=== PATIENT | male | born 1940 | race Caucasian/White ===

== ENCOUNTER 2016-08-05 17:36 | Inpatient (IN) | payer MEDICARE, OTHER ==
[2016-08-05] MEDS ORDERED: ASPIRIN 81 MG CHEW PO STA (18:03)
--- NOTE | 2016-08-05 18:06 | ED ---
General Adult HPI - General Chief complaint: Fall Stated complaint: High Blood Sugar Time Seen by Provider: 08/05/16 17:37 Source: patient, RN notes reviewed Mode of arrival: EMS Limitations: no limitations - History of Present Illness Initial comments: 76-year-old male with history of CHF and CVA presenting after his "legs gave out." Patient states that he was standing in his bathroom sink and he felt weakness in his knees and he sat down on the floor. He denies any significant fall or injury related to this. He states that he was then unable to get up and was stuck on the floor for several hours. He yelled and finally one of his neighbors came and found him and EMS was called. He states that he has been feeling some worsening generalized weakness over the past few days. He denies any chest pain or shortness of breath. He denies any headache or visual changes. He denies any fevers or chills. He does live at home by himself. - Related Data Home Medications Medication Instructions Recorded Confirmed Gabapentin [Neurontin] 400 mg PO DAILY@1200 08/05/16 08/05/16 Gabapentin [Neurontin] 800 mg PO BID 08/05/16 08/05/16 Isosorbide Mononitrate ER [Imdur] 60 mg PO DAILY 08/05/16 08/05/16 Levothyroxine Sodium [Synthroid] 125 mcg PO DAILY 08/05/16 08/05/16 Metoprolol Tartrate [Lopressor] 25 mg PO BID 08/05/16 08/05/16 Terazosin [Hytrin] 4 mg PO HS 08/05/16 08/05/16 Warfarin [Coumadin] 2.5 mg PO MOWEFR 08/05/16 08/05/16 Warfarin [Coumadin] 5 mg PO SUTUTHSA 08/05/16 08/05/16 traZODone HCL 50 mg PO HS 08/05/16 08/05/16 Allergies Allergy/AdvReac Type Severity Reaction Status Date / Time No Known Allergies Allergy Verified 12/11/15 06:31 Review of Systems ROS Statement: Those systems with pertinent positive or pertinent negative responses have been documented in the HPI. Constitutional: No fevers. No chills. No change in appetite. No unexpected weight loss. Eyes: No visual changes. No eye pain. No sensitivity to light. HENT: No sinus pressure. No ear pain. No hearing changes. No epistaxis. No sore throat. Respiratory: No cough. No SOB. No wheezing. Cardiovascular: No chest pain. No palpitations. No lower extremity edema. Abdomen: No abdominal pain. No nausea. No vomiting. No diarrhea. Genitourinary: No dysuria. No hematuria. No difficulty urinating. No flank pain. Musculoskeletal: No injury. No back pain. No myalgias. Skin: No rash. No lesions. No lacerations. Neuro: Positive generalized weakness. No LOC. No seizures. No headache. Psych: No confusion. No memory changes. No anxiety/depression. ROS Other: All systems not noted in ROS Statement are negative. Past Medical History Past Medical History: Heart Failure, CVA/TIA, Diabetes Mellitus, Hearing Disorder / Deafness, Hyperlipidemia, Hypertension, Myocardial Infarction (HI), Pneumonia, Prostate Disorder, Renal Disease, Thyroid Disorder Additional Past Medical History / Comment(s): Pt had recent admission to [facility] with a fall/rhabdomylosis/dehydration and acute on chronic renal insult. 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 Last Myocardial Infarction Date:: 1978 History of Any Multi-Drug Resistant Organisms: None Reported Past Surgical History: Tonsillectomy Additional Past Surgical History / Comment(s): lt great toe amp(gangrene per pt) , noam cataract sx with lenses. 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 currently lives at [facility] assisted living in [place], gets up with a cane. 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 He served in the [employer]. He lives with his niece. He is ambulatory with a seated walker. He has [facility]. A nurse comes twice a week and so does PT. He has not driven in yrs. Smoking Status: Former smoker Past Alcohol Use History: None Reported Additional Past Alcohol Use History / Comment(s): smoked x 30 years quit >30 years ago, in past "2-cases of beer /day quit 24 years ago.denies any drug use. Past Drug Use History: None Reported - Past Family History Father Family Medical History: Cancer, Diabetes Mellitus Additional Family Medical History / Comment(s): bone cancer. in his 60's Mother Family Medical History: Diabetes Mellitus Additional Family Medical History / Comment(s): at age 89 General Exam - General Exam Comments Initial Comments: General: Awake and Alert. No acute distress. Does not appear acutely ill. Obese. Eyes: TRAVIS, EOM intact. No nystagmus. No scleral icterus. HENT: Atraumatic, normocephalic. Mucous membranes moist. Trachea midline. Neck: The neck is supple, there is no tenderness or JVD. Cardiovascular: Regular rate and rhythm. No murmur, rub, or gallop is appreciated. Distal pulses intact, DP 2+ bilateral. Respiratory: Lungs are clear to auscultation bilaterally. No wheezes, rales, rhonchi. No respiratory distress. Gastrointestinal: Soft, Nontender. No rebound or guarding. Non-distended. No masses or organomegaly noted. No CVA tenderness. Musculoskeletal: No tenderness. Normal ROM. No gross deformity. No strength deficits. Bilateral lower extremity edema and 1+ pitting. Neurological: A&Ox3. CN II-XII grossly intact, There are no obvious motor or sensory deficits. Coordination appears grossly intact. Speech is normal. Skin: Skin is warm and dry and no rashes or lesions are noted. Psychiatric: Cooperative, appropriate mood & affect, normal judgment. Limitations: no limitations Course Vital Signs 08/05/16 08/05/16 08/05/16 17:53 19:06 19:29 Temperature 97 F L Pulse Rate 89 90 90 Respiratory 16 16 16 Rate Blood Pressure 99/48 104/55 107/61 O2 Sat by Pulse 92 L 90 L 91 L Oximetry EKG Findings - EKG Comments: EKG Findings:: 18:24. Sinus rhythm with first-degree AV block. Rate 89. CA 256. QRS 96. QT/QTc 408/496. Left axis. LAFB. No STEMI. Abnormal EKG. similar prior EKG 12/11/2015. Medical Decision Making - Medical Decision Making 76-year-old male presenting after he was stuck on the floor at home for many hours today. Also complains of generalized weakness. Lab workup with relatively stable CBC. Serum electrolytes abnormalities are noted including hyperkalemia. He was given a dose of Kayexalate. His initial troponin was elevated. Patient received aspirin in the EC. Patient denies any active chest pain or shortness of breath this time. His BNP is also significantly elevated, history of CHF, given CXR findings of congestive changes there is concern for acute CHF as well. There is concern for muscle breakdown in the setting of his history on the ground today, however judicious fluid management was administered due to his active CHF issues. His also noted to have acute on chronic renal failure. CPK is mildly elevated although it does not appear to be in acute rhabdomyolysis at this time. Patient was reevaluated remained stable without chest pain. Updated on results and plan for admission and he is agreeable to this. I called discussed with Dr. Adam, he is agreeable to admission, discussed his multitude of issues. He requests consultation for nephrology as well after discussion. Discussed no plan for heparin at this time as the patient is therapeutic on warfarin. - Lab Data Result diagrams: 08/05/16 17:51 08/05/16 17:51 Lab Results 08/05/16 08/05/16 08/05/16 Range/Units 17:51 17:51 17:51 WBC 6.7 (3.8-10.6) k/uL RBC 4.03 L (4.30-5.90) m/uL Hgb 12.1 L (13.0-17.5) gm/dL Hct 38.3 L (39.0-53.0) % MCV 95.0 (80.0-100.0) fL MCH 30.1 (25.0-35.0) pg MCHC 31.6 (31.0-37.0) g/dL RDW 14.5 (11.5-15.5) % Plt Count 111 L (150-450) k/uL Neutrophils % 89 % Lymphocytes % 5 % Monocytes % 5 % Eosinophils % 0 % Basophils % 0 % Neutrophils # 6.0 (1.3-7.7) k/uL Lymphocytes # 0.4 L (1.0-4.8) k/uL Monocytes # 0.3 (0-1.0) k/uL Eosinophils # 0.0 (0-0.7) k/uL Basophils # 0.0 (0-0.2) k/uL PT (9.0-12.0) sec INR (<1.1) Sodium 140 (137-145) mmol/L Potassium 5.6 H (3.5-5.1) mmol/L Chloride 108 H (98-107) mmol/L Carbon Dioxide 17 L (22-30) mmol/L Anion Gap 15 mmol/L BUN 37 H (9-20) mg/dL Creatinine 2.70 H (0.66-1.25) mg/dL Est GFR (MDRD) Af Amer 28 (>60 ml/min/1.73 sqM) Est GFR (MDRD) Non-Af 23 (>60 ml/min/1.73 sqM) Glucose 302 H (74-99) mg/dL Calcium 8.2 L (8.4-10.2) mg/dL Creatine Kinase (55-170) U/L Troponin I (0.000-0.034) ng/mL NT-Pro-B Natriuret Pep 23014 pg/mL Urine Color Urine Appearance (Clear) Urine pH (5.0-8.0) Ur Specific Amelia (1.001-1.035) Urine Protein (Negative) Urine Glucose (UA) (Negative) Urine Ketones (Negative) Urine Blood (Negative) Urine Nitrate (Negative) Urine Bilirubin (Negative) Urine Urobilinogen (<2.0) mg/dL Ur Leukocyte Esterase (Negative) Urine RBC (0-5) /hpf Urine Bacteria (None) /hpf Hyaline Casts (0-2) /lpf Granular Casts (0) /lpf Urine Mucus (None) /hpf 08/05/16 08/05/16 08/05/16 Range/Units 17:51 17:51 17:51 WBC (3.8-10.6) k/uL RBC (4.30-5.90) m/uL Hgb (13.0-17.5) gm/dL Hct (39.0-53.0) % MCV (80.0-100.0) fL MCH (25.0-35.0) pg MCHC (31.0-37.0) g/dL RDW (11.5-15.5) % Plt Count (150-450) k/uL Neutrophils % % Lymphocytes % % Monocytes % % Eosinophils % % Basophils % % Neutrophils # (1.3-7.7) k/uL Lymphocytes # (1.0-4.8) k/uL Monocytes # (0-1.0) k/uL Eosinophils # (0-0.7) k/uL Basophils # (0-0.2) k/uL PT 26.8 H (9.0-12.0) sec INR 2.8 (<1.1) Sodium (137-145) mmol/L Potassium (3.5-5.1) mmol/L Chloride (98-107) mmol/L Carbon Dioxide (22-30) mmol/L Anion Gap mmol/L BUN (9-20) mg/dL Creatinine (0.66-1.25) mg/dL Est GFR (MDRD) Af Amer (>60 ml/min/1.73 sqM) Est GFR (MDRD) Non-Af (>60 ml/min/1.73 sqM) Glucose (74-99) mg/dL Calcium (8.4-10.2) mg/dL Creatine Kinase 228 H (55-170) U/L Troponin I 3.810 H* (0.000-0.034) ng/mL NT-Pro-B Natriuret Pep pg/mL Urine Color Urine Appearance (Clear) Urine pH (5.0-8.0) Ur Specific Amelia (1.001-1.035) Urine Protein (Negative) Urine Glucose (UA) (Negative) Urine Ketones (Negative) Urine Blood (Negative) Urine Nitrate (Negative) Urine Bilirubin (Negative) Urine Urobilinogen (<2.0) mg/dL Ur Leukocyte Esterase (Negative) Urine RBC (0-5) /hpf Urine Bacteria (None) /hpf Hyaline Casts (0-2) /lpf Granular Casts (0) /lpf Urine Mucus (None) /hpf 08/05/16 Range/Units 18:50 WBC (3.8-10.6) k/uL RBC (4.30-5.90) m/uL Hgb (13.0-17.5) gm/dL Hct (39.0-53.0) % MCV (80.0-100.0) fL MCH (25.0-35.0) pg MCHC (31.0-37.0) g/dL RDW (11.5-15.5) % Plt Count (150-450) k/uL Neutrophils % % Lymphocytes % % Monocytes % % Eosinophils % % Basophils % % Neutrophils # (1.3-7.7) k/uL Lymphocytes # (1.0-4.8) k/uL Monocytes # (0-1.0) k/uL Eosinophils # (0-0.7) k/uL Basophils # (0-0.2) k/uL PT (9.0-12.0) sec INR (<1.1) Sodium (137-145) mmol/L Potassium (3.5-5.1) mmol/L Chloride (98-107) mmol/L Carbon Dioxide (22-30) mmol/L Anion Gap mmol/L BUN (9-20) mg/dL Creatinine (0.66-1.25) mg/dL Est GFR (MDRD) Af Amer (>60 ml/min/1.73 sqM) Est GFR (MDRD) Non-Af (>60 ml/min/1.73 sqM) Glucose (74-99) mg/dL Calcium (8.4-10.2) mg/dL Creatine Kinase (55-170) U/L Troponin I (0.000-0.034) ng/mL NT-Pro-B Natriuret Pep pg/mL Urine Color Dark Yellow Urine Appearance Cloudy (Clear) Urine pH 5.0 (5.0-8.0) Ur Specific Amelia 1.018 (1.001-1.035) Urine Protein 1+ H (Negative) Urine Glucose (UA) Negative (Negative) Urine Ketones Trace H (Negative) Urine Blood Negative (Negative) Urine Nitrate Negative (Negative) Urine Bilirubin Negative (Negative) Urine Urobilinogen 3.0 (<2.0) mg/dL Ur Leukocyte Esterase Negative (Negative) Urine RBC 2 (0-5) /hpf Urine Bacteria Many H (None) /hpf Hyaline Casts 25 H (0-2) /lpf Granular Casts 1 (0) /lpf Urine Mucus Rare H (None) /hpf - EKG Data -: EKG Interpreted by Me EKG shows normal: sinus rhythm Rate: normal When compared to previous EKG there are: no significant change Interpretation: no acute changes - Radiology Data Radiology results: report reviewed, image reviewed Disposition Clinical Impression: NSTEMI (non-ST elevated myocardial infarction), Hyperkalemia, Acute on chronic renal failure, Fall, CHF (congestive heart failure), Hyperglycemia Disposition: ADMITTED IP TO THIS [facility] Decision to Admit Reason: Admit from EC
[2016-08-05 18:15] LABS: Basophils % (A) 0 %; CH 30.7; CHCM 32.5; Eosinophils % (A) 0 %; HCT 38.3 % (39.0-53.0); HDW 2.81; HGB 12.1 gm/dL (13.0-17.5); Luc # (Auto) 0.04; Luc % (Auto) 1; Lymphocytes # (A) 0.4 k/uL (1.0-4.8); Lymphocytes % (A) 5 %; MCH 30.1 pg (25.0-35.0); MCHC 31.6 g/dL (31.0-37.0); Mean Platelet Volume 9.1; Monocytes # (A) 0.3 k/uL (0-1.0); Monocytes % (A) 5 %; Neutrophils % (A) 89 %; RBC 4.03 m/uL (4.30-5.90); RDW 14.5 % (11.5-15.5); WBC 6.7 k/uL (3.8-10.6)
[2016-08-05 18:24] LABS: Calcium 8.2 mg/dL (8.4-10.2); Potassium 5.6 mmol/L (3.5-5.1)
[2016-08-05 18:27] LABS: INR 2.8 (<1.1); Prothrombin Time 26.8 sec (9.0-12.0)
[2016-08-05] MEDS ORDERED: SODIUM POLYSTYRENE SULFONATE 15 GM/60 ML BOTTLE PO ONE (18:44)
--- NOTE | 2016-08-05 18:54 | XR ---
EXAMINATION TYPE: XR chest 2V DATE OF EXAM: 08/05/2016 6:48 PM COMPARISON: December 13, 2015 HISTORY: Weakness, elevated blood sugar, trauma today TECHNIQUE: Frontal and lateral views of the chest are obtained. FINDINGS: There is a prominent fine interstitial pattern of increased density throughout the lung pa renchyma bilaterally, prominently silhouetting the pulmonary vasculature bilaterally, and with focal consolidation in the right perihilar position. These findings are most compatible with cardiogenic in terstitial phase pulmonary edema with some advanced alveolar phase pulmonary edema. However, this con clusion depends upon clinical exclusion of pneumonia. The cardiac silhouette size is moderately enlarged, similar to the prior study. There is no pleural effusion, or pneumothorax seen. The osseous structures are unremarkable. IMPRESSION: CARDIOGENIC PULMONARY EDEMA RADIOGRAPHIC FINDINGS, DISCUSSED.
--- NOTE | 2016-08-05 19:00 | CT ---
EXAMINATION TYPE: CT brain wo con DATE OF EXAM: 08/05/2016 6:47 PM COMPARISON: November 20, 2015 CT HISTORY: weakness today CT DLP: 1110.2 mGycm Automated exposure control for dose reduction was used. FINDINGS: The previously seen focal geographic encephalomalacia is redemonstrated and unchanged, seen in the right cerebellar hemisphere, the right occipital pole, and high in the right paracentral [place] etal lobe. There is no acute intracranial hemorrhage, mass effect, or midline shift. The ventricles and sulci a re unremarkable. The globes are intact and the visualized sinuses, middle ear cavities, and mastoid sinus air cells are clear. IMPRESSION: NO ACUTE PROCESS, CT HEAD WITHOUT CONTRAST.
[2016-08-05 19:08] LABS: Appearance,Urine Cloudy (Clear); Bacteria,Urine Many /hpf; Bilirubin,Urine Negative (Negative); Glucose,Urine (UA) Negative (Negative); Granular Casts,Urine 1 /lpf (0); Ketones,Urine Trace (Negative); Leukocyte Esterase,Urine Negative (Negative); Mucus,Urine Rare /hpf; Nitrite,Urine Negative (Negative); Particle Count 8049; Protein,Urine 1+ (Negative); RBC,Urine 2 /hpf (0-5); Specific Gravity,Urine 1.018 (1.001-1.035); UA Billing (MACRO vs. MICRO) MICRO
[2016-08-05 20:18] LABS: Glucose,Whole Blood 267 mg/dL (75-99)
[2016-08-05] MEDS: INSULIN DETEMIR 100 UNIT/ML 10 ML VIAL SQ SCH (21:35)
[2016-08-05] MEDS: INSULIN LISPRO (humaLOG) 300 UNIT/3 ML VIAL SQ SCH (21:35)
[2016-08-06 06:11] LABS: Glucose,Whole Blood 156 mg/dL (75-99)
[2016-08-06] MEDS: INSULIN LISPRO (humaLOG) 300 UNIT/3 ML VIAL SQ SCH ×3 (06:28→19:01)
[2016-08-06] MEDS: LEVOTHYROXINE 125 MCG TAB PO SCH (06:28)
[2016-08-06 06:31] LABS: Basophils # (A) 0.1 k/uL (0-0.2); Basophils % (A) 2 %; CH 30.7; CHCM 32.5; Eosinophils % (A) 0 %; HCT 38.6 % (39.0-53.0); HDW 2.76; HGB 12.1 gm/dL (13.0-17.5); Luc # (Auto) 0.07; Luc % (Auto) 1; Lymphocytes # (A) 0.5 k/uL (1.0-4.8); Lymphocytes % (A) 6 %; MCH 29.8 pg (25.0-35.0); MCHC 31.4 g/dL (31.0-37.0); Mean Platelet Volume 8.9; Monocytes # (A) 0.5 k/uL (0-1.0); Monocytes % (A) 6 %; Neutrophils # (A) 6.9 k/uL (1.3-7.7); Neutrophils % (A) 86 %; RBC 4.06 m/uL (4.30-5.90); RDW 14.6 % (11.5-15.5); WBC (Perox) 8.56
[2016-08-06 06:38] LABS: INR 2.7 (<1.1); Prothrombin Time 26.3 sec (9.0-12.0)
[2016-08-06 06:42] LABS: Calcium 8.5 mg/dL (8.4-10.2); Potassium 5.2 mmol/L (3.5-5.1); Total Bilirubin 0.6 mg/dL (0.2-1.3); Total Protein 6.4 g/dL (6.3-8.2)
[2016-08-06 07:25] LABS: Creatine Kinase MB 19.6 ng/mL (0.0-2.4); Troponin I 6.07 ng/mL (0.000-0.034)
[2016-08-06] MEDS ORDERED: FUROSEMIDE 10 MG/ML 10 ML VIAL IV STA (07:56)
[2016-08-06] MEDS ORDERED: FUROSEMIDE 10 MG/ML 4 ML VIAL ONE ×2 (07:58→08:00)
[2016-08-06 08:04] LABS: Glucose,Whole Blood 145 mg/dL (75-99)
--- NOTE | 2016-08-06 08:41 | XR ---
EXAMINATION TYPE: XR chest 1V DATE OF EXAM: 08/06/2016 8:19 AM COMPARISON: 08/05/2016 HISTORY: 76 year-old male respiratory distress, difficulty breathing today TECHNIQUE: Single frontal view of the chest is obtained. FINDINGS: Heart is borderline to mildly enlarged. Diffuse interstitial opacities persist and have worsened with development of more confluent airspace opacities in the lower lungs. Some Basim B lines are seen. IMPRESSION: Worsening diffuse interstitial and now some confluent airspace disease. Correlate for worsening pulmo nary edema. Worsening pneumonia can be excluded on a clinical basis.
[2016-08-06] MEDS ORDERED: IPRATROPIUM-ALBUTEROL 3 ML NEB INHALATION PRN (09:20)
[2016-08-06] MEDS ORDERED: NALOXONE 0.4 MG/ML 1 ML VIAL IV PRN (09:20)
[2016-08-06] MEDS: PANTOPRAZOLE 40 MG/10 ML VIAL IV SCH (10:17)
[2016-08-06] MEDS: SODIUM CHLORIDE 0.9% 1,000 ML IV SCH (10:17)
[2016-08-06] MEDS: HEPARIN SODIUM,PORCINE 5,000 UNIT/ML 1 ML VIAL SQ SCH ×2 (10:17→16:54)
--- NOTE | 2016-08-06 10:35 | P.NPCON ---
History of Present Illness - Reason for Consult Consult date: 08/06/16 acute renal failure - Chief Complaint Acute kidney injury with congestive heart failure - History of Present Illness This is a 76-year-old male admitted with congestive heart failure and acute kidney injury. He was admitted because of sudden loss of muscle strength in his legs and inability to move and he was immobilized for a few hours before he was brought to the emergency room. He denied any syncopal episode. He was able to then get out after a few hours and one of his neighbors found him. Patient aware of chronic kidney disease, past history of rhabdomyolysis, history of fall in the past. She also known with COPD pulmonary hypertension ASHD, diabetes for 25 years. He is also known with peripheral vascular disease with amputation of the left big toe. He denies any nausea vomiting chest pain shortness of breath fever chills cough prior to this acute onset of weakness. No nausea vomiting diarrhea abdominal pain no dysuria frequency. His history is somewhat unreliable as his somewhat weak and tired, and was moved to ICU just now because of somnolence. He is currently on oxygen with a Ventimask and improved mentation Past Medical History Past Medical History: Heart Failure, CVA/TIA, Diabetes Mellitus, Hearing Disorder / Deafness, Hyperlipidemia, Hypertension, Myocardial Infarction (OR), Pneumonia, Prostate Disorder, Renal Disease, Thyroid Disorder Additional Past Medical History / Comment(s): Pt had recent admission to [facility] with a fall/rhabdomylosis/dehydration and acute on chronic renal insult. 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 Last Myocardial Infarction Date:: 1978 History of Any Multi-Drug Resistant Organisms: None Reported Past Surgical History: Tonsillectomy Additional Past Surgical History / Comment(s): lt great toe amp(gangrene per pt) , noam cataract sx with lenses. 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 currently lives at [facility] in [place], gets up with a cane. Past Psychological History: No Psychological Hx Reported Additional Psychological History / Comment(s): Pt is a retired [employer] ( 42yrs). He served in the [employer]. He lives with his niece. He is ambulatory with a seated walker. He has [facility]. A nurse comes twice a week and so does PT. He has not driven in yrs. Smoking Status: Former smoker Past Alcohol Use History: None Reported Additional Past Alcohol Use History / Comment(s): smoked x 30 years quit >30 years ago, in past "2-cases of beer /day quit 24 years ago.denies any drug use. Past Drug Use History: None Reported - Past Family History Father Family Medical History: Cancer, Diabetes Mellitus Additional Family Medical History / Comment(s): bone cancer. in his 60's Mother Family Medical History: Diabetes Mellitus Additional Family Medical History / Comment(s): at age 89 Medications and Allergies Home Medications Medication Instructions Recorded Confirmed Type Ascorbic Acid [Vitamin C] 500 mg PO DAILY 08/05/16 08/05/16 History Captopril [Capoten] 6.25 mg PO TID 08/05/16 08/05/16 History Furosemide [Lasix] 40 mg PO BID 08/05/16 08/05/16 History Gabapentin [Neurontin] 800 mg PO BID 08/05/16 08/05/16 History Hydrophilic Cream [Kerodex 71 1 applic TOPICAL DAILY PRN 08/05/16 08/05/16 History Cream] Isosorbide Mononitrate ER [Imdur] 60 mg PO DAILY 08/05/16 08/05/16 History Levothyroxine Sodium [Synthroid] 125 mcg PO DAILY 08/05/16 08/05/16 History Metoprolol Tartrate [Lopressor] 25 mg PO BID 08/05/16 08/05/16 History Multivitamins, Thera [Multivitamin] 1 tab PO DAILY 08/05/16 08/05/16 History Saxagliptin HCl [Onglyza] 2.5 mg PO DAILY 08/05/16 08/05/16 History Simvastatin [Zocor] 10 mg PO HS 08/05/16 08/05/16 History Terazosin [Hytrin] 4 mg PO HS 08/05/16 08/05/16 History Warfarin [Coumadin] 2.5 mg PO MOWEFR 08/05/16 08/05/16 History Warfarin [Coumadin] 5 mg PO SUTUTHSA 08/05/16 08/05/16 History amLODIPine [Norvasc] 10 mg PO DAILY 08/05/16 08/05/16 History glipiZIDE [Glucotrol] 10 mg PO AC-BID 08/05/16 08/05/16 History hydrALAZINE HCL [Apresoline] 50 mg PO TID 08/05/16 08/05/16 History traZODone HCL 50 mg PO HS 08/05/16 08/05/16 History Allergies Allergy/AdvReac Type Severity Reaction Status Date / Time No Known Allergies Allergy Verified 12/11/15 06:31 Physical Exam Vitals: Vital Signs Temp Pulse Pulse Resp BP BP Pulse Ox 08/06/16 10:10 110 H 15 146/78 97 08/06/16 10:00 106 H 17 146/78 99 08/06/16 09:50 106 H 18 146/78 98 08/06/16 09:40 104 H 16 135/69 99 08/06/16 09:30 104 H 15 135/69 98 08/06/16 09:20 105 H 15 135/69 99 08/06/16 09:10 105 H 16 135/69 98 08/06/16 09:00 110 H 16 135/69 99 08/06/16 08:50 98.0 F 109 H 16 135/69 96 08/06/16 08:45 115 H 08/06/16 04:00 99.3 F 105 H 20 116/68 89 L 08/06/16 00:00 97.4 F L 66 18 95/50 90 L 08/05/16 20:00 97.5 F L 96 19 112/68 90 L 08/05/16 19:29 90 16 107/61 91 L Intake and Output 08/05/16 08/06/16 08/06/16 22:59 06:59 14:59 Intake Total 0 480 Output Total 0 500 400 Balance 0 -20 -400 Intake: Oral 0 480 Output: Urine 0 500 400 Other: Voiding Method Toilet Toilet # Voids 1 Weight 89.5 kg 88.4 kg Examination is awake alert seems to be oriented 3. HEENT exam no JVP neck supple no facial asymmetry. Lungs are significant for bilateral crackles at bases fair air entry no dullness percussion Heart sounds are unremarkable for any murmur rub gallop normal sinus rhythm on the monitor Abdomen is soft nontender no organomegaly ascites masses Extremity examination reveals moderate edema. Absent left big toe from remote amputation. Neurologically sleepy but arousable follows commands and moves all his extremities. Able to do most of his history but unclear as to some details. Results - Lab Results Most recent lab results Calcium 8.5 mg/dL (8.4-10.2) 08/06/16 05:51 08/06/16 05:51 08/06/16 05:51 Assessment and Plan Plan: Impression. 1. Acute kidney injury with creatinine of 2.7. Etiology is acute OR and congestive heart failure. 2. Chronic kidney disease with a creatinine of 1.81 as of 12/13/2015 with trace proteinuria likely nephrosclerosis, with an element of diabetic nephropathy. 3. Thrombocytopenia, platelet count 118,000 previously 140,000 in November 2015. Cause not very clear. 4. Mild hyperkalemia with potassium 5.6 yesterday and 5.2 today with a bicarb of 22. 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 5. Acute OR with troponin up to 3.8 and 6.0. 6. No evidence of rhabdomyolysis total CK is 228 and 267 Recommendation. Agree with aggressive diuresis. I'll start him on 80 mg of Lasix IV every 12. Ensure urine output of about 2-2-1/2 L over the next 24 hours, if necessary adjust the dose of Lasix accordingly. Watch be in creatinine and lites lites urine output blood pressures.
[2016-08-06 10:55] LABS: Hemoglobin A1C 6.2 % (4.2-6.1)
--- NOTE | 2016-08-06 10:56 | P.CNPUL ---
History of Present Illness Consult date: 08/06/16 Reason for consult: dyspnea History of present illness: 76-year-old male patient who was admitted to the hospital because of generalized weakness and the patient felt that his legs essentially gave out. He was standing in his bathroom sink and he felt extremely weak in his legs and he sat down on the floor without sustaining any major injury. He stated that he was feeling very weak and he was unable to get up and he was stuck on the floor for several hours. He ultimately had a neighbor help him out and EMS was called to the scene and the patient got moved to the hospital for further evaluation and treatment. Note that there is no trauma to his head or body. He denied having any chest pain. He was having progressively more shortness of breath. He has had previous history of CVA with some left-sided weakness and he is still INVOLVED the right hemisphere and right occipital lobe. He has history of coronary artery disease, mild congestion heart failure with ejection fraction of 45% and mild aortic stenosis with moderate degree of pulmonary hypertension, chronic atrial fibrillation, diabetes mellitus, hypertension, BPH , and chronic renal failure with a baseline creatinine in the 2.0 range. The patient ruled in for an acute non-ST segment elevation myocardial infarction his troponin peaked at 6. The patient got moved in to the ICU this morning as he went into acute respiratory distress/pulmonary edema. Chest x-ray from admission was compared to the one that was done at the time of his acute shortness of breath and clearly the patient was in acute pulmonary edema. He was given 100 mg IV Lasix and he put out more than 1 L. He was also placed on a BiPAP at a pressure of 10 over 5 cm of water and FiO2 of 100%. His breathing has improved and he is breathing much easier right now although still BiPAP dependent. I was able to wean down his FiO2 down to 50%. He is making adequate urine output at this point. No chest pain. Echo cardiac exam was repeated and apparently there has been some changes compared to the previous echo from 2016. The aortic stenosis was estimated to be severe and the ejection fraction was unofficially reported to be at around 35%. The patient has no cough or sputum production. No change in mental status. Neurologic exam essentially same with some residual weakness in the left which is been a chronic finding any sequelae of a previous CVA. His cardiac rhythm is irregular with sinus and occasional paroxysms of atrial fibrillation. Review of Systems Further review of system was done and the positive findings are almost above the history of present illness Past Medical History Past Medical History: Heart Failure, CVA/TIA, Diabetes Mellitus, Hearing Disorder / Deafness, Hyperlipidemia, Hypertension, Myocardial Infarction ([place]), Pneumonia, Prostate Disorder, Renal Disease, Thyroid Disorder Additional Past Medical History / Comment(s): Pt had recent admission to [facility] with rhabdomylosis/dehydration and acute on chronic renal insult. 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 Benign prostatic hypertrophy, hypothyroidism, diabetes mellitus, mild aortic stenosis and moderate pulmonary hypertension based on a previous echocardiogram with an ejection fraction of 45%, lower extremity wound with infections with stenotrophomonas and Enterococcus faecalis Last Myocardial Infarction Date:: 1978 History of Any Multi-Drug Resistant Organisms: None Reported Past Surgical History: Tonsillectomy Additional Past Surgical History / Comment(s): lt great toe amp(gangrene per pt) , noam cataract sx with lenses. 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 currently lives at [facility] in [place], gets up with a cane. 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 He served in the [employer]. He lives with his niece. He is ambulatory with a seated walker. He has [facility]. A nurse comes twice a week and so does PT. He has not driven in yrs. Smoking Status: Former smoker Past Alcohol Use History: None Reported Additional Past Alcohol Use History / Comment(s): smoked x 30 years quit >30 years ago, in past "2-cases of beer /day quit 24 years ago.denies any drug use. Past Drug Use History: None Reported - Past Family History Father Family Medical History: Cancer, Diabetes Mellitus Additional Family Medical History / Comment(s): bone cancer. in his 60's Mother Family Medical History: Diabetes Mellitus Additional Family Medical History / Comment(s): at age 89 Medications and Allergies Home Medications Medication Instructions Recorded Confirmed Type Ascorbic Acid [Vitamin C] 500 mg PO DAILY 08/05/16 08/05/16 History Captopril [Capoten] 6.25 mg PO TID 08/05/16 08/05/16 History Furosemide [Lasix] 40 mg PO BID 08/05/16 08/05/16 History Gabapentin [Neurontin] 800 mg PO BID 08/05/16 08/05/16 History Hydrophilic Cream [Kerodex 71 1 applic TOPICAL DAILY PRN 08/05/16 08/05/16 History Cream] Isosorbide Mononitrate ER [Imdur] 60 mg PO DAILY 08/05/16 08/05/16 History Levothyroxine Sodium [Synthroid] 125 mcg PO DAILY 08/05/16 08/05/16 History Metoprolol Tartrate [Lopressor] 25 mg PO BID 08/05/16 08/05/16 History Multivitamins, Thera [Multivitamin] 1 tab PO DAILY 08/05/16 08/05/16 History Saxagliptin HCl [Onglyza] 2.5 mg PO DAILY 08/05/16 08/05/16 History Simvastatin [Zocor] 10 mg PO HS 08/05/16 08/05/16 History Terazosin [Hytrin] 4 mg PO HS 08/05/16 08/05/16 History Warfarin [Coumadin] 2.5 mg PO MOWEFR 08/05/16 08/05/16 History Warfarin [Coumadin] 5 mg PO SUTUTHSA 08/05/16 08/05/16 History amLODIPine [Norvasc] 10 mg PO DAILY 08/05/16 08/05/16 History glipiZIDE [Glucotrol] 10 mg PO AC-BID 08/05/16 08/05/16 History hydrALAZINE HCL [Apresoline] 50 mg PO TID 08/05/16 08/05/16 History traZODone HCL 50 mg PO HS 08/05/16 08/05/16 History Allergies Allergy/AdvReac Type Severity Reaction Status Date / Time No Known Allergies Allergy Verified 12/11/15 06:31 Physical Exam Vitals: Vital Signs Temp Pulse Pulse Resp BP BP Pulse Ox 08/06/16 10:10 110 H 15 146/78 97 08/06/16 10:00 106 H 17 146/78 99 08/06/16 09:50 106 H 18 146/78 98 08/06/16 09:40 104 H 16 135/69 99 08/06/16 09:30 104 H 15 135/69 98 08/06/16 09:20 105 H 15 135/69 99 08/06/16 09:10 105 H 16 135/69 98 08/06/16 09:00 110 H 16 135/69 99 08/06/16 08:50 98.0 F 109 H 16 135/69 96 08/06/16 08:45 115 H 08/06/16 04:00 99.3 F 105 H 20 116/68 89 L 08/06/16 00:00 97.4 F L 66 18 95/50 90 L 08/05/16 20:00 97.5 F L 96 19 112/68 90 L 08/05/16 19:29 90 16 107/61 91 L Intake and Output 08/05/16 08/06/16 08/06/16 22:59 06:59 14:59 Intake Total 0 480 Output Total 0 500 400 Balance 0 -20 -400 Intake: Oral 0 480 Output: Urine 0 500 400 Other: Voiding Method Toilet Toilet # Voids 1 Weight 89.5 kg 88.4 kg Head exam was generally normal. There was no scleral icterus or corneal arcus. Mucous membranes were moist. Neck is supple and there is positive JVDs without any goiter or neck masses. Lungs sounds are diminished in lung bases bilaterally along with some bibasilar crackles. Heart sounds are irregular, somewhat tachycardic, systolic ejection murmur grade 2/6 heard throughout the precordium.Abdominal exam revealed normal bowel sounds. The abdomen was soft, non-tender, and without masses, organomegaly, or appreciable enlargement of the abdominal aorta.Examination of the extremities revealed easily palpable radial, femoral and pedal pulses. There was no cyanosis, clubbing or edema. Neurologically the patient has some chronic motor weakness in the left side of the body and the motor power was estimated to be around 4 out of 5. No facial asymmetry. He is awake and alert and following commands and answering questions appropriately. He is tolerating a full face BiPAP mask set a pressure of 10 over 5 cm of water. Results - Laboratory Findings CBC and BMP: 08/06/16 05:51 08/06/16 05:51 PT/INR, D-dimer PT 26.3 sec (9.0-12.0) H 08/06/16 05:51 INR 2.7 (<1.1) 08/06/16 05:51 Abnormal lab findings: Abnormal Labs 08/05/16 08/06/16 08/06/16 20:16 00:04 05:51 RBC Hgb Hct Plt Count Lymphocytes # PT Potassium Chloride BUN Creatinine Glucose POC Glucose (mg/dL) 267 H Total Creatine Kinase 267 H CK-MB (CK-2) 19.6 H* Troponin I 4.910 H* 6.070 H* 08/06/16 08/06/16 08/06/16 05:51 05:51 05:51 RBC 4.06 L Hgb 12.1 L Hct 38.6 L Plt Count 118 L Lymphocytes # 0.5 L PT 26.3 H Potassium 5.2 H Chloride 108 H BUN 40 H Creatinine 2.91 H Glucose 176 H POC Glucose (mg/dL) Total Creatine Kinase CK-MB (CK-2) Troponin I 08/06/16 08/06/16 06:10 07:54 RBC Hgb Hct Plt Count Lymphocytes # PT Potassium Chloride BUN Creatinine Glucose POC Glucose (mg/dL) 156 H 145 H Total Creatine Kinase CK-MB (CK-2) Troponin I - Diagnostic Findings Chest x-ray: image reviewed Assessment and Plan Plan: Assessment 1 acute hypoxic respiratory failure secondary to an acute pulmonary edema. The patient went into acute heart failure with pulmonary edema and he likely has an underlying valvular heart disease/CHF and the congestion heart failure was probably further decompensated by an acute non-ST segment elevation myocardial infarction. Echocardiogram is still pending for now. The patient ruled in positive for acute non-ST segment elevation myocardial infarction. 2 acute non-ST segment myocardial infarction 3 previous history of known coronary artery disease 4 mild aortic stenosis with moderate degree of pulmonary hypertension based on increased echocardiogram with an ejection fraction of 45-50% based on an echo from 2016 5 chronic renal insufficiency, stage III kidney disease at baseline with an acute worsening in her renal function probably rates to cardiorenal factors 6 hypertension 7 hypothyroidism 8 diabetes mellitus 9 diabetic peripheral neuropathy 10 benign prostatic hypertrophy 11 peripheral vascular disease 12 CVA with some left-sided residual weakness, chronic 13 paroxysmal atrial fibrillation 14 history of gangrenous toes that has been resected and the patient has been had previous lower oximetry wound which has been essentially healed and currently there are no open wounds. He has been infected in the past and his wounds with stenotrophomonas and enterococcus. Plan Keep the patient IV Lasix and the patient will be given Lasix 60 mg IV push every 12 hours. Monitor urine output. Keep the patient on BiPAP for now and anticipate further improvement as the patient is being diuresed with IV Lasix. Currently is on a BiPAP at a pressure of 10/5 FiO2 of 50%. Meanwhile, keep the patient on aspirin, monitor the correlation profile knowing that the patient was on warfarin and his INR is at 2.7, restarted patient on beta blockers with metoprolol 25 mg by mouth twice a day. We'll monitor his hemodynamics and blood pressure and consider restarting the Norvasc and hydralazine at a later stage. Cardiology to follow-up on the case. Repeat echocardiogram. Keep the patient in ICU for another 24 hours. Condition is critical at this point.
[2016-08-06] MEDS: IPRATROPIUM-ALBUTEROL 3 ML NEB INHALATION SCH ×4 (11:07→23:28)
[2016-08-06] MEDS: METOPROLOL TARTRATE 25 MG TAB PO SCH (11:20)
[2016-08-06] MEDS: ASPIRIN 325 MG TAB PO SCH (11:20)
[2016-08-06] MEDS: GABAPENTIN 400 MG CAP PO SCH ×2 (11:20→20:16)
[2016-08-06] MEDS: FUROSEMIDE 10 MG/ML 10 ML VIAL IV SCH (11:50)
--- NOTE | 2016-08-06 12:59 | ECHOF ---
Referral Reason:nstemi, elevated troponin MEASUREMENTS -------- HEIGHT: 172.7 cm WEIGHT: 88.0 kg BP: RVIDd: 2.9 cm (< 3.3) IVSd: 1.2 cm (0.6 - 1.1) LVIDd: 5.6 cm (3.9 - 5.3) LVPWd: 1.4 cm (0.6 - 1.1) IVSs: 1.6 cm LVIDs: 4.7 cm LVPWs: 1.3 cm LA Diam: 5.1 cm (2.7 - 3.8) Ao Diam: 4.2 cm (2.0 - 3.7) MV EXCURSION: 17.701 mm (> 18.000) MV EF SLOPE: 84 mm/s (70 - 150) EPSS: 0.8 cm MV E Adal: 0.84 m/s MV DecT: 141 ms MV A Adal: 0.42 m/s MV E/A Ratio: 2.03 AV maxP.39 mmHg AV meanP.76 mmHg RAP: 5.00 mmHg RVSP: 65.14 mmHg FINDINGS -------- Undetermined rhythm. This was a techncally difficult study with suboptimal views, , Definity utilized for enhancement of images. There is mild concentric left ventricular hypertrophy. Overall left ventricular systolic function is moderate-severely impaired with, an EF between 30 - 35 %. Anterseptal Hypokinesis Septal Hypokinesis The right ventricle is normal in size. The left atrial size is normal. The right atrial size is normal. Peak/mean gradient across the Aortic Valve is 25.39mmHg / 14.76mmHg. Aov is Stenotic with decrease opening, Gradient is underestimated. Mild mitral annular calcification present. Mild mitral regurgitation is present. Moderate tricuspid regurgitation present. There is no evidence of pulmonary hypertension. The right ventricular systolic pressure, as measured by Doppler, is 65.14mmHg. The pulmonic valve was not well visualized. There is no pulmonic regurgitation present. The aortic root size is normal. There is no pericardial effusion. CONCLUSIONS -------- 1. This was a techncally difficult study with suboptimal views, , Definity utilized for enhancement of images. 2. The right ventricular systolic pressure, as measured by Doppler, is 65.14mmHg. 3. The aortic root size is normal. 4. There is mild concentric left ventricular hypertrophy. 5. Overall left ventricular systolic function is moderate-severely impaired with, an EF between 30 - 35 %. 6. Anterseptal Hypokinesis 7. Septal Hypokinesis 8. Peak/mean gradient across the Aortic Valve is 25.39mmHg / 14.76mmHg. 9. Aov is Stenotic with decrease opening, Gradient is underestimated. 10. Moderate tricuspid regurgitation present. 11. There is no evidence of pulmonary hypertension. RADIOGRAPHY TECHNICIAN: Sho Mcintyre RDCS
[2016-08-06 13:17] LABS: Glucose,Whole Blood 135 mg/dL (75-99)
[2016-08-06] MEDS: ACETAMINOPHEN TAB 325 MG TAB PO PRN ×2 (15:14→20:07)
[2016-08-06] MEDS ORDERED: AZITHROMYCIN 500 MG in SODIUM CHLORIDE 0.9% 250 ML IVPB SCH (16:00)
--- NOTE | 2016-08-06 17:41 | HP ---
DATE OF ADMISSION: 08/05/2016 The patient is admitted with generalized weakness and felt like his legs gave out, felt extremely weak, sat on the floor without sustaining any major injury and patient was subsequently brought in here and was found to have congestive heart failure, found to have congestive heart failure, found to have non-ST elevation myocardial infarction. The patient denied any chest pain at this point of time. Patient was complaining of generalized weakness, shortness of breath, I am unable to get much of the history from the patient because of the BIPAP and patient apparently has left-sided weakness with right hemispheric stroke and right occipital stroke in the past. Patient's baseline creatinine is around 1.9 and now it has gone up to 2.9 and patient was quite short of breath. I am unable to get much of a history like, orthopnea, PND and the patient chest x-ray showed diffuse infiltrate, consistent with congestive heart failure and pulmonary edema, although there is ( ) I cannot clearly appreciate the right heart border, but I still ( ) but because the patient initially I do not believe patient has pneumonia as patient did not have any fever or leukocytosis, although patient ( ) fever later today because of which I will go ahead and start him on Rocephin and azithromycin although denied any significant cough at this time. Patient may have had pneumonia, which precipitated his congestive heart failure. The patient says he is compliant with his medications recommendations. REVIEW OF SYSTEMS: CONSTITUTIONAL: as described in HPI. HEENT: No recent visual problems or hearing problems. Denied any sore throat. CARDIOVASCULAR: No chest pain, orthopnea, PND, no palpitations, no syncope. PULMONARY: as described in HPI. GASTROINTESTINAL: No diarrhea, no nausea, no vomiting, no abdominal pain. Normoactive bowel sounds. NEUROLOGICAL: as described in HPI. HEMATOLOGICAL: Denies any bleeding or petechiae. GENITOURINARY: Denies any burning micturition, frequency, or urgency. MUSCULOSKELETAL/RHEUMATOLOGICAL: Denies any joint pain, swelling, or any muscle pain. ENDOCRINE: Denies any polyuria or polydipsia. The rest of the 14 point review of systems is negative. PAST MEDICAL HISTORY: Significant for congestive heart failure, previous ejection fraction of 45% presently now 35%, Type 2 diabetes mellitus, hyperlipidemia, hypertension, myocardial infarction in the past, benign prostatic hypertrophy, atrial fibrillation, pneumonia, chronic kidney disease stage III to IV, hypothyroidism and asthma. PAST SURGICAL HISTORY: Tonsillectomy, great toe amputation. Smoked for 30 years; quit over 30 years ago. Denied any alcohol abuse or any drug abuse. FAMILY HISTORY: Father had diabetes mellitus and bone cancer. Mother had diabetes mellitus, at age 89. PHYSICAL EXAMINATION: VITAL SIGNS: Temperature 100.6 presently. It was 99.3, pulse 107, respiratory rate of 20, blood pressure is 106/63, saturating at 94% on BiPAP. Please refer to head worker dictation for further details of vent settings. GENERAL: The patient is alert and oriented x3, not in any acute distress. Well developed, well nourished. HEENT: Pupils are round and equally reacting to light. EOMI. No scleral icterus. No conjunctival pallor. Normocephalic, atraumatic. No pharyngeal erythema. No thyromegaly. CARDIOVASCULAR: S1 and S2 present. Patient does have elevated JVD as well as pedal edema. Patient is on BiPAP. No murmurs, rubs, or gallops. Patient is tachycardic. LUNGS: Diffuse crackles bilaterally and I did not appreciate any clear-cut bronchophony or egophony. o ABDOMEN: Soft, nontender, nondistended, normoactive bowel sounds. No palpable organomegaly. MUSCULOSKELETAL: No joint swelling or deformity. EXTREMITIES: No cyanosis, clubbing, or pedal edema. NEUROLOGICAL: No new focal neurological deficits were appreciated. Did not reveal any focal deficits. SKIN: No rashes. LABORATORY DATA: CBC, CMP are abnormal for elevated potassium of 5.2, chloride of 108 and a BUN of 40, creatinine 2.19, blood glucose improved, ( ) believe patient is on IV insulin at this time. ASSESSMENT AND PLAN: 1. Acute hypoxic respiratory failure from congestive heart failure exacerbation, chronic systolic dysfunction with acute exacerbation along with right middle lobe pneumonia for which I started him on Rocephin and azithromycin. 2. Sepsis secondary to right middle lobe pneumonia. Patient was hospitalized more than 6 months ago. 3. Moderate aortic stenosis. 4. [id number] myocardial infarction. I cannot completely rule out myocardial infarction. Cardiology was counseled and patient is on Coumadin for atrial fibrillation and patient is therapeutic on INR, because of his face is not on heparin. Patient may need and we may need to hold Coumadin and start him on heparin IV. I will leave the decision to cardiology. 5. Chronic kidney disease Stage III with acute renal failure secondary to possible sepsis and intravascular sepsis and congestive heart failure. 6. Prerenal azotemia from congestive heart failure. 7. Hypertension. 8. Hypothyroidism. 9. Type 2 diabetes mellitus. 10. Diabetic peripheral neuropathy. 11. Cerebrovascular accident with residual weakness on the left side. Spent about 50 minutes of critical care time in managing the patient. PLAN: As mentioned above.
--- NOTE | 2016-08-06 18:33 | P.CRDCN ---
History of Present Illness Consult date: 08/06/16 History of present illness: This is a pleasant 76-year-old gentleman with a past medical history significant for cardiomyopathy, diabetes type 2, hypertension, dyslipidemia, and chronic atrial fibrillation, presented to the hospital with extreme weakness and falling at home. The patient fell on the floor without losing his consciousness. He does not recall having any chest pain or chest discomfort but he stated that he has been more short of breath lately. Initially the patient was admitted to the selective unit but he developed an acute respiratory failure and developed acute pulmonary edema. He was transferred to the intensive care unit where he was placed on BiPAP and he was given Lasix IV with improvement in his symptoms. Currently the patient is on BiPAP and he is hemodynamically stable. He was ruled out for acute non-ST elevation myocardial infarction with abnormal troponin. The EKG showed sinus rhythm with bifascicular block. Over the last few hours he has been spiking fever and the pressure starts being marginal. Blood culture was sent. There is no documentation of any history of coronary artery disease or prior coronary artery stenting in the past. He underwent an echocardiogram which showed impaired LV function with an ejection fraction of 35% with evidence of mild aortic stenosis. Past Medical History Past Medical History: Heart Failure, CVA/TIA, Diabetes Mellitus, Hearing Disorder / Deafness, Hyperlipidemia, Hypertension, Myocardial Infarction (NE), Pneumonia, Prostate Disorder, Renal Disease, Thyroid Disorder Additional Past Medical History / Comment(s): Pt had recent admission to [facility] with rhabdomylosis/dehydration and acute on chronic renal insult. 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 Benign prostatic hypertrophy, hypothyroidism, diabetes mellitus, mild aortic stenosis and moderate pulmonary hypertension based on a previous echocardiogram with an ejection fraction of 45%, lower extremity wound with infections with stenotrophomonas and Enterococcus faecalis Last Myocardial Infarction Date:: 1978 History of Any Multi-Drug Resistant Organisms: None Reported Past Surgical History: Tonsillectomy Additional Past Surgical History / Comment(s): lt great toe amp(gangrene per pt) , noam cataract sx with lenses. 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 currently lives at [facility] in [place], gets up with a cane. 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 He served in the [employer]. He lives with his niece. He is ambulatory with a seated walker. He has [facility]. A nurse comes twice a week and so does PT. He has not driven in yrs. Smoking Status: Former smoker Past Alcohol Use History: None Reported Additional Past Alcohol Use History / Comment(s): smoked x 30 years quit >30 years ago, in past "2-cases of beer /day quit 24 years ago.denies any drug use. Past Drug Use History: None Reported - Past Family History Father Family Medical History: Cancer, Diabetes Mellitus Additional Family Medical History / Comment(s): bone cancer. in his 60's Mother Family Medical History: Diabetes Mellitus Additional Family Medical History / Comment(s): at age 89 Medications and Allergies Home Medications Medication Instructions Recorded Confirmed Type Ascorbic Acid [Vitamin C] 500 mg PO DAILY 08/05/16 08/05/16 History Captopril [Capoten] 6.25 mg PO TID 08/05/16 08/05/16 History Furosemide [Lasix] 40 mg PO BID 08/05/16 08/05/16 History Gabapentin [Neurontin] 800 mg PO BID 08/05/16 08/05/16 History Hydrophilic Cream [Kerodex 71 1 applic TOPICAL DAILY PRN 08/05/16 08/05/16 History Cream] Isosorbide Mononitrate ER [Imdur] 60 mg PO DAILY 08/05/16 08/05/16 History Levothyroxine Sodium [Synthroid] 125 mcg PO DAILY 08/05/16 08/05/16 History Metoprolol Tartrate [Lopressor] 25 mg PO BID 08/05/16 08/05/16 History Multivitamins, Thera [Multivitamin] 1 tab PO DAILY 08/05/16 08/05/16 History Saxagliptin HCl [Onglyza] 2.5 mg PO DAILY 08/05/16 08/05/16 History Simvastatin [Zocor] 10 mg PO HS 08/05/16 08/05/16 History Terazosin [Hytrin] 4 mg PO HS 08/05/16 08/05/16 History Warfarin [Coumadin] 2.5 mg PO MOWEFR 08/05/16 08/05/16 History Warfarin [Coumadin] 5 mg PO SUTUTHSA 08/05/16 08/05/16 History amLODIPine [Norvasc] 10 mg PO DAILY 08/05/16 08/05/16 History glipiZIDE [Glucotrol] 10 mg PO AC-BID 08/05/16 08/05/16 History hydrALAZINE HCL [Apresoline] 50 mg PO TID 08/05/16 08/05/16 History traZODone HCL 50 mg PO HS 08/05/16 08/05/16 History Allergies Allergy/AdvReac Type Severity Reaction Status Date / Time No Known Allergies Allergy Verified 12/11/15 06:31 Physical Exam Vitals: Vital Signs Temp Pulse Pulse Resp BP BP Pulse Ox 08/06/16 18:00 100 17 84/58 98 08/06/16 17:30 101 H 19 98/66 99 08/06/16 17:00 104 H 17 98/66 97 08/06/16 16:55 99.4 F 08/06/16 16:30 102 H 19 114/68 95 08/06/16 16:28 102 H 08/06/16 16:19 101 H 08/06/16 16:00 102 H 105 H 19 114/68 96 08/06/16 15:30 102 H 19 106/66 94 L 08/06/16 15:15 100.6 F H 08/06/16 15:00 107 H 20 106/66 94 L 08/06/16 14:30 102 H 18 114/69 95 08/06/16 14:00 106 H 17 114/69 97 08/06/16 13:30 120 H 18 110/61 96 08/06/16 13:17 100.5 F H 08/06/16 13:00 126 H 27 H 110/61 96 08/06/16 12:30 127 H 22 145/75 08/06/16 12:00 115 H 105 H 19 145/75 97 08/06/16 11:50 117 H 18 145/75 96 08/06/16 11:40 118 H 18 156/85 84 L 08/06/16 11:30 99.5 F 122 H 19 156/85 84 L 08/06/16 11:20 115 H 17 156/85 88 L 08/06/16 11:10 116 H 20 156/85 92 L 08/06/16 11:05 118 H 08/06/16 11:00 105 H 21 156/85 84 L 08/06/16 10:50 114 H 18 156/85 91 L 08/06/16 10:40 111 H 16 146/78 97 08/06/16 10:30 110 H 18 146/78 97 08/06/16 10:20 109 H 21 146/78 98 08/06/16 10:10 110 H 15 146/78 97 08/06/16 10:00 106 H 17 146/78 99 08/06/16 09:50 106 H 18 146/78 98 08/06/16 09:40 104 H 16 135/69 99 08/06/16 09:30 104 H 15 135/69 98 08/06/16 09:20 105 H 15 135/69 99 08/06/16 09:10 105 H 16 135/69 98 08/06/16 09:00 110 H 16 135/69 99 08/06/16 08:50 98.0 F 109 H 16 135/69 96 08/06/16 08:45 115 H 08/06/16 08:00 105 H 15 08/06/16 04:00 99.3 F 105 H 20 116/68 89 L 08/06/16 00:00 97.4 F L 66 18 95/50 90 L 08/05/16 20:00 97.5 F L 96 19 112/68 90 L 08/05/16 19:29 90 16 107/61 91 L Intake and Output 08/06/16 08/06/16 08/06/16 06:59 14:59 22:59 Intake Total 480 Output Total 500 1275 230 Balance -20 -1314 -230 Intake: Oral 480 Output: Urine 500 1275 230 Other: Voiding Method Toilet Indwelling Catheter Indwelling Catheter # Voids 1 1 Weight 88.4 kg 88.4 kg Patient Weight 08/07/16 06:59 Weight 88.4 kg - Constitutional General appearance: mild distress, no acute distress - Respiratory Respiratory: bilateral: diminished - Cardiovascular Rhythm: irregularly irregular Heart sounds: normal: S1, S2 Abnormal Heart Sounds: systolic murmur Results 08/06/16 05:51 08/06/16 05:51 Cardiac Enzymes 08/06/16 08/06/16 08/06/16 Range/Units 00:04 05:51 05:51 AST 40 (17-59) U/L CK-MB (CK-2) 19.6 H* (0.0-2.4) ng/mL Troponin I 4.910 H* 6.070 H* (0.000-0.034) ng/mL Coagulation 08/06/16 Range/Units 05:51 PT 26.3 H (9.0-12.0) sec CBC 08/06/16 Range/Units 05:51 WBC 8.0 (3.8-10.6) k/uL RBC 4.06 L (4.30-5.90) m/uL Hgb 12.1 L (13.0-17.5) gm/dL Hct 38.6 L (39.0-53.0) % Plt Count 118 L (150-450) k/uL Comprehensive Metabolic Panel 08/06/16 Range/Units 05:51 Sodium 142 (137-145) mmol/L Potassium 5.2 H (3.5-5.1) mmol/L Chloride 108 H (98-107) mmol/L Carbon Dioxide 22 (22-30) mmol/L BUN 40 H (9-20) mg/dL Creatinine 2.91 H (0.66-1.25) mg/dL Glucose 176 H (74-99) mg/dL Calcium 8.5 (8.4-10.2) mg/dL AST 40 (17-59) U/L ALT 34 (21-72) U/L Alkaline Phosphatase 47 (38-126) U/L Total Protein 6.4 (6.3-8.2) g/dL Albumin 3.5 (3.5-5.0) g/dL Current Medications Generic Name Dose Route Start Last Admin Trade Name Freq PRN Reason Stop Dose Admin Acetaminophen 650 mg 08/06/16 09:20 08/06/16 15:14 Tylenol Tab PO 650 mg Q4HR PRN Administration Fever and/or Mild Pain Albuterol/Ipratropium 3 ml 08/06/16 09:20 Duoneb 0.5 Mg-3 Mg/3 Ml Soln INHALATION RT-Q2H PRN Shortness Of Breath Or Wheezing Albuterol/Ipratropium 3 ml 08/06/16 12:00 08/06/16 16:15 Duoneb 0.5 Mg-3 Mg/3 Ml Soln INHALATION 3 ml RT-Q4H OLIVIA Administration Aspirin 325 mg 08/06/16 09:00 08/06/16 11:20 Aspirin PO 325 mg DAILY OLIVIA Administration Furosemide 60 mg 08/06/16 11:00 08/06/16 11:50 Lasix IV 60 mg Q12HR OLIVIA Administration Gabapentin 800 mg 08/06/16 11:00 08/06/16 11:20 Neurontin PO 800 mg BID OLIVIA Administration Heparin Sodium (Porcine) 5,000 unit 08/06/16 09:30 08/06/16 16:54 Heparin SQ 5,000 unit Q8HR OLIVIA Administration Sodium Chloride 1,000 mls @ 20 mls/hr 08/06/16 09:30 08/06/16 10:17 Saline 0.9% IV 20 mls/hr .Q24H OLIVIA Administration Azithromycin 500 mg/ Sodium 250 mls @ 125 mls/hr 08/06/16 16:00 08/06/16 16: 54 Chloride IVPB 125 mls/hr DAILY@1600 OLIVIA Administration Ceftriaxone Sodium 1,000 mg/ 50 mls @ 100 mls/hr 08/06/16 16:00 08/06/16 16: 54 Sodium Chloride IVPB 100 mls/hr DAILY@1600 OLIVIA Administration Insulin Detemir 15 unit 08/05/16 21:00 08/05/16 21:35 Levemir SQ 15 unit HS OLIVIA Administration Insulin Human Lispro 0 unit 08/05/16 21:00 08/06/16 13:54 Humalog SQ 1 unit ACHS OLIVIA Administration Protocol Levothyroxine Sodium 125 mcg 08/06/16 06:30 08/06/16 06:28 Synthroid PO 125 mcg 0630 OLIVIA Administration Metoprolol Tartrate 25 mg 08/06/16 11:00 08/06/16 11:20 Lopressor PO 25 mg BID OLIVIA Administration Naloxone HCl 0.2 mg 08/06/16 09:20 Narcan IV Q2M PRN Opioid Reversal Pantoprazole Sodium 40 mg 08/06/16 09:30 08/06/16 10:17 Protonix IV 40 mg DAILY OLIVIA Administration Terazosin HCl 4 mg 08/06/16 21:00 Hytrin PO HS OLIVIA Trazodone HCl 50 mg 08/06/16 21:00 Desyrel PO HS OLIVIA Intake and Output 08/06/16 08/06/16 08/06/16 06:59 14:59 22:59 Intake Total 480 Output Total 500 1275 230 Balance -20 -1275 -230 Intake: Oral 480 Output: Urine 500 1275 230 Other: Voiding Method Toilet Indwelling Catheter Indwelling Catheter # Voids 1 1 Weight 88.4 kg 88.4 kg Patient Weight 08/07/16 06:59 Weight 88.4 kg 08/06/16 05:51 08/06/16 05:51 Assessment and Plan Plan: Assessment #1 acute respiratory failure secondary to congestive heart failure exacerbation secondary to systolic dysfunction #2 acute non-ST elevation myocardial infarction with abnormal troponin. #3 fever with possible sepsis #4 atrial fibrillation with controlled heart rate #5 severe cardiomyopathy and known if is ischemic or nonischemic #6 valvular heart disease with evidence of aortic stenosis by echocardiogram #7 multiple comorbid conditions Plan #1 the patient currently is on Lasix IV which we will continue. We will watch the blood pressure and stop the Lasix if the pressure dropped. #2 continue monitor the kidney function and electrolytes as well #3 continue the aspirin and continue metoprolol and DC the metoprolol if the pressure drop. #4 currently he is on anticoagulation with heparin. #5 I would add statin to the current medical treatment in view of the non-STEMI #6 continue following up with him
[2016-08-06 19:01] LABS: Glucose,Whole Blood 132 mg/dL (75-99)
[2016-08-06 20:15] LABS: Glucose,Whole Blood 119 mg/dL (75-99)
[2016-08-06] MEDS ORDERED: NOREPINEPHRINE 4 MG in SODIUM CHLORIDE 0.9% 250 ML IV SCH (20:15)
[2016-08-06] MEDS: traZODone HCL 50 MG TAB PO SCH (20:16)
[2016-08-06 23:45] LABS: Magnesium 2.1 mg/dL (1.6-2.3); Phosphorous 4.6 mg/dL (2.5-4.5)
[2016-08-07] MEDS: HEPARIN SODIUM,PORCINE 5,000 UNIT/ML 1 ML VIAL SQ SCH ×4 (00:24→23:04)
[2016-08-07] MEDS: ATORVASTATIN 40 MG TAB PO SCH ×2 (00:24→22:00)
[2016-08-07] MEDS: PIPERACILLIN-TAZOBACTAM 3.375 GM in DEXTROSE/WATER 1 50ML.BAG IVPB SCH ×3 (00:24→22:01)
[2016-08-07] MEDS: INSULIN DETEMIR 100 UNIT/ML 10 ML VIAL SQ SCH ×2 (00:24→22:09)
[2016-08-07] MEDS: INSULIN LISPRO (humaLOG) 300 UNIT/3 ML VIAL SQ SCH ×5 (00:25→22:01)
[2016-08-07] MEDS: LEVOFLOXACIN 500 MG TAB PO SCH ×2 (00:25→22:02)
[2016-08-07] MEDS: IPRATROPIUM-ALBUTEROL 3 ML NEB INHALATION SCH ×6 (03:25→23:46)
[2016-08-07 03:26] LABS: Basophils # (A) 0.1 k/uL (0-0.2); Basophils % (A) 1 %; CH 30.4; CHCM 32.8; Eosinophils % (A) 0 %; HCT 36.4 % (39.0-53.0); HDW 2.77; HGB 11.7 gm/dL (13.0-17.5); Luc # (Auto) 0.06; Luc % (Auto) 1; Lymphocytes # (A) 0.7 k/uL (1.0-4.8); Lymphocytes % (A) 8 %; MCH 29.9 pg (25.0-35.0); MCV 93.5 fL (80.0-100.0); Mean Platelet Volume 8.6; Monocytes # (A) 0.4 k/uL (0-1.0); Monocytes % (A) 5 %; Neutrophils # (A) 7.7 k/uL (1.3-7.7); Neutrophils % (A) 85 %; RDW 14.6 % (11.5-15.5); WBC (Perox) 9.46
[2016-08-07 03:35] LABS: INR 4.3 (<1.1); Prothrombin Time 42.1 sec (9.0-12.0)
[2016-08-07 04:05] LABS: Calcium 8.2 mg/dL (8.4-10.2); Magnesium 2.1 mg/dL (1.6-2.3); Phosphorous 4.5 mg/dL (2.5-4.5); Potassium 4.6 mmol/L (3.5-5.1)
[2016-08-07 05:01] LABS: Creatine Kinase MB 5.3 ng/mL (0.0-2.4); Troponin I 4.67 ng/mL (0.000-0.034)
[2016-08-07] MEDS: LEVOTHYROXINE 125 MCG TAB PO SCH (06:57)
[2016-08-07] MEDS: FUROSEMIDE 10 MG/ML 10 ML VIAL IV SCH ×4 (07:10→23:05)
[2016-08-07] MEDS: TERAZOSIN 2 MG CAP PO SCH ×2 (07:10→22:01)
[2016-08-07] MEDS: METOPROLOL TARTRATE 25 MG TAB PO SCH ×4 (07:10→22:01)
--- NOTE | 2016-08-07 07:24 | XR ---
EXAMINATION TYPE: XR chest 1V DATE OF EXAM: 08/07/2016 6:33 AM COMPARISON: 08/06/2016 HISTORY: 76 year-old male shortness of breath TECHNIQUE: Single frontal view of the chest is obtained. FINDINGS: Heart remains borderline enlarged. Diffuse interstitial and patchy and confluent airspace opacities p articularly in the left greater than right lower lungs. Aeration has improved within the right upper to midlung. Opacity at the left base has slightly increased and could represent slight enlarging pleu ral effusion. Old healed right sided rib fracture deformity. IMPRESSION: 1. Continued interstitial and airspace disease, suspect pulmonary edema. There has been some improvem ent in aeration in the right upper lobe. 2. Increasing opacity at the left base could represent increasing small pleural effusion with adjacen t atelectasis and/or consolidation.
[2016-08-07 08:00] LABS: Glucose,Whole Blood 154 mg/dL (75-99)
[2016-08-07] MEDS: PANTOPRAZOLE 40 MG/10 ML VIAL IV SCH (08:07)
[2016-08-07] MEDS: GABAPENTIN 400 MG CAP PO SCH ×2 (08:07→22:00)
[2016-08-07] MEDS: ASPIRIN 325 MG TAB PO SCH (08:07)
[2016-08-07] MEDS: SODIUM CHLORIDE 0.9% 1,000 ML IV SCH (10:03)
--- NOTE | 2016-08-07 10:53 | P.PN ---
Subjective Principal diagnosis: This is 76-year-old male seen in consultation because of acute kidney injury secondary to acute IL and congestive heart failure. This morning he remains weak tired. He is on oxygen via a nonrebreather mask. He is denying any chest pain. He was treated with IV Lasix 60 every 12 and urine output is 2105 for the last 24 hours. Other than this he denies any complaints but is very sleepy opens eyes makes eye contact mumbles and goes back to sleep. He was admitted because of sudden loss of muscle strength in his legs and inability to move and he was immobilized for a few hours before he was brought to the emergency room. He denied any syncopal episode. He was able to then get out after a few hours and one of his neighbors found him. Patient aware of chronic kidney disease, past history of rhabdomyolysis, history of fall in the past. She also known with COPD pulmonary hypertension ASHD, diabetes for 25 years. He is also known with peripheral vascular disease with amputation of the left big toe. He denies any nausea vomiting chest pain shortness of breath fever chills cough prior to this acute onset of weakness. No nausea vomiting diarrhea abdominal pain no dysuria frequency. His history is somewhat unreliable as his somewhat weak and tired, and was moved to ICU just now because of somnolence. He is currently on oxygen with a Ventimask and improved mentatio Objective - Vital Signs Vital signs: Vital Signs Temp 100.1 F H 08/07/16 08:00 Pulse 104 H 08/07/16 10:00 Resp 18 08/07/16 10:00 BP 110/62 08/07/16 10:00 Pulse Ox 98 08/07/16 10:00 Intake & Output 08/06/16 08/07/16 08/07/16 18:59 06:59 18:59 Intake Total 467.421 40.0 Output Total 1505 600 465 Balance -1505 -132.579 -425.0 Weight 88.4 kg 92.8 kg Intake: IV 55 15 0.9 55 15 Intake, IV Titration 412.421 25.0 Amount Azithromycin 500 mg In 250 Sodium Chloride 0.9% 250 ml @ 125 mls/hr IVPB DAILY@1600 OLIVIA Rx#: [id number] Norepinephrine 4 mg In 62.421 Sodium Chloride 0.9% 250 ml @ Titrate IV .Q0M OLIVIA Rx#:[id number] Piperacillin-Tazobactam 3 50.0 25.0 .375 gm In Dextrose/Water 1 50ml.bag @ 12.5 mls/hr IVPB Q12HR [facility] Rx#: [id number] cefTRIAXone 1,000 mg In 50 Sodium Chloride 0.9% 50 ml @ 100 mls/hr IVPB DAILY@1600 OLIVIA Rx#: [id number] Output: Urine 1505 600 465 Other: Voiding Method Indwelling Catheter Indwelling Catheter Indwelling Catheter # Voids 1 On examination he is sleepy but arousable and follows commands and tries to answer questions. HEENT exam no JVP neck is supple no facial asymmetry pupils are equal. Lungs are significant for bilateral fine crackles fair air entry no dullness percussion Heart sounds are unremarkable is in normal sinus rhythm. Abdomen soft nontender no organomegaly status masses noted Extremity examination was trace edema Warm to touch. Neurologically arousable sleepy but otherwise unremarkable. Prior - Labs CBC & Chem 7: 08/07/16 03:11 08/07/16 03:11 Labs: Abnormal Lab Results - Last 24 Hours (Table) 08/06/16 08/06/16 08/06/16 Range/Units 05:51 13:15 18:59 RBC (4.30-5.90) m/uL Hgb (13.0-17.5) gm/dL Hct (39.0-53.0) % Plt Count (150-450) k/uL Lymphocytes # (1.0-4.8) k/uL PT (9.0-12.0) sec Chloride (98-107) mmol/L BUN (9-20) mg/dL Creatinine (0.66-1.25) mg/dL Glucose (74-99) mg/dL POC Glucose (mg/dL) 135 H 132 H (75-99) mg/dL Hemoglobin A1c 6.2 H (4.2-6.1) % Plasma Lactic Acid Blake (0.7-2.0) mmol/L Calcium (8.4-10.2) mg/dL Phosphorus (2.5-4.5) mg/dL CK-MB (CK-2) (0.0-2.4) ng/mL Troponin I (0.000-0.034) ng/mL 08/06/16 08/06/1617 Range/Units 20:14 21:45 23:15 RBC (4.30-5.90) m/uL Hgb (13.0-17.5) gm/dL Hct (39.0-53.0) % Plt Count (150-450) k/uL Lymphocytes # (1.0-4.8) k/uL PT (9.0-12.0) sec Chloride (98-107) mmol/L BUN (9-20) mg/dL Creatinine (0.66-1.25) mg/dL Glucose (74-99) mg/dL POC Glucose (mg/dL) 119 H (75-99) mg/dL Hemoglobin A1c (4.2-6.1) % Plasma Lactic Acid Blake 2.4 H* (0.7-2.0) mmol/L Calcium (8.4-10.2) mg/dL Phosphorus 4.6 H (2.5-4.5) mg/dL CK-MB (CK-2) (0.0-2.4) ng/mL Troponin I (0.000-0.034) ng/mL 08/07/16 08/07/16 08/07/16 Range/Units 03:11 03:11 03:11 RBC 3.90 L (4.30-5.90) m/uL Hgb 11.7 L (13.0-17.5) gm/dL Hct 36.4 L (39.0-53.0) % Plt Count 114 L (150-450) k/uL Lymphocytes # 0.7 L (1.0-4.8) k/uL PT 42.1 H (9.0-12.0) sec Chloride 109 H (98-107) mmol/L BUN 49 H (9-20) mg/dL Creatinine 2.79 H (0.66-1.25) mg/dL Glucose 171 H (74-99) mg/dL POC Glucose (mg/dL) (75-99) mg/dL Hemoglobin A1c (4.2-6.1) % Plasma Lactic Acid Blake (0.7-2.0) mmol/L Calcium 8.2 L (8.4-10.2) mg/dL Phosphorus (2.5-4.5) mg/dL CK-MB (CK-2) (0.0-2.4) ng/mL Troponin I (0.000-0.034) ng/mL 08/07/16 08/07/16 08/07/16 Range/Units 03:11 03:11 07:58 RBC (4.30-5.90) m/uL Hgb (13.0-17.5) gm/dL Hct (39.0-53.0) % Plt Count (150-450) k/uL Lymphocytes # (1.0-4.8) k/uL PT (9.0-12.0) sec Chloride (98-107) mmol/L BUN (9-20) mg/dL Creatinine (0.66-1.25) mg/dL Glucose (74-99) mg/dL POC Glucose (mg/dL) 154 H (75-99) mg/dL Hemoglobin A1c (4.2-6.1) % Plasma Lactic Acid Blake 2.3 H* (0.7-2.0) mmol/L Calcium (8.4-10.2) mg/dL Phosphorus (2.5-4.5) mg/dL CK-MB (CK-2) 5.3 H* (0.0-2.4) ng/mL Troponin I 4.670 H* (0.000-0.034) ng/mL Microbiology - Last 24 Hours (Table) 08/06/16 09:43 Urine Culture - Preliminary Urine,Catheterized Assessment and Plan Plan: Impression. 1. Acute kidney injury with creatinine of 2.7. Etiology is acute IL and congestive heart failure. Creatinine this morning is 2.79 unchanged. Urine output is adequate at 2 L but patient remains in congestive heart failure 2. Chronic kidney disease with a creatinine of 1.81 as of 12/13/2015 with trace proteinuria likely nephrosclerosis, with an element of diabetic nephropathy. 3. Thrombocytopenia, platelet count 118,000 previously 140,000 in November 2015. Cause not very clear. 4. Mild hyperkalemia with potassium 5.6 yesterday and 5.2 today with a bicarb of 22. 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 5. Acute IL with troponin up to 3.8 and 6.0. 6. No evidence of rhabdomyolysis total CK is 228 and 267 Recommendation. Increase the Lasix from 60 every 12-82 8 because of the persistence of congestive heart failure. Watch potassium currently is 4.6 stable.
[2016-08-07 12:03] LABS: Glucose,Whole Blood 106 mg/dL (75-99)
--- NOTE | 2016-08-07 12:31 | P.PN ---
Subjective Principal diagnosis: Acute non-ST elevation AL This is a pleasant 76-year-old gentleman with a past medical history significant for cardiomyopathy, diabetes type 2, hypertension, dyslipidemia, and chronic atrial fibrillation, presented to the hospital with extreme weakness and falling at home. The patient fell on the floor without losing his consciousness. He does not recall having any chest pain or chest discomfort but he stated that he has been more short of breath lately. Initially the patient was admitted to the selective unit but he developed an acute respiratory failure and developed acute pulmonary edema. He was transferred to the intensive care unit where he was placed on BiPAP and he was given Lasix IV with improvement in his symptoms. Currently the patient is on BiPAP and he is hemodynamically stable. He was ruled out for acute non-ST elevation myocardial infarction with abnormal troponin. The EKG showed sinus rhythm with bifascicular block. Over the last few hours he has been spiking fever and the pressure starts being marginal. Blood culture was sent. There is no documentation of any history of coronary artery disease or prior coronary artery stenting in the past. He underwent an echocardiogram which showed impaired LV function with an ejection fraction of 35% with evidence of mild aortic stenosis. On follow-up with the patient today, he seems to be less short of breath. He still have bilateral crackles. The dose of Lasix has increased already. Hemodynamically he continues to be stable and continues to be in a sinus rhythm. The dose of metoprolol was held because of marginally low blood pressure. I recommend giving the metoprolol if the systolic blood pressure above 90 mmHg. Objective - Vital Signs Vital signs: Vital Signs Temp 99.5 F 08/07/16 12:00 Pulse 93 08/07/16 12:00 Resp 12 08/07/16 12:00 BP 107/64 08/07/16 12:00 Pulse Ox 99 08/07/16 12:00 Intake & Output 08/06/16 08/07/16 08/07/16 18:59 06:59 18:59 Intake Total 467.421 65.0 Output Total 1505 600 715 Balance -1505 -132.579 -650.0 Weight 88.4 kg 92.8 kg Intake: IV 55 15 0.9 55 15 Intake, IV Titration 412.421 50.0 Amount Azithromycin 500 mg In 250 Sodium Chloride 0.9% 250 ml @ 125 mls/hr IVPB DAILY@1600 [facility] Rx#: [id number] Norepinephrine 4 mg In 62.421 Sodium Chloride 0.9% 250 ml @ Titrate IV .Q0M [facility] Rx#:[id number] Piperacillin-Tazobactam 3 50.0 50.0 .375 gm In Dextrose/Water 1 50ml.bag @ 12.5 mls/hr IVPB Q12HR [facility] Rx#: [id number] cefTRIAXone 1,000 mg In 50 Sodium Chloride 0.9% 50 ml @ 100 mls/hr IVPB DAILY@1600 [facility] Rx#: [id number] Output: Urine 1505 600 715 Other: Voiding Method Indwelling Catheter Indwelling Catheter Indwelling Catheter # Voids 1 - Constitutional General appearance: Present: mild distress, no acute distress - Respiratory Respiratory: bilateral: rales - Cardiovascular Rhythm: regular Heart sounds: normal: S1, S2 - Labs CBC & Chem 7: 08/07/16 03:11 08/07/16 03:11 Labs: Abnormal Lab Results - Last 24 Hours (Table) 08/06/16 08/06/16 08/06/16 Range/Units 13:15 18:59 20:14 RBC (4.30-5.90) m/uL Hgb (13.0-17.5) gm/dL Hct (39.0-53.0) % Plt Count (150-450) k/uL Lymphocytes # (1.0-4.8) k/uL PT (9.0-12.0) sec Chloride (98-107) mmol/L BUN (9-20) mg/dL Creatinine (0.66-1.25) mg/dL Glucose (74-99) mg/dL POC Glucose (mg/dL) 135 H 132 H 119 H (75-99) mg/dL Plasma Lactic Acid Blake (0.7-2.0) mmol/L Calcium (8.4-10.2) mg/dL Phosphorus (2.5-4.5) mg/dL CK-MB (CK-2) (0.0-2.4) ng/mL Troponin I (0.000-0.034) ng/mL 08/06/16 08/06/16 08/07/16 Range/Units 21:45 23:15 03:11 RBC (4.30-5.90) m/uL Hgb (13.0-17.5) gm/dL Hct (39.0-53.0) % Plt Count (150-450) k/uL Lymphocytes # (1.0-4.8) k/uL PT 42.1 H (9.0-12.0) sec Chloride (98-107) mmol/L BUN (9-20) mg/dL Creatinine (0.66-1.25) mg/dL Glucose (74-99) mg/dL POC Glucose (mg/dL) (75-99) mg/dL Plasma Lactic Acid Blake 2.4 H* (0.7-2.0) mmol/L Calcium (8.4-10.2) mg/dL Phosphorus 4.6 H (2.5-4.5) mg/dL CK-MB (CK-2) (0.0-2.4) ng/mL Troponin I (0.000-0.034) ng/mL 08/07/16 08/07/16 08/07/16 Range/Units 03:11 03:11 03:11 RBC 3.90 L (4.30-5.90) m/uL Hgb 11.7 L (13.0-17.5) gm/dL Hct 36.4 L (39.0-53.0) % Plt Count 114 L (150-450) k/uL Lymphocytes # 0.7 L (1.0-4.8) k/uL PT (9.0-12.0) sec Chloride 109 H (98-107) mmol/L BUN 49 H (9-20) mg/dL Creatinine 2.79 H (0.66-1.25) mg/dL Glucose 171 H (74-99) mg/dL POC Glucose (mg/dL) (75-99) mg/dL Plasma Lactic Acid Blake 2.3 H* (0.7-2.0) mmol/L Calcium 8.2 L (8.4-10.2) mg/dL Phosphorus (2.5-4.5) mg/dL CK-MB (CK-2) (0.0-2.4) ng/mL Troponin I (0.000-0.034) ng/mL 08/07/16 08/07/16 08/07/16 Range/Units 03:11 07:58 12:02 RBC (4.30-5.90) m/uL Hgb (13.0-17.5) gm/dL Hct (39.0-53.0) % Plt Count (150-450) k/uL Lymphocytes # (1.0-4.8) k/uL PT (9.0-12.0) sec Chloride (98-107) mmol/L BUN (9-20) mg/dL Creatinine (0.66-1.25) mg/dL Glucose (74-99) mg/dL POC Glucose (mg/dL) 154 H 106 H (75-99) mg/dL Plasma Lactic Acid Blake (0.7-2.0) mmol/L Calcium (8.4-10.2) mg/dL Phosphorus (2.5-4.5) mg/dL CK-MB (CK-2) 5.3 H* (0.0-2.4) ng/mL Troponin I 4.670 H* (0.000-0.034) ng/mL Microbiology - Last 24 Hours (Table) 08/06/16 09:43 Urine Culture - Preliminary Urine,Catheterized Assessment and Plan Plan: Assessment #1 acute respiratory failure secondary to congestive heart failure exacerbation secondary to systolic dysfunction #2 acute non-ST elevation myocardial infarction with abnormal troponin. #3 fever with possible sepsis #4 atrial fibrillation with controlled heart rate #5 severe cardiomyopathy and known if is ischemic or nonischemic #6 valvular heart disease with evidence of aortic stenosis by echocardiogram #7 multiple comorbid conditions Plan #1 the patient currently is on Lasix IV which we will continue. The dose of Lasix was increased today. #2 continue monitor the kidney function and electrolytes as well #3 continue the current medical treatment with aspirin, and statin. #4 the patient needs to have a heart catheterization in the next few days.
--- NOTE | 2016-08-07 14:27 | P.PN ---
Subjective 76-year-old male patient who was admitted to the hospital because of generalized weakness and the patient felt that his legs essentially gave out. He was standing in his bathroom sink and he felt extremely weak in his legs and he sat down on the floor without sustaining any major injury. He stated that he was feeling very weak and he was unable to get up and he was stuck on the floor for several hours. He ultimately had a neighbor help him out and EMS was called to the scene and the patient got moved to the hospital for further evaluation and treatment. Note that there is no trauma to his head or body. He denied having any chest pain. He was having progressively more shortness of breath. He has had previous history of CVA with some left-sided weakness and he is still INVOLVED the right hemisphere and right occipital lobe. He has history of coronary artery disease, mild congestion heart failure with ejection fraction of 45% and mild aortic stenosis with moderate degree of pulmonary hypertension, chronic atrial fibrillation, diabetes mellitus, hypertension, BPH , and chronic renal failure with a baseline creatinine in the 2.0 range. The patient ruled in for an acute non-ST segment elevation myocardial infarction his troponin peaked at 6. The patient got moved in to the ICU this morning as he went into acute respiratory distress/pulmonary edema. Chest x-ray from admission was compared to the one that was done at the time of his acute shortness of breath and clearly the patient was in acute pulmonary edema. He was given 100 mg IV Lasix and he put out more than 1 L. He was also placed on a BiPAP at a pressure of 10 over 5 cm of water and FiO2 of 100%. His breathing has improved and he is breathing much easier right now although still BiPAP dependent. I was able to wean down his FiO2 down to 50%. He is making adequate urine output at this point. No chest pain. Echo cardiac exam was repeated and apparently there has been some changes compared to the previous echo from 2016. The aortic stenosis was estimated to be severe and the ejection fraction was unofficially reported to be at around 35%. The patient has no cough or sputum production. No change in mental status. Neurologic exam essentially same with some residual weakness in the left which is been a chronic finding any sequelae of a previous CVA. His cardiac rhythm is irregular with sinus and occasional paroxysms of atrial fibrillation. On 08/07/2016 the patient is being seen in follow-up. He is less short of breath. On of history using the BiPAP at a pressure of 10 over 5 cm of water. He diuresis nicely with IV Lasix and hip without more than 2 L of urine output over the past 24 hours and another 990 mL since morning shift. The patient is less short of breath. Denies having any cough or sputum production no chest tightness or wheezing. He has a congested cough. His chest x-ray however is still showing interstitial and the airspace disease bilaterally and this is most consistent with edema however the possibility of pneumonia cannot be complete a skilled especially the patient is having episodes of fever throughout the night. No alternative sources of infection can be identified. He was provided on empiric antibiotic coverage with Zosyn. Echocardiogram was repeated the patient's LV function was seen to be further impaired with ejection fraction of 30-35% along with segmental wall motion abnormalities and some degree of aortic stenosis. Note that along with her diuretics the patient required to go on pressors yesterday and he was briefly given norepinephrine infusion for blood pressure support. Currently he is off pressors. Objective - Vital Signs Vital signs: Vital Signs Temp 99.5 F 08/07/16 12:00 Pulse 95 08/07/16 14:00 Resp 12 08/07/16 14:00 BP 109/60 08/07/16 14:00 Pulse Ox 100 08/07/16 14:00 Intake & Output 08/06/16 08/07/16 08/07/16 18:59 06:59 18:59 Intake Total 467.421 85.0 Output Total 1505 600 990 Balance -1505 -132.579 -905.0 Weight 88.4 kg 92.8 kg Intake: IV 55 35 0.9 55 35 Intake, IV Titration 412.421 50.0 Amount Azithromycin 500 mg In 250 Sodium Chloride 0.9% 250 ml @ 125 mls/hr IVPB DAILY@1600 [facility] Rx#: [id number] Norepinephrine 4 mg In 62.421 Sodium Chloride 0.9% 250 ml @ Titrate IV .Q0M [facility] Rx#:[id number] Piperacillin-Tazobactam 3 50.0 50.0 .375 gm In Dextrose/Water 1 50ml.bag @ 12.5 mls/hr IVPB Q12HR [facility] Rx#: [id number] cefTRIAXone 1,000 mg In 50 Sodium Chloride 0.9% 50 ml @ 100 mls/hr IVPB DAILY@1600 [facility] Rx#: [id number] Output: Urine 1505 600 990 Other: Voiding Method Indwelling Catheter Indwelling Catheter Indwelling Catheter # Voids 1 - Exam Head exam was generally normal. There was no scleral icterus or corneal arcus. Mucous membranes were moist. My normal neck lungs sounds are diminished and there is some bibasilar crackles.Cardiac exam revealed the PMI to be normally situated and sized. The rhythm was regular and no extrasystoles were noted during several minutes of auscultation. The first and second heart sounds were normal and physiologic splitting of the second heart sound was noted. There is a systolic ejection murmur grade 2/6 heard over the left lateral sternal border , no rubs, clicks, or gallops. Abdominal exam revealed normal bowel sounds. The abdomen was soft, non-tender, and without masses, organomegaly, or appreciable enlargement of the abdominal aorta.Examination of the extremities revealed easily palpable radial, femoral and pedal pulses. There was no cyanosis, clubbing or edema. - Labs CBC & Chem 7: 08/07/16 03:11 08/07/16 03:11 Labs: Abnormal Lab Results - Last 24 Hours (Table) 08/06/16 08/06/16 08/06/16 Range/Units 18:59 20:14 21:45 RBC (4.30-5.90) m/uL Hgb (13.0-17.5) gm/dL Hct (39.0-53.0) % Plt Count (150-450) k/uL Lymphocytes # (1.0-4.8) k/uL PT (9.0-12.0) sec Chloride (98-107) mmol/L BUN (9-20) mg/dL Creatinine (0.66-1.25) mg/dL Glucose (74-99) mg/dL POC Glucose (mg/dL) 132 H 119 H (75-99) mg/dL Plasma Lactic Acid Blake 2.4 H* (0.7-2.0) mmol/L Calcium (8.4-10.2) mg/dL Phosphorus (2.5-4.5) mg/dL CK-MB (CK-2) (0.0-2.4) ng/mL Troponin I (0.000-0.034) ng/mL 01/13/17 01/14/17 01/14/17 Range/Units 23:15 03:11 03:11 RBC 3.90 L (4.30-5.90) m/uL Hgb 11.7 L (13.0-17.5) gm/dL Hct 36.4 L (39.0-53.0) % Plt Count 114 L (150-450) k/uL Lymphocytes # 0.7 L (1.0-4.8) k/uL PT 42.1 H (9.0-12.0) sec Chloride (98-107) mmol/L BUN (9-20) mg/dL Creatinine (0.66-1.25) mg/dL Glucose (74-99) mg/dL POC Glucose (mg/dL) (75-99) mg/dL Plasma Lactic Acid Blake (0.7-2.0) mmol/L Calcium (8.4-10.2) mg/dL Phosphorus 4.6 H (2.5-4.5) mg/dL CK-MB (CK-2) (0.0-2.4) ng/mL Troponin I (0.000-0.034) ng/mL 08/07/16 08/07/16 08/07/16 Range/Units 03:11 03:11 03:11 RBC (4.30-5.90) m/uL Hgb (13.0-17.5) gm/dL Hct (39.0-53.0) % Plt Count (150-450) k/uL Lymphocytes # (1.0-4.8) k/uL PT (9.0-12.0) sec Chloride 109 H (98-107) mmol/L BUN 49 H (9-20) mg/dL Creatinine 2.79 H (0.66-1.25) mg/dL Glucose 171 H (74-99) mg/dL POC Glucose (mg/dL) (75-99) mg/dL Plasma Lactic Acid Blake 2.3 H* (0.7-2.0) mmol/L Calcium 8.2 L (8.4-10.2) mg/dL Phosphorus (2.5-4.5) mg/dL CK-MB (CK-2) 5.3 H* (0.0-2.4) ng/mL Troponin I 4.670 H* (0.000-0.034) ng/mL 08/07/16 08/07/16 Range/Units 07:58 12:02 RBC (4.30-5.90) m/uL Hgb (13.0-17.5) gm/dL Hct (39.0-53.0) % Plt Count (150-450) k/uL Lymphocytes # (1.0-4.8) k/uL PT (9.0-12.0) sec Chloride (98-107) mmol/L BUN (9-20) mg/dL Creatinine (0.66-1.25) mg/dL Glucose (74-99) mg/dL POC Glucose (mg/dL) 154 H 106 H (75-99) mg/dL Plasma Lactic Acid Blake (0.7-2.0) mmol/L Calcium (8.4-10.2) mg/dL Phosphorus (2.5-4.5) mg/dL CK-MB (CK-2) (0.0-2.4) ng/mL Troponin I (0.000-0.034) ng/mL Microbiology - Last 24 Hours (Table) 08/06/16 09:43 Urine Culture - Final Urine,Catheterized Assessment and Plan Plan: Assessment 1 acute hypoxic respiratory failure secondary to an acute pulmonary edema. The patient went into acute heart failure with pulmonary edema and he likely has an underlying valvular heart disease/CHF and the congestion heart failure was probably further decompensated by an acute non-ST segment elevation myocardial infarction. On 08/07/2016 the patient is still being treated for CHF and the patient is diuresing nicely with IV Lasix. Echocardiogram was noted and the patient has impairment of LV function with ejection fraction of 3035% along with segmental wall motion abnormalities and aortic stenosis. The patient briefly became hypotensive and he was treated with pressors and currently is off norepinephrine infusion. Possibility of superimposed pneumonia to be considered. The patient on IV Zosyn. He is having on and off episodes of fever. Cultures of been sent and results are still pending for now. 2 acute non-ST segment myocardial infarction, with segmental wall motion abnormalities, please refer to the echocardiogram. 3 previous history of known coronary artery disease 4 mild aortic stenosis with moderate degree of pulmonary hypertension based on increased echocardiogram with an ejection fraction of 30% based on an echo from 2016 5 chronic renal insufficiency, stage III kidney disease at baseline with an acute worsening in her renal function probably rates to cardiorenal factors 6 hypertension 7 hypothyroidism 8 diabetes mellitus 9 diabetic peripheral neuropathy 10 benign prostatic hypertrophy 11 peripheral vascular disease 12 CVA with some left-sided residual weakness, chronic 13 paroxysmal atrial fibrillation 14 history of gangrenous toes that has been resected and the patient has been had previous lower extremity wound which has been essentially healed and currently there are no open wounds. He has been infected in the past and his wounds with stenotrophomonas and enterococcus. Plan Keep the patient IV Lasix and the patient will be given Lasix 60 mg IV push every 12 hours. Monitor urine output. Keep the patient on BiPAP intermittently during the day. PT/INR is supratherapeutic at this point with an INR of 4.3 and the patient's Coumadin is on hold. Repeat chest x-ray in the morning. Keep the patient ICU for further monitoring. Cardiology on the case. We'll continue to follow.
--- NOTE | 2016-08-07 17:25 | PN ---
Patient is being treated for congestive heart failure exacerbation as well as possibility of pneumonia in the right middle lobe. Patient's fevers did improve and patient had elevated lactic acid, which is minimally elevated. I do not believe patient will need fluid at this point of time, in spite of elevated lactic acid. I will go ahead and continue the Lasix and he had significant clinical improvement. Patient improved significantly clinically. Continue the antibiotics of ceftriaxone and azithromycin. ( ) were ordered. REVIEW OF SYSTEMS: CARDIOVASCULAR: No chest pain, no orthopnea, no PND, no palpitations. PULMONARY: Significantly improved breathing trouble. GASTROINTESTINAL: No diarrhea, nausea or vomiting. No abdominal pain. Normoactive bowel sounds. NEUROLOGIC: No headaches, no weakness, no numbness. Medications were reviewed. PHYSICAL EXAMINATION: Temperature of 99.5, ( ) now is 101.1, pulse of 108, respiratory rate of 12, blood pressure 108/57, saturating at 93% on 100% nonrebreather earlier today, now is on 6 liters of oxygen. GENERAL: The patient is alert and oriented x3, not in any acute distress. Well developed, well nourished. HEENT: Pupils are round and equally reacting to light. EOMI. No scleral icterus. No conjunctival pallor. Normocephalic, atraumatic. No pharyngeal erythema. No thyromegaly. CARDIOVASCULAR: S1 and S2 present. No significant ( ) S3. I do not hear any S4. PULMONARY: Patient does have bibasilar crackles, more significant in the right lower lung hunt posteriorly. ABDOMEN: Soft, nontender, nondistended, normoactive bowel sounds. No palpable organomegaly. MUSCULOSKELETAL: No joint swelling or deformity. EXTREMITIES: No cyanosis, clubbing, or pedal edema. NEUROLOGICAL: Gross neurological examination did not reveal any focal deficits. SKIN: No rashes. ASSESSMENT AND PLAN: 1. Acute hypoxic respiratory and congestive heart failure with exacerbation, which I believe is precipitated by pneumonia. Patient is on Rocephin and azithromycin. Patient is on IV Lasix with significant improvement in his respiratory status. Patient is presently on 6 liters of oxygen down from BiPAP yesterday. 2. Possible sepsis secondary to right middle lobe pneumonia, most probably pneumococcal in nature. 3. Moderate aortic stenosis. 4. Non-ST elevated myocardial infarction. We cannot really the type of myocardial infarction ( ) related to elevated troponin secondary to sepsis, but patient was evaluated by Cardiology and they are recommending cardiac catheterization. 5. Chronic kidney disease stage III. 6. Prerenal azotemia from congestive heart failure. With the Lasix his creatinine is expected to improve. 7. Lactic acidosis from pneumonia although IV fluids recommended, because of his improvement and his cardiopulmonary status and his overall status, will go ahead and continue with Lasix. 8. Hypertension. 9. Hypothyroidism. 10. Type 2 diabetes mellitus. 11. Peripheral neuropathy. 12. Cerebrovascular accident with residual weakness on the left side.
[2016-08-07 18:14] LABS: Glucose,Whole Blood 92 mg/dL (75-99)
[2016-08-07 21:51] LABS: Glucose,Whole Blood 82 mg/dL (75-99)
[2016-08-07] MEDS: traZODone HCL 50 MG TAB PO SCH (22:02)
--- NOTE | 2016-08-07 23:36 | P.CONS ---
History of Present Illness - Reason for Consult Consult date: 08/07/16 - Chief Complaint weakness with fall - History of Present Illness 76-year-old male presents to the emergency center after gently going to the floor while he was in front of the sink. He does recall the event. He became weak and went to the floor. Was brought in by EMS because he was so weak. Was found to have evidence of significant shortness of breath and was brought into hospital. He then decompensated and required transfer to intensive care unit because of respiratory failure. He was treated with BiPAP. He has been added by cardiology for his non-ST segment depression myocardial infarction. He also has had some worsening of his underlying atrial fibrillation.because he developed fever Abic therapy was initiated with c and infectious diseases consultation was requested. Review of Systems HEENT:Denies headache or acute visual change. Denies sinus or mouth discomforts. Denies neck stiffness or pain. Denies significant oral cavity pain. Denies difficulty on swallowing. Lungs: chronic shortness of breath but denies Cardiovascular: positive shortness of breath without ch positive fall Gastrointestinal:Denies nausea, vomiting, diarrhea, constipation, hematemesis, melena, hematochezia. No no significant change of bowel habit noticed. Musculoskeletal: denies significant myalgias or arthralgias. No new joint swelling. Denies new back pain. Skin: Denies new rash or lesions. No new ulcers or wounds are related.. Neuro: Denies headache or visual change. Denies any new onset weakness or difficulty with ambulation. Denies falls or seizures. Psychiatric:Denies anxiety or depression. Endocrine: complains of fatigue, denies significant weight loss or weight gain. Past Medical History Past Medical History: Heart Failure, CVA/TIA, Diabetes Mellitus, Hearing Disorder / Deafness, Hyperlipidemia, Hypertension, Myocardial Infarction ([place]), Pneumonia, Prostate Disorder, Renal Disease, Thyroid Disorder Additional Past Medical History / Comment(s): Pt had recent admission to [facility] with rhabdomylosis/dehydration and acute on chronic renal insult. 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 Benign prostatic hypertrophy, hypothyroidism, diabetes mellitus, mild aortic stenosis and moderate pulmonary hypertension based on a previous echocardiogram with an ejection fraction of 45%, lower extremity wound with infections with stenotrophomonas and Enterococcus faecalis Last Myocardial Infarction Date:: 1978 History of Any Multi-Drug Resistant Organisms: None Reported Past Surgical History: Tonsillectomy Additional Past Surgical History / Comment(s): lt great toe amp(gangrene per pt) , noam cataract sx with lenses. 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 currently lives at [facility] in [place], gets up with a cane. 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 He served in the [employer]. He lives with his niece. He is ambulatory with a seated walker. He has [facility]. A nurse comes twice a week and so does PT. He has not driven in yrs. Smoking Status: Former smoker Past Alcohol Use History: None Reported Additional Past Alcohol Use History / Comment(s): smoked x 30 years quit >30 years ago, in past "2-cases of beer /day quit 24 years ago.denies any drug use. Past Drug Use History: None Reported - Past Family History Father Family Medical History: Cancer, Diabetes Mellitus Additional Family Medical History / Comment(s): bone cancer. in his 60's Mother Family Medical History: Diabetes Mellitus Additional Family Medical History / Comment(s): at age 89 Medications and Allergies Home Medications and Allergies Comment(s): Current Medications Acetaminophen (Tylenol Tab) 650 mg PO Q4HR PRN PRN Reason: Fever and/or Mild Pain Last Admin: 08/06/16 20:07 Dose: 650 mg Albuterol/Ipratropium (Duoneb 0.5 Mg-3 Mg/3 Ml Soln) 3 ml INHALATION RT-Q2H PRN PRN Reason: Shortness Of Breath Or Wheezing Albuterol/Ipratropium (Duoneb 0.5 Mg-3 Mg/3 Ml Soln) 3 ml INHALATION RT-Q4H [facility] Last Admin: 08/07/16 20:50 Dose: 3 ml Aspirin (Aspirin) 325 mg PO DAILY [facility] Last Admin: 08/07/16 08:07 Dose: 325 mg Atorvastatin Calcium (Lipitor) 40 mg PO HS [facility] Last Admin: 08/07/16 22:00 Dose: 40 mg Furosemide (Lasix) 80 mg IV Q8HR [facility] Last Admin: 08/07/16 23:05 Dose: 80 mg Gabapentin (Neurontin) 800 mg PO BID [facility] Last Admin: 08/07/16 22:00 Dose: 800 mg Heparin Sodium (Porcine) (Heparin) 5,000 unit SQ Q8HR [facility] Last Admin: 08/07/16 23:04 Dose: 5,000 unit Sodium Chloride (Saline 0.9%) 1,000 mls @ 20 mls/hr IV .Q24H [facility] Last Admin: 08/07/16 10:03 Dose: 20 mls/hr Norepinephrine Bitartrate 4 mg (/ Sodium Chloride) 254 mls @ 0 mls/hr IV .Q0M [facility]; Titrate PRN Reason: Protocol Last Titration: 08/07/16 03:30 Dose: 0 mcg/min, 0 mls/hr Piperacillin/Tazobactam/ (Dextrose 3.375 gm/ IV Solution) 50 mls @ 12.5 mls/hr IVPB Q12HR [facility] Last Admin: 08/07/16 22:01 Dose: 12.5 mls/hr Insulin Detemir (Levemir) 15 unit SQ HS [facility] Last Admin: 08/07/16 22:09 Dose: 15 unit Insulin Human Lispro (Humalog) 0 unit SQ ACHS [facility] PRN Reason: Protocol Last Admin: 08/07/16 22:01 Dose: Not Given Levofloxacin (Levaquin) 500 mg PO Q24H [facility] Last Admin: 08/07/16 22:02 Dose: 500 mg Levothyroxine Sodium (Synthroid) 125 mcg PO 0630 [facility] Last Admin: 08/07/16 06:57 Dose: 125 mcg Metoprolol Tartrate (Lopressor) 25 mg PO BID [facility] Last Admin: 08/07/16 22:01 Dose: 25 mg Naloxone HCl (Narcan) 0.2 mg IV Q2M PRN PRN Reason: Opioid Reversal Pantoprazole Sodium (Protonix) 40 mg IV DAILY [facility] Last Admin: 08/07/16 08:07 Dose: 40 mg Terazosin HCl (Hytrin) [address] [facility] Last Admin: 08/07/16 22:01 Dose: 4 mg Trazodone HCl (Desyrel) [address] [facility] Last Admin: 08/07/16 22:02 Dose: 50 mg Home Medications Medication Instructions Recorded Confirmed Type Ascorbic Acid [Vitamin C] 500 mg PO DAILY 08/05/16 08/05/16 History Captopril [Capoten] 6.25 mg PO TID 08/05/16 08/05/16 History Furosemide [Lasix] 40 mg PO BID 08/05/16 08/05/16 History Gabapentin [Neurontin] 800 mg PO BID 08/05/16 08/05/16 History Hydrophilic Cream [Kerodex 71 1 applic TOPICAL DAILY PRN 08/05/16 08/05/16 History Cream] Isosorbide Mononitrate ER [Imdur] 60 mg PO DAILY 08/05/16 08/05/16 History Levothyroxine Sodium [Synthroid] 125 mcg PO DAILY 08/05/16 08/05/16 History Metoprolol Tartrate [Lopressor] 25 mg PO BID 08/05/16 08/05/16 History Multivitamins, Thera [Multivitamin] 1 tab PO DAILY 08/05/16 08/05/16 History Saxagliptin HCl [Onglyza] 2.5 mg PO DAILY 08/05/16 08/05/16 History Simvastatin [Zocor] 10 mg PO 08/05/16 08/05/16 History Terazosin [Hytrin] 4 mg PO HS 08/05/16 08/05/16 History Warfarin [Coumadin] 2.5 mg PO MOWEFR 08/05/16 08/05/16 History Warfarin [Coumadin] 5 mg PO SUTUTHSA 08/05/16 08/05/16 History amLODIPine [Norvasc] 10 mg PO DAILY 08/05/16 08/05/16 History glipiZIDE [Glucotrol] 10 mg PO AC-BID 08/05/16 08/05/16 History hydrALAZINE HCL [Apresoline] 50 mg PO TID 08/05/16 08/05/16 History traZODone HCL 50 mg PO HS 08/05/16 08/05/16 History Allergies Allergy/AdvReac Type Severity Reaction Status Date / Time No Known Allergies Allergy Verified 12/11/15 06:31 Physical Exam Vitals: Vital Signs Temp Pulse Resp BP Pulse Ox 08/07/16 21:14 118 H 08/07/16 20:50 120 H 08/07/16 19:00 122 H 17 139/72 97 08/07/16 18:00 115 H 16 115/73 94 L 08/07/16 17:00 95 16 112/71 99 08/07/16 16:01 104 H 08/07/16 16:00 98.4 F 96 12 105/67 92 L 08/07/16 15:50 101 H 08/07/16 15:30 108 H 12 108/67 93 L 08/07/16 15:00 113 H 12 113/57 96 08/07/16 14:00 95 12 109/60 100 08/07/16 13:00 95 15 115/60 99 08/07/16 12:39 94 08/07/16 12:26 91 08/07/16 12:00 99.5 F 93 12 107/64 99 08/07/16 11:00 93 13 97/58 99 08/07/16 10:00 104 H 18 110/62 98 08/07/16 09:00 103 H 15 127/73 98 08/07/16 08:00 100.1 F H 104 H 17 121/67 97 08/07/16 07:57 104 H 08/07/16 07:42 100 08/07/16 07:00 106 H 15 121/69 98 08/07/16 06:30 104 H 12 120/70 97 08/07/16 06:00 104 H 23 128/62 96 08/07/16 05:30 105 H 32 H 132/64 96 08/07/16 05:00 106 H 18 115/64 98 08/07/16 04:30 108 H 14 121/59 96 08/07/16 04:00 100 F H 109 H 16 119/64 94 L 08/07/16 03:45 110 H 08/07/16 03:30 102 H 17 137/70 97 08/07/16 03:25 105 H 08/07/16 03:00 100 17 130/74 96 08/07/16 02:30 97 15 112/59 98 08/07/16 02:00 96 15 111/63 97 08/07/16 01:30 98 13 109/66 97 08/07/16 01:00 99 14 113/57 96 08/07/16 00:30 107 H 17 96/53 96 08/07/16 00:00 102 H 28 H 105/59 97 08/06/16 23:47 99 08/06/16 23:30 98 16 110/65 96 08/06/16 23:28 98 Intake and Output 08/07/16 08/07/16 08/08/16 14:59 22:59 06:59 Intake Total 85.0 50 Output Total 990 720 Balance -905.0 -670 Intake: IV 35 50 0.9 35 50 Intake, IV Titration 50.0 Amount Piperacillin-Tazobactam 3 50.0 .375 gm In Dextrose/Water 1 50ml.bag @ 12.5 mls/hr IVPB Q12HR [facility] Rx#: [id number] Output: Urine 990 720 Other: Voiding Method Indwelling Catheter Indwelling Catheter 76-year-old male who is more comfortable than yesterda Still short of breath denies chest pain HEENT: Anicteric conjunctiva are pink and moist nasal mucosa grossly intact without significant lesions, there is no thrush.poor dentition Neck: The neck is supple without significant lymphadenopathy or thyromegaly. Lungs: symmetrical air entry with evidenceexpiratory wheezes Heart: irregular with an audible S1 and S2 no S3 soft S4 no distinctmurmur click or rub Abdomen: Positive bowel sounds soft and nontender without palpable masses or organomegaly. There was no guarding or rebound. Extremities: The upper extremities have excellent pulses they are symmetric, no significant petechiae or telangiectasia. No splinter hemorrhages were noted. the lower extremities reveal evidence bilateral lower extremity edema minimal erythema withoutulcerations,prior toe amputations are well-healed Neuro: Awake alert oriented to person place and time. There are no acute new gross focal sensory motor deficits. Results Results: Laboratory Results WBC 9.0 k/uL (3.8-10.6) 08/07/16 03:11 RBC 3.90 m/uL (4.30-5.90) L 08/07/16 03:11 Hgb 11.7 gm/dL (13.0-17.5) L 08/07/16 03:11 Hct 36.4 % (39.0-53.0) L 08/07/16 03:11 MCV 93.5 fL (80.0-100.0) 08/07/16 03:11 MCH 29.9 pg (25.0-35.0) 08/07/16 03:11 MCHC 32.0 g/dL (31.0-37.0) 08/07/16 03:11 RDW 14.6 % (11.5-15.5) 08/07/16 03:11 Plt Count 114 k/uL (150-450) L 08/07/16 03:11 Neutrophils % 85 % 08/07/16 03:11 Lymphocytes % 8 % 08/07/16 03:11 Monocytes % 5 % 08/07/16 03:11 Eosinophils % 0 % 08/07/16 03:11 Basophils % 1 % 08/07/16 03:11 Neutrophils # 7.7 k/uL (1.3-7.7) 08/07/16 03:11 Lymphocytes # 0.7 k/uL (1.0-4.8) L 08/07/16 03:11 Monocytes # 0.4 k/uL (0-1.0) 08/07/16 03:11 Eosinophils # 0.0 k/uL (0-0.7) 08/07/16 03:11 Basophils # 0.1 k/uL (0-0.2) 08/07/16 03:11 PT 42.1 sec (9.0-12.0) H 08/07/16 03:11 INR 4.3 (<1.1) 08/07/16 03:11 Sodium 143 mmol/L (137-145) 08/07/16 03:11 Potassium 4.1 mmol/L (3.5-5.1) 08/07/16 22:44 Chloride 109 mmol/L (98-107) H 08/07/16 03:11 Carbon Dioxide 23 mmol/L (22-30) 08/07/16 03:11 Anion Gap 11 mmol/L 08/07/16 03:11 BUN 49 mg/dL (9-20) H 08/07/16 03:11 Creatinine 2.79 mg/dL (0.66-1.25) H 08/07/16 03:11 Est GFR (MDRD) Af Amer 27 (>60 ml/min/1.73 sqM) 08/07/16 03:11 Est GFR (MDRD) Non-Af 22 (>60 ml/min/1.73 sqM) 08/07/16 03:11 Glucose 171 mg/dL (74-99) H 08/07/16 03:11 POC Glucose (mg/dL) 82 mg/dL (75-99) 08/07/16 21:49 POC Glu System Manager ID Ellie Corrigan 08/07/16 21:[address] Glu mg/dL 131 mg/dL 08/06/16 05:51 Hemoglobin A1c 6.2 % (4.2-6.1) H 08/06/16 05:51 Plasma Lactic Acid Blake 2.3 mmol/L (0.7-2.0) H* 08/07/16 03:11 Calcium 8.2 mg/dL (8.4-10.2) L 08/07/16 03:11 Phosphorus 4.5 mg/dL (2.5-4.5) 08/07/16 03:11 Magnesium 2.1 mg/dL (1.6-2.3) 08/07/16 03:11 Total Bilirubin 0.6 mg/dL (0.2-1.3) 08/06/16 05:51 AST 40 U/L (17-59) 08/06/16 05:51 ALT 34 U/L (21-72) 08/06/16 05:51 Alkaline Phosphatase 47 U/L (38-126) 08/06/16 05:51 Creatine Kinase 228 U/L (55-170) H 08/05/16 17:51 Total Creatine Kinase 137 U/L (55-170) 08/07/16 03:11 CK-MB (CK-2) 5.3 ng/mL (0.0-2.4) H* 08/07/16 03:11 CK-MB (CK-2) Rel Index 3.9 08/07/16 03:11 Troponin I 4.670 ng/mL (0.000-0.034) H* 08/07/16 03:11 NT-Pro-B Natriuret Pep 52798 pg/mL 08/05/16 17:51 Total Protein 6.4 g/dL (6.3-8.2) 08/06/16 05:51 Albumin 3.5 g/dL (3.5-5.0) 08/06/16 05:51 Urine Color Dark Yellow 08/05/16 18:50 Urine Appearance Cloudy (Clear) 08/05/16 18:50 Urine pH 5.0 (5.0-8.0) 08/05/16 18:50 Ur Specific Harmon 1.018 (1.001-1.035) 08/05/16 18:50 Urine Protein 1+ (Negative) H 08/05/16 18:50 Urine Glucose (UA) Negative (Negative) 08/05/16 18:50 Urine Ketones Trace (Negative) H 08/05/16 18:50 Urine Blood Negative (Negative) 08/05/16 18:50 Urine Nitrate Negative (Negative) 08/05/16 18:50 Urine Bilirubin Negative (Negative) 08/05/16 18:50 Urine Urobilinogen 3.0 mg/dL (<2.0) 08/05/16 18:50 Ur Leukocyte Esterase Negative (Negative) 08/05/16 18:50 Urine RBC 2 /hpf (0-5) 08/05/16 18:50 Urine Bacteria Many /hpf (None) H 08/05/16 18:50 Hyaline Casts 25 /lpf (0-2) H 08/05/16 18:50 Granular Casts 1 /lpf (0) 08/05/16 18:50 Urine Mucus Rare /hpf (None) H 08/05/16 18:50 CBC & Chem 7: 08/07/16 03:11 08/07/16 22:44 Labs: Abnormal Lab Results - Last 24 Hours (Table) 08/06/16 08/07/16 08/07/16 Range/Units 23:15 03:11 03:11 RBC 3.90 L (4.30-5.90) m/uL Hgb 11.7 L (13.0-17.5) gm/dL Hct 36.4 L (39.0-53.0) % Plt Count 114 L (150-450) k/uL Lymphocytes # 0.7 L (1.0-4.8) k/uL PT 42.1 H (9.0-12.0) sec Chloride (98-107) mmol/L BUN (9-20) mg/dL Creatinine (0.66-1.25) mg/dL Glucose (74-99) mg/dL POC Glucose (mg/dL) (75-99) mg/dL Plasma Lactic Acid Blake (0.7-2.0) mmol/L Calcium (8.4-10.2) mg/dL Phosphorus 4.6 H (2.5-4.5) mg/dL CK-MB (CK-2) (0.0-2.4) ng/mL Troponin I (0.000-0.034) ng/mL 08/07/16 08/07/16 08/07/16 Range/Units 03:11 03:11 03:11 RBC (4.30-5.90) m/uL Hgb (13.0-17.5) gm/dL Hct (39.0-53.0) % Plt Count (150-450) k/uL Lymphocytes # (1.0-4.8) k/uL PT (9.0-12.0) sec Chloride 109 H (98-107) mmol/L BUN 49 H (9-20) mg/dL Creatinine 2.79 H (0.66-1.25) mg/dL Glucose 171 H (74-99) mg/dL POC Glucose (mg/dL) (75-99) mg/dL Plasma Lactic Acid Blake 2.3 H* (0.7-2.0) mmol/L Calcium 8.2 L (8.4-10.2) mg/dL Phosphorus (2.5-4.5) mg/dL CK-MB (CK-2) 5.3 H* (0.0-2.4) ng/mL Troponin I 4.670 H* (0.000-0.034) ng/mL 08/07/16 08/07/16 Range/Units 07:58 12:02 RBC (4.30-5.90) m/uL Hgb (13.0-17.5) gm/dL Hct (39.0-53.0) % Plt Count (150-450) k/uL Lymphocytes # (1.0-4.8) k/uL PT (9.0-12.0) sec Chloride (98-107) mmol/L BUN (9-20) mg/dL Creatinine (0.66-1.25) mg/dL Glucose (74-99) mg/dL POC Glucose (mg/dL) 154 H 106 H (75-99) mg/dL Plasma Lactic Acid Blake (0.7-2.0) mmol/L Calcium (8.4-10.2) mg/dL Phosphorus (2.5-4.5) mg/dL CK-MB (CK-2) (0.0-2.4) ng/mL Troponin I (0.000-0.034) ng/mL Microbiology - Last 24 Hours (Table) 08/06/16 09:43 Urine Culture - Final Urine,Catheterized Microbiology 08/06/16 09:43 Urine,Catheterized Urine Culture - Final Assessment and Plan (1) NSTEMI (non-ST elevated myocardial infarction) Narrative/Plan: 76-year-old male with multiple underlying medical troubles that includes coronary artery disease and atrial fibrillation presents to Hospital severe weakness and gentle fall to the floor. Without evidence of a non-ST myocardial infarction. A with congestive heart failure and chronic systolic type. As well as acute renal failure imposed on chronic renal failure. The patient has had fever which appears to be multifactorial including underlying myocardial infarction. Agreed that pneumonia cannot be ruled out although the patient did not have significant symptoms before his acute event. At this time cultures are in process. We'll monitor the leukocytosis and the fever. If these resolve rapidly as expected hopefully can limit the course of antibiotic therapy Status: Acute (2) Acute on chronic systolic heart failure Status: Acute (3) Fever Status: Acute (4) Acute on chronic renal failure Status: Acute
[2016-08-08 05:19] LABS: Calcium 8.2 mg/dL (8.4-10.2); Magnesium 2.1 mg/dL (1.6-2.3); Phosphorous 3.5 mg/dL (2.5-4.5); Potassium 4.3 mmol/L (3.5-5.1)
[2016-08-08] MEDS: IPRATROPIUM-ALBUTEROL 3 ML NEB INHALATION SCH ×5 (05:28→22:41)
[2016-08-08 05:39] LABS: Basophils % (A) 0 %; CH 30.5; CHCM 32.7; Eosinophils % (A) 0 %; HCT 34.2 % (39.0-53.0); HDW 2.71; HGB 11.1 gm/dL (13.0-17.5); Luc # (Auto) 0.04; Luc % (Auto) 1; Lymphocytes # (A) 0.5 k/uL (1.0-4.8); Lymphocytes % (A) 12 %; MCH 30.4 pg (25.0-35.0); MCHC 32.4 g/dL (31.0-37.0); MCV 93.9 fL (80.0-100.0); Monocytes # (A) 0.2 k/uL (0-1.0); Monocytes % (A) 4 %; Neutrophils # (A) 3.4 k/uL (1.3-7.7); Neutrophils % (A) 82 %; RBC 3.64 m/uL (4.30-5.90); RDW 14.3 % (11.5-15.5); WBC 4.2 k/uL (3.8-10.6); WBC (Perox) 4.47
[2016-08-08 05:47] LABS: Troponin I 3.21 ng/mL (0.000-0.034)
[2016-08-08 05:48] LABS: INR 3.4 (<1.1); Prothrombin Time 32.8 sec (9.0-12.0)
[2016-08-08] MEDS: LEVOTHYROXINE 125 MCG TAB PO SCH (07:13)
[2016-08-08 07:36] LABS: Glucose,Whole Blood 124 mg/dL (75-99)
--- NOTE | 2016-08-08 07:40 | XR ---
EXAMINATION TYPE: XR chest 1V DATE OF EXAM: 08/08/2016 6:29 AM COMPARISON: 08/07/2016 HISTORY: 76 year-old male shortness of breath TECHNIQUE: Single frontal view of the chest is obtained. FINDINGS: Heart remains borderline enlarged. Diffuse interstitial opacities and patchy airspace disease particu larly throughout the left lung and right base. Findings show interval improvement from prior but ther e is continued left basilar and retrocardiac opacity. IMPRESSION: Findings suggest CHF with continued pulmonary edema but with improving aeration particularly in the r ight lung. Persistent small left pleural effusion with adjacent atelectasis and/or consolidation.
[2016-08-08] MEDS: INSULIN LISPRO (humaLOG) 300 UNIT/3 ML VIAL SQ SCH ×4 (07:41→20:17)
[2016-08-08] MEDS: HEPARIN SODIUM,PORCINE 5,000 UNIT/ML 1 ML VIAL SQ SCH (07:48)
[2016-08-08] MEDS: METOPROLOL TARTRATE 25 MG TAB PO SCH ×2 (07:49→20:18)
[2016-08-08] MEDS: PIPERACILLIN-TAZOBACTAM 3.375 GM in DEXTROSE/WATER 1 50ML.BAG IVPB SCH ×2 (07:49→20:19)
[2016-08-08] MEDS: ASPIRIN 325 MG TAB PO SCH (07:49)
[2016-08-08] MEDS: GABAPENTIN 400 MG CAP PO SCH ×2 (07:49→20:16)
[2016-08-08] MEDS: PANTOPRAZOLE 40 MG/10 ML VIAL IV SCH (07:49)
--- NOTE | 2016-08-08 09:18 | P.PN ---
Subjective Principal diagnosis: This is 76-year-old male seen in consultation because of acute kidney injury secondary to acute AK and congestive heart failure. This morning he feels much better less short of breath more energy. States appetite is fair no nausea vomiting. He had some small loose stool yesterday. He is on nasal cannula. He is able to stand up with some help today. He denies any chest pain fever chills abdominal pain. He was treated yesterday with increase Lasix from 60-12 hours to 80 every 8 hours with urine output going up from 2 L to 3.2 L. He was admitted because of sudden loss of muscle strength in his legs and inability to move and he was immobilized for a few hours before he was brought to the emergency room. He denied any syncopal episode. He was able to then get out after a few hours and one of his neighbors found him. Patient aware of chronic kidney disease, past history of rhabdomyolysis, history of fall in the past. She also known with COPD pulmonary hypertension ASHD, diabetes for 25 years. He is also known with peripheral vascular disease with amputation of the left big toe. He denies any nausea vomiting chest pain shortness of breath fever chills cough prior to this acute onset of weakness. No nausea vomiting diarrhea abdominal pain no dysuria frequency. His history is somewhat unreliable as his somewhat weak and tired, and was moved to ICU just now because of somnolence. He is currently on oxygen with a Ventimask and improved mentatio Objective - Vital Signs Vital signs: Vital Signs Temp 98.4 F 08/08/16 08:00 Pulse 93 08/08/16 09:01 Resp 13 08/08/16 09:00 BP 121/72 08/08/16 09:00 Pulse Ox 100 08/08/16 09:00 Intake & Output 08/07/16 08/08/16 08/08/16 18:59 06:59 18:59 Intake Total 125.0 620 22.5 Output Total 1560 1730 300 Balance -1435.0 -1110 -277.5 Weight 89.9 kg Intake: IV 75 120 10 0.9 75 120 10 Intake, IV Titration 50.0 12.5 Amount Piperacillin-Tazobactam 3 50.0 12.5 .375 gm In Dextrose/Water 1 50ml.bag @ 12.5 mls/hr IVPB Q12HR [facility] Rx#: [id number] Oral 500 Output: Urine 1560 1730 300 Other: Voiding Method Indwelling Catheter Indwelling Catheter Indwelling Catheter On examination is awake alert oriented comfortable cheerful HEENT exam no JVP neck is supple no facial asymmetry Lungs are clear to auscultation percussion good air entry bilaterally Heart sounds are unremarkable no murmur rub gallop normal sinus rhythm Abdomen is soft nontender Extremity exam was no edema Neurologically awake alert oriented but profoundly weak needed help to stand up with the help of a walker and was able to stand up without feeling dizzy. - Labs CBC & Chem 7: 08/08/16 04:14 08/08/16 04:14 Labs: Abnormal Lab Results - Last 24 Hours (Table) 08/07/16 08/08/16 08/08/16 Range/Units 12:02 04:14 04:14 RBC 3.64 L (4.30-5.90) m/uL Hgb 11.1 L (13.0-17.5) gm/dL Hct 34.2 L (39.0-53.0) % Plt Count 122 L (150-450) k/uL Lymphocytes # 0.5 L (1.0-4.8) k/uL PT 32.8 H (9.0-12.0) sec BUN (9-20) mg/dL Creatinine (0.66-1.25) mg/dL Glucose (74-99) mg/dL POC Glucose (mg/dL) 106 H (75-99) mg/dL Calcium (8.4-10.2) mg/dL Troponin I (0.000-0.034) ng/mL 08/08/16 08/08/16 08/08/16 Range/Units 04:14 04:14 07:35 RBC (4.30-5.90) m/uL Hgb (13.0-17.5) gm/dL Hct (39.0-53.0) % Plt Count (150-450) k/uL Lymphocytes # (1.0-4.8) k/uL PT (9.0-12.0) sec BUN 64 H (9-20) mg/dL Creatinine 2.60 H (0.66-1.25) mg/dL Glucose 183 H (74-99) mg/dL POC Glucose (mg/dL) 124 H (75-99) mg/dL Calcium 8.2 L (8.4-10.2) mg/dL Troponin I 3.210 H* (0.000-0.034) ng/mL Microbiology - Last 24 Hours (Table) 08/06/16 23:47 Blood Culture - Preliminary Blood No Growth after 24 hours 08/06/16 23:15 Blood Culture - Preliminary Blood No Growth after 24 hours 08/06/16 09:43 Urine Culture - Final Urine,Catheterized Assessment and Plan Plan: Impression. 1. Acute kidney injury with creatinine of 2.7. Etiology is acute AK and congestive heart failure. Creatinine this morning is improved from a peak of 2.91 to 2.79 and further to 2.6 this morning , urine output is increased from 2.1 L to 3.2 L on Lasix 80 daily 8. His congestive heart failure significantly improved by exam as well as by chest x-ray 2. Chronic kidney disease with a creatinine of 1.81 as of 12/13/2015 with trace proteinuria likely nephrosclerosis, with an element of diabetic nephropathy. 3. Thrombocytopenia, platelet count 118,000 previously 140,000 in November 2015. Cause not very clear. 4. 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 5. Acute AK with troponin up to 3.8 and 6.0. Recommendation. Reduce Lasix from 80 mg every 8 hours to 80 mg every 12 hours. Watch blood pressure as it is somewhat low.
[2016-08-08] MEDS: FUROSEMIDE 10 MG/ML 10 ML VIAL IV SCH ×2 (09:21→22:11)
[2016-08-08] MEDS: SODIUM CHLORIDE 0.9% 1,000 ML IV SCH (09:21)
[2016-08-08 11:56] LABS: Glucose,Whole Blood 177 mg/dL (75-99)
--- NOTE | 2016-08-08 14:35 | P.PN ---
Subjective 76-year-old male patient who was admitted to the hospital because of generalized weakness and the patient felt that his legs essentially gave out. He was standing in his bathroom sink and he felt extremely weak in his legs and he sat down on the floor without sustaining any major injury. He stated that he was feeling very weak and he was unable to get up and he was stuck on the floor for several hours. He ultimately had a neighbor help him out and EMS was called to the scene and the patient got moved to the hospital for further evaluation and treatment. Note that there is no trauma to his head or body. He denied having any chest pain. He was having progressively more shortness of breath. He has had previous history of CVA with some left-sided weakness and he is still INVOLVED the right hemisphere and right occipital lobe. He has history of coronary artery disease, mild congestion heart failure with ejection fraction of 45% and mild aortic stenosis with moderate degree of pulmonary hypertension, chronic atrial fibrillation, diabetes mellitus, hypertension, BPH , and chronic renal failure with a baseline creatinine in the 2.0 range. The patient ruled in for an acute non-ST segment elevation myocardial infarction his troponin peaked at 6. The patient got moved in to the ICU this morning as he went into acute respiratory distress/pulmonary edema. Chest x-ray from admission was compared to the one that was done at the time of his acute shortness of breath and clearly the patient was in acute pulmonary edema. He was given 100 mg IV Lasix and he put out more than 1 L. He was also placed on a BiPAP at a pressure of 10 over 5 cm of water and FiO2 of 100%. His breathing has improved and he is breathing much easier right now although still BiPAP dependent. I was able to wean down his FiO2 down to 50%. He is making adequate urine output at this point. No chest pain. Echo cardiac exam was repeated and apparently there has been some changes compared to the previous echo from 2016. The aortic stenosis was estimated to be severe and the ejection fraction was unofficially reported to be at around 35%. The patient has no cough or sputum production. No change in mental status. Neurologic exam essentially same with some residual weakness in the left which is been a chronic finding any sequelae of a previous CVA. His cardiac rhythm is irregular with sinus and occasional paroxysms of atrial fibrillation. On 08/07/2016 the patient is being seen in follow-up. He is less short of breath. On of history using the BiPAP at a pressure of 10 over 5 cm of water. He diuresis nicely with IV Lasix and hip without more than 2 L of urine output over the past 24 hours and another 990 mL since morning shift. The patient is less short of breath. Denies having any cough or sputum production no chest tightness or wheezing. He has a congested cough. His chest x-ray however is still showing interstitial and the airspace disease bilaterally and this is most consistent with edema however the possibility of pneumonia cannot be complete a skilled especially the patient is having episodes of fever throughout the night. No alternative sources of infection can be identified. He was provided on empiric antibiotic coverage with Zosyn. Echocardiogram was repeated the patient's LV function was seen to be further impaired with ejection fraction of 30-35% along with segmental wall motion abnormalities and some degree of aortic stenosis. Note that along with her diuretics the patient required to go on pressors yesterday and he was briefly given norepinephrine infusion for blood pressure support. Currently he is off pressors. On 08/08/2016 the patient is being seen in follow-up. He is off the BiPAP. There has been significant improvement in the x-ray findings on today's evaluation. There is improvement in the better pulmonary infiltrates and the patient is being diuresis with IV Lasix 80 mg every 12 hours. Renal function remains stable. The patient is a negative fluid balance of 2.5 L over the past 24 hours. No leukocytosis. Renal function remains stable with a creatinine of 2.6. The patient is also status post acute non-ST segment myocardial infarction. Troponin peaked at 6.0 and is down to 3.2. History of any chest pain. He is sitting up on a chair. Answering questions and following commands appropriately. Objective - Vital Signs Vital signs: Vital Signs Temp 98.4 F 08/08/16 12:00 Pulse 97 08/08/16 13:00 Resp 33 H 08/08/16 13:00 BP 114/65 08/08/16 13:00 Pulse Ox 97 08/08/16 13:00 Intake & Output 08/07/16 08/08/16 08/08/16 18:59 06:59 18:59 Intake Total 125.0 620 80.0 Output Total 1560 1730 635 Balance -1435.0 -1110 -555.0 Weight 89.9 kg Intake: IV 75 120 30 0.9 75 120 30 Intake, IV Titration 50.0 50.0 Amount Piperacillin-Tazobactam 3 50.0 50.0 .375 gm In Dextrose/Water 1 50ml.bag @ 12.5 mls/hr IVPB Q12HR [facility] Rx#: [id number] Oral 500 Output: Urine 1560 1730 635 Other: Voiding Method Indwelling Catheter Indwelling Catheter Indwelling Catheter - Exam Head exam was generally normal. There was no scleral icterus or corneal arcus. Mucous membranes were moist. My normal neck lungs sounds are diminished and there is some bibasilar crackles.Cardiac exam revealed the PMI to be normally situated and sized. The rhythm was regular and no extrasystoles were noted during several minutes of auscultation. The first and second heart sounds were normal and physiologic splitting of the second heart sound was noted. There is a systolic ejection murmur grade 2/6 heard over the left lateral sternal border , no rubs, clicks, or gallops. Abdominal exam revealed normal bowel sounds. The abdomen was soft, non-tender, and without masses, organomegaly, or appreciable enlargement of the abdominal aorta.Examination of the extremities revealed easily palpable radial, femoral and pedal pulses. There was no cyanosis, clubbing or edema. - Labs CBC & Chem 7: 08/08/16 04:14 08/08/16 04:14 Labs: Abnormal Lab Results - Last 24 Hours (Table) 08/08/16 08/08/16 08/08/16 Range/Units 04:14 04:14 04:14 RBC 3.64 L (4.30-5.90) m/uL Hgb 11.1 L (13.0-17.5) gm/dL Hct 34.2 L (39.0-53.0) % Plt Count 122 L (150-450) k/uL Lymphocytes # 0.5 L (1.0-4.8) k/uL PT 32.8 H (9.0-12.0) sec BUN 64 H (9-20) mg/dL Creatinine 2.60 H (0.66-1.25) mg/dL Glucose 183 H (74-99) mg/dL POC Glucose (mg/dL) (75-99) mg/dL Calcium 8.2 L (8.4-10.2) mg/dL Troponin I (0.000-0.034) ng/mL 08/08/16 08/08/16 08/08/16 Range/Units 04:14 07:35 11:55 RBC (4.30-5.90) m/uL Hgb (13.0-17.5) gm/dL Hct (39.0-53.0) % Plt Count (150-450) k/uL Lymphocytes # (1.0-4.8) k/uL PT (9.0-12.0) sec BUN (9-20) mg/dL Creatinine (0.66-1.25) mg/dL Glucose (74-99) mg/dL POC Glucose (mg/dL) 124 H 177 H (75-99) mg/dL Calcium (8.4-10.2) mg/dL Troponin I 3.210 H* (0.000-0.034) ng/mL Microbiology - Last 24 Hours (Table) 08/06/16 23:47 Blood Culture - Preliminary Blood No Growth after 24 hours 08/06/16 23:15 Blood Culture - Preliminary Blood No Growth after 24 hours 08/06/16 09:43 Urine Culture - Final Urine,Catheterized Assessment and Plan Plan: Assessment 1 acute hypoxic respiratory failure secondary to an acute pulmonary edema. The patient went into acute heart failure with pulmonary edema and he likely has an underlying valvular heart disease/CHF and the congestion heart failure was probably further decompensated by an acute non-ST segment elevation myocardial infarction. On 08/07/2016 the patient is still being treated for CHF and the patient is diuresing nicely with IV Lasix. Echocardiogram was noted and the patient has impairment of LV function with ejection fraction of 3035% along with segmental wall motion abnormalities and aortic stenosis. The patient briefly became hypotensive and he was treated with pressors and currently is off norepinephrine infusion. Possibility of superimposed pneumonia to be considered. The patient on IV Zosyn. He is having on and off episodes of fever. Cultures of been sent and results are still pending for now. On 08/08/2016, the patient is doing much better. The patient is off BiPAP. The patient is on oxygen at 10 L/m nasal cannula. The is producing adequate amount of urine output. Chest x-ray shows marked improvement in the volume status. 2 acute non-ST segment myocardial infarction, with segmental wall motion abnormalities, please refer to the echocardiogram. 3 previous history of known coronary artery disease 4 mild aortic stenosis with moderate degree of pulmonary hypertension based on increased echocardiogram with an ejection fraction of 30% based on an echo from 2016 5 chronic renal insufficiency, stage III kidney disease at baseline with an acute worsening in her renal function probably rates to cardiorenal factors 6 hypertension 7 hypothyroidism 8 diabetes mellitus 9 diabetic peripheral neuropathy 10 benign prostatic hypertrophy 11 peripheral vascular disease 12 CVA with some left-sided residual weakness, chronic 13 paroxysmal atrial fibrillation 14 history of gangrenous toes that has been resected and the patient has been had previous lower extremity wound which has been essentially healed and currently there are no open wounds. He has been infected in the past and his wounds with stenotrophomonas and enterococcus. Plan Keep the patient IV Lasix and the patient will be given Lasix 80 mg IV push every 12 hours. Monitor urine output. No need for anticoagulation as long as the patient's INR remains elevated at 3.4. Wean off FiO2 as tolerated to maintain a saturation above 90%. Continue to follow here in ICU for another 24 hours.
--- NOTE | 2016-08-08 14:58 | P.PN ---
Subjective Principal diagnosis: Acute non-ST elevation CA This is a pleasant 76-year-old gentleman with a past medical history significant for cardiomyopathy, diabetes type 2, hypertension, dyslipidemia, and chronic atrial fibrillation, presented to the hospital with extreme weakness and falling at home. The patient fell on the floor without losing his consciousness. He does not recall having any chest pain or chest discomfort but he stated that he has been more short of breath lately. Initially the patient was admitted to the selective unit but he developed an acute respiratory failure and developed acute pulmonary edema. He was transferred to the intensive care unit where he was placed on BiPAP and he was given Lasix IV with improvement in his symptoms. Currently the patient is on BiPAP and he is hemodynamically stable. He was ruled out for acute non-ST elevation myocardial infarction with abnormal troponin. The EKG showed sinus rhythm with bifascicular block. Over the last few hours he has been spiking fever and the pressure starts being marginal. Blood culture was sent. There is no documentation of any history of coronary artery disease or prior coronary artery stenting in the past. He underwent an echocardiogram which showed impaired LV function with an ejection fraction of 35% with evidence of mild aortic stenosis. On follow-up with the patient today, he seems to be less short of breath. He still have bilateral crackles. the chest x-ray seems to be better. for some reason, the dose of Lasix IV was increased in spite of better chest x- ray and the patient seems to be clinically better. septum point the patient need to have a heart catheterization. Objective - Vital Signs Vital signs: Vital Signs Temp 98.4 F 08/08/16 12:00 Pulse 87 08/08/16 14:00 Resp 12 08/08/16 14:00 BP 97/64 08/08/16 14:00 Pulse Ox 100 08/08/16 14:00 Intake & Output 08/07/16 08/08/16 08/08/16 18:59 06:59 18:59 Intake Total 125.0 620 90.0 Output Total 1560 1730 710 Balance -1435.0 -1110 -620.0 Weight 89.9 kg Intake: IV 75 120 40 0.9 75 120 40 Intake, IV Titration 50.0 50.0 Amount Piperacillin-Tazobactam 3 50.0 50.0 .375 gm In Dextrose/Water 1 50ml.bag @ 12.5 mls/hr IVPB Q12HR [facility] Rx#: [id number] Oral 500 Output: Urine 1560 1730 710 Other: Voiding Method Indwelling Catheter Indwelling Catheter Indwelling Catheter - Constitutional General appearance: Present: no acute distress - Respiratory Respiratory: bilateral: rales - Cardiovascular Rhythm: regular Heart sounds: normal: S1, S2 - Labs CBC & Chem 7: 08/08/16 04:14 08/08/16 04:14 Labs: Abnormal Lab Results - Last 24 Hours (Table) 08/08/16 08/08/16 08/08/16 Range/Units 04:14 04:14 04:14 RBC 3.64 L (4.30-5.90) m/uL Hgb 11.1 L (13.0-17.5) gm/dL Hct 34.2 L (39.0-53.0) % Plt Count 122 L (150-450) k/uL Lymphocytes # 0.5 L (1.0-4.8) k/uL PT 32.8 H (9.0-12.0) sec BUN 64 H (9-20) mg/dL Creatinine 2.60 H (0.66-1.25) mg/dL Glucose 183 H (74-99) mg/dL POC Glucose (mg/dL) (75-99) mg/dL Calcium 8.2 L (8.4-10.2) mg/dL Troponin I (0.000-0.034) ng/mL 08/08/16 08/08/16 08/08/16 Range/Units 04:14 07:35 11:55 RBC (4.30-5.90) m/uL Hgb (13.0-17.5) gm/dL Hct (39.0-53.0) % Plt Count (150-450) k/uL Lymphocytes # (1.0-4.8) k/uL PT (9.0-12.0) sec BUN (9-20) mg/dL Creatinine (0.66-1.25) mg/dL Glucose (74-99) mg/dL POC Glucose (mg/dL) 124 H 177 H (75-99) mg/dL Calcium (8.4-10.2) mg/dL Troponin I 3.210 H* (0.000-0.034) ng/mL Microbiology - Last 24 Hours (Table) 08/06/16 23:47 Blood Culture - Preliminary Blood No Growth after 24 hours 08/06/16 23:15 Blood Culture - Preliminary Blood No Growth after 24 hours 08/06/16 09:43 Urine Culture - Final Urine,Catheterized Assessment and Plan Plan: Assessment #1 acute respiratory failure secondary to congestive heart failure exacerbation secondary to systolic dysfunction #2 acute non-ST elevation myocardial infarction with abnormal troponin. #3 fever with possible sepsis #4 atrial fibrillation with controlled heart rate #5 severe cardiomyopathy and known if is ischemic or nonischemic #6 valvular heart disease with evidence of aortic stenosis by echocardiogram #7 multiple comorbid conditions Plan #1 the patient currently is on Lasix IV which we will continue. The dose of Lasix was increased today. #2 continue monitor the kidney function and electrolytes as well #3 continue the current medical treatment with aspirin, and statin. #4 the patient needs to have a heart catheterization in the next few days.
--- NOTE | 2016-08-08 15:42 | PN ---
Patient is admitted for congestive heart failure exacerbation and patient was in shock, most probably related to congestive heart failure as well as septic shock. Patient is off Levophed since yesterday morning and patient is on Zosyn at this point of time. Sputum cultures are pending and patient has significant clinical improvement in respiratory failure, which is again hypoxic respiratory failure secondary to pneumonia as well as CHF. CHF appears to be improving as well. REVIEW OF SYSTEMS: CARDIOVASCULAR: No chest pain, no orthopnea, no PND, no palpitations. PULMONARY: As described in HPI. GASTROINTESTINAL: No diarrhea, nausea or vomiting. No abdominal pain. Normoactive bowel sounds. NEUROLOGIC: No headaches, no weakness, no numbness. Medications were reviewed. PHYSICAL EXAMINATION: VITAL SIGNS: Temperature 98.4, pulse of 87, respiratory rate of 20, blood pressure is 103/73. Saturating at 100% on 10 L, which can be tapered down. GENERAL: Patient is alert and oriented x3, looks way better than about a couple days ago. LUNG EXAMINATION: Bibasilar crackles are heard. Patient still has JVD. I did not hear any clear-cut bronchophony or egophony. HEENT: Pupils are round and equally reacting to light. EOMI. No scleral icterus. No conjunctival pallor. Normocephalic, atraumatic. No pharyngeal erythema. No thyromegaly. CARDIOVASCULAR: S1 and S2 present. No murmurs, rubs, or gallops. ABDOMEN: Soft, nontender, nondistended, normoactive bowel sounds. No palpable organomegaly. MUSCULOSKELETAL: No joint swelling or deformity. EXTREMITIES: No cyanosis, clubbing, or pedal edema. NEUROLOGICAL: Gross neurological examination did not reveal any focal deficits. SKIN: No rashes. LABORATORY DATA: CBC, CMP are abnormal for mildly elevated BUN and creatinine of 64 and 2.60 which is actually an improvement compared to yesterday. ASSESSMENT AND PLAN: 1. Acute hypoxic respiratory failure secondary to chronic obstructive pulmonary disease exacerbation which I believe is frustrated by pneumonia and septic shock. Patient will be continued on Zosyn and azithromycin. 2. Septic shock improved secondary to right middle lobe pneumonia. 3. Mild aortic stenosis. 4. [id number] myocardial infarction. 5. Chronic kidney disease stage III. 6. Acute renal failure secondary to prerenal azotemia from congestive heart failure, which there is a minimal improvement in creatinine and lactic acidosis from septic shock which improved. 7. Hypertension. 8. Hypothyroidism. 9. Type 2 diabetes mellitus. 10. Peripheral neuropathy. 11. Cerebrovascular accident with residual weakness on the left side. 12. Congestive heart failure, chronic systolic dysfunction with acute exacerbation.
[2016-08-08 17:06] LABS: Glucose,Whole Blood 171 mg/dL (75-99)
[2016-08-08] MEDS ORDERED: Potassium Replacement Protocol 1 EACH MISC MISCELLANE PRN (19:02)
[2016-08-08] MEDS ORDERED: POTASSIUM CHLORIDE ER 20 MEQ TAB.ER PO ONE (20:00)
[2016-08-08 20:12] LABS: Glucose,Whole Blood 204 mg/dL (75-99)
[2016-08-08] MEDS: ATORVASTATIN 40 MG TAB PO SCH (20:16)
[2016-08-08] MEDS: INSULIN DETEMIR 100 UNIT/ML 10 ML VIAL SQ SCH (20:17)
[2016-08-08] MEDS: traZODone HCL 50 MG TAB PO SCH (20:18)
[2016-08-08] MEDS: TERAZOSIN 2 MG CAP PO SCH (20:18)
[2016-08-08 22:02] LABS: Potassium 4.1 mmol/L (3.5-5.1)
[2016-08-08] MEDS: LEVOFLOXACIN 500 MG TAB PO SCH (22:13)
[2016-08-08] MEDS ORDERED: DAPTOmycin 500 MG in SODIUM CHLORIDE 0.9% 50 ML IV SCH (23:00)
[2016-08-09 05:02] LABS: Basophils % (A) 0 %; CH 30.7; CHCM 32.7; Eosinophils # (A) 0.2 k/uL (0-0.7); Eosinophils % (A) 5 %; HCT 33.3 % (39.0-53.0); HDW 2.72; HGB 10.7 gm/dL (13.0-17.5); Luc # (Auto) 0.05; Luc % (Auto) 1; Lymphocytes # (A) 0.6 k/uL (1.0-4.8); Lymphocytes % (A) 14 %; MCH 30.4 pg (25.0-35.0); MCHC 32.2 g/dL (31.0-37.0); MCV 94.3 fL (80.0-100.0); Mean Platelet Volume 7.8; Monocytes # (A) 0.2 k/uL (0-1.0); Monocytes % (A) 6 %; Neutrophils % (A) 74 %; RBC 3.53 m/uL (4.30-5.90); RDW 14.1 % (11.5-15.5); WBC 4.1 k/uL (3.8-10.6); WBC (Perox) 4.32
[2016-08-09 05:19] LABS: Calcium 8.2 mg/dL (8.4-10.2); Magnesium 2.1 mg/dL (1.6-2.3); Phosphorous 4.6 mg/dL (2.5-4.5); Potassium 4.3 mmol/L (3.5-5.1)
[2016-08-09 05:51] LABS: Creatine Kinase MB 1.5 ng/mL (0.0-2.4)
[2016-08-09 06:09] LABS: Troponin I 2.2 ng/mL (0.000-0.034)
[2016-08-09] MEDS: LEVOTHYROXINE 125 MCG TAB PO SCH (07:08)
[2016-08-09 07:50] LABS: Glucose,Whole Blood 95 mg/dL (75-99)
[2016-08-09] MEDS: INSULIN LISPRO (humaLOG) 300 UNIT/3 ML VIAL SQ SCH ×4 (07:54→21:53)
--- NOTE | 2016-08-09 08:22 | XR ---
EXAMINATION TYPE: XR chest 1V DATE OF EXAM: 08/09/2016 7:00 AM CLINICAL HISTORY: Difficulty breathing progress study. TECHNIQUE: Single AP portable upright view of the chest is obtained. COMPARISON: Chest x-ray from one day earlier FINDINGS: Cardiac silhouette size is stable and at the upper limits of normal with slightly ectatic thoracic aorta. There is diffuse left lung opacity with more focal right basilar opacity redemonstrat ed. Cannot exclude small left pleural effusion. No pneumothorax is seen bilaterally. Degenerative enid nge left glenohumeral joint is noted. IMPRESSION: Overall stable findings, diffuse left lung and right basilar edema and/or infiltrates a nd probable small left pleural effusion all redemonstrated.
[2016-08-09] MEDS: SODIUM CHLORIDE 0.9% 1,000 ML IV SCH (08:31)
[2016-08-09] MEDS: ASPIRIN 325 MG TAB PO SCH (08:31)
[2016-08-09] MEDS: FUROSEMIDE 10 MG/ML 10 ML VIAL IV SCH ×2 (08:31→21:53)
[2016-08-09] MEDS: METOPROLOL TARTRATE 25 MG TAB PO SCH ×2 (08:33→21:54)
[2016-08-09] MEDS: GABAPENTIN 400 MG CAP PO SCH ×2 (08:33→21:53)
[2016-08-09] MEDS: PANTOPRAZOLE 40 MG/10 ML VIAL IV SCH (08:34)
[2016-08-09] MEDS: IPRATROPIUM-ALBUTEROL 3 ML NEB INHALATION SCH ×4 (08:44→20:11)
[2016-08-09] MEDS: PIPERACILLIN-TAZOBACTAM 3.375 GM in DEXTROSE/WATER 1 50ML.BAG IVPB SCH ×2 (08:57→21:54)
--- NOTE | 2016-08-09 09:22 | P.PN ---
Subjective Principal diagnosis: Acute non-ST elevation IA This is a pleasant 76-year-old gentleman with a past medical history significant for cardiomyopathy, diabetes type 2, hypertension, dyslipidemia, and chronic atrial fibrillation, presented to the hospital with extreme weakness and falling at home. The patient fell on the floor without losing his consciousness. He does not recall having any chest pain or chest discomfort but he stated that he has been more short of breath lately. Initially the patient was admitted to the selective unit but he developed an acute respiratory failure and developed acute pulmonary edema. He was transferred to the intensive care unit where he was placed on BiPAP and he was given Lasix IV with improvement in his symptoms. Currently the patient is on BiPAP and he is hemodynamically stable. He was ruled out for acute non-ST elevation myocardial infarction with abnormal troponin. The EKG showed sinus rhythm with bifascicular block. Over the last few hours he has been spiking fever and the pressure starts being marginal. Blood culture was sent. There is no documentation of any history of coronary artery disease or prior coronary artery stenting in the past. He underwent an echocardiogram which showed impaired LV function with an ejection fraction of 35% with evidence of mild aortic stenosis. On follow-up with the patient today, he seems to be less short of breath. He still have bilateral crackles. the chest x-ray seems to be better. for some reason, the dose of Lasix IV was increased in spite of better chest x- ray and the patient seems to be clinically better. septum point the patient need to have a heart catheterization. I am going to DC the Coumadin. The INR today is 2. The patient need to have a heart cath and possible PCI in the next few days. Objective - Vital Signs Vital signs: Vital Signs Temp 98.2 F 08/09/16 08:00 Pulse 92 08/09/16 09:03 Resp 14 08/09/16 09:00 BP 126/68 08/09/16 09:00 Pulse Ox 99 08/09/16 09:00 Intake & Output 08/08/16 08/09/16 08/09/16 18:59 06:59 18:59 Intake Total 130.0 175.0 55 Output Total 1025 1370 235 Balance -895.0 -1195.0 -180 Weight 89.1 kg Intake: IV 80 75 30 0.9 80 75 30 Intake, IV Titration 50.0 100.0 25 Amount DAPTOmycin 500 mg In 50 Sodium Chloride 0.9% 50 ml @ 100 mls/hr IV HS [facility] Rx#:[id number] Piperacillin-Tazobactam 3 50.0 50.0 25 .375 gm In Dextrose/Water 1 50ml.bag @ 12.5 mls/hr IVPB Q12HR [facility] Rx#: [id number] Output: Urine 1025 1370 235 Other: Voiding Method Indwelling Catheter Indwelling Catheter Indwelling Catheter - Constitutional General appearance: Present: no acute distress - Respiratory Respiratory: bilateral: CTA - Cardiovascular Rhythm: irregularly irregular Heart sounds: normal: S1, S2 - Labs CBC & Chem 7: 08/09/16 04:05 08/09/16 04:05 Labs: Abnormal Lab Results - Last 24 Hours (Table) 08/08/16 08/08/16 08/08/16 Range/Units 11:55 17:03 20:11 RBC (4.30-5.90) m/uL Hgb (13.0-17.5) gm/dL Hct (39.0-53.0) % Plt Count (150-450) k/uL Lymphocytes # (1.0-4.8) k/uL PT (9.0-12.0) sec Sodium (137-145) mmol/L BUN (9-20) mg/dL Creatinine (0.66-1.25) mg/dL Glucose (74-99) mg/dL POC Glucose (mg/dL) 177 H 171 H 204 H (75-99) mg/dL Calcium (8.4-10.2) mg/dL Phosphorus (2.5-4.5) mg/dL Total Creatine Kinase (55-170) U/L Troponin I (0.000-0.034) ng/mL 08/09/16 08/09/16 08/09/16 Range/Units 04:05 04:05 04:05 RBC 3.53 L (4.30-5.90) m/uL Hgb 10.7 L (13.0-17.5) gm/dL Hct 33.3 L (39.0-53.0) % Plt Count 131 L (150-450) k/uL Lymphocytes # 0.6 L (1.0-4.8) k/uL PT 19.0 H (9.0-12.0) sec Sodium 146 H (137-145) mmol/L BUN 73 H (9-20) mg/dL Creatinine 2.90 H (0.66-1.25) mg/dL Glucose 104 H (74-99) mg/dL POC Glucose (mg/dL) (75-99) mg/dL Calcium 8.2 L (8.4-10.2) mg/dL Phosphorus 4.6 H (2.5-4.5) mg/dL Total Creatine Kinase (55-170) U/L Troponin I (0.000-0.034) ng/mL 08/09/16 Range/Units 04:05 RBC (4.30-5.90) m/uL Hgb (13.0-17.5) gm/dL Hct (39.0-53.0) % Plt Count (150-450) k/uL Lymphocytes # (1.0-4.8) k/uL PT (9.0-12.0) sec Sodium (137-145) mmol/L BUN (9-20) mg/dL Creatinine (0.66-1.25) mg/dL Glucose (74-99) mg/dL POC Glucose (mg/dL) (75-99) mg/dL Calcium (8.4-10.2) mg/dL Phosphorus (2.5-4.5) mg/dL Total Creatine Kinase 41 L (55-170) U/L Troponin I 2.200 H* (0.000-0.034) ng/mL Microbiology - Last 24 Hours (Table) 08/06/16 23:47 Blood Culture - Preliminary Blood No Growth after 48 hours 08/06/16 23:15 Blood Culture Gram Stain - Preliminary Blood 08/06/16 23:15 Blood Culture - Preliminary Blood Assessment and Plan Plan: Assessment #1 acute respiratory failure secondary to congestive heart failure exacerbation secondary to systolic dysfunction #2 acute non-ST elevation myocardial infarction with abnormal troponin. #3 fever with possible sepsis #4 atrial fibrillation with controlled heart rate #5 severe cardiomyopathy and known if is ischemic or nonischemic #6 valvular heart disease with evidence of aortic stenosis by echocardiogram #7 multiple comorbid conditions Plan #1 the patient currently is on Lasix IV which we will continue. #2 continue monitor the kidney function and electrolytes as well #3 continue the current medical treatment with aspirin, and statin. #4 the patient needs to have a heart catheterization in the next few days.
--- NOTE | 2016-08-09 09:51 | P.PN ---
Subjective Patient is seen in follow-up for acute kidney injury on chronic kidney disease. Patient has chronic kidney disease stage III secondary to diabetic kidney disease and nephrosclerosis. Creatinine is up to 2.9 today. He is currently maintained on Lasix 80 mg IV twice daily. Patient presented with a fall and is currently being treated for pneumonia as well as gram-positive bacteremia. He is noted to have ejection fraction of 30-35% along with severe aortic stenosis. Currently sitting up in chair. Dyspnea is improved. He is nonoliguric. Denies chest pain. Vital signs are stable. General: The patient appeared well nourished and normally developed. HEENT: Head exam is unremarkable. Neck is without jugular venous distension. LUNGS: Lungs are clear to auscultation and percussion. Breath sounds decreased. HEART: Rate and Rhythm are regular. First and second heart sounds normal. No murmurs, rubs or gallops. ABDOMEN: Abdominal exam reveals normal bowel sounds. Non-tender and non- distended. No evidence of peritonitis. EXTREMITITES: No clubbing, cyanosis, or edema. Objective - Vital Signs Vital signs: Vital Signs Temp 98.2 F 08/09/16 08:00 Pulse 92 08/09/16 09:03 Resp 14 08/09/16 09:00 BP 126/68 08/09/16 09:00 Pulse Ox 99 08/09/16 09:00 Intake & Output 08/08/16 08/09/16 08/09/16 18:59 06:59 18:59 Intake Total 130.0 175.0 55 Output Total 1025 1370 235 Balance -895.0 -1195.0 -180 Weight 89.1 kg Intake: IV 80 75 30 0.9 80 75 30 Intake, IV Titration 50.0 100.0 25 Amount DAPTOmycin 500 mg In 50 Sodium Chloride 0.9% 50 ml @ 100 mls/hr IV HS OLIVIA Rx#:[id number] Piperacillin-Tazobactam 3 50.0 50.0 25 .375 gm In Dextrose/Water 1 50ml.bag @ 12.5 mls/hr IVPB Q12HR OLIVIA Rx#: [id number] Output: Urine 1025 1370 235 Other: Voiding Method Indwelling Catheter Indwelling Catheter Indwelling Catheter - Labs CBC & Chem 7: 08/09/16 04:05 08/09/16 04:05 Labs: Abnormal Lab Results - Last 24 Hours (Table) 08/08/16 08/08/16 08/08/16 Range/Units 11:55 17:03 20:11 RBC (4.30-5.90) m/uL Hgb (13.0-17.5) gm/dL Hct (39.0-53.0) % Plt Count (150-450) k/uL Lymphocytes # (1.0-4.8) k/uL PT (9.0-12.0) sec Sodium (137-145) mmol/L BUN (9-20) mg/dL Creatinine (0.66-1.25) mg/dL Glucose (74-99) mg/dL POC Glucose (mg/dL) 177 H 171 H 204 H (75-99) mg/dL Calcium (8.4-10.2) mg/dL Phosphorus (2.5-4.5) mg/dL Total Creatine Kinase (55-170) U/L Troponin I (0.000-0.034) ng/mL 08/09/16 08/09/16 08/09/16 Range/Units 04:05 04:05 04:05 RBC 3.53 L (4.30-5.90) m/uL Hgb 10.7 L (13.0-17.5) gm/dL Hct 33.3 L (39.0-53.0) % Plt Count 131 L (150-450) k/uL Lymphocytes # 0.6 L (1.0-4.8) k/uL PT 19.0 H (9.0-12.0) sec Sodium 146 H (137-145) mmol/L BUN 73 H (9-20) mg/dL Creatinine 2.90 H (0.66-1.25) mg/dL Glucose 104 H (74-99) mg/dL POC Glucose (mg/dL) (75-99) mg/dL Calcium 8.2 L (8.4-10.2) mg/dL Phosphorus 4.6 H (2.5-4.5) mg/dL Total Creatine Kinase (55-170) U/L Troponin I (0.000-0.034) ng/mL 08/09/16 Range/Units 04:05 RBC (4.30-5.90) m/uL Hgb (13.0-17.5) gm/dL Hct (39.0-53.0) % Plt Count (150-450) k/uL Lymphocytes # (1.0-4.8) k/uL PT (9.0-12.0) sec Sodium (137-145) mmol/L BUN (9-20) mg/dL Creatinine (0.66-1.25) mg/dL Glucose (74-99) mg/dL POC Glucose (mg/dL) (75-99) mg/dL Calcium (8.4-10.2) mg/dL Phosphorus (2.5-4.5) mg/dL Total Creatine Kinase 41 L (55-170) U/L Troponin I 2.200 H* (0.000-0.034) ng/mL Microbiology - Last 24 Hours (Table) 08/06/16 23:47 Blood Culture - Preliminary Blood No Growth after 48 hours 08/06/16 23:15 Blood Culture Gram Stain - Preliminary Blood 08/06/16 23:15 Blood Culture - Preliminary Blood Assessment and Plan Plan: Assessment: #1. Nonoliguric acute kidney injury secondary to cardiorenal syndrome. Creatinine up at 2.9 today. #2. Severe sepsis secondary to pneumonia as well as gram-positive bacteremia. #3. Volume overload. Improving. #4. Chronic kidney disease stage III with baseline creatinine in the range of 1.4-1.6 secondary to diabetic kidney disease as well as nephrosclerosis. #5. Systolic CHF with ejection fraction of 30-35%. #6. Severe aortic stenosis. #7. Mild hypernatremia secondary to diuresis. Plan: I will decrease the dose of Lasix to 60 mg IV twice daily. Encourage oral intake. Avoid nephrotoxic agents and hypotensive episodes. Stable to be transferred out of the intensive care unit from nephrology standpoint. Discussed with cardiology. Needs a cardiac catheterization once renal function stabilizes.
--- NOTE | 2016-08-09 14:26 | P.PN ---
Subjective Principal diagnosis: Acute hypoxic respiratory failure secondary to pulmonary edema. 76-year-old male patient who was admitted to the hospital because of generalized weakness and the patient felt that his legs essentially gave out. He was standing in his bathroom sink and he felt extremely weak in his legs and he sat down on the floor without sustaining any major injury. He stated that he was feeling very weak and he was unable to get up and he was stuck on the floor for several hours. He ultimately had a neighbor help him out and EMS was called to the scene and the patient got moved to the hospital for further evaluation and treatment. Note that there is no trauma to his head or body. He denied having any chest pain. He was having progressively more shortness of breath. He has had previous history of CVA with some left-sided weakness and he is still INVOLVED the right hemisphere and right occipital lobe. He has history of coronary artery disease, mild congestion heart failure with ejection fraction of 45% and mild aortic stenosis with moderate degree of pulmonary hypertension, chronic atrial fibrillation, diabetes mellitus, hypertension, BPH , and chronic renal failure with a baseline creatinine in the 2.0 range. The patient ruled in for an acute non-ST segment elevation myocardial infarction his troponin peaked at 6. The patient got moved in to the ICU this morning as he went into acute respiratory distress/pulmonary edema. Chest x-ray from admission was compared to the one that was done at the time of his acute shortness of breath and clearly the patient was in acute pulmonary edema. He was given 100 mg IV Lasix and he put out more than 1 L. He was also placed on a BiPAP at a pressure of 10 over 5 cm of water and FiO2 of 100%. His breathing has improved and he is breathing much easier right now although still BiPAP dependent. I was able to wean down his FiO2 down to 50%. He is making adequate urine output at this point. No chest pain. Echo cardiac exam was repeated and apparently there has been some changes compared to the previous echo from 2016. The aortic stenosis was estimated to be severe and the ejection fraction was unofficially reported to be at around 35%. The patient has no cough or sputum production. No change in mental status. Neurologic exam essentially same with some residual weakness in the left which is been a chronic finding any sequelae of a previous CVA. His cardiac rhythm is irregular with sinus and occasional paroxysms of atrial fibrillation. On 08/09/2016, patient is now on nasal cannula, off BiPAP, continues to gradually improve based on his clinical findings and based on his chest x-ray. Remains on diuretics, he is now on Lasix at 60 mg IV push every 6 hours. His INR is therapeutic at 2.0, electrolytes are relatively unremarkable, BUN is 73 and creatinine is 2.90. Hemoglobin is 10.7. Troponin is 2.2 today. Patient is feeling better overall, and I believe if cleared by cardiology, could consider transferring him down to care one at [facility]. Objective - Vital Signs Vital signs: Vital Signs Temp 98.2 F 08/09/16 08:00 Pulse 98 08/09/16 12:00 Resp 17 08/09/16 12:00 BP 91/62 08/09/16 12:00 Pulse Ox 91 L 08/09/16 12:00 Intake & Output 08/08/16 08/09/16 08/09/16 18:59 06:59 18:59 Intake Total 130.0 175.0 80.0 Output Total 1025 1370 385 Balance -895.0 -1195.0 -305.0 Weight 89.1 kg Intake: IV 80 75 30 0.9 80 75 30 Intake, IV Titration 50.0 100.0 50.0 Amount DAPTOmycin 500 mg In 50 Sodium Chloride 0.9% 50 ml @ 100 mls/hr IV HS OLIVIA Rx#:[id number] Piperacillin-Tazobactam 3 50.0 50.0 50.0 .375 gm In Dextrose/Water 1 50ml.bag @ 12.5 mls/hr IVPB Q12HR OLIVIA Rx#: [id number] Output: Urine 1025 1370 385 Other: Voiding Method Indwelling Catheter Indwelling Catheter Indwelling Catheter - Exam Physical Exam: Revealed a 76-year-old white male in no distress, HEENT:[Neck is supple.] [No neck masses.] [No thyromegaly.] [No JVD.] Chest: [Minimal crackles at the bases Cardiac Exam: [Normal S1 and S2, no S3 gallop, 2/6 systolic murmur throughout the precordium] Abdomen: [Soft, nontender, no megaly, no rebound, no guarding, normal bowel sounds.] Extremities: [No clubbing, no edema, no cyanosis.] Neurological Exam: [No focal neurologic deficit.] - Labs CBC & Chem 7: 01/16/17 04:05 08/09/16 04:05 Labs: Abnormal Lab Results - Last 24 Hours (Table) 08/08/16 08/08/16 08/09/16 Range/Units 17:03 20:11 04:05 RBC (4.30-5.90) m/uL Hgb (13.0-17.5) gm/dL Hct (39.0-53.0) % Plt Count (150-450) k/uL Lymphocytes # (1.0-4.8) k/uL PT 19.0 H (9.0-12.0) sec Sodium (137-145) mmol/L BUN (9-20) mg/dL Creatinine (0.66-1.25) mg/dL Glucose (74-99) mg/dL POC Glucose (mg/dL) 171 H 204 H (75-99) mg/dL Calcium (8.4-10.2) mg/dL Phosphorus (2.5-4.5) mg/dL Total Creatine Kinase (55-170) U/L Troponin I (0.000-0.034) ng/mL 08/09/16 08/09/16 08/09/16 Range/Units 04:05 04:05 04:05 RBC 3.53 L (4.30-5.90) m/uL Hgb 10.7 L (13.0-17.5) gm/dL Hct 33.3 L (39.0-53.0) % Plt Count 131 L (150-450) k/uL Lymphocytes # 0.6 L (1.0-4.8) k/uL PT (9.0-12.0) sec Sodium 146 H (137-145) mmol/L BUN 73 H (9-20) mg/dL Creatinine 2.90 H (0.66-1.25) mg/dL Glucose 104 H (74-99) mg/dL POC Glucose (mg/dL) (75-99) mg/dL Calcium 8.2 L (8.4-10.2) mg/dL Phosphorus 4.6 H (2.5-4.5) mg/dL Total Creatine Kinase 41 L (55-170) U/L Troponin I 2.200 H* (0.000-0.034) ng/mL Microbiology - Last 24 Hours (Table) 08/06/16 23:47 Blood Culture - Preliminary Blood No Growth after 48 hours 08/06/16 23:15 Blood Culture Gram Stain - Preliminary Blood 08/06/16 23:15 Blood Culture - Preliminary Blood Assessment and Plan Plan: 1 acute hypoxic respiratory failure secondary to an acute pulmonary edema. The patient went into acute heart failure with pulmonary edema and he likely has an underlying valvular heart disease/CHF and the congestion heart failure was probably further decompensated by an acute non-ST segment elevation myocardial infarction. 2 acute non-ST segment myocardial infarction, with segmental wall motion abnormalities, please refer to the echocardiogram. 3 previous history of known coronary artery disease 4 mild aortic stenosis with moderate degree of pulmonary hypertension based on increased echocardiogram with an ejection fraction of 30% based on an echo from 2016 5 chronic renal insufficiency, stage III kidney disease at baseline with an acute worsening in her renal function probably rates to cardiorenal factors 6 hypertension 7 hypothyroidism 8 diabetes mellitus 9 diabetic peripheral neuropathy 10 benign prostatic hypertrophy 11 peripheral vascular disease 12 CVA with some left-sided residual weakness, chronic 13 paroxysmal atrial fibrillation 14 history of gangrenous toes that has been resected and the patient has been had previous lower extremity wound which has been essentially healed and currently there are no open wounds. He has been infected in the past and his wounds with stenotrophomonas and enterococcus. Recommendation: Continue diuretics, monitor urine output and renal profile, consider transferring the patient out of the ICU to care one at [facility]. Time with Patient: Less than 30
--- NOTE | 2016-08-09 15:17 | PN ---
Patient is admitted with congestive heart failure exacerbation and patient was also treated for shock, which is aseptic shock and patient is also being treated for pneumonia in the right middle lobe and patient is on Zosyn. Patient has significant clinical improvement, he is on 6 L of oxygen. Patient has elevated troponins, most probably type 2 [id number] myocardial infarction, although type 1 cannot be ruled out. Patient will undergo cardiac catheterization, one limiting factor is kidney function is poor and Nephrology is following the patient. Patient is presently on 60 IV b.i.d. of Lasix. Patient is doing much better at this point of time. REVIEW OF SYSTEMS: CARDIOVASCULAR: No chest pain, no orthopnea, no PND, no palpitations. PULMONARY: Denied any shortness of breath. No cough or hemoptysis. GASTROINTESTINAL: No diarrhea, nausea or vomiting. No abdominal pain. Normoactive bowel sounds. NEUROLOGIC: No headaches, no weakness, no numbness. Medications were reviewed. PHYSICAL EXAMINATION: Temperature 98.2, pulse of 98, respiratory rate of 17, blood pressure is 91/62, saturating at 91% on 6 L of oxygen by nasal cannula. LUNG EXAMINATION: Very minimal bibasilar crackles are appreciated. No wheezing was appreciated. Fairly good air entry into bilateral lung hunt. CARDIOVASCULAR: S1 and S2 present. Patient has very minimal elevated JVD which is significantly improved, pedal edema of 1+ pitting. GENERAL: The patient is alert and oriented x3, not in any acute distress. Well developed, well nourished. HEENT: Pupils are round and equally reacting to light. EOMI. No scleral icterus. No conjunctival pallor. Normocephalic, atraumatic. No pharyngeal erythema. No thyromegaly. ABDOMEN: Soft, nontender, nondistended, normoactive bowel sounds. No palpable organomegaly. MUSCULOSKELETAL: No joint swelling or deformity. EXTREMITIES: No cyanosis, clubbing, or pedal edema. NEUROLOGICAL: Gross neurological examination did not reveal any focal deficits. SKIN: No rashes. LABORATORY DATA: CBC and CMP are abnormal for elevated BUN and creatinine of 73 and 2.9 and troponin has come down to 2.2. ASSESSMENT AND PLAN: 1. Acute hypoxic respiratory failure secondary to chronic obstructive pulmonary disease exacerbation and patient at one time was on BiPAP and congestive heart failure as well as pneumonia. 2. Septic shock secondary to pneumonia, off Levophed drip and patient is presently on Zosyn. Sputum cultures are pending. 3. Mild aortic stenosis. 4. Jhy-KD-uqoisquqy myocardial infarction, cannot rule out type 1 at this time and patient is going for cardiac catheterization. 5. Acute renal failure secondary to prerenal azotemia from congestive heart failure. Patient appears to have some chronic kidney disease, unable to stage at this point of time. 6. Hypertension. 7. Hypothyroidism. 8. Type 2 diabetes mellitus. 9. Peripheral neuropathy. 10. Cerebrovascular accident in the past. 11. Congestive heart failure, chronic systolic dysfunction with acute exacerbation. 12. Right middle lobe pneumonia. PLAN: As mentioned above, antibiotics. Will transfer out of ICU, probable cardiac catheterization. Continue with IV Lasix and management of IV Lasix as per Nephrology. I's and O's. Patient appears to have stage III to IV CKD from diabetic nephropathy.
[2016-08-09 17:44] LABS: Glucose,Whole Blood 269 mg/dL (75-99)
[2016-08-09 20:51] LABS: Glucose,Whole Blood 214 mg/dL (75-99)
--- NOTE | 2016-08-09 21:51 | P.PN ---
Subjective 76-year-old male presents to the emergency center after gently going to the floor while he was in front of the sink. He does recall the event. He became weak and went to the floor. Was brought in by EMS because he was so weak. Was found to have evidence of significant shortness of breath and was brought into hospital. He then decompensated and required transfer to intensive care unit because of respiratory failure. He was treated with BiPAP. He has been added by cardiology for his non-ST segment depression myocardial infarction. He also has had some worsening of his underlying atrial fibrillation.because he developed fever antibiotic therapy was initiated and is now improving and will transfer to [facility]. Objective - Vital Signs Vital signs: Vital Signs Temp 98.4 F 08/09/16 16:00 Pulse 90 08/09/16 20:22 Resp 16 08/09/16 18:30 BP 116/64 08/09/16 16:00 Pulse Ox 100 08/09/16 16:00 Intake & Output 08/09/16 08/09/16 08/10/16 06:59 18:59 06:59 Intake Total 175.0 160.0 Output Total 1370 710 Balance -1195.0 -550.0 Weight 89.1 kg Intake: IV 75 110 0.9 75 110 Intake, IV Titration 100.0 50.0 Amount DAPTOmycin 500 mg In 50 Sodium Chloride 0.9% 50 ml @ 100 mls/hr IV HS OLIVIA Rx#:[id number] Piperacillin-Tazobactam 3 50.0 50.0 .375 gm In Dextrose/Water 1 50ml.bag @ 12.5 mls/hr IVPB Q12HR OLIVIA Rx#: [id number] Output: Urine 1370 710 Other: Voiding Method Indwelling Catheter Urinal - Labs CBC & Chem 7: 08/09/16 04:05 08/09/16 04:05 Labs: Abnormal Lab Results - Last 24 Hours (Table) 08/09/16 08/09/16 08/09/16 Range/Units 04:05 04:05 04:05 RBC 3.53 L (4.30-5.90) m/uL Hgb 10.7 L (13.0-17.5) gm/dL Hct 33.3 L (39.0-53.0) % Plt Count 131 L (150-450) k/uL Lymphocytes # 0.6 L (1.0-4.8) k/uL PT 19.0 H (9.0-12.0) sec Sodium 146 H (137-145) mmol/L BUN 73 H (9-20) mg/dL Creatinine 2.90 H (0.66-1.25) mg/dL Glucose 104 H (74-99) mg/dL POC Glucose (mg/dL) (75-99) mg/dL Calcium 8.2 L (8.4-10.2) mg/dL Phosphorus 4.6 H (2.5-4.5) mg/dL Total Creatine Kinase (55-170) U/L Troponin I (0.000-0.034) ng/mL 08/09/16 08/09/16 08/09/16 Range/Units 04:05 17:42 20:49 RBC (4.30-5.90) m/uL Hgb (13.0-17.5) gm/dL Hct (39.0-53.0) % Plt Count (150-450) k/uL Lymphocytes # (1.0-4.8) k/uL PT (9.0-12.0) sec Sodium (137-145) mmol/L BUN (9-20) mg/dL Creatinine (0.66-1.25) mg/dL Glucose (74-99) mg/dL POC Glucose (mg/dL) 269 H 214 H (75-99) mg/dL Calcium (8.4-10.2) mg/dL Phosphorus (2.5-4.5) mg/dL Total Creatine Kinase 41 L (55-170) U/L Troponin I 2.200 H* (0.000-0.034) ng/mL Microbiology - Last 24 Hours (Table) 08/08/16 23:03 Blood Culture Gram Stain - Preliminary Blood 08/08/16 23:03 Blood Culture - Preliminary Blood 08/06/16 23:15 Blood Culture Gram Stain - Preliminary Blood 08/06/16 23:47 Blood Culture - Preliminary Blood No Growth after 48 hours 08/06/16 23:15 Blood Culture - Preliminary Blood Laboratory Results WBC 4.1 k/uL (3.8-10.6) 08/09/16 04:05 RBC 3.53 m/uL (4.30-5.90) L 08/09/16 04:05 Hgb 10.7 gm/dL (13.0-17.5) L 08/09/16 04:05 Hct 33.3 % (39.0-53.0) L 08/09/16 04:05 MCV 94.3 fL (80.0-100.0) 08/09/16 04:05 MCH 30.4 pg (25.0-35.0) 08/09/16 04:05 MCHC 32.2 g/dL (31.0-37.0) 08/09/16 04:05 RDW 14.1 % (11.5-15.5) 08/09/16 04:05 Plt Count 131 k/uL (150-450) L 08/09/16 04:05 Neutrophils % 74 % 08/09/16 04:05 Lymphocytes % 14 % 08/09/16 04:05 Monocytes % 6 % 08/09/16 04:05 Eosinophils % 5 % 08/09/16 04:05 Basophils % 0 % 08/09/16 04:05 Neutrophils # 3.0 k/uL (1.3-7.7) 08/09/16 04:05 Lymphocytes # 0.6 k/uL (1.0-4.8) L 08/09/16 04:05 Monocytes # 0.2 k/uL (0-1.0) 08/09/16 04:05 Eosinophils # 0.2 k/uL (0-0.7) 08/09/16 04:05 Basophils # 0.0 k/uL (0-0.2) 08/09/16 04:05 PT 19.0 sec (9.0-12.0) H 08/09/16 04:05 INR 2.0 (<1.1) 08/09/16 04:05 Sodium 146 mmol/L (137-145) H 08/09/16 04:05 Potassium 4.3 mmol/L (3.5-5.1) 08/09/16 04:05 Chloride 106 mmol/L (98-107) 08/09/16 04:05 Carbon Dioxide 27 mmol/L (22-30) 08/09/16 04:05 Anion Gap 13 mmol/L 08/09/16 04:05 BUN 73 mg/dL (9-20) H 08/09/16 04:05 Creatinine 2.90 mg/dL (0.66-1.25) H 08/09/16 04:05 Est GFR (MDRD) Af Amer 26 (>60 ml/min/1.73 sqM) 08/09/16 04:05 Est GFR (MDRD) Non-Af 21 (>60 ml/min/1.73 sqM) 08/09/16 04:05 Glucose 104 mg/dL (74-99) H 08/09/16 04:05 POC Glucose (mg/dL) 214 mg/dL (75-99) H 08/09/16 20:49 POC Glu Corral Boss ID Corrina Wade 08/09/16 20:[address] Glu mg/dL 131 mg/dL 08/06/16 05:51 Hemoglobin A1c 6.2 % (4.2-6.1) H 08/06/16 05:51 Plasma Lactic Acid Blake 1.0 mmol/L (0.7-2.0) 08/08/16 05:53 Calcium 8.2 mg/dL (8.4-10.2) L 08/09/16 04:05 Phosphorus 4.6 mg/dL (2.5-4.5) H 08/09/16 04:05 Magnesium 2.1 mg/dL (1.6-2.3) 08/09/16 04:05 Total Bilirubin 0.6 mg/dL (0.2-1.3) 08/06/16 05:51 AST 40 U/L (17-59) 08/06/16 05:51 ALT 34 U/L (21-72) 08/06/16 05:51 Alkaline Phosphatase 47 U/L (38-126) 08/06/16 05:51 Creatine Kinase 228 U/L (55-170) H 08/05/16 17:51 Total Creatine Kinase 41 U/L (55-170) L 08/09/16 04:05 CK-MB (CK-2) 1.5 ng/mL (0.0-2.4) 08/09/16 04:05 CK-MB (CK-2) Rel Index 3.7 08/09/16 04:05 Troponin I 2.200 ng/mL (0.000-0.034) H* 08/09/16 04:05 NT-Pro-B Natriuret Pep 29214 pg/mL 08/05/16 17:51 Total Protein 6.4 g/dL (6.3-8.2) 08/06/16 05:51 Albumin 3.5 g/dL (3.5-5.0) 08/06/16 05:51 Urine Color Dark Yellow 08/05/16 18:50 Urine Appearance Cloudy (Clear) 08/05/16 18:50 Urine pH 5.0 (5.0-8.0) 08/05/16 18:50 Ur Specific [place] 1.018 (1.001-1.035) 08/05/16 18:50 Urine Protein 1+ (Negative) H 08/05/16 18:50 Urine Glucose (UA) Negative (Negative) 08/05/16 18:50 Urine Ketones Trace (Negative) H 08/05/16 18:50 Urine Blood Negative (Negative) 08/05/16 18:50 Urine Nitrate Negative (Negative) 08/05/16 18:50 Urine Bilirubin Negative (Negative) 08/05/16 18:50 Urine Urobilinogen 3.0 mg/dL (<2.0) 08/05/16 18:50 Ur Leukocyte Esterase Negative (Negative) 08/05/16 18:50 Urine RBC 2 /hpf (0-5) 08/05/16 18:50 Urine Bacteria Many /hpf (None) H 08/05/16 18:50 Hyaline Casts 25 /lpf (0-2) H 08/05/16 18:50 Granular Casts 1 /lpf (0) 08/05/16 18:50 Urine Mucus Rare /hpf (None) H 08/05/16 18:50 Microbiology 08/08/16 23:03 Blood Blood Culture Gram Stain - Preliminary 08/08/16 23:03 Blood Blood Culture - Preliminary 08/06/16 23:15 Blood Blood Culture Gram Stain - Preliminary 08/06/16 23:47 Blood Blood Culture - Preliminary No Growth after 48 hours 08/06/16 23:15 Blood Blood Culture - Preliminary 08/06/16 09:43 Urine,Catheterized Urine Culture - Final Assessment and Plan (1) NSTEMI (non-ST elevated myocardial infarction) Narrative/Plan: 76-year-old male with multiple underlying medical troubles that includes coronary artery disease and atrial fibrillation presents to Hospital severe weakness and gentle fall to the floor. Without evidence of a non-ST myocardial infarction. A with congestive heart failure and chronic systolic type. As well as acute renal failure imposed on chronic renal failure. The patient has had fever which appears to be multifactorial including underlying myocardial infarction. Agreed that pneumonia cannot be ruled out although the patient did not have significant symptoms before his acute event. The patient does evidence of the positive blood culture and I'll follow blood culture is positive. He is being treated with intravenous antibiotic therapy with daptomycin blood cultures are process. Overall he is steadily improving. His legs are improving with local care. Computed potential source of his bacteremia. Continue the Silvadene and compression. Elevate at rest. Status: Acute (2) Acute on chronic systolic heart failure Status: Acute (3) Fever Status: Acute (4) Acute on chronic renal failure Status: Acute
[2016-08-09] MEDS: ATORVASTATIN 40 MG TAB PO SCH (21:53)
[2016-08-09] MEDS: TERAZOSIN 2 MG CAP PO SCH (21:54)
[2016-08-09] MEDS: LEVOFLOXACIN 250 MG TAB PO SCH (21:54)
[2016-08-09] MEDS: traZODone HCL 50 MG TAB PO SCH (21:55)
[2016-08-09] MEDS: INSULIN DETEMIR 100 UNIT/ML 10 ML VIAL SQ SCH (22:10)
[2016-08-10 05:51] LABS: Glucose,Whole Blood 177 mg/dL (75-99)
[2016-08-10] MEDS: LEVOTHYROXINE 125 MCG TAB PO SCH (06:17)
[2016-08-10] MEDS: INSULIN LISPRO (humaLOG) 300 UNIT/3 ML VIAL SQ SCH ×4 (06:17→21:58)
[2016-08-10 06:51] LABS: Basophils % (A) 0 %; CH 30.4; CHCM 32.3; Eosinophils # (A) 0.3 k/uL (0-0.7); Eosinophils % (A) 6 %; HGB 10.4 gm/dL (13.0-17.5); Luc # (Auto) 0.09; Luc % (Auto) 2; Lymphocytes # (A) 0.7 k/uL (1.0-4.8); Lymphocytes % (A) 15 %; MCH 30.7 pg (25.0-35.0); MCHC 32.5 g/dL (31.0-37.0); MCV 94.5 fL (80.0-100.0); Mean Platelet Volume 7.6; Monocytes # (A) 0.3 k/uL (0-1.0); Monocytes % (A) 6 %; Neutrophils # (A) 3.4 k/uL (1.3-7.7); Neutrophils % (A) 71 %; RBC 3.38 m/uL (4.30-5.90); WBC 4.8 k/uL (3.8-10.6); WBC (Perox) 5.09
[2016-08-10 07:14] LABS: Calcium 8.1 mg/dL (8.4-10.2); Phosphorous 5.6 mg/dL (2.5-4.5); Potassium 4.3 mmol/L (3.5-5.1)
[2016-08-10 07:21] LABS: Creatine Kinase MB 1.4 ng/mL (0.0-2.4)
[2016-08-10 07:29] LABS: Troponin I 1.31 ng/mL (0.000-0.034)
[2016-08-10] MEDS: IPRATROPIUM-ALBUTEROL 3 ML NEB INHALATION SCH ×4 (08:19→19:53)
[2016-08-10] MEDS: GABAPENTIN 400 MG CAP PO SCH ×2 (09:07→21:56)
[2016-08-10] MEDS: ASPIRIN 325 MG TAB PO SCH (09:07)
[2016-08-10] MEDS: PANTOPRAZOLE 40 MG/10 ML VIAL IV SCH (09:07)
[2016-08-10] MEDS: METOPROLOL TARTRATE 25 MG TAB PO SCH ×2 (09:07→21:57)
[2016-08-10] MEDS: PIPERACILLIN-TAZOBACTAM 3.375 GM in DEXTROSE/WATER 1 50ML.BAG IVPB SCH ×2 (09:17→22:21)
--- NOTE | 2016-08-10 10:20 | P.PN ---
Subjective Patient is seen in follow-up for acute kidney injury on chronic kidney disease. Patient has chronic kidney disease stage III secondary to diabetic kidney disease and nephrosclerosis. Renal function is worsening with creatinine at 3.2 today. He is currently maintained on Lasix 60 mg IV twice daily. Patient presented with a fall and is currently being treated for pneumonia as well as gram-positive bacteremia. He is noted to have ejection fraction of 30-35% along with severe aortic stenosis. Currently sitting up in bed. Dyspnea is improved. He is nonoliguric. Denies chest pain. Appetite is good. Vital signs are stable. General: The patient appeared well nourished and normally developed. HEENT: Head exam is unremarkable. Neck is without jugular venous distension. LUNGS: Lungs are clear to auscultation and percussion. Breath sounds decreased. HEART: Rate and Rhythm are regular. First and second heart sounds normal. No murmurs, rubs or gallops. ABDOMEN: Abdominal exam reveals normal bowel sounds. Non-tender and non- distended. No evidence of peritonitis. EXTREMITITES: No clubbing, cyanosis, or edema. Objective - Vital Signs Vital signs: Vital Signs Temp 97.5 F L 08/10/16 04:00 Pulse 84 08/10/16 08:32 Resp 18 08/10/16 04:00 BP 132/65 08/10/16 04:00 Pulse Ox 96 08/10/16 04:00 Intake & Output 08/09/16 08/10/16 08/10/16 18:59 06:59 18:59 Intake Total 160.0 Output Total 710 300 Balance -550.0 -300 Weight 84.9 kg Intake: IV 110 0.9 110 Intake, IV Titration 50.0 Amount Piperacillin-Tazobactam 3 50.0 .375 gm In Dextrose/Water 1 50ml.bag @ 12.5 mls/hr IVPB Q12HR [facility] Rx#: [id number] Output: Urine 710 300 Other: Voiding Method Urinal Urinal - Labs CBC & Chem 7: 08/10/16 06:07 08/10/16 06:07 Labs: Abnormal Lab Results - Last 24 Hours (Table) 08/09/16 08/09/16 08/10/16 Range/Units 17:42 20:49 05:48 RBC (4.30-5.90) m/uL Hgb (13.0-17.5) gm/dL Hct (39.0-53.0) % Plt Count (150-450) k/uL Lymphocytes # (1.0-4.8) k/uL Sodium (137-145) mmol/L BUN (9-20) mg/dL Creatinine (0.66-1.25) mg/dL Glucose (74-99) mg/dL POC Glucose (mg/dL) 269 H 214 H 177 H (75-99) mg/dL Calcium (8.4-10.2) mg/dL Phosphorus (2.5-4.5) mg/dL Total Creatine Kinase (55-170) U/L Troponin I (0.000-0.034) ng/mL 08/10/16 08/10/16 08/10/16 Range/Units 06:07 06:07 06:07 RBC 3.38 L (4.30-5.90) m/uL Hgb 10.4 L (13.0-17.5) gm/dL Hct 32.0 L (39.0-53.0) % Plt Count 143 L (150-450) k/uL Lymphocytes # 0.7 L (1.0-4.8) k/uL Sodium 146 H (137-145) mmol/L BUN 79 H (9-20) mg/dL Creatinine 3.22 H (0.66-1.25) mg/dL Glucose 134 H (74-99) mg/dL POC Glucose (mg/dL) (75-99) mg/dL Calcium 8.1 L (8.4-10.2) mg/dL Phosphorus 5.6 H (2.5-4.5) mg/dL Total Creatine Kinase 30 L (55-170) U/L Troponin I 1.310 H* (0.000-0.034) ng/mL Microbiology - Last 24 Hours (Table) 08/08/16 23:03 Blood Culture Gram Stain - Preliminary Blood Blood Culture - Preliminary Coagulase Negative Staph 08/06/16 23:47 Blood Culture - Preliminary Blood No Growth after 72 hours 08/08/16 23:14 Blood Culture - Preliminary Blood No Growth after 24 hours 08/06/16 23:15 Blood Culture Gram Stain - Preliminary Blood Blood Culture - Preliminary Coagulase Negative Staph 08/08/16 23:03 Blood Culture - Preliminary Blood Assessment and Plan Plan: Assessment: #1. Nonoliguric acute kidney injury secondary to cardiorenal syndrome. Creatinine up to 3.2 today. #2. Severe sepsis secondary to pneumonia as well as gram-positive bacteremia. #3. Volume overload. Improving. #4. Chronic kidney disease stage III with baseline creatinine in the range of 1.4-1.6 secondary to diabetic kidney disease as well as nephrosclerosis. #5. Systolic CHF with ejection fraction of 30-35%. #6. Severe aortic stenosis. #7. Mild hypernatremia secondary to diuresis. Plan: I will decrease dose of Lasix to 40 mg orally once daily. Follow-up a.m. chest x-ray. Encourage oral intake. Avoid nephrotoxic agents and hypotensive episodes. Discussed with cardiology. Needs a cardiac catheterization once renal function stabilizes.
--- NOTE | 2016-08-10 10:34 | XR ---
EXAMINATION TYPE: XR chest 1V DATE OF EXAM: 08/10/2016 9:00 AM COMPARISON: 08/09/2016 INDICATION: Short of breath TECHNIQUE: Single frontal view of the chest is obtained. FINDINGS: The heart size is normal. The pulmonary vasculature is normal. Left lower lobe infiltrate is improved. Some minimal atelectasis may be present at the right base. IMPRESSION: 1. Improving left basilar infiltrate.
[2016-08-10] MEDS: SODIUM CHLORIDE 0.9% 1,000 ML IV SCH (10:37)
[2016-08-10] MEDS: FUROSEMIDE 10 MG/ML 10 ML VIAL IV SCH (10:38)
[2016-08-10] MEDS: FUROSEMIDE 40 MG TAB PO SCH (11:14)
--- NOTE | 2016-08-10 11:27 | P.PN ---
Subjective Principal diagnosis: Acute hypoxic respiratory failure secondary to pulmonary edema. 76-year-old male patient who was admitted to the hospital because of generalized weakness and the patient felt that his legs essentially gave out. He was standing in his bathroom sink and he felt extremely weak in his legs and he sat down on the floor without sustaining any major injury. He stated that he was feeling very weak and he was unable to get up and he was stuck on the floor for several hours. He ultimately had a neighbor help him out and EMS was called to the scene and the patient got moved to the hospital for further evaluation and treatment. Note that there is no trauma to his head or body. He denied having any chest pain. He was having progressively more shortness of breath. He has had previous history of CVA with some left-sided weakness and he is still INVOLVED the right hemisphere and right occipital lobe. He has history of coronary artery disease, mild congestion heart failure with ejection fraction of 45% and mild aortic stenosis with moderate degree of pulmonary hypertension, chronic atrial fibrillation, diabetes mellitus, hypertension, BPH , and chronic renal failure with a baseline creatinine in the 2.0 range. The patient ruled in for an acute non-ST segment elevation myocardial infarction his troponin peaked at 6. The patient got moved in to the ICU this morning as he went into acute respiratory distress/pulmonary edema. Chest x-ray from admission was compared to the one that was done at the time of his acute shortness of breath and clearly the patient was in acute pulmonary edema. He was given 100 mg IV Lasix and he put out more than 1 L. He was also placed on a BiPAP at a pressure of 10 over 5 cm of water and FiO2 of 100%. His breathing has improved and he is breathing much easier right now although still BiPAP dependent. I was able to wean down his FiO2 down to 50%. He is making adequate urine output at this point. No chest pain. Echo cardiac exam was repeated and apparently there has been some changes compared to the previous echo from 2016. The aortic stenosis was estimated to be severe and the ejection fraction was unofficially reported to be at around 35%. The patient has no cough or sputum production. No change in mental status. Neurologic exam essentially same with some residual weakness in the left which is been a chronic finding any sequelae of a previous CVA. His cardiac rhythm is irregular with sinus and occasional paroxysms of atrial fibrillation. On 08/09/2016, patient is now on nasal cannula, off BiPAP, continues to gradually improve based on his clinical findings and based on his chest x-ray. Remains on diuretics, he is now on Lasix at 60 mg IV push every 6 hours. His INR is therapeutic at 2.0, electrolytes are relatively unremarkable, BUN is 73 and creatinine is 2.90. Hemoglobin is 10.7. Troponin is 2.2 today. Patient is feeling better overall, and I believe if cleared by cardiology, could consider transferring him down to [facility]. Patient was reevaluated today on 08/10/2016, continues to do well, chest x-ray continues to show improvement in his pulmonary edema. And overall the patient is making a significant clinical improvement. Labs were reviewed today, his BUN however remains elevated at 79, and creatinine is 3.22. WBC count is 4.8 hemoglobin is 10.4. Chest x-ray today showed mostly atelectasis in the lower lobes. Overall much improved. Objective - Vital Signs Vital signs: Vital Signs Temp 98.8 F 08/10/16 08:00 Pulse 84 08/10/16 08:32 Resp 18 08/10/16 08:00 BP 144/80 08/10/16 08:00 Pulse Ox 96 08/10/16 08:00 Intake & Output 08/09/16 08/10/16 08/10/16 18:59 06:59 18:59 Intake Total 160.0 Output Total 710 300 Balance -550.0 -300 Weight 84.9 kg Intake: IV 110 0.9 110 Intake, IV Titration 50.0 Amount Piperacillin-Tazobactam 3 50.0 .375 gm In Dextrose/Water 1 50ml.bag @ 12.5 mls/hr IVPB Q12HR [facility] Rx#: [id number] Output: Urine 710 300 Other: Voiding Method Urinal Urinal Urinal - Labs CBC & Chem 7: 08/10/16 06:07 08/10/16 06:07 Labs: Abnormal Lab Results - Last 24 Hours (Table) 08/09/16 08/09/16 08/10/16 Range/Units 17:42 20:49 05:48 RBC (4.30-5.90) m/uL Hgb (13.0-17.5) gm/dL Hct (39.0-53.0) % Plt Count (150-450) k/uL Lymphocytes # (1.0-4.8) k/uL Sodium (137-145) mmol/L BUN (9-20) mg/dL Creatinine (0.66-1.25) mg/dL Glucose (74-99) mg/dL POC Glucose (mg/dL) 269 H 214 H 177 H (75-99) mg/dL Calcium (8.4-10.2) mg/dL Phosphorus (2.5-4.5) mg/dL Total Creatine Kinase (55-170) U/L Troponin I (0.000-0.034) ng/mL 08/10/16 08/10/16 08/10/16 Range/Units 06:07 06:07 06:07 RBC 3.38 L (4.30-5.90) m/uL Hgb 10.4 L (13.0-17.5) gm/dL Hct 32.0 L (39.0-53.0) % Plt Count 143 L (150-450) k/uL Lymphocytes # 0.7 L (1.0-4.8) k/uL Sodium 146 H (137-145) mmol/L BUN 79 H (9-20) mg/dL Creatinine 3.22 H (0.66-1.25) mg/dL Glucose 134 H (74-99) mg/dL POC Glucose (mg/dL) (75-99) mg/dL Calcium 8.1 L (8.4-10.2) mg/dL Phosphorus 5.6 H (2.5-4.5) mg/dL Total Creatine Kinase 30 L (55-170) U/L Troponin I 1.310 H* (0.000-0.034) ng/mL Microbiology - Last 24 Hours (Table) 08/08/16 23:03 Blood Culture Gram Stain - Preliminary Blood Blood Culture - Preliminary Coagulase Negative Staph 08/06/16 23:47 Blood Culture - Preliminary Blood No Growth after 72 hours 08/08/16 23:14 Blood Culture - Preliminary Blood No Growth after 24 hours 08/06/16 23:15 Blood Culture Gram Stain - Preliminary Blood Blood Culture - Preliminary Coagulase Negative Staph 08/08/16 23:03 Blood Culture - Preliminary Blood Assessment and Plan Plan: 1 acute hypoxic respiratory failure secondary to an acute pulmonary edema. The patient went into acute heart failure with pulmonary edema and he likely has an underlying valvular heart disease/CHF and the congestion heart failure was probably further decompensated by an acute non-ST segment elevation myocardial infarction. 2 acute non-ST segment myocardial infarction, with segmental wall motion abnormalities, please refer to the echocardiogram. 3 previous history of known coronary artery disease 4 mild aortic stenosis with moderate degree of pulmonary hypertension based on increased echocardiogram with an ejection fraction of 30% based on an echo from 2016 5 chronic renal insufficiency, stage III kidney disease at baseline with an acute worsening in her renal function probably rates to cardiorenal factors 6 hypertension 7 hypothyroidism 8 diabetes mellitus 9 diabetic peripheral neuropathy 10 benign prostatic hypertrophy 11 peripheral vascular disease 12 CVA with some left-sided residual weakness, chronic 13 paroxysmal atrial fibrillation 14 history of gangrenous toes that has been resected and the patient has been had previous lower extremity wound which has been essentially healed and currently there are no open wounds. He has been infected in the past and his wounds with stenotrophomonas and enterococcus. Recommendation: Continue present meds, and consider discharge planning in the next 24 hours. Time with Patient: Less than 30
[2016-08-10 11:57] LABS: Glucose,Whole Blood 191 mg/dL (75-99)
[2016-08-10 14:50] LABS: INR 1.5 (<1.1); Prothrombin Time 14.6 sec (9.0-12.0)
[2016-08-10 17:41] LABS: Glucose,Whole Blood 231 mg/dL (75-99)
[2016-08-10] MEDS ORDERED: DAPTOmycin 500 MG in SODIUM CHLORIDE 0.9% 50 ML IV SCH (18:00)
[2016-08-10] MEDS ORDERED: HEPARIN SODIUM,PORCINE 5,000 UNIT/ML 1 ML VIAL IV PRN (18:02)
[2016-08-10] MEDS: HEPARIN SODIUM,PORCINE/D5W PMX 25,000 UNIT in DEXTROSE/WATER 1 500ML.BAG IV SCH (18:36)
[2016-08-10 21:07] LABS: Glucose,Whole Blood 206 mg/dL (75-99)
[2016-08-10] MEDS: ATORVASTATIN 40 MG TAB PO SCH (21:56)
[2016-08-10] MEDS: traZODone HCL 50 MG TAB PO SCH (21:57)
[2016-08-10] MEDS: TERAZOSIN 2 MG CAP PO SCH (21:57)
[2016-08-10] MEDS: LEVOFLOXACIN 250 MG TAB PO SCH (21:57)
--- NOTE | 2016-08-10 22:01 | P.PN ---
Subjective 76-year-old male presents to the emergency center after gently going to the floor while he was in front of the sink. He does recall the event. He became weak and went to the floor. Was brought in by EMS because he was so weak. Was found to have evidence of significant shortness of breath and was brought into hospital. He then decompensated and required transfer to intensive care unit because of respiratory failure. He was treated with BiPAP. He has been added by cardiology for his non-ST segment depression myocardial infarction. He also has had some worsening of his underlying atrial fibrillation.because he developed fever antibiotic therapy was initiated and is now improving and will transfer to [facility]. Objective - Vital Signs Vital signs: Vital Signs Temp 98.7 F 08/10/16 16:00 Pulse 92 08/10/16 20:01 Resp 18 08/10/16 16:00 BP 131/77 08/10/16 16:00 Pulse Ox 94 L 08/10/16 16:00 Intake & Output 08/10/16 08/10/16 08/11/16 06:59 18:59 06:59 Intake Total 360 Output Total 300 650 Balance -300 -290 Weight 84.9 kg 84.9 kg Intake: Oral 360 Output: Urine 300 650 Other: Voiding Method Urinal Urinal - Exam 76-year-old male who is more comfortable than yesterday Still short of breath denies chest pain HEENT: Anicteric conjunctiva are pink and moist nasal mucosa grossly intact without significant lesions, there is no thrush.poor dentition large jensen Neck: The neck is supple without significant lymphadenopathy or thyromegaly. Lungs: symmetrical air entry with evidenceexpiratory wheezes Heart: irregular with an audible S1 and S2 no S3 soft S4 no distinctmurmur click or rub Abdomen: Positive bowel sounds soft and nontender without palpable masses or organomegaly. There was no guarding or rebound. Extremities: The upper extremities have excellent pulses they are symmetric, no significant petechiae or telangiectasia. No splinter hemorrhages were noted. the lower extremities reveal evidence bilateral lower extremity edema minimal erythema without ulcerations,prior toe amputations are well-healed Neuro: Awake alert oriented to person place and time. There are no acute new gross focal sensory motor deficits. - Labs CBC & Chem 7: 08/10/16 06:07 08/10/16 06:07 Labs: Abnormal Lab Results - Last 24 Hours (Table) 08/10/16 08/10/16 08/10/16 Range/Units 05:48 06:07 06:07 RBC 3.38 L (4.30-5.90) m/uL Hgb 10.4 L (13.0-17.5) gm/dL Hct 32.0 L (39.0-53.0) % Plt Count 143 L (150-450) k/uL Lymphocytes # 0.7 L (1.0-4.8) k/uL PT (9.0-12.0) sec APTT (22.0-30.0) sec Sodium 146 H (137-145) mmol/L BUN 79 H (9-20) mg/dL Creatinine 3.22 H (0.66-1.25) mg/dL Glucose 134 H (74-99) mg/dL POC Glucose (mg/dL) 177 H (75-99) mg/dL Calcium 8.1 L (8.4-10.2) mg/dL Phosphorus 5.6 H (2.5-4.5) mg/dL Total Creatine Kinase (55-170) U/L Troponin I (0.000-0.034) ng/mL 08/10/16 08/10/16 08/10/16 Range/Units 06:07 06:30 11:37 RBC (4.30-5.90) m/uL Hgb (13.0-17.5) gm/dL Hct (39.0-53.0) % Plt Count (150-450) k/uL Lymphocytes # (1.0-4.8) k/uL PT 14.6 H (9.0-12.0) sec APTT (22.0-30.0) sec Sodium (137-145) mmol/L BUN (9-20) mg/dL Creatinine (0.66-1.25) mg/dL Glucose (74-99) mg/dL POC Glucose (mg/dL) 191 H (75-99) mg/dL Calcium (8.4-10.2) mg/dL Phosphorus (2.5-4.5) mg/dL Total Creatine Kinase 30 L (55-170) U/L Troponin I 1.310 H* (0.000-0.034) ng/mL 08/10/16 08/10/1617 Range/Units 16:33 18:35 21:05 RBC (4.30-5.90) m/uL Hgb (13.0-17.5) gm/dL Hct (39.0-53.0) % Plt Count (150-450) k/uL Lymphocytes # (1.0-4.8) k/uL PT (9.0-12.0) sec APTT 30.7 H (22.0-30.0) sec Sodium (137-145) mmol/L BUN (9-20) mg/dL Creatinine (0.66-1.25) mg/dL Glucose (74-99) mg/dL POC Glucose (mg/dL) 231 H 206 H (75-99) mg/dL Calcium (8.4-10.2) mg/dL Phosphorus (2.5-4.5) mg/dL Total Creatine Kinase (55-170) U/L Troponin I (0.000-0.034) ng/mL Microbiology - Last 24 Hours (Table) 08/08/16 23:03 Blood Culture Gram Stain - Preliminary Blood Blood Culture - Preliminary Coagulase Negative Staph 08/06/16 23:47 Blood Culture - Preliminary Blood No Growth after 72 hours 08/08/16 23:14 Blood Culture - Preliminary Blood No Growth after 24 hours 08/06/16 23:15 Blood Culture Gram Stain - Preliminary Blood Blood Culture - Preliminary Coagulase Negative Staph 08/08/16 23:03 Blood Culture - Preliminary Blood Laboratory Results WBC 4.8 k/uL (3.8-10.6) 08/10/16 06:07 RBC 3.38 m/uL (4.30-5.90) L 08/10/16 06:07 Hgb 10.4 gm/dL (13.0-17.5) L 08/10/16 06:07 Hct 32.0 % (39.0-53.0) L 08/10/16 06:07 MCV 94.5 fL (80.0-100.0) 08/10/16 06:07 MCH 30.7 pg (25.0-35.0) 08/10/16 06:07 MCHC 32.5 g/dL (31.0-37.0) 08/10/16 06:07 RDW 14.0 % (11.5-15.5) 08/10/16 06:07 Plt Count 143 k/uL (150-450) L 08/10/16 06:07 Neutrophils % 71 % 08/10/16 06:07 Lymphocytes % 15 % 08/10/16 06:07 Monocytes % 6 % 08/10/16 06:07 Eosinophils % 6 % 08/10/16 06:07 Basophils % 0 % 08/10/16 06:07 Neutrophils # 3.4 k/uL (1.3-7.7) 08/10/16 06:07 Lymphocytes # 0.7 k/uL (1.0-4.8) L 08/10/16 06:07 Monocytes # 0.3 k/uL (0-1.0) 08/10/16 06:07 Eosinophils # 0.3 k/uL (0-0.7) 08/10/16 06:07 Basophils # 0.0 k/uL (0-0.2) 08/10/16 06:07 PT 14.6 sec (9.0-12.0) H 08/10/16 06:30 INR 1.5 (<1.1) 08/10/16 06:30 APTT 30.7 sec (22.0-30.0) H 08/10/16 18:35 Sodium 146 mmol/L (137-145) H 08/10/16 06:07 Potassium 4.3 mmol/L (3.5-5.1) 08/10/16 06:07 Chloride 106 mmol/L (98-107) 08/10/16 06:07 Carbon Dioxide 27 mmol/L (22-30) 08/10/16 06:07 Anion Gap 13 mmol/L 08/10/16 06:07 BUN 79 mg/dL (9-20) H 08/10/16 06:07 Creatinine 3.22 mg/dL (0.66-1.25) H 08/10/16 06:07 Est GFR (MDRD) Af Amer 23 (>60 ml/min/1.73 sqM) 08/10/16 06:07 Est GFR (MDRD) Non-Af 19 (>60 ml/min/1.73 sqM) 08/10/16 06:07 Glucose 134 mg/dL (74-99) H 08/10/16 06:07 POC Glucose (mg/dL) 206 mg/dL (75-99) H 08/10/16 21:05 POC Glu Electromatic Typist ID Corrina Wade 08/10/16 21:[address] Glu mg/dL 131 mg/dL 08/06/16 05:51 Hemoglobin A1c 6.2 % (4.2-6.1) H 08/06/16 05:51 Plasma Lactic Acid Blake 1.0 mmol/L (0.7-2.0) 08/08/16 05:53 Calcium 8.1 mg/dL (8.4-10.2) L 08/10/16 06:07 Phosphorus 5.6 mg/dL (2.5-4.5) H 08/10/16 06:07 Magnesium 2.0 mg/dL (1.6-2.3) 08/10/16 06:07 Total Bilirubin 0.6 mg/dL (0.2-1.3) 08/06/16 05:51 AST 40 U/L (17-59) 08/06/16 05:51 ALT 34 U/L (21-72) 08/06/16 05:51 Alkaline Phosphatase 47 U/L (38-126) 08/06/16 05:51 Creatine Kinase 228 U/L (55-170) H 08/05/16 17:51 Total Creatine Kinase 30 U/L (55-170) L 08/10/16 06:07 CK-MB (CK-2) 1.4 ng/mL (0.0-2.4) 08/10/16 06:07 CK-MB (CK-2) Rel Index 4.7 08/10/16 06:07 Troponin I 1.310 ng/mL (0.000-0.034) H* 08/10/16 06:07 NT-Pro-B Natriuret Pep 11770 pg/mL 08/05/16 17:51 Total Protein 6.4 g/dL (6.3-8.2) 08/06/16 05:51 Albumin 3.5 g/dL (3.5-5.0) 08/06/16 05:51 Urine Color Dark Yellow 08/05/16 18:50 Urine Appearance Cloudy (Clear) 08/05/16 18:50 Urine pH 5.0 (5.0-8.0) 08/05/16 18:50 Ur Specific [place] 1.018 (1.001-1.035) 08/05/16 18:50 Urine Protein 1+ (Negative) H 08/05/16 18:50 Urine Glucose (UA) Negative (Negative) 08/05/16 18:50 Urine Ketones Trace (Negative) H 08/05/16 18:50 Urine Blood Negative (Negative) 08/05/16 18:50 Urine Nitrate Negative (Negative) 08/05/16 18:50 Urine Bilirubin Negative (Negative) 08/05/16 18:50 Urine Urobilinogen 3.0 mg/dL (<2.0) 08/05/16 18:50 Ur Leukocyte Esterase Negative (Negative) 08/05/16 18:50 Urine RBC 2 /hpf (0-5) 08/05/16 18:50 Urine Bacteria Many /hpf (None) H 08/05/16 18:50 Hyaline Casts 25 /lpf (0-2) H 08/05/16 18:50 Granular Casts 1 /lpf (0) 08/05/16 18:50 Urine Mucus Rare /hpf (None) H 08/05/16 18:50 Microbiology 08/08/16 23:03 Blood Blood Culture Gram Stain - Preliminary 08/08/16 23:03 Blood Blood Culture - Preliminary Coagulase Negative Staph 08/06/16 23:47 Blood Blood Culture - Preliminary No Growth after 72 hours 08/08/16 23:14 Blood Blood Culture - Preliminary No Growth after 24 hours 08/06/16 23:15 Blood Blood Culture Gram Stain - Preliminary 08/06/16 23:15 Blood Blood Culture - Preliminary Coagulase Negative Staph 08/08/16 23:03 Blood Blood Culture - Preliminary 08/06/16 23:15 Blood Blood Culture - Preliminary 08/06/16 09:43 Urine,Catheterized Urine Culture - Final Assessment and Plan (1) NSTEMI (non-ST elevated myocardial infarction) Narrative/Plan: 76-year-old male with multiple underlying medical troubles that includes coronary artery disease and atrial fibrillation presents to Hospital severe weakness and gentle fall to the floor. Without evidence of a non-ST myocardial infarction. A with congestive heart failure and chronic systolic type. As well as acute renal failure imposed on chronic renal failure. The patient has had fever which appears to be multifactorial including underlying myocardial infarction. Agreed that pneumonia cannot be ruled out although the patient did not have significant symptoms before his acute event. Has been treated with piperacillin tazobactam and Levaquin The patient does evidence of the positive blood culture there have been 2 positive cultures,both her coagulase-negative staph. Patient does evidence of aortic stenosis but does not have bioprosthetic material. It is unlikely that he has a coagulase-negative staph infection of the heart in the daptomycin was discontinued. Overall he is steadily improving. his pneumonia is improving by the chest x- ray,and by exam. With further improvement we discontinue the Zosyn and the next day. His legs are improving with local care. Continue the Silvadene and compression. Elevate at rest. Status: Acute (2) Acute on chronic systolic heart failure Status: Acute (3) Fever Status: Acute (4) Acute on chronic renal failure Status: Acute
[2016-08-10] MEDS: INSULIN DETEMIR 100 UNIT/ML 10 ML VIAL SQ SCH (22:18)
[2016-08-11 05:58] LABS: Glucose,Whole Blood 190 mg/dL (75-99)
[2016-08-11 06:33] LABS: Basophils % (A) 1 %; CH 30.7; CHCM 32.9; Eosinophils # (A) 0.4 k/uL (0-0.7); Eosinophils % (A) 7 %; HCT 30.4 % (39.0-53.0); HDW 2.66; HGB 9.7 gm/dL (13.0-17.5); Luc # (Auto) 0.05; Luc % (Auto) 1; Lymphocytes # (A) 0.5 k/uL (1.0-4.8); Lymphocytes % (A) 8 %; MCH 29.8 pg (25.0-35.0); MCHC 31.7 g/dL (31.0-37.0); MCV 93.8 fL (80.0-100.0); Monocytes # (A) 0.3 k/uL (0-1.0); Monocytes % (A) 6 %; Neutrophils # (A) 4.3 k/uL (1.3-7.7); Neutrophils % (A) 77 %; RBC 3.24 m/uL (4.30-5.90); RDW 14.1 % (11.5-15.5); WBC 5.5 k/uL (3.8-10.6); WBC (Perox) 5.86
[2016-08-11 06:38] LABS: INR 1.5 (<1.1); Prothrombin Time 14.9 sec (9.0-12.0)
[2016-08-11 06:44] LABS: Calcium 7.6 mg/dL (8.4-10.2); Magnesium 2.1 mg/dL (1.6-2.3); Phosphorous 5.2 mg/dL (2.5-4.5); Potassium 4.5 mmol/L (3.5-5.1)
[2016-08-11] MEDS: INSULIN LISPRO (humaLOG) 300 UNIT/3 ML VIAL SQ SCH ×4 (06:47→21:54)
[2016-08-11] MEDS: LEVOTHYROXINE 125 MCG TAB PO SCH (06:47)
[2016-08-11 07:29] LABS: Troponin I 0.727 ng/mL (0.000-0.034)
--- NOTE | 2016-08-11 08:15 | XR ---
EXAMINATION TYPE: XR chest 1V DATE OF EXAM: 08/11/2016 7:06 AM COMPARISON: 08/10/2016 HISTORY: 76 year-old male shortness of breath, renal failure and hyperkalemia. TECHNIQUE: Single frontal view of the chest is obtained. FINDINGS: Heart is mildly enlarged. Diffuse interstitial prominence is noted. Opacity somewhat more nodular at the anterior right third rib and probably summation but can be reassessed at follow-up. Some patchy l eft basilar opacity remains. IMPRESSION: 1. Mild cardiomegaly and interstitial opacities could reflect pulmonary vascular congestion. 2. Stable left basilar infiltrate/atelectasis. 3. Focal nodular density at the right upper lung appears slightly more defined but may relate to summ ation shadow. This can be reassessed at follow-up.
[2016-08-11] MEDS: PIPERACILLIN-TAZOBACTAM 3.375 GM in DEXTROSE/WATER 1 50ML.BAG IVPB SCH ×2 (08:41→22:13)
[2016-08-11] MEDS: PANTOPRAZOLE 40 MG/10 ML VIAL IV SCH (08:41)
[2016-08-11] MEDS: GABAPENTIN 400 MG CAP PO SCH ×2 (08:42→21:52)
[2016-08-11] MEDS: FUROSEMIDE 40 MG TAB PO SCH (08:42)
[2016-08-11] MEDS: ASPIRIN 81 MG CHEW PO SCH (08:42)
[2016-08-11] MEDS: METOPROLOL TARTRATE 25 MG TAB PO SCH ×2 (08:42→21:53)
[2016-08-11] MEDS: SODIUM CHLORIDE 0.9% 1,000 ML IV SCH (08:43)
[2016-08-11] MEDS: IPRATROPIUM-ALBUTEROL 3 ML NEB INHALATION SCH ×4 (08:48→20:16)
[2016-08-11 12:11] LABS: Glucose,Whole Blood 225 mg/dL (75-99)
--- NOTE | 2016-08-11 12:43 | P.PN ---
Subjective Date of service 08/10/2016. Progress note being dictated for Dr. Boland. Interval history: This is a 76-year-old gentleman admitted with acute hypoxic respiratory failure, CHF, possible pneumonia, septic shock, acute non-STEMI and multiple other medical issues. Transferred out of ICU yesterday, now on telemetry unit. Chest x-ray reporting improving left basilar infiltrate, minimal right basilar atelectasis .Significant improvement, did not require BiPAP during the night. Sitting up in chair, conversing without increasing shortness of breath. O2 has been weaned down to 3 L nasal cannula, maintaining O2 sats of 97%; further weaning in progress. Worsening renal function and Lasix has been decreased, changed to oral. Possible Gram-positive bacteremia, repeat blood cultures ordered. Afebrile. Denies chest pain, palpitations or increasing shortness of breath. Objective - Vital Signs Vital signs: Vital Signs Temp 98.7 F 08/10/16 16:00 Pulse 92 08/10/16 16:25 Resp 18 08/10/16 16:00 BP 131/77 08/10/16 16:00 Pulse Ox 94 L 08/10/16 16:00 Intake & Output 08/09/16 08/10/16 08/10/16 18:59 06:59 18:59 Intake Total 160.0 180 Output Total 710 300 Balance -550.0 -300 180 Weight 84.9 kg 84.9 kg Intake: IV 110 0.9 110 Intake, IV Titration 50.0 Amount Piperacillin-Tazobactam 3 50.0 .375 gm In Dextrose/Water 1 50ml.bag @ 12.5 mls/hr IVPB Q12HR [facility] Rx#: [id number] Oral 180 Output: Urine 710 300 Other: Voiding Method Urinal Urinal Urinal - Exam PHYSICAL EXAM: VITAL SIGNS: As above GENERAL: [Sitting up in chair, no acute distress] HEENT: [Pupils equal conjunctiva normal.] NECK: [Supple, no JVD] RESPIRATORY EFFORT:[Mildly increased] LUNGS: [Diminished with fine bibasilar crackles, no wheezing, no rhonchi] CARDIOVASCULAR[regular S1 and S2, decreasing edema] GI: [Abdomen soft, nontender, positive bowel sounds.] PSYCH: [Alert and oriented -3, mood and affect normal.] NEURO: No focal deficits, strength and sensation grossly intact - Labs CBC & Chem 7: 08/11/16 06:07 08/11/16 06:07 Labs: Abnormal Lab Results - Last 24 Hours (Table) 08/09/16 08/10/16 08/10/16 Range/Units 20:49 05:48 06:07 RBC 3.38 L (4.30-5.90) m/uL Hgb 10.4 L (13.0-17.5) gm/dL Hct 32.0 L (39.0-53.0) % Plt Count 143 L (150-450) k/uL Lymphocytes # 0.7 L (1.0-4.8) k/uL PT (9.0-12.0) sec Sodium (137-145) mmol/L BUN (9-20) mg/dL Creatinine (0.66-1.25) mg/dL Glucose (74-99) mg/dL POC Glucose (mg/dL) 214 H 177 H (75-99) mg/dL Calcium (8.4-10.2) mg/dL Phosphorus (2.5-4.5) mg/dL Total Creatine Kinase (55-170) U/L Troponin I (0.000-0.034) ng/mL 08/10/16 08/10/16 08/10/16 Range/Units 06:07 06:07 06:30 RBC (4.30-5.90) m/uL Hgb (13.0-17.5) gm/dL Hct (39.0-53.0) % Plt Count (150-450) k/uL Lymphocytes # (1.0-4.8) k/uL PT 14.6 H (9.0-12.0) sec Sodium 146 H (137-145) mmol/L BUN 79 H (9-20) mg/dL Creatinine 3.22 H (0.66-1.25) mg/dL Glucose 134 H (74-99) mg/dL POC Glucose (mg/dL) (75-99) mg/dL Calcium 8.1 L (8.4-10.2) mg/dL Phosphorus 5.6 H (2.5-4.5) mg/dL Total Creatine Kinase 30 L (55-170) U/L Troponin I 1.310 H* (0.000-0.034) ng/mL 08/10/16 08/10/16 Range/Units 11:37 16:33 RBC (4.30-5.90) m/uL Hgb (13.0-17.5) gm/dL Hct (39.0-53.0) % Plt Count (150-450) k/uL Lymphocytes # (1.0-4.8) k/uL PT (9.0-12.0) sec Sodium (137-145) mmol/L BUN (9-20) mg/dL Creatinine (0.66-1.25) mg/dL Glucose (74-99) mg/dL POC Glucose (mg/dL) 191 H 231 H (75-99) mg/dL Calcium (8.4-10.2) mg/dL Phosphorus (2.5-4.5) mg/dL Total Creatine Kinase (55-170) U/L Troponin I (0.000-0.034) ng/mL Microbiology - Last 24 Hours (Table) 08/08/16 23:03 Blood Culture Gram Stain - Preliminary Blood Blood Culture - Preliminary Coagulase Negative Staph 08/06/16 23:47 Blood Culture - Preliminary Blood No Growth after 72 hours 08/08/16 23:14 Blood Culture - Preliminary Blood No Growth after 24 hours 08/06/16 23:15 Blood Culture Gram Stain - Preliminary Blood Blood Culture - Preliminary Coagulase Negative Staph 08/08/16 23:03 Blood Culture - Preliminary Blood Assessment and Plan Plan: 1. Acute hypoxic respiratory failure secondary to COPD exacerbation, acute on chronic CHF with systolic dysfunction EF 30-35% and possible right middle lobe pneumonia. Possible bacteremia, gram-positive, cultures pending. 2. [Septic shock secondary to pneumonia, status post pressors]. 3. [Mild aortic stenosis]. 4. [Acute non-STEMI ]. 5. [Acute renal failure secondary to prerenal azotemia from CHF]. Cardiorenal syndrome 6. CKD stage III. 7. [Hypertension]. 8. Hypothyroidism 9. Peripheral neuropathy 10. CVA, history of 11. Severe aortic stenosis 12. Hypernatremia-mild secondary to diuresing. 13. Pulmonary hypertension Plan: Continue on current medication regime ,monitoring and to make treatment. Worsening renal function and Lasix has been decreased, changed to oral. Increase ambulation as tolerated. Cardiac cath pending improved,/stabilized renal function as per cardiology. Antibiotics as per ID. Discharge planning in progress for ECF rehab. The impression and plan of care has been dictated as directed. : I performed a H&P examination of this patient and discussed the same with the dictator. I agree with the dictator's note. Any additional findings/opinions/ etc. will be noted.
--- NOTE | 2016-08-11 12:51 | P.PN ---
Subjective Patient is seen in follow-up for acute kidney injury on chronic kidney disease. Patient has chronic kidney disease stage III secondary to diabetic kidney disease and nephrosclerosis. Renal function is stable with creatinine at 3.2 today. He is currently maintained on Lasix 40 mg once daily. Patient presented with a fall and is currently being treated for pneumonia as well as gram-positive bacteremia. He is noted to have ejection fraction of 30-35% along with severe aortic stenosis. Currently sitting up in bed. Dyspnea is improved. He is nonoliguric. Denies chest pain. Appetite is good. Vital signs are stable. General: The patient appeared well nourished and normally developed. HEENT: Head exam is unremarkable. Neck is without jugular venous distension. LUNGS: Lungs are clear to auscultation and percussion. Breath sounds decreased. HEART: Rate and Rhythm are regular. First and second heart sounds normal. No murmurs, rubs or gallops. ABDOMEN: Abdominal exam reveals normal bowel sounds. Non-tender and non- distended. No evidence of peritonitis. EXTREMITITES: No clubbing, cyanosis, or edema. Objective - Vital Signs Vital signs: Vital Signs Temp 98.6 F 08/11/16 08:00 Pulse 88 08/11/16 09:05 Resp 18 08/11/16 04:00 BP 137/72 08/11/16 08:00 Pulse Ox 90 L 08/11/16 08:00 Intake & Output 08/10/16 08/11/16 08/11/16 18:59 06:59 18:59 Intake Total 360 180 Output Total 650 300 Balance -290 -300 180 Weight 84.9 kg 85 kg Intake: Oral 360 180 Output: Urine 650 300 Other: Voiding Method Urinal Indwelling Catheter - Labs CBC & Chem 7: 08/11/16 06:07 08/11/16 06:07 Labs: Abnormal Lab Results - Last 24 Hours (Table) 08/10/16 08/10/16 08/10/16 Range/Units 06:30 16:33 18:35 RBC (4.30-5.90) m/uL Hgb (13.0-17.5) gm/dL Hct (39.0-53.0) % Plt Count (150-450) k/uL Lymphocytes # (1.0-4.8) k/uL PT 14.6 H (9.0-12.0) sec APTT 30.7 H (22.0-30.0) sec BUN (9-20) mg/dL Creatinine (0.66-1.25) mg/dL Glucose (74-99) mg/dL POC Glucose (mg/dL) 231 H (75-99) mg/dL Calcium (8.4-10.2) mg/dL Phosphorus (2.5-4.5) mg/dL Total Creatine Kinase (55-170) U/L Troponin I (0.000-0.034) ng/mL 08/10/16 08/10/16 08/11/16 Range/Units 21:05 23:57 05:56 RBC (4.30-5.90) m/uL Hgb (13.0-17.5) gm/dL Hct (39.0-53.0) % Plt Count (150-450) k/uL Lymphocytes # (1.0-4.8) k/uL PT (9.0-12.0) sec APTT 36.2 H (22.0-30.0) sec BUN (9-20) mg/dL Creatinine (0.66-1.25) mg/dL Glucose (74-99) mg/dL POC Glucose (mg/dL) 206 H 190 H (75-99) mg/dL Calcium (8.4-10.2) mg/dL Phosphorus (2.5-4.5) mg/dL Total Creatine Kinase (55-170) U/L Troponin I (0.000-0.034) ng/mL 08/11/16 08/11/16 08/11/16 Range/Units 06:07 06:07 06:07 RBC 3.24 L (4.30-5.90) m/uL Hgb 9.7 L (13.0-17.5) gm/dL Hct 30.4 L (39.0-53.0) % Plt Count 132 L (150-450) k/uL Lymphocytes # 0.5 L (1.0-4.8) k/uL PT (9.0-12.0) sec APTT (22.0-30.0) sec BUN 84 H* (9-20) mg/dL Creatinine 3.20 H (0.66-1.25) mg/dL Glucose 134 H (74-99) mg/dL POC Glucose (mg/dL) (75-99) mg/dL Calcium 7.6 L (8.4-10.2) mg/dL Phosphorus 5.2 H (2.5-4.5) mg/dL Total Creatine Kinase 30 L (55-170) U/L Troponin I 0.727 H* (0.000-0.034) ng/mL 08/11/16 08/11/16 Range/Units 06:07 11:47 RBC (4.30-5.90) m/uL Hgb (13.0-17.5) gm/dL Hct (39.0-53.0) % Plt Count (150-450) k/uL Lymphocytes # (1.0-4.8) k/uL PT 14.9 H (9.0-12.0) sec APTT (22.0-30.0) sec BUN (9-20) mg/dL Creatinine (0.66-1.25) mg/dL Glucose (74-99) mg/dL POC Glucose (mg/dL) 225 H (75-99) mg/dL Calcium (8.4-10.2) mg/dL Phosphorus (2.5-4.5) mg/dL Total Creatine Kinase (55-170) U/L Troponin I (0.000-0.034) ng/mL Microbiology - Last 24 Hours (Table) 08/08/16 23:03 Blood Culture Gram Stain - Final Blood Blood Culture - Final Coagulase Negative Staph 08/10/16 06:07 Blood Culture - Preliminary Blood No Growth after 24 hours 08/06/16 23:47 Blood Culture - Preliminary Blood No Growth after 96 hours 08/08/16 23:14 Blood Culture - Preliminary Blood No Growth after 48 hours Assessment and Plan Plan: Assessment: #1. Nonoliguric acute kidney injury secondary to cardiorenal syndrome. Creatinine stable at 3.2 today. #2. Severe sepsis secondary to pneumonia as well as gram-positive bacteremia. #3. Volume overload. Improving. #4. Chronic kidney disease stage III with baseline creatinine in the range of 1.4-1.6 secondary to diabetic kidney disease as well as nephrosclerosis. #5. Systolic CHF with ejection fraction of 30-35%. #6. Severe aortic stenosis. #7. Mild hypernatremia secondary to diuresis. Resolved. Plan: Hold tomorrow's dose of Lasix - fluid status improved. Encourage oral intake. Avoid nephrotoxic agents and hypotensive episodes. Discussed with cardiology. Needs a cardiac catheterization once renal function stabilizes.
--- NOTE | 2016-08-11 12:57 | P.PN ---
Subjective Principal diagnosis: Acute hypoxic respiratory failure secondary to pulmonary edema. 76-year-old male patient who was admitted to the hospital because of generalized weakness and the patient felt that his legs essentially gave out. He was standing in his bathroom sink and he felt extremely weak in his legs and he sat down on the floor without sustaining any major injury. He stated that he was feeling very weak and he was unable to get up and he was stuck on the floor for several hours. He ultimately had a neighbor help him out and EMS was called to the scene and the patient got moved to the hospital for further evaluation and treatment. Note that there is no trauma to his head or body. He denied having any chest pain. He was having progressively more shortness of breath. He has had previous history of CVA with some left-sided weakness and he is still INVOLVED the right hemisphere and right occipital lobe. He has history of coronary artery disease, mild congestion heart failure with ejection fraction of 45% and mild aortic stenosis with moderate degree of pulmonary hypertension, chronic atrial fibrillation, diabetes mellitus, hypertension, BPH , and chronic renal failure with a baseline creatinine in the 2.0 range. The patient ruled in for an acute non-ST segment elevation myocardial infarction his troponin peaked at 6. The patient got moved in to the ICU this morning as he went into acute respiratory distress/pulmonary edema. Chest x-ray from admission was compared to the one that was done at the time of his acute shortness of breath and clearly the patient was in acute pulmonary edema. He was given 100 mg IV Lasix and he put out more than 1 L. He was also placed on a BiPAP at a pressure of 10 over 5 cm of water and FiO2 of 100%. His breathing has improved and he is breathing much easier right now although still BiPAP dependent. I was able to wean down his FiO2 down to 50%. He is making adequate urine output at this point. No chest pain. Echo cardiac exam was repeated and apparently there has been some changes compared to the previous echo from 2016. The aortic stenosis was estimated to be severe and the ejection fraction was unofficially reported to be at around 35%. The patient has no cough or sputum production. No change in mental status. Neurologic exam essentially same with some residual weakness in the left which is been a chronic finding any sequelae of a previous CVA. His cardiac rhythm is irregular with sinus and occasional paroxysms of atrial fibrillation. On 08/09/2016, patient is now on nasal cannula, off BiPAP, continues to gradually improve based on his clinical findings and based on his chest x-ray. Remains on diuretics, he is now on Lasix at 60 mg IV push every 6 hours. His INR is therapeutic at 2.0, electrolytes are relatively unremarkable, BUN is 73 and creatinine is 2.90. Hemoglobin is 10.7. Troponin is 2.2 today. Patient is feeling better overall, and I believe if cleared by cardiology, could consider transferring him down to [facility]. Patient was reevaluated today on 08/10/2016, continues to do well, chest x-ray continues to show improvement in his pulmonary edema. And overall the patient is making a significant clinical improvement. Labs were reviewed today, his BUN however remains elevated at 79, and creatinine is 3.22. WBC count is 4.8 hemoglobin is 10.4. Chest x-ray today showed mostly atelectasis in the lower lobes. Overall much improved. Reevaluated today on 08/11/2016, patient continues to do well, pulmonary-mcpherson is doing much better, renal-mcpherson, his creatinine seems to be stabilizing, he remains on Lasix at 40 mg daily, and apparently decision was made as not to dialyze the patient. Patient has a nonoliguric acute kidney injury secondary to cardiorenal syndrome and volume overload improving. He also has a picture of systolic congestive heart failure ejection fraction of 30% and severe aortic stenosis. Objective - Vital Signs Vital signs: Vital Signs Temp 98.6 F 08/11/16 08:00 Pulse 88 08/11/16 09:05 Resp 18 08/11/16 04:00 BP 137/72 08/11/16 08:00 Pulse Ox 90 L 08/11/16 08:00 Intake & Output 08/10/16 08/11/16 08/11/16 18:59 06:59 18:59 Intake Total 360 180 Output Total 650 300 Balance -290 -300 180 Weight 84.9 kg 85 kg Intake: Oral 360 180 Output: Urine 650 300 Other: Voiding Method Urinal Indwelling Catheter - Exam Physical Exam: Revealed a 76-year-old white male in no distress, HEENT:[Neck is supple.] [No neck masses.] [No thyromegaly.] [No JVD.] Chest: [Minimal crackles at the bases Cardiac Exam: [Normal S1 and S2, no S3 gallop, 2/6 systolic murmur throughout the precordium] Abdomen: [Soft, nontender, no megaly, no rebound, no guarding, normal bowel sounds.] Extremities: [No clubbing, no edema, no cyanosis.] Neurological Exam: [No focal neurologic deficit.] - Labs CBC & Chem 7: 08/11/16 06:07 08/11/16 06:07 Labs: Abnormal Lab Results - Last 24 Hours (Table) 08/10/16 08/10/16 08/10/16 Range/Units 06:30 16:33 18:35 RBC (4.30-5.90) m/uL Hgb (13.0-17.5) gm/dL Hct (39.0-53.0) % Plt Count (150-450) k/uL Lymphocytes # (1.0-4.8) k/uL PT 14.6 H (9.0-12.0) sec APTT 30.7 H (22.0-30.0) sec BUN (9-20) mg/dL Creatinine (0.66-1.25) mg/dL Glucose (74-99) mg/dL POC Glucose (mg/dL) 231 H (75-99) mg/dL Calcium (8.4-10.2) mg/dL Phosphorus (2.5-4.5) mg/dL Total Creatine Kinase (55-170) U/L Troponin I (0.000-0.034) ng/mL 08/10/16 08/10/16 08/11/16 Range/Units 21:05 23:57 05:56 RBC (4.30-5.90) m/uL Hgb (13.0-17.5) gm/dL Hct (39.0-53.0) % Plt Count (150-450) k/uL Lymphocytes # (1.0-4.8) k/uL PT (9.0-12.0) sec APTT 36.2 H (22.0-30.0) sec BUN (9-20) mg/dL Creatinine (0.66-1.25) mg/dL Glucose (74-99) mg/dL POC Glucose (mg/dL) 206 H 190 H (75-99) mg/dL Calcium (8.4-10.2) mg/dL Phosphorus (2.5-4.5) mg/dL Total Creatine Kinase (55-170) U/L Troponin I (0.000-0.034) ng/mL 08/11/16 08/11/16 08/11/16 Range/Units 06:07 06:07 06:07 RBC 3.24 L (4.30-5.90) m/uL Hgb 9.7 L (13.0-17.5) gm/dL Hct 30.4 L (39.0-53.0) % Plt Count 132 L (150-450) k/uL Lymphocytes # 0.5 L (1.0-4.8) k/uL PT (9.0-12.0) sec APTT (22.0-30.0) sec BUN 84 H* (9-20) mg/dL Creatinine 3.20 H (0.66-1.25) mg/dL Glucose 134 H (74-99) mg/dL POC Glucose (mg/dL) (75-99) mg/dL Calcium 7.6 L (8.4-10.2) mg/dL Phosphorus 5.2 H (2.5-4.5) mg/dL Total Creatine Kinase 30 L (55-170) U/L Troponin I 0.727 H* (0.000-0.034) ng/mL 08/11/16 08/11/16 Range/Units 06:07 11:47 RBC (4.30-5.90) m/uL Hgb (13.0-17.5) gm/dL Hct (39.0-53.0) % Plt Count (150-450) k/uL Lymphocytes # (1.0-4.8) k/uL PT 14.9 H (9.0-12.0) sec APTT (22.0-30.0) sec BUN (9-20) mg/dL Creatinine (0.66-1.25) mg/dL Glucose (74-99) mg/dL POC Glucose (mg/dL) 225 H (75-99) mg/dL Calcium (8.4-10.2) mg/dL Phosphorus (2.5-4.5) mg/dL Total Creatine Kinase (55-170) U/L Troponin I (0.000-0.034) ng/mL Microbiology - Last 24 Hours (Table) 08/08/16 23:03 Blood Culture Gram Stain - Final Blood Blood Culture - Final Coagulase Negative Staph 08/10/16 06:07 Blood Culture - Preliminary Blood No Growth after 24 hours 08/06/16 23:47 Blood Culture - Preliminary Blood No Growth after 96 hours 08/08/16 23:14 Blood Culture - Preliminary Blood No Growth after 48 hours Assessment and Plan Plan: 1 acute hypoxic respiratory failure secondary to an acute pulmonary edema. The patient went into acute heart failure with pulmonary edema and he likely has an underlying valvular heart disease/CHF and the congestion heart failure was probably further decompensated by an acute non-ST segment elevation myocardial infarction. 2 acute non-ST segment myocardial infarction, with segmental wall motion abnormalities, please refer to the echocardiogram. 3 previous history of known coronary artery disease 4 mild aortic stenosis with moderate degree of pulmonary hypertension based on increased echocardiogram with an ejection fraction of 30% based on an echo from 2016 5 chronic renal insufficiency, stage III kidney disease at baseline with an acute worsening in her renal function probably rates to cardiorenal factors 6 hypertension 7 hypothyroidism 8 diabetes mellitus 9 diabetic peripheral neuropathy 10 benign prostatic hypertrophy 11 peripheral vascular disease 12 CVA with some left-sided residual weakness, chronic 13 paroxysmal atrial fibrillation 14 history of gangrenous toes that has been resected and the patient has been had previous lower extremity wound which has been essentially healed and currently there are no open wounds. He has been infected in the past and his wounds with stenotrophomonas and enterococcus. Recommendation: Continue present meds, and consider discharge planning we will sign off, and we'll see the patient on when necessary basis. Time with Patient: Less than 30
--- NOTE | 2016-08-11 12:59 | P.PN ---
Subjective Date of service 08/11/2016. Progress note being dictated for Dr. Boland. Interval history: This is a 76-year-old gentleman admitted with acute hypoxic respiratory failure, CHF, septic shock, acute non-STEMI and multiple other medical issues. Required BiPAP throughout the night, Chest x-ray reporting focal nodular density at the right upper lung, stable left basilar infiltrate/ atelectasis, interstitial opacity's possible pulmonary vascular congestion. Currently maintaining O2 sats of 90% on room air at rest . Yesterday Worsening renal function, Lasix decreased, converted to oral. Creatinine 3.2. Blood cultures repeating staph aureus with recent preliminary repeat blood cultures negative. Maintained on antibiotics as per infectious disease. Afebrile. Appetite good, with no nausea or vomiting. Denies chest pain, palpitations or increasing shortness of breath. Objective - Vital Signs Vital signs: Vital Signs Temp 98.6 F 08/11/16 08:00 Pulse 88 08/11/16 09:05 Resp 18 08/11/16 04:00 BP 137/72 08/11/16 08:00 Pulse Ox 90 L 08/11/16 08:00 Intake & Output 08/10/16 08/11/16 08/11/16 18:59 06:59 18:59 Intake Total 360 180 Output Total 650 300 Balance -290 -300 180 Weight 84.9 kg 85 kg Intake: Oral 360 180 Output: Urine 650 300 Other: Voiding Method Urinal Indwelling Catheter - Exam PHYSICAL EXAM: VITAL SIGNS: As above GENERAL: [Sitting up in chair, no acute distress] HEENT: [Pupils equal conjunctiva normal.] NECK: [Supple, no JVD] RESPIRATORY EFFORT:[Mildly increased] LUNGS: [Diminished with occasional fine bibasilar crackles, no wheezing, no rhonchi] CARDIOVASCULAR[regular S1 and S2, decreasing edema] GI: [Abdomen soft, nontender, positive bowel sounds.] PSYCH: [Alert and oriented -3, mood and affect normal.] NEURO: No focal deficits, strength and sensation grossly intact Microbiology 08/08/16 23:03 Blood Blood Culture Gram Stain - Final 08/08/16 23:03 Blood Blood Culture - Final Coagulase Negative Staph 08/10/16 06:07 Blood Blood Culture - Preliminary No Growth after 24 hours 08/06/16 23:47 Blood Blood Culture - Preliminary No Growth after 96 hours 08/08/16 23:14 Blood Blood Culture - Preliminary No Growth after 48 hours 08/06/16 23:15 Blood Blood Culture Gram Stain - Preliminary 08/06/16 23:15 Blood Blood Culture - Preliminary Coagulase Negative Staph 08/08/16 23:03 Blood Blood Culture - Preliminary 08/06/16 23:15 Blood Blood Culture - Preliminary 08/06/16 09:43 Urine,Catheterized Urine Culture - Final - Labs CBC & Chem 7: 08/11/16 06:07 08/11/16 06:07 Labs: Abnormal Lab Results - Last 24 Hours (Table) 08/10/16 08/10/16 08/10/16 Range/Units 06:30 16:33 18:35 RBC (4.30-5.90) m/uL Hgb (13.0-17.5) gm/dL Hct (39.0-53.0) % Plt Count (150-450) k/uL Lymphocytes # (1.0-4.8) k/uL PT 14.6 H (9.0-12.0) sec APTT 30.7 H (22.0-30.0) sec BUN (9-20) mg/dL Creatinine (0.66-1.25) mg/dL Glucose (74-99) mg/dL POC Glucose (mg/dL) 231 H (75-99) mg/dL Calcium (8.4-10.2) mg/dL Phosphorus (2.5-4.5) mg/dL Total Creatine Kinase (55-170) U/L Troponin I (0.000-0.034) ng/mL 08/10/16 08/10/16 08/11/16 Range/Units 21:05 23:57 05:56 RBC (4.30-5.90) m/uL Hgb (13.0-17.5) gm/dL Hct (39.0-53.0) % Plt Count (150-450) k/uL Lymphocytes # (1.0-4.8) k/uL PT (9.0-12.0) sec APTT 36.2 H (22.0-30.0) sec BUN (9-20) mg/dL Creatinine (0.66-1.25) mg/dL Glucose (74-99) mg/dL POC Glucose (mg/dL) 206 H 190 H (75-99) mg/dL Calcium (8.4-10.2) mg/dL Phosphorus (2.5-4.5) mg/dL Total Creatine Kinase (55-170) U/L Troponin I (0.000-0.034) ng/mL 08/11/16 08/11/16 08/11/16 Range/Units 06:07 06:07 06:07 RBC 3.24 L (4.30-5.90) m/uL Hgb 9.7 L (13.0-17.5) gm/dL Hct 30.4 L (39.0-53.0) % Plt Count 132 L (150-450) k/uL Lymphocytes # 0.5 L (1.0-4.8) k/uL PT (9.0-12.0) sec APTT (22.0-30.0) sec BUN 84 H* (9-20) mg/dL Creatinine 3.20 H (0.66-1.25) mg/dL Glucose 134 H (74-99) mg/dL POC Glucose (mg/dL) (75-99) mg/dL Calcium 7.6 L (8.4-10.2) mg/dL Phosphorus 5.2 H (2.5-4.5) mg/dL Total Creatine Kinase 30 L (55-170) U/L Troponin I 0.727 H* (0.000-0.034) ng/mL 08/11/16 08/11/16 Range/Units 06:07 11:47 RBC (4.30-5.90) m/uL Hgb (13.0-17.5) gm/dL Hct (39.0-53.0) % Plt Count (150-450) k/uL Lymphocytes # (1.0-4.8) k/uL PT 14.9 H (9.0-12.0) sec APTT (22.0-30.0) sec BUN (9-20) mg/dL Creatinine (0.66-1.25) mg/dL Glucose (74-99) mg/dL POC Glucose (mg/dL) 225 H (75-99) mg/dL Calcium (8.4-10.2) mg/dL Phosphorus (2.5-4.5) mg/dL Total Creatine Kinase (55-170) U/L Troponin I (0.000-0.034) ng/mL Microbiology - Last 24 Hours (Table) 08/08/16 23:03 Blood Culture Gram Stain - Final Blood Blood Culture - Final Coagulase Negative Staph 08/10/16 06:07 Blood Culture - Preliminary Blood No Growth after 24 hours 08/06/16 23:47 Blood Culture - Preliminary Blood No Growth after 96 hours 08/08/16 23:14 Blood Culture - Preliminary Blood No Growth after 48 hours Assessment and Plan Plan: 1. Acute hypoxic respiratory failure secondary to COPD exacerbation, acute on chronic CHF with systolic dysfunction EF 30-35% and possible right middle lobe pneumonia. 2. [Septic shock secondary to pneumonia, status post pressors]. 3. [Mild aortic stenosis]. 4. [Acute non-STEMI ]. 5. [Acute renal failure secondary to prerenal azotemia from CHF]. Cardiorenal syndrome 6. CKD stage III. 7. [Hypertension]. 8. Hypothyroidism 9. Peripheral neuropathy 10. CVA, history of 11. Severe aortic stenosis 12. Hypernatremia-mild secondary to diuresing, resolved. 13. Pulmonary hypertension Plan: Continue on current medication regime ,monitoring and to make treatment. Close monitoring of renal function with repeat labs ordered for a.m. per nephrology Lasix on hold for tomorrow. Cardiac cath pending improved,/ stabilized renal function as per cardiology. Antibiotics as per ID. Discharge planning in progress for ECF rehab. The impression and plan of care has been dictated as directed. : I performed a H&P examination of this patient and discussed the same with the dictator. I agree with the dictator's note. Any additional findings/opinions/ etc. will be noted.
--- NOTE | 2016-08-11 15:28 | P.PN ---
Subjective Principal diagnosis: Acute hypoxic respiratory failure This is a 76-year-old gentleman who follows with Dr. Burns in the office, he has a history of hypertension, hyperlipidemia, diabetes, prior CVA, renal disease, hypothyroidism, cardiomyopathy, chronic persistent atrial fibrillation, initially presented to the hospital with symptoms of weakness and fall at home. No overt syncope. Patient has been being treated for acute congestive cardiac failure. He also ruled in for non-Q-wave myocardial infarction. The patient is also being followed by nephrology for acute on chronic renal failure. Creatinine today is 3.2, BUN 84, hemoglobin is 9.7. Overall he continues to do well. Had a discussion today with nephrology regarding timing of cardiac catheterization. Optimally they would like to see the patient's creatinine in the 1.8 range. Lasix has been placed on hold we will check lytes BUN and creatinine in the morning. Objective - Vital Signs Vital signs: Vital Signs Temp 98.6 F 08/11/16 08:00 Pulse 83 08/11/16 12:00 Resp 18 08/11/16 04:00 BP 149/80 08/11/16 12:00 Pulse Ox 95 08/11/16 12:15 Intake & Output 08/10/16 08/11/16 08/11/16 18:59 06:59 18:59 Intake Total 360 360 Output Total 650 300 700 Balance -290 -300 -340 Weight 84.9 kg 85 kg Intake: Oral 360 360 Output: Urine 650 300 700 Other: Voiding Method Urinal Indwelling Catheter - Exam PHYSICAL EXAMINATION: HEENT: Head is atraumatic, normocephalic. Pupils equal, round. Neck is supple. There is no elevated jugular venous pressure. HEART EXAMINATION: Heart S1 S2 1 systolic murmur is heard. CHEST EXAMINATION: Lungs reveal crackles to bilateral bases. ABDOMEN: Soft, nontender. Bowel sounds are heard. No organomegaly noted. EXTREMITIES: 2+ peripheral pulses with no evidence of peripheral edema and no calf tenderness noted. NEUROLOGIC patient is awake, alert and oriented -3. . - Labs CBC & Chem 7: 08/11/16 06:07 08/11/16 06:07 Labs: Abnormal Lab Results - Last 24 Hours (Table) 08/10/16 08/10/16 08/10/16 Range/Units 16:33 18:35 21:05 RBC (4.30-5.90) m/uL Hgb (13.0-17.5) gm/dL Hct (39.0-53.0) % Plt Count (150-450) k/uL Lymphocytes # (1.0-4.8) k/uL PT (9.0-12.0) sec APTT 30.7 H (22.0-30.0) sec BUN (9-20) mg/dL Creatinine (0.66-1.25) mg/dL Glucose (74-99) mg/dL POC Glucose (mg/dL) 231 H 206 H (75-99) mg/dL Calcium (8.4-10.2) mg/dL Phosphorus (2.5-4.5) mg/dL Total Creatine Kinase (55-170) U/L Troponin I (0.000-0.034) ng/mL 08/10/16 08/11/16 08/11/16 Range/Units 23:57 05:56 06:07 RBC 3.24 L (4.30-5.90) m/uL Hgb 9.7 L (13.0-17.5) gm/dL Hct 30.4 L (39.0-53.0) % Plt Count 132 L (150-450) k/uL Lymphocytes # 0.5 L (1.0-4.8) k/uL PT (9.0-12.0) sec APTT 36.2 H (22.0-30.0) sec BUN (9-20) mg/dL Creatinine (0.66-1.25) mg/dL Glucose (74-99) mg/dL POC Glucose (mg/dL) 190 H (75-99) mg/dL Calcium (8.4-10.2) mg/dL Phosphorus (2.5-4.5) mg/dL Total Creatine Kinase (55-170) U/L Troponin I (0.000-0.034) ng/mL 08/11/16 08/11/16 08/11/16 Range/Units 06:07 06:07 06:07 RBC (4.30-5.90) m/uL Hgb (13.0-17.5) gm/dL Hct (39.0-53.0) % Plt Count (150-450) k/uL Lymphocytes # (1.0-4.8) k/uL PT 14.9 H (9.0-12.0) sec APTT (22.0-30.0) sec BUN 84 H* (9-20) mg/dL Creatinine 3.20 H (0.66-1.25) mg/dL Glucose 134 H (74-99) mg/dL POC Glucose (mg/dL) (75-99) mg/dL Calcium 7.6 L (8.4-10.2) mg/dL Phosphorus 5.2 H (2.5-4.5) mg/dL Total Creatine Kinase 30 L (55-170) U/L Troponin I 0.727 H* (0.000-0.034) ng/mL 08/11/16 Range/Units 11:47 RBC (4.30-5.90) m/uL Hgb (13.0-17.5) gm/dL Hct (39.0-53.0) % Plt Count (150-450) k/uL Lymphocytes # (1.0-4.8) k/uL PT (9.0-12.0) sec APTT (22.0-30.0) sec BUN (9-20) mg/dL Creatinine (0.66-1.25) mg/dL Glucose (74-99) mg/dL POC Glucose (mg/dL) 225 H (75-99) mg/dL Calcium (8.4-10.2) mg/dL Phosphorus (2.5-4.5) mg/dL Total Creatine Kinase (55-170) U/L Troponin I (0.000-0.034) ng/mL Microbiology - Last 24 Hours (Table) 08/08/16 23:03 Blood Culture Gram Stain - Final Blood Blood Culture - Final Coagulase Negative Staph 08/10/16 06:07 Blood Culture - Preliminary Blood No Growth after 24 hours 08/06/16 23:47 Blood Culture - Preliminary Blood No Growth after 96 hours 08/08/16 23:14 Blood Culture - Preliminary Blood No Growth after 48 hours Assessment and Plan (1) CAD (coronary artery disease) Status: Acute (2) HTN (hypertension) Status: Acute (3) Hypothyroid Status: Acute (4) Diabetes Status: Acute (5) PVD (peripheral vascular disease) Status: Acute (6) Paroxysmal a-fib Status: Acute (7) CVA (cerebral vascular accident) Status: Acute (8) Acute on chronic systolic heart failure Status: Acute (9) NSTEMI (non-ST elevated myocardial infarction) Status: Acute (10) Acute renal failure (ARF) Status: Acute Plan: Cardiology's perspective, Lasix will be placed on hold. We will continue to monitor lytes BUN and creatinine. Once the creatinine comes down to the 1.8 range, patient then will need to undergo cardiac catheterization. This was explained to the patient in detail and discussed with nephrology. DNP note has been reviewed, I agree with a documented findings and plan of care. Patient was seen and examined.
[2016-08-11 16:48] LABS: Glucose,Whole Blood 176 mg/dL (75-99)
[2016-08-11] MEDS: HEPARIN SODIUM,PORCINE/D5W PMX 25,000 UNIT in DEXTROSE/WATER 1 500ML.BAG IV SCH (17:30)
--- NOTE | 2016-08-11 21:24 | P.PN ---
Subjective 76-year-old male presents to the emergency center after gently going to the floor while he was in front of the sink. He does recall the event. He became weak and went to the floor. Was brought in by EMS because he was so weak. Was found to have evidence of significant shortness of breath and was brought into hospital. He then decompensated and required transfer to intensive care unit because of respiratory failure. He was treated with BiPAP. He has been added by cardiology for his non-ST segment depression myocardial infarction. He also has had some worsening of his underlying atrial fibrillation.because he developed fever antibiotic therapy was initiated and is now improving feeling better overall. No other new acute complaints today Objective - Vital Signs Vital signs: Vital Signs Temp 97.9 F 08/11/16 16:00 Pulse 88 08/11/16 20:26 Resp 18 08/11/16 16:00 BP 121/69 08/11/16 16:00 Pulse Ox 91 L 08/11/16 20:16 Intake & Output 08/11/16 08/11/16 08/12/16 06:59 18:59 06:59 Intake Total 818 Output Total 300 700 Balance -300 118 Weight 85 kg Intake: Intake, IV Titration 458 Amount Heparin Sodium,Porcine/ 458 D5w Pmx 25,000 unit In Dextrose/Water 1 500ml. bag @ 11.779 UNITS/KG/HR 20 mls/hr IV .Q24H [facility] Rx #:[id number] Oral 360 Output: Urine 300 700 Other: Voiding Method Indwelling Catheter Indwelling Catheter - Exam 76-year-old male who is more comfortable than yesterday Still short of breath denies chest pain HEENT: Anicteric conjunctiva are pink and moist nasal mucosa grossly intact without significant lesions, there is no thrush.poor dentition large jensen Neck: The neck is supple without significant lymphadenopathy or thyromegaly. Lungs: symmetrical air entry with evidenceexpiratory wheezes Heart: irregular with an audible S1 and S2 no S3 soft S4 no distinctmurmur click or rub Abdomen: Positive bowel sounds soft and nontender without palpable masses or organomegaly. There was no guarding or rebound. Extremities: The upper extremities have excellent pulses they are symmetric, no significant petechiae or telangiectasia. No splinter hemorrhages were noted. the lower extremities reveal evidence bilateral lower extremity edema minimal erythema without ulcerations,prior toe amputations are well-healed Neuro: Awake alert oriented to person place and time. There are no acute new gross focal sensory motor deficits. - Labs CBC & Chem 7: 08/11/16 06:07 08/11/16 06:07 Labs: Abnormal Lab Results - Last 24 Hours (Table) 08/10/16 08/11/16 08/11/16 Range/Units 23:57 05:56 06:07 RBC 3.24 L (4.30-5.90) m/uL Hgb 9.7 L (13.0-17.5) gm/dL Hct 30.4 L (39.0-53.0) % Plt Count 132 L (150-450) k/uL Lymphocytes # 0.5 L (1.0-4.8) k/uL PT (9.0-12.0) sec APTT 36.2 H (22.0-30.0) sec BUN (9-20) mg/dL Creatinine (0.66-1.25) mg/dL Glucose (74-99) mg/dL POC Glucose (mg/dL) 190 H (75-99) mg/dL Calcium (8.4-10.2) mg/dL Phosphorus (2.5-4.5) mg/dL Total Creatine Kinase (55-170) U/L Troponin I (0.000-0.034) ng/mL 08/11/16 08/11/16 08/11/16 Range/Units 06:07 06:07 06:07 RBC (4.30-5.90) m/uL Hgb (13.0-17.5) gm/dL Hct (39.0-53.0) % Plt Count (150-450) k/uL Lymphocytes # (1.0-4.8) k/uL PT 14.9 H (9.0-12.0) sec APTT (22.0-30.0) sec BUN 84 H* (9-20) mg/dL Creatinine 3.20 H (0.66-1.25) mg/dL Glucose 134 H (74-99) mg/dL POC Glucose (mg/dL) (75-99) mg/dL Calcium 7.6 L (8.4-10.2) mg/dL Phosphorus 5.2 H (2.5-4.5) mg/dL Total Creatine Kinase 30 L (55-170) U/L Troponin I 0.727 H* (0.000-0.034) ng/mL 08/11/16 08/11/16 08/11/16 Range/Units 11:47 16:46 17:32 RBC (4.30-5.90) m/uL Hgb (13.0-17.5) gm/dL Hct (39.0-53.0) % Plt Count (150-450) k/uL Lymphocytes # (1.0-4.8) k/uL PT (9.0-12.0) sec APTT 30.1 H (22.0-30.0) sec BUN (9-20) mg/dL Creatinine (0.66-1.25) mg/dL Glucose (74-99) mg/dL POC Glucose (mg/dL) 225 H 176 H (75-99) mg/dL Calcium (8.4-10.2) mg/dL Phosphorus (2.5-4.5) mg/dL Total Creatine Kinase (55-170) U/L Troponin I (0.000-0.034) ng/mL Microbiology - Last 24 Hours (Table) 08/08/16 23:03 Blood Culture Gram Stain - Final Blood Blood Culture - Final Coagulase Negative Staph 08/10/16 06:07 Blood Culture - Preliminary Blood No Growth after 24 hours 08/06/16 23:47 Blood Culture - Preliminary Blood No Growth after 96 hours 08/08/16 23:14 Blood Culture - Preliminary Blood No Growth after 48 hours Laboratory Results WBC 5.5 k/uL (3.8-10.6) 08/11/16 06:07 RBC 3.24 m/uL (4.30-5.90) L 08/11/16 06:07 Hgb 9.7 gm/dL (13.0-17.5) L 08/11/16 06:07 Hct 30.4 % (39.0-53.0) L 08/11/16 06:07 MCV 93.8 fL (80.0-100.0) 08/11/16 06:07 MCH 29.8 pg (25.0-35.0) 08/11/16 06:07 MCHC 31.7 g/dL (31.0-37.0) 08/11/16 06:07 RDW 14.1 % (11.5-15.5) 08/11/16 06:07 Plt Count 132 k/uL (150-450) L 08/11/16 06:07 Neutrophils % 77 % 08/11/16 06:07 Lymphocytes % 8 % 08/11/16 06:07 Monocytes % 6 % 08/11/16 06:07 Eosinophils % 7 % 08/11/16 06:07 Basophils % 1 % 08/11/16 06:07 Neutrophils # 4.3 k/uL (1.3-7.7) 08/11/16 06:07 Lymphocytes # 0.5 k/uL (1.0-4.8) L 08/11/16 06:07 Monocytes # 0.3 k/uL (0-1.0) 08/11/16 06:07 Eosinophils # 0.4 k/uL (0-0.7) 08/11/16 06:07 Basophils # 0.0 k/uL (0-0.2) 08/11/16 06:07 PT 14.9 sec (9.0-12.0) H 08/11/16 06:07 INR 1.5 (<1.1) 08/11/16 06:07 APTT 30.1 sec (22.0-30.0) H 08/11/16 17:32 Sodium 142 mmol/L (137-145) 08/11/16 06:07 Potassium 4.5 mmol/L (3.5-5.1) 08/11/16 06:07 Chloride 104 mmol/L (98-107) 08/11/16 06:07 Carbon Dioxide 25 mmol/L (22-30) 08/11/16 06:07 Anion Gap 13 mmol/L 08/11/16 06:07 BUN 84 mg/dL (9-20) H* 08/11/16 06:07 Creatinine 3.20 mg/dL (0.66-1.25) H 08/11/16 06:07 Est GFR (MDRD) Af Amer 23 (>60 ml/min/1.73 sqM) 08/11/16 06:07 Est GFR (MDRD) Non-Af 19 (>60 ml/min/1.73 sqM) 08/11/16 06:07 Glucose 134 mg/dL (74-99) H 08/11/16 06:07 POC Glucose (mg/dL) 176 mg/dL (75-99) H 08/11/16 16:46 POC Glu Mfts ID Ivan Kerr 08/11/16 16:[address] Glu mg/dL 131 mg/dL 08/06/16 05:51 Hemoglobin A1c 6.2 % (4.2-6.1) H 08/06/16 05:51 Plasma Lactic Acid Blake 1.0 mmol/L (0.7-2.0) 08/08/16 05:53 Calcium 7.6 mg/dL (8.4-10.2) L 08/11/16 06:07 Phosphorus 5.2 mg/dL (2.5-4.5) H 08/11/16 06:07 Magnesium 2.1 mg/dL (1.6-2.3) 08/11/16 06:07 Total Bilirubin 0.6 mg/dL (0.2-1.3) 08/06/16 05:51 AST 40 U/L (17-59) 08/06/16 05:51 ALT 34 U/L (21-72) 08/06/16 05:51 Alkaline Phosphatase 47 U/L (38-126) 08/06/16 05:51 Creatine Kinase 228 U/L (55-170) H 08/05/16 17:51 Total Creatine Kinase 30 U/L (55-170) L 08/11/16 06:07 CK-MB (CK-2) 1.0 ng/mL (0.0-2.4) 08/11/16 06:07 CK-MB (CK-2) Rel Index 3.3 08/11/16 06:07 Troponin I 0.727 ng/mL (0.000-0.034) H* 08/11/16 06:07 NT-Pro-B Natriuret Pep 38570 pg/mL 08/05/16 17:51 Total Protein 6.4 g/dL (6.3-8.2) 08/06/16 05:51 Albumin 3.5 g/dL (3.5-5.0) 08/06/16 05:51 Urine Color Dark Yellow 08/05/16 18:50 Urine Appearance Cloudy (Clear) 08/05/16 18:50 Urine pH 5.0 (5.0-8.0) 08/05/16 18:50 Ur Specific [place] 1.018 (1.001-1.035) 08/05/16 18:50 Urine Protein 1+ (Negative) H 08/05/16 18:50 Urine Glucose (UA) Negative (Negative) 08/05/16 18:50 Urine Ketones Trace (Negative) H 08/05/16 18:50 Urine Blood Negative (Negative) 08/05/16 18:50 Urine Nitrate Negative (Negative) 08/05/16 18:50 Urine Bilirubin Negative (Negative) 08/05/16 18:50 Urine Urobilinogen 3.0 mg/dL (<2.0) 08/05/16 18:50 Ur Leukocyte Esterase Negative (Negative) 08/05/16 18:50 Urine RBC 2 /hpf (0-5) 08/05/16 18:50 Urine Bacteria Many /hpf (None) H 08/05/16 18:50 Hyaline Casts 25 /lpf (0-2) H 08/05/16 18:50 Granular Casts 1 /lpf (0) 08/05/16 18:50 Urine Mucus Rare /hpf (None) H 08/05/16 18:50 Microbiology 08/08/16 23:03 Blood Blood Culture Gram Stain - Final 08/08/16 23:03 Blood Blood Culture - Final Coagulase Negative Staph 08/10/16 06:07 Blood Blood Culture - Preliminary No Growth after 24 hours 08/06/16 23:47 Blood Blood Culture - Preliminary No Growth after 96 hours 08/08/16 23:14 Blood Blood Culture - Preliminary No Growth after 48 hours 08/06/16 23:15 Blood Blood Culture Gram Stain - Preliminary 08/06/16 23:15 Blood Blood Culture - Preliminary Coagulase Negative Staph 08/08/16 23:03 Blood Blood Culture - Preliminary 08/06/16 23:15 Blood Blood Culture - Preliminary 08/06/16 09:43 Urine,Catheterized Urine Culture - Final Assessment and Plan (1) NSTEMI (non-ST elevated myocardial infarction) Narrative/Plan: 76-year-old male with multiple underlying medical troubles that includes coronary artery disease and atrial fibrillation presents to Hospital severe weakness and gentle fall to the floor. Without evidence of a non-ST myocardial infarction. A with congestive heart failure and chronic systolic type. As well as acute renal failure imposed on chronic renal failure. The patient has had fever which appears to be multifactorial including underlying myocardial infarction. Agreed that pneumonia cannot be ruled out although the patient did not have significant symptoms before his acute event. Has been treated with piperacillin tazobactam and Levaquin The patient does evidence of the positive blood culture there have been 2 positive cultures,both her coagulase-negative staph. Patient does evidence of aortic stenosis but does not have bioprosthetic material. It is unlikely that he has a coagulase-negative staph infection of the heart in the daptomycin was discontinued. Overall he is steadily improving. his pneumonia is improving by the chest x- ray,and by exam. With further improvement we discontinue the Zosyn and complete the course of Levaquin over the next week. His legs are improving with local care. Continue the Silvadene and compression. Elevate at rest. Status: Acute (2) Acute on chronic systolic heart failure Status: Acute (3) Fever Status: Acute (4) Acute on chronic renal failure Status: Acute
[2016-08-11 21:27] LABS: Glucose,Whole Blood 194 mg/dL (75-99)
[2016-08-11] MEDS: ATORVASTATIN 40 MG TAB PO SCH (21:52)
[2016-08-11] MEDS: LEVOFLOXACIN 250 MG TAB PO SCH (21:53)
[2016-08-11] MEDS: traZODone HCL 50 MG TAB PO SCH (21:53)
[2016-08-11] MEDS: TERAZOSIN 2 MG CAP PO SCH (21:54)
[2016-08-11] MEDS: INSULIN DETEMIR 100 UNIT/ML 10 ML VIAL SQ SCH (22:00)
[2016-08-12 05:49] LABS: Glucose,Whole Blood 142 mg/dL (75-99)
[2016-08-12] MEDS: INSULIN LISPRO (humaLOG) 300 UNIT/3 ML VIAL SQ SCH ×5 (06:45→21:40)
[2016-08-12] MEDS: LEVOTHYROXINE 125 MCG TAB PO SCH (06:45)
[2016-08-12 06:56] LABS: Basophils % (A) 0 %; CH 30.4; CHCM 32.7; Eosinophils # (A) 0.1 k/uL (0-0.7); Eosinophils % (A) 1 %; HDW 2.67; Luc # (Auto) 0.08; Luc % (Auto) 1; Lymphocytes # (A) 0.4 k/uL (1.0-4.8); Lymphocytes % (A) 6 %; MCH 30.2 pg (25.0-35.0); MCHC 32.3 g/dL (31.0-37.0); MCV 93.6 fL (80.0-100.0); Mean Platelet Volume 8.5; Monocytes # (A) 0.4 k/uL (0-1.0); Monocytes % (A) 5 %; Neutrophils % (A) 86 %; RBC 3.31 m/uL (4.30-5.90); RDW 13.8 % (11.5-15.5); WBC 6.9 k/uL (3.8-10.6)
[2016-08-12 07:12] LABS: Calcium 7.8 mg/dL (8.4-10.2); Potassium 4.4 mmol/L (3.5-5.1)
[2016-08-12 07:35] LABS: Creatine Kinase MB 0.7 ng/mL (0.0-2.4)
[2016-08-12] MEDS: IPRATROPIUM-ALBUTEROL 3 ML NEB INHALATION SCH ×4 (08:03→19:40)
[2016-08-12 08:21] LABS: Troponin I 0.327 ng/mL (0.000-0.034)
[2016-08-12] MEDS: GABAPENTIN 400 MG CAP PO SCH ×2 (08:49→21:40)
[2016-08-12] MEDS: ASPIRIN 81 MG CHEW PO SCH (08:49)
[2016-08-12] MEDS: METOPROLOL TARTRATE 25 MG TAB PO SCH ×2 (08:50→23:13)
[2016-08-12] MEDS: SODIUM CHLORIDE 0.9% 1,000 ML IV SCH (08:50)
--- NOTE | 2016-08-12 09:48 | P.PN ---
Subjective Patient is seen in follow-up for acute kidney injury on chronic kidney disease. Patient has chronic kidney disease stage III secondary to diabetic kidney disease and nephrosclerosis. Renal function is improved with creatinine at 2.98 today. Lasix was discontinued on August 11. Patient presented with a fall and is currently being treated for pneumonia as well as gram-positive bacteremia. He is noted to have ejection fraction of 30-35% along with severe aortic stenosis. Currently sitting up in bed. Dyspnea is improved. He is nonoliguric. Denies chest pain. Appetite is good. Vital signs are stable. General: The patient appeared well nourished and normally developed. HEENT: Head exam is unremarkable. Neck is without jugular venous distension. LUNGS: Lungs are clear to auscultation and percussion. Breath sounds decreased. HEART: Rate and Rhythm are regular. First and second heart sounds normal. No murmurs, rubs or gallops. ABDOMEN: Abdominal exam reveals normal bowel sounds. Non-tender and non- distended. No evidence of peritonitis. EXTREMITITES: No clubbing, cyanosis, or edema. Objective - Vital Signs Vital signs: Vital Signs Temp 98.2 F 08/12/16 08:00 Pulse 100 08/12/16 08:20 Resp 18 08/12/16 04:00 BP 123/60 08/12/16 08:00 Pulse Ox 92 L 08/12/16 08:04 Intake & Output 08/11/16 08/12/16 08/12/16 18:59 06:59 18:59 Intake Total 818 230.333 Output Total 700 740 Balance 118 -509.667 Weight 86.5 kg Intake: Intake, IV Titration 458 230.333 Amount Heparin Sodium,Porcine/ 458 230.333 D5w Pmx 25,000 unit In Dextrose/Water 1 500ml. bag @ 11.779 UNITS/KG/HR 20 mls/hr IV .Q24H [facility] Rx #:[id number] Oral 360 Output: Urine 700 740 Straight 500 Other: Voiding Method Indwelling Catheter Indwelling Catheter - Labs CBC & Chem 7: 08/12/16 06:34 08/12/16 06:34 Labs: Abnormal Lab Results - Last 24 Hours (Table) 08/11/16 08/11/16 08/11/16 Range/Units 11:47 16:46 17:32 RBC (4.30-5.90) m/uL Hgb (13.0-17.5) gm/dL Hct (39.0-53.0) % Plt Count (150-450) k/uL Lymphocytes # (1.0-4.8) k/uL APTT 30.1 H (22.0-30.0) sec Chloride (98-107) mmol/L BUN (9-20) mg/dL Creatinine (0.66-1.25) mg/dL Glucose (74-99) mg/dL POC Glucose (mg/dL) 225 H 176 H (75-99) mg/dL Calcium (8.4-10.2) mg/dL Total Creatine Kinase (55-170) U/L Troponin I (0.000-0.034) ng/mL 08/11/16 08/12/16 08/12/16 Range/Units 21:25 02:04 05:48 RBC (4.30-5.90) m/uL Hgb (13.0-17.5) gm/dL Hct (39.0-53.0) % Plt Count (150-450) k/uL Lymphocytes # (1.0-4.8) k/uL APTT 32.9 H (22.0-30.0) sec Chloride (98-107) mmol/L BUN (9-20) mg/dL Creatinine (0.66-1.25) mg/dL Glucose (74-99) mg/dL POC Glucose (mg/dL) 194 H 142 H (75-99) mg/dL Calcium (8.4-10.2) mg/dL Total Creatine Kinase (55-170) U/L Troponin I (0.000-0.034) ng/mL 08/12/16 08/12/16 08/12/16 Range/Units 06:34 06:34 06:34 RBC 3.31 L (4.30-5.90) m/uL Hgb 10.0 L (13.0-17.5) gm/dL Hct 31.0 L (39.0-53.0) % Plt Count 141 L (150-450) k/uL Lymphocytes # 0.4 L (1.0-4.8) k/uL APTT (22.0-30.0) sec Chloride 108 H (98-107) mmol/L BUN 82 H* (9-20) mg/dL Creatinine 2.98 H (0.66-1.25) mg/dL Glucose 150 H (74-99) mg/dL POC Glucose (mg/dL) (75-99) mg/dL Calcium 7.8 L (8.4-10.2) mg/dL Total Creatine Kinase 31 L (55-170) U/L Troponin I 0.327 H* (0.000-0.034) ng/mL Microbiology - Last 24 Hours (Table) 08/10/16 06:07 Blood Culture - Preliminary Blood No Growth after 48 hours 08/06/16 23:47 Blood Culture - Preliminary Blood No Growth after 120 hours 08/08/16 23:14 Blood Culture - Preliminary Blood No Growth after 72 hours 08/06/16 23:15 Blood Culture Gram Stain - Final Blood Blood Culture - Final Staph capitis SS capitis 08/08/16 23:03 Blood Culture Gram Stain - Final Blood Blood Culture - Final Coagulase Negative Staph Assessment and Plan Plan: Assessment: #1. Nonoliguric acute kidney injury secondary to cardiorenal syndrome. Creatinine improved to 2.98 today. #2. Severe sepsis secondary to pneumonia as well as gram-positive bacteremia. #3. Volume overload. Improved. #4. Chronic kidney disease stage III with baseline creatinine in the range of 1.4-1.6 secondary to diabetic kidney disease as well as nephrosclerosis. #5. Systolic CHF with ejection fraction of 30-35%. #6. Severe aortic stenosis. #7. Mild hypernatremia secondary to diuresis. Plan: Continue to hold Lasix for now. Encourage oral intake. Avoid nephrotoxic agents and hypotensive episodes. Discussed with cardiology. Needs a cardiac catheterization once renal function stabilizes.
[2016-08-12 11:59] LABS: Glucose,Whole Blood 267 mg/dL (75-99)
[2016-08-12] MEDS: PANTOPRAZOLE 40 MG TABLET PO SCH (12:58)
--- NOTE | 2016-08-12 14:31 | P.PN ---
Subjective Principal diagnosis: Acute hypoxic respiratory failure This is a 76-year-old gentleman who follows with Dr. Burns in the office, he has a history of hypertension, hyperlipidemia, diabetes, prior CVA, renal disease, hypothyroidism, cardiomyopathy, chronic persistent atrial fibrillation, initially presented to the hospital with symptoms of weakness and fall at home. No overt syncope. Patient has been being treated for acute congestive cardiac failure. He also ruled in for non-Q-wave myocardial infarction. The patient is also being followed by nephrology for acute on chronic renal failure. Creatinine today is 2.98, BUN 82, hemoglobin is 10.0. Overall he continues to do well. Lasix was placed on hold yesterday, creatinine is mildly improved today. We will continue to monitor the creatinine. Plan for possible cardiac catheterization on Tuesday. Objective - Vital Signs Vital signs: Vital Signs Temp 98.2 F 08/12/16 08:00 Pulse 101 H 08/12/16 12:00 Resp 18 08/12/16 04:00 BP 130/71 08/12/16 12:00 Pulse Ox 94 L 08/12/16 12:00 Intake & Output 08/11/16 08/12/16 08/12/16 18:59 06:59 18:59 Intake Total 818 230.333 Output Total 700 740 Balance 118 -509.667 Weight 86.5 kg Intake: Intake, IV Titration 458 230.333 Amount Heparin Sodium,Porcine/ 458 230.333 D5w Pmx 25,000 unit In Dextrose/Water 1 500ml. bag @ 11.779 UNITS/KG/HR 20 mls/hr IV .Q24H [facility] Rx #:[id number] Oral 360 Output: Urine 700 740 Straight 500 Other: Voiding Method Indwelling Catheter Indwelling Catheter - Exam PHYSICAL EXAMINATION: HEENT: Head is atraumatic, normocephalic. Pupils equal, round. Neck is supple. There is no elevated jugular venous pressure. HEART EXAMINATION: Heart S1 S2 1 systolic murmur is heard. CHEST EXAMINATION: Lungs reveal crackles to bilateral bases. ABDOMEN: Soft, nontender. Bowel sounds are heard. No organomegaly noted. EXTREMITIES: 2+ peripheral pulses with no evidence of peripheral edema and no calf tenderness noted. NEUROLOGIC patient is awake, alert and oriented -3. . - Labs CBC & Chem 7: 08/12/16 06:34 08/12/16 06:34 Labs: Abnormal Lab Results - Last 24 Hours (Table) 08/11/16 08/11/16 08/11/16 Range/Units 16:46 17:32 21:25 RBC (4.30-5.90) m/uL Hgb (13.0-17.5) gm/dL Hct (39.0-53.0) % Plt Count (150-450) k/uL Lymphocytes # (1.0-4.8) k/uL APTT 30.1 H (22.0-30.0) sec Chloride (98-107) mmol/L BUN (9-20) mg/dL Creatinine (0.66-1.25) mg/dL Glucose (74-99) mg/dL POC Glucose (mg/dL) 176 H 194 H (75-99) mg/dL Calcium (8.4-10.2) mg/dL Total Creatine Kinase (55-170) U/L Troponin I (0.000-0.034) ng/mL 08/12/16 08/12/16 08/12/16 Range/Units 02:04 05:48 06:34 RBC (4.30-5.90) m/uL Hgb (13.0-17.5) gm/dL Hct (39.0-53.0) % Plt Count (150-450) k/uL Lymphocytes # (1.0-4.8) k/uL APTT 32.9 H (22.0-30.0) sec Chloride (98-107) mmol/L BUN (9-20) mg/dL Creatinine (0.66-1.25) mg/dL Glucose (74-99) mg/dL POC Glucose (mg/dL) 142 H (75-99) mg/dL Calcium (8.4-10.2) mg/dL Total Creatine Kinase 31 L (55-170) U/L Troponin I 0.327 H* (0.000-0.034) ng/mL 08/12/16 08/12/16 08/12/16 Range/Units 06:34 06:34 11:13 RBC 3.31 L (4.30-5.90) m/uL Hgb 10.0 L (13.0-17.5) gm/dL Hct 31.0 L (39.0-53.0) % Plt Count 141 L (150-450) k/uL Lymphocytes # 0.4 L (1.0-4.8) k/uL APTT 38.0 H (22.0-30.0) sec Chloride 108 H (98-107) mmol/L BUN 82 H* (9-20) mg/dL Creatinine 2.98 H (0.66-1.25) mg/dL Glucose 150 H (74-99) mg/dL POC Glucose (mg/dL) (75-99) mg/dL Calcium 7.8 L (8.4-10.2) mg/dL Total Creatine Kinase (55-170) U/L Troponin I (0.000-0.034) ng/mL 08/12/16 Range/Units 11:57 RBC (4.30-5.90) m/uL Hgb (13.0-17.5) gm/dL Hct (39.0-53.0) % Plt Count (150-450) k/uL Lymphocytes # (1.0-4.8) k/uL APTT (22.0-30.0) sec Chloride (98-107) mmol/L BUN (9-20) mg/dL Creatinine (0.66-1.25) mg/dL Glucose (74-99) mg/dL POC Glucose (mg/dL) 267 H (75-99) mg/dL Calcium (8.4-10.2) mg/dL Total Creatine Kinase (55-170) U/L Troponin I (0.000-0.034) ng/mL Microbiology - Last 24 Hours (Table) 08/10/16 06:07 Blood Culture - Preliminary Blood No Growth after 48 hours 08/06/16 23:47 Blood Culture - Preliminary Blood No Growth after 120 hours 08/08/16 23:14 Blood Culture - Preliminary Blood No Growth after 72 hours 08/06/16 23:15 Blood Culture Gram Stain - Final Blood Blood Culture - Final Staph capitis SS capitis Assessment and Plan (1) CAD (coronary artery disease) Status: Acute (2) HTN (hypertension) Status: Acute (3) Hypothyroid Status: Acute (4) Diabetes Status: Acute (5) PVD (peripheral vascular disease) Status: Acute (6) Paroxysmal a-fib Status: Acute (7) CVA (cerebral vascular accident) Status: Acute (8) Acute on chronic systolic heart failure Status: Acute (9) NSTEMI (non-ST elevated myocardial infarction) Status: Acute (10) Acute renal failure (ARF) Status: Acute Plan: Cardiology's perspective, Lasix will continue to be placed on hold. We will continue to monitor lytes BUN and creatinine. Once the creatinine comes down to the 1.8-1.9 range, patient then will need to undergo cardiac catheterization. This was explained to the patient in detail and discussed with nephrology. DNP note has been reviewed, I agree with a documented findings and plan of care. Patient was seen and examined.
[2016-08-12 17:00] LABS: Glucose,Whole Blood 237 mg/dL (75-99)
[2016-08-12] MEDS: HEPARIN SODIUM,PORCINE/D5W PMX 25,000 UNIT in DEXTROSE/WATER 1 500ML.BAG IV SCH (17:31)
--- NOTE | 2016-08-12 17:37 | P.PN ---
Subjective Date of service 08/12/2016. Progress note being dictated for Dr. Campos. Interval history: This is a 76-year-old gentleman admitted with acute hypoxic respiratory failure, CHF, septic shock, acute non-STEMI and multiple other medical issues. Patient had a better night, did not require BiPAP. Lasix held yesterday, renal function improving. Blood cultures reporting staph aureus and staph capitis, with preliminary repeat blood cultures negative. Continues on antibiotics as per infectious disease. Afebrile. Review of systems: HEENT: Denies headache or focal deficits. Denies any dizziness or lightheadedness. Respiratory: Improving Active Medications Generic Name Dose Route Start Last Admin Trade Name Freq PRN Reason Stop Dose Admin Acetaminophen 650 mg 08/06/16 09:20 08/06/16 20:07 Tylenol Tab PO 650 mg Q4HR PRN Administration Fever and/or Mild Pain Albuterol/Ipratropium 3 ml 08/06/16 09:20 08/08/16 19:52 Duoneb 0.5 Mg-3 Mg/3 Ml Soln INHALATION 3 ml RT-Q2H PRN Administration Shortness Of Breath Or Wheezing Albuterol/Ipratropium 3 ml 08/08/16 20:00 08/12/16 16:03 Duoneb 0.5 Mg-3 Mg/3 Ml Soln INHALATION 3 ml RT-QID OLIVIA Administration Aspirin 81 mg 08/11/16 09:00 08/12/16 08:49 Aspirin PO 81 mg DAILY OLIVIA Administration Atorvastatin Calcium 40 mg 08/06/16 21:00 08/11/16 21:52 Lipitor PO 40 mg HS OLIVIA Administration Gabapentin 800 mg 08/06/16 11:00 08/12/16 08:49 Neurontin PO 800 mg BID OLIVIA Administration Heparin Sodium (Porcine) 0 unit 08/10/16 18:02 Heparin IV PER PROTOCOL PRN Low PTT Protocol Sodium Chloride 1,000 mls @ 20 mls/hr 08/06/16 09:30 08/12/16 08:50 Saline 0.9% IV 20 mls/hr .Q24H OLIVIA Administration Norepinephrine Bitartrate 4 mg 254 mls @ 0 mls/hr 08/06/16 20:15 08/07/16 03: 30 / Sodium Chloride IV 0 mcg/min .Q0M OLIVIA 0 mls/hr Protocol Titration Titrate Heparin Sodium/Dextrose 25,000 500 mls @ 20 mls/hr 08/10/16 18:30 08/12/16 05 :01 unit/ IV Solution IV 15 units/kg/hr .Q24H OLIVIA 25.47 mls/hr Protocol Titration 11.779 UNITS/KG/HR Insulin Detemir 18 unit 08/12/16 21:00 Levemir SQ HS OLIVIA Insulin Human Lispro 0 unit 08/05/16 21:00 08/12/16 12:57 Humalog SQ 4 unit ACHS OLIVIA Administration Protocol Insulin Human Lispro 5 unit 08/12/16 17:30 Humalog SQ AC-TID OLIVIA Levofloxacin 250 mg 08/09/16 21:00 08/11/16 21:53 Levaquin PO 250 mg HS OLIVIA Administration Levothyroxine Sodium 125 mcg 08/06/16 06:30 08/12/16 06:45 Synthroid PO 125 mcg 0630 OLIVIA Administration Metoprolol Tartrate 25 mg 08/06/16 11:00 08/12/16 08:50 Lopressor PO 25 mg BID OLIVIA Administration Miscellaneous Information 1 each 08/08/16 19:02 Potassium Per Protocol MISCELLANE DAILY PRN Per Protocol Protocol Naloxone HCl 0.2 mg 08/06/16 09:20 Narcan IV Q2M PRN Opioid Reversal Pantoprazole Sodium 40 mg 08/12/16 09:00 08/12/16 12:58 Protonix PO 40 mg [id number] OLIVIA Administration Terazosin HCl 4 mg 08/06/16 21:00 08/11/16 21:54 Hytrin PO 4 mg HS OLIVIA Administration Trazodone HCl 50 mg 08/06/16 21:00 08/11/16 21:53 Desyrel PO 50 mg HS OLIVIA Administration shortness of breath. Cardiac: Denies any chest pain, palpitations. GI: Denies any nausea, vomiting, or diarrhea. Denies any abdominal tenderness. : Denies any dysuria. Psychiatry: Denies any anxiety or depression. Objective - Vital Signs Vital signs: Vital Signs Temp 98.2 F 08/12/16 08:00 Pulse 100 08/12/16 16:19 Resp 18 08/12/16 04:00 BP 130/71 08/12/16 12:00 Pulse Ox 94 L 08/12/16 12:00 Intake & Output 08/11/16 08/12/16 08/12/16 18:59 06:59 18:59 Intake Total 818 230.333 360 Output Total 700 740 Balance 118 -509.667 360 Weight 86.5 kg Intake: Intake, IV Titration 458 230.333 Amount Heparin Sodium,Porcine/ 458 230.333 D5w Pmx 25,000 unit In Dextrose/Water 1 500ml. bag @ 11.779 UNITS/KG/HR 20 mls/hr IV .Q24H [facility] Rx #:[id number] Oral 360 360 Output: Urine 700 740 Straight 500 Other: Voiding Method Indwelling Catheter Indwelling Catheter - Exam PHYSICAL EXAM: VITAL SIGNS: As above GENERAL: [Sitting up in bed, no acute distress] HEENT: [Pupils equal conjunctiva normal.] NECK: [Supple, no JVD] RESPIRATORY EFFORT:[Mildly increased] LUNGS: [Diminished with occasional fine bibasilar crackles, no wheezing, no rhonchi] CARDIOVASCULAR[regular S1 and S2, positive systolic murmur, no edema] GI: [Abdomen soft, nontender, no organomegaly, positive bowel sounds.] PSYCH: [Alert and oriented -3, mood and affect normal.] NEURO: No focal deficits, strength and sensation grossly intact Microbiology 08/10/16 06:07 Blood Blood Culture - Preliminary No Growth after 48 hours 08/06/16 23:47 Blood Blood Culture - Preliminary No Growth after 120 hours 08/08/16 23:14 Blood Blood Culture - Preliminary No Growth after 72 hours 08/06/16 23:15 Blood Blood Culture Gram Stain - Final 08/06/16 23:15 Blood Blood Culture - Final Staph capitis SS capitis 08/08/16 23:03 Blood Blood Culture Gram Stain - Final 08/08/16 23:03 Blood Blood Culture - Final Coagulase Negative Staph 08/08/16 23:03 Blood Blood Culture - Preliminary 08/06/16 23:15 Blood Blood Culture - Preliminary 08/06/16 09:43 Urine,Catheterized Urine Culture - Final - Labs CBC & Chem 7: 08/12/16 06:34 08/12/16 06:34 Labs: Abnormal Lab Results - Last 24 Hours (Table) 08/11/16 08/11/16 08/12/16 Range/Units 17:32 21:25 02:04 RBC (4.30-5.90) m/uL Hgb (13.0-17.5) gm/dL Hct (39.0-53.0) % Plt Count (150-450) k/uL Lymphocytes # (1.0-4.8) k/uL APTT 30.1 H 32.9 H (22.0-30.0) sec Chloride (98-107) mmol/L BUN (9-20) mg/dL Creatinine (0.66-1.25) mg/dL Glucose (74-99) mg/dL POC Glucose (mg/dL) 194 H (75-99) mg/dL Calcium (8.4-10.2) mg/dL Total Creatine Kinase (55-170) U/L Troponin I (0.000-0.034) ng/mL 08/12/16 08/12/16 08/12/16 Range/Units 05:48 06:34 06:34 RBC (4.30-5.90) m/uL Hgb (13.0-17.5) gm/dL Hct (39.0-53.0) % Plt Count (150-450) k/uL Lymphocytes # (1.0-4.8) k/uL APTT (22.0-30.0) sec Chloride 108 H (98-107) mmol/L BUN 82 H* (9-20) mg/dL Creatinine 2.98 H (0.66-1.25) mg/dL Glucose 150 H (74-99) mg/dL POC Glucose (mg/dL) 142 H (75-99) mg/dL Calcium 7.8 L (8.4-10.2) mg/dL Total Creatine Kinase 31 L (55-170) U/L Troponin I 0.327 H* (0.000-0.034) ng/mL 08/12/16 08/12/16 08/12/16 Range/Units 06:34 11:13 11:57 RBC 3.31 L (4.30-5.90) m/uL Hgb 10.0 L (13.0-17.5) gm/dL Hct 31.0 L (39.0-53.0) % Plt Count 141 L (150-450) k/uL Lymphocytes # 0.4 L (1.0-4.8) k/uL APTT 38.0 H (22.0-30.0) sec Chloride (98-107) mmol/L BUN (9-20) mg/dL Creatinine (0.66-1.25) mg/dL Glucose (74-99) mg/dL POC Glucose (mg/dL) 267 H (75-99) mg/dL Calcium (8.4-10.2) mg/dL Total Creatine Kinase (55-170) U/L Troponin I (0.000-0.034) ng/mL 08/12/16 Range/Units 16:59 RBC (4.30-5.90) m/uL Hgb (13.0-17.5) gm/dL Hct (39.0-53.0) % Plt Count (150-450) k/uL Lymphocytes # (1.0-4.8) k/uL APTT (22.0-30.0) sec Chloride (98-107) mmol/L BUN (9-20) mg/dL Creatinine (0.66-1.25) mg/dL Glucose (74-99) mg/dL POC Glucose (mg/dL) 237 H (75-99) mg/dL Calcium (8.4-10.2) mg/dL Total Creatine Kinase (55-170) U/L Troponin I (0.000-0.034) ng/mL Microbiology - Last 24 Hours (Table) 08/10/16 06:07 Blood Culture - Preliminary Blood No Growth after 48 hours 08/06/16 23:47 Blood Culture - Preliminary Blood No Growth after 120 hours 08/08/16 23:14 Blood Culture - Preliminary Blood No Growth after 72 hours 08/06/16 23:15 Blood Culture Gram Stain - Final Blood Blood Culture - Final Staph capitis SS capitis Assessment and Plan Plan: 1. Acute hypoxic respiratory failure secondary to COPD exacerbation, acute on chronic CHF with systolic dysfunction EF 30-35% and possible right middle lobe pneumonia. 2. [Septic shock secondary to pneumonia, status post pressors]. Blood cultures currently reporting staph aureus and staph capitis, with preliminary repeat blood cultures negative. 3. [Mild aortic stenosis]. 4. [Acute non-STEMI ]. 5. [Acute renal failure secondary to prerenal azotemia from CHF]. Cardiorenal syndrome 6. CKD stage III. 7. [Hypertension]. 8. Hypothyroidism 9. Peripheral neuropathy 10. CVA, history of 11. Severe aortic stenosis 12. Hypernatremia-mild secondary to diuresing, resolved. 13. Pulmonary hypertension Plan: Continue on current medication regime ,monitoring and to make treatment. Diuretics remain on hold, cardiology discussing potential Cardiac cath. On Tuesday pending renal function. Close monitoring of Accu-Cheks. Mildly elevated blood sugars, Lantus dose increased, pre-meal insulin added. Antibiotics as per ID. Once medically stable for discharge, case management/ social work assisting with discharge plans to [facility] rehab. Further recommendations to follow. The impression and plan of care has been dictated as directed. : I performed a H&P examination of this patient and discussed the same with the dictator. I agree with the dictator's note. Any additional findings/opinions/ etc. will be noted.
[2016-08-12 20:06] LABS: Glucose,Whole Blood 230 mg/dL (75-99)
[2016-08-12] MEDS: INSULIN DETEMIR 100 UNIT/ML 10 ML VIAL SQ SCH (21:39)
[2016-08-12] MEDS: LEVOFLOXACIN 250 MG TAB PO SCH (21:39)
[2016-08-12] MEDS: traZODone HCL 50 MG TAB PO SCH (21:40)
[2016-08-12] MEDS: TERAZOSIN 2 MG CAP PO SCH (21:40)
[2016-08-12] MEDS: ATORVASTATIN 40 MG TAB PO SCH (21:40)
--- NOTE | 2016-08-12 22:17 | P.PN ---
Subjective 76-year-old male presents to the emergency center after gently going to the floor while he was in front of the sink. He does recall the event. He became weak and went to the floor. Was brought in by EMS because he was so weak. Was found to have evidence of significant shortness of breath and was brought into hospital. He then decompensated and required transfer to intensive care unit because of respiratory failure. He was treated with BiPAP. He has been added by cardiology for his non-ST segment depression myocardial infarction. He also has had some worsening of his underlying atrial fibrillation.because he developed fever antibiotic therapy was initiated and is now improving feeling better overall. No other new acute complaints today Objective - Vital Signs Vital signs: Vital Signs Temp 98.2 F 08/12/16 08:00 Pulse 100 08/12/16 19:53 Resp 18 08/12/16 04:00 BP 122/58 08/12/16 16:00 Pulse Ox 92 L 08/12/16 16:00 Intake & Output 08/12/16 08/12/16 08/13/16 06:59 18:59 06:59 Intake Total 230.333 809.667 102.729 Output Total 740 600 Balance -509.667 209.667 102.729 Weight 86.5 kg Intake: Intake, IV Titration 230.333 269.667 102.729 Amount Heparin Sodium,Porcine/ 230.333 269.667 102.729 D5w Pmx 25,000 unit In Dextrose/Water 1 500ml. bag @ 11.779 UNITS/KG/HR 20 mls/hr IV .Q24H [facility] Rx #:[id number] Oral 540 Output: Urine 740 600 Straight 500 Other: Voiding Method Indwelling Catheter - Exam 76-year-old male who is more comfortable than yesterday Still short of breath denies chest pain HEENT: Anicteric conjunctiva are pink and moist nasal mucosa grossly intact without significant lesions, there is no thrush.poor dentition large jensen Neck: The neck is supple without significant lymphadenopathy or thyromegaly. Lungs: symmetrical air entry with evidenceexpiratory wheezes Heart: irregular with an audible S1 and S2 no S3 soft S4 no distinctmurmur click or rub Abdomen: Positive bowel sounds soft and nontender without palpable masses or organomegaly. There was no guarding or rebound. Extremities: The upper extremities have excellent pulses they are symmetric, no significant petechiae or telangiectasia. No splinter hemorrhages were noted. the lower extremities reveal evidence bilateral lower extremity edema minimal erythema without ulcerations,prior toe amputations are well-healed Neuro: Awake alert oriented to person place and time. There are no acute new gross focal sensory motor deficits. - Labs CBC & Chem 7: 08/12/16 06:34 08/12/16 06:34 Labs: Abnormal Lab Results - Last 24 Hours (Table) 08/12/16 08/12/16 08/12/16 Range/Units 02:04 05:48 06:34 RBC (4.30-5.90) m/uL Hgb (13.0-17.5) gm/dL Hct (39.0-53.0) % Plt Count (150-450) k/uL Lymphocytes # (1.0-4.8) k/uL APTT 32.9 H (22.0-30.0) sec Chloride (98-107) mmol/L BUN (9-20) mg/dL Creatinine (0.66-1.25) mg/dL Glucose (74-99) mg/dL POC Glucose (mg/dL) 142 H (75-99) mg/dL Calcium (8.4-10.2) mg/dL Total Creatine Kinase 31 L (55-170) U/L Troponin I 0.327 H* (0.000-0.034) ng/mL 08/12/16 08/12/16 08/12/16 Range/Units 06:34 06:34 11:13 RBC 3.31 L (4.30-5.90) m/uL Hgb 10.0 L (13.0-17.5) gm/dL Hct 31.0 L (39.0-53.0) % Plt Count 141 L (150-450) k/uL Lymphocytes # 0.4 L (1.0-4.8) k/uL APTT 38.0 H (22.0-30.0) sec Chloride 108 H (98-107) mmol/L BUN 82 H* (9-20) mg/dL Creatinine 2.98 H (0.66-1.25) mg/dL Glucose 150 H (74-99) mg/dL POC Glucose (mg/dL) (75-99) mg/dL Calcium 7.8 L (8.4-10.2) mg/dL Total Creatine Kinase (55-170) U/L Troponin I (0.000-0.034) ng/mL 08/12/16 08/12/16 08/12/16 Range/Units 11:57 16:59 20:03 RBC (4.30-5.90) m/uL Hgb (13.0-17.5) gm/dL Hct (39.0-53.0) % Plt Count (150-450) k/uL Lymphocytes # (1.0-4.8) k/uL APTT (22.0-30.0) sec Chloride (98-107) mmol/L BUN (9-20) mg/dL Creatinine (0.66-1.25) mg/dL Glucose (74-99) mg/dL POC Glucose (mg/dL) 267 H 237 H 230 H (75-99) mg/dL Calcium (8.4-10.2) mg/dL Total Creatine Kinase (55-170) U/L Troponin I (0.000-0.034) ng/mL Microbiology - Last 24 Hours (Table) 08/10/16 06:07 Blood Culture - Preliminary Blood No Growth after 48 hours 08/06/16 23:47 Blood Culture - Preliminary Blood No Growth after 120 hours 08/08/16 23:14 Blood Culture - Preliminary Blood No Growth after 72 hours 08/06/16 23:15 Blood Culture Gram Stain - Final Blood Blood Culture - Final Staph capitis SS capitis Laboratory Results WBC 6.9 k/uL (3.8-10.6) 08/12/16 06:34 RBC 3.31 m/uL (4.30-5.90) L 08/12/16 06:34 Hgb 10.0 gm/dL (13.0-17.5) L 08/12/16 06:34 Hct 31.0 % (39.0-53.0) L 08/12/16 06:34 MCV 93.6 fL (80.0-100.0) 08/12/16 06:34 MCH 30.2 pg (25.0-35.0) 08/12/16 06:34 MCHC 32.3 g/dL (31.0-37.0) 08/12/16 06:34 RDW 13.8 % (11.5-15.5) 08/12/16 06:34 Plt Count 141 k/uL (150-450) L 08/12/16 06:34 Neutrophils % 86 % 08/12/16 06:34 Lymphocytes % 6 % 08/12/16 06:34 Monocytes % 5 % 08/12/16 06:34 Eosinophils % 1 % 08/12/16 06:34 Basophils % 0 % 08/12/16 06:34 Neutrophils # 6.0 k/uL (1.3-7.7) 08/12/16 06:34 Lymphocytes # 0.4 k/uL (1.0-4.8) L 08/12/16 06:34 Monocytes # 0.4 k/uL (0-1.0) 08/12/16 06:34 Eosinophils # 0.1 k/uL (0-0.7) 08/12/16 06:34 Basophils # 0.0 k/uL (0-0.2) 08/12/16 06:34 PT 14.9 sec (9.0-12.0) H 08/11/16 06:07 INR 1.5 (<1.1) 08/11/16 06:07 APTT 38.0 sec (22.0-30.0) H 08/12/16 11:13 Sodium 144 mmol/L (137-145) 08/12/16 06:34 Potassium 4.4 mmol/L (3.5-5.1) 08/12/16 06:34 Chloride 108 mmol/L (98-107) H 08/12/16 06:34 Carbon Dioxide 24 mmol/L (22-30) 08/12/16 06:34 Anion Gap 12 mmol/L 08/12/16 06:34 BUN 82 mg/dL (9-20) H* 08/12/16 06:34 Creatinine 2.98 mg/dL (0.66-1.25) H 08/12/16 06:34 Est GFR (MDRD) Af Amer 25 (>60 ml/min/1.73 sqM) 08/12/16 06:34 Est GFR (MDRD) Non-Af 21 (>60 ml/min/1.73 sqM) 08/12/16 06:34 Glucose 150 mg/dL (74-99) H 08/12/16 06:34 POC Glucose (mg/dL) 230 mg/dL (75-99) H 08/12/16 20:03 POC Glu Mop Handle Assembler ID Vivi Ball 08/12/16 20:[address] Glu mg/dL 131 mg/dL 08/06/16 05:51 Hemoglobin A1c 6.2 % (4.2-6.1) H 08/06/16 05:51 Plasma Lactic Acid Blake 1.0 mmol/L (0.7-2.0) 08/08/16 05:53 Calcium 7.8 mg/dL (8.4-10.2) L 08/12/16 06:34 Phosphorus 5.2 mg/dL (2.5-4.5) H 08/11/16 06:07 Magnesium 2.1 mg/dL (1.6-2.3) 08/11/16 06:07 Total Bilirubin 0.6 mg/dL (0.2-1.3) 08/06/16 05:51 AST 40 U/L (17-59) 08/06/16 05:51 ALT 34 U/L (21-72) 08/06/16 05:51 Alkaline Phosphatase 47 U/L (38-126) 08/06/16 05:51 Creatine Kinase 228 U/L (55-170) H 08/05/16 17:51 Total Creatine Kinase 31 U/L (55-170) L 08/12/16 06:34 CK-MB (CK-2) 0.7 ng/mL (0.0-2.4) 08/12/16 06:34 CK-MB (CK-2) Rel Index 2.3 08/12/16 06:34 Troponin I 0.327 ng/mL (0.000-0.034) H* 08/12/16 06:34 NT-Pro-B Natriuret Pep 92672 pg/mL 08/05/16 17:51 Total Protein 6.4 g/dL (6.3-8.2) 08/06/16 05:51 Albumin 3.5 g/dL (3.5-5.0) 08/06/16 05:51 Urine Color Dark Yellow 08/05/16 18:50 Urine Appearance Cloudy (Clear) 08/05/16 18:50 Urine pH 5.0 (5.0-8.0) 08/05/16 18:50 Ur Specific [place] 1.018 (1.001-1.035) 08/05/16 18:50 Urine Protein 1+ (Negative) H 08/05/16 18:50 Urine Glucose (UA) Negative (Negative) 08/05/16 18:50 Urine Ketones Trace (Negative) H 08/05/16 18:50 Urine Blood Negative (Negative) 08/05/16 18:50 Urine Nitrate Negative (Negative) 08/05/16 18:50 Urine Bilirubin Negative (Negative) 08/05/16 18:50 Urine Urobilinogen 3.0 mg/dL (<2.0) 08/05/16 18:50 Ur Leukocyte Esterase Negative (Negative) 08/05/16 18:50 Urine RBC 2 /hpf (0-5) 08/05/16 18:50 Urine Bacteria Many /hpf (None) H 08/05/16 18:50 Hyaline Casts 25 /lpf (0-2) H 08/05/16 18:50 Granular Casts 1 /lpf (0) 08/05/16 18:50 Urine Mucus Rare /hpf (None) H 08/05/16 18:50 Microbiology 08/10/16 06:07 Blood Blood Culture - Preliminary No Growth after 48 hours 08/06/16 23:47 Blood Blood Culture - Preliminary No Growth after 120 hours 08/08/16 23:14 Blood Blood Culture - Preliminary No Growth after 72 hours 08/06/16 23:15 Blood Blood Culture Gram Stain - Final 08/06/16 23:15 Blood Blood Culture - Final Staph capitis SS capitis 08/08/16 23:03 Blood Blood Culture Gram Stain - Final 08/08/16 23:03 Blood Blood Culture - Final Coagulase Negative Staph 08/08/16 23:03 Blood Blood Culture - Preliminary 08/06/16 23:15 Blood Blood Culture - Preliminary 08/06/16 09:43 Urine,Catheterized Urine Culture - Final Assessment and Plan (1) NSTEMI (non-ST elevated myocardial infarction) Narrative/Plan: 76-year-old male with multiple underlying medical troubles that includes coronary artery disease and atrial fibrillation presents to Hospital severe weakness and gentle fall to the floor. Without evidence of a non-ST myocardial infarction. A with congestive heart failure and chronic systolic type. As well as acute renal failure imposed on chronic renal failure. The patient has had fever which appears to be multifactorial including underlying myocardial infarction. Agreed that pneumonia cannot be ruled out although the patient did not have significant symptoms before his acute event. Has been treated with piperacillin tazobactam and Levaquin The patient does evidence of the positive blood culture there have been 2 positive cultures,both with coagulase-negative staph. Patient does evidence of aortic stenosis but does not have bioprosthetic material. It is unlikely that he has a coagulase-negative staph infection of the heart in the daptomycin was discontinued. Overall he is steadily improving. his pneumonia is improving by the chest x- ray,and by exam. With further improvement we discontinue the Zosyn and complete the course of Levaquin over the next week. Is doing well since Zosyn and daptomycin have been discontinued. No further fever. Potentially for cardiac catheterization early next week to evaluate his severe stenosis. His legs are improving with local care. Continue the Silvadene and compression. Elevate at rest. Status: Acute (2) Acute on chronic systolic heart failure Status: Acute (3) Fever Status: Acute (4) Acute on chronic renal failure Status: Acute
--- NOTE | 2016-08-12 23:23 | PN ---
DATE OF SERVICE: 08/12/2016 This 76-year-old gentleman who was admitted with acute hypoxic respiratory failure, COPD, also had septic shock and pneumonia and multiple other medical problems. Seen and evaluated the patient along with the nurse practitioner. Please refer to the nurse practitioner's notes and impressions documented as a scribe for further information. Once the patient's condition is stabilized, ECF rehab in [facility] is also suggested. See orders for further details. Prognosis guarded. Further recommendations to follow.
[2016-08-13 03:22] LABS: Basophils % (A) 0 %; CH 30.4; Eosinophils % (A) 0 %; HCT 28.4 % (39.0-53.0); HDW 2.76; HGB 9.5 gm/dL (13.0-17.5); Luc # (Auto) 0.09; Luc % (Auto) 1; Lymphocytes # (A) 0.5 k/uL (1.0-4.8); Lymphocytes % (A) 7 %; MCH 31.1 pg (25.0-35.0); MCHC 33.6 g/dL (31.0-37.0); MCV 92.5 fL (80.0-100.0); Mean Platelet Volume 9.2; Monocytes # (A) 0.3 k/uL (0-1.0); Monocytes % (A) 5 %; Neutrophils # (A) 5.7 k/uL (1.3-7.7); Neutrophils % (A) 86 %; RBC 3.07 m/uL (4.30-5.90); RDW 13.8 % (11.5-15.5); WBC 6.7 k/uL (3.8-10.6); WBC (Perox) 7.06
[2016-08-13 03:52] LABS: Calcium 7.7 mg/dL (8.4-10.2)
[2016-08-13 06:28] LABS: Glucose,Whole Blood 164 mg/dL (75-99)
[2016-08-13] MEDS: INSULIN LISPRO (humaLOG) 300 UNIT/3 ML VIAL SQ SCH ×7 (06:54→21:14)
[2016-08-13] MEDS: LEVOTHYROXINE 125 MCG TAB PO SCH (06:55)
[2016-08-13] MEDS: PANTOPRAZOLE 40 MG TABLET PO SCH (06:55)
[2016-08-13] MEDS: SODIUM CHLORIDE 0.9% 1,000 ML IV SCH (08:31)
[2016-08-13] MEDS: METOPROLOL TARTRATE 25 MG TAB PO SCH ×2 (08:31→20:16)
[2016-08-13] MEDS: ASPIRIN 81 MG CHEW PO SCH (08:32)
[2016-08-13] MEDS: IPRATROPIUM-ALBUTEROL 3 ML NEB INHALATION SCH ×4 (08:33→20:13)
[2016-08-13] MEDS: GABAPENTIN 400 MG CAP PO SCH ×2 (08:33→20:16)
--- NOTE | 2016-08-13 10:01 | P.PN ---
Subjective Patient is seen in follow-up for acute kidney injury on chronic kidney disease. Patient has chronic kidney disease stage III secondary to diabetic kidney disease and nephrosclerosis. Renal function is improved with creatinine at 2.88 today. Lasix was discontinued on August 11. Patient presented with a fall and is currently being treated for pneumonia as well as gram-positive bacteremia. He is noted to have ejection fraction of 30-35% along with severe aortic stenosis. Currently sitting up in bed. Denies shortness of breath. He is nonoliguric. Denies chest pain. Appetite is good. Vital signs are stable. General: The patient appeared well nourished and normally developed. HEENT: Head exam is unremarkable. Neck is without jugular venous distension. LUNGS: Lungs are clear to auscultation and percussion. Breath sounds decreased. HEART: Rate and Rhythm are regular. First and second heart sounds normal. No murmurs, rubs or gallops. ABDOMEN: Abdominal exam reveals normal bowel sounds. Non-tender and non- distended. No evidence of peritonitis. EXTREMITITES: No clubbing, cyanosis, or edema. Objective - Vital Signs Vital signs: Vital Signs Temp 99.5 F 08/13/16 08:00 Pulse 96 08/13/16 08:48 Resp 18 08/13/16 08:00 BP 119/65 08/13/16 08:00 Pulse Ox 95 08/13/16 08:52 Intake & Output 08/12/16 08/13/16 08/13/16 18:59 06:59 18:59 Intake Total 809.667 459.841 Output Total 600 300 500 Balance 209.667 159.841 -500 Weight 86 kg Intake: IV 160 0.9 160 Intake, IV Titration 269.667 299.841 Amount Heparin Sodium,Porcine/ 269.667 299.841 D5w Pmx 25,000 unit In Dextrose/Water 1 500ml. bag @ 11.779 UNITS/KG/HR 20 mls/hr IV .Q24H [facility] Rx #:[id number] Oral 540 Output: Urine 600 300 500 Straight 300 Other: Voiding Method Indwelling Catheter Indwelling Catheter - Labs CBC & Chem 7: 08/13/16 03:04 08/13/16 03:04 Labs: Abnormal Lab Results - Last 24 Hours (Table) 08/12/16 08/12/1617 Range/Units 11:13 11:57 16:59 RBC (4.30-5.90) m/uL Hgb (13.0-17.5) gm/dL Hct (39.0-53.0) % Plt Count (150-450) k/uL Lymphocytes # (1.0-4.8) k/uL APTT 38.0 H (22.0-30.0) sec BUN (9-20) mg/dL Creatinine (0.66-1.25) mg/dL Glucose (74-99) mg/dL POC Glucose (mg/dL) 267 H 237 H (75-99) mg/dL Calcium (8.4-10.2) mg/dL 08/12/16 08/13/16 08/13/16 Range/Units 20:03 03:04 03:04 RBC 3.07 L (4.30-5.90) m/uL Hgb 9.5 L (13.0-17.5) gm/dL Hct 28.4 L (39.0-53.0) % Plt Count 126 L (150-450) k/uL Lymphocytes # 0.5 L (1.0-4.8) k/uL APTT (22.0-30.0) sec BUN 83 H* (9-20) mg/dL Creatinine 2.88 H (0.66-1.25) mg/dL Glucose 190 H (74-99) mg/dL POC Glucose (mg/dL) 230 H (75-99) mg/dL Calcium 7.7 L (8.4-10.2) mg/dL 08/13/16 08/13/16 Range/Units 03:04 06:26 RBC (4.30-5.90) m/uL Hgb (13.0-17.5) gm/dL Hct (39.0-53.0) % Plt Count (150-450) k/uL Lymphocytes # (1.0-4.8) k/uL APTT 46.3 H (22.0-30.0) sec BUN (9-20) mg/dL Creatinine (0.66-1.25) mg/dL Glucose (74-99) mg/dL POC Glucose (mg/dL) 164 H (75-99) mg/dL Calcium (8.4-10.2) mg/dL Microbiology - Last 24 Hours (Table) 08/10/16 06:07 Blood Culture - Preliminary Blood No Growth after 72 hours 08/06/16 23:47 Blood Culture - Final Blood No Growth after 144 hours 08/08/16 23:14 Blood Culture - Preliminary Blood No Growth after 96 hours Assessment and Plan Plan: Assessment: #1. Nonoliguric acute kidney injury secondary to cardiorenal syndrome. Creatinine improved to 2.88 today. #2. Severe sepsis secondary to pneumonia as well as gram-positive bacteremia. #3. Volume overload. Improved. #4. Chronic kidney disease stage III with baseline creatinine in the range of 1.4-1.6 secondary to diabetic kidney disease as well as nephrosclerosis. #5. Systolic CHF with ejection fraction of 30-35%. #6. Severe aortic stenosis. #7. Mild hypernatremia secondary to diuresis. Resolved with improved oral intake. Plan: Continue to hold Lasix for now. Encourage oral intake. Avoid nephrotoxic agents and hypotensive episodes. Discussed with cardiology. Needs a cardiac catheterization once renal function stabilizes. Antibiotics per infectious disease recommendations. Currently on Levaquin.
[2016-08-13 11:51] LABS: Glucose,Whole Blood 196 mg/dL (75-99)
--- NOTE | 2016-08-13 14:29 | P.PN ---
Subjective Principal diagnosis: Acute hypoxic respiratory failure This is a 76-year-old gentleman who follows with Dr. Burns in the office, he has a history of hypertension, hyperlipidemia, diabetes, prior CVA, renal disease, hypothyroidism, cardiomyopathy, chronic persistent atrial fibrillation, initially presented to the hospital with symptoms of weakness and fall at home. No overt syncope. Patient has been being treated for acute congestive cardiac failure. He also ruled in for non-Q-wave myocardial infarction. The patient is also being followed by nephrology for acute on chronic renal failure. Creatinine today is 2.98, BUN 82, hemoglobin is 10.0. Overall he continues to do well. Lasix continues to be on hold , creatinine is mildly improved today. We will continue to monitor the creatinine. Plan for possible cardiac catheterization on Tuesday. Objective - Vital Signs Vital signs: Vital Signs Temp 99.3 F 08/13/16 12:00 Pulse 88 08/13/16 12:15 Resp 16 08/13/16 12:00 BP 123/67 08/13/16 12:00 Pulse Ox 97 08/13/16 12:00 Intake & Output 08/12/16 08/13/16 08/13/16 18:59 06:59 18:59 Intake Total 809.667 459.841 430.159 Output Total 600 300 790 Balance 209.667 159.841 -359.841 Weight 86 kg Intake: IV 160 0.9 160 Intake, IV Titration 269.667 299.841 200.159 Amount Heparin Sodium,Porcine/ 269.667 299.841 200.159 D5w Pmx 25,000 unit In Dextrose/Water 1 500ml. bag @ 11.779 UNITS/KG/HR 20 mls/hr IV .Q24H [facility] Rx #:[id number] Oral 540 230 Output: Urine 600 300 790 Straight 300 Other: Voiding Method Indwelling Catheter Indwelling Catheter - Exam PHYSICAL EXAMINATION: HEENT: Head is atraumatic, normocephalic. Pupils equal, round. Neck is supple. There is no elevated jugular venous pressure. HEART EXAMINATION: Heart S1 S2 1 systolic murmur is heard. CHEST EXAMINATION: Lungs reveal crackles to bilateral bases. ABDOMEN: Soft, nontender. Bowel sounds are heard. No organomegaly noted. EXTREMITIES: 2+ peripheral pulses with no evidence of peripheral edema and no calf tenderness noted. NEUROLOGIC patient is awake, alert and oriented -3. . - Labs CBC & Chem 7: 08/13/16 03:04 08/13/16 03:04 Labs: Abnormal Lab Results - Last 24 Hours (Table) 08/12/16 08/12/16 08/13/16 Range/Units 16:59 20:03 03:04 RBC (4.30-5.90) m/uL Hgb (13.0-17.5) gm/dL Hct (39.0-53.0) % Plt Count (150-450) k/uL Lymphocytes # (1.0-4.8) k/uL APTT (22.0-30.0) sec BUN 83 H* (9-20) mg/dL Creatinine 2.88 H (0.66-1.25) mg/dL Glucose 190 H (74-99) mg/dL POC Glucose (mg/dL) 237 H 230 H (75-99) mg/dL Calcium 7.7 L (8.4-10.2) mg/dL 08/13/16 08/13/16 08/13/16 Range/Units 03:04 03:04 06:26 RBC 3.07 L (4.30-5.90) m/uL Hgb 9.5 L (13.0-17.5) gm/dL Hct 28.4 L (39.0-53.0) % Plt Count 126 L (150-450) k/uL Lymphocytes # 0.5 L (1.0-4.8) k/uL APTT 46.3 H (22.0-30.0) sec BUN (9-20) mg/dL Creatinine (0.66-1.25) mg/dL Glucose (74-99) mg/dL POC Glucose (mg/dL) 164 H (75-99) mg/dL Calcium (8.4-10.2) mg/dL 08/13/16 08/13/16 Range/Units 10:01 11:50 RBC (4.30-5.90) m/uL Hgb (13.0-17.5) gm/dL Hct (39.0-53.0) % Plt Count (150-450) k/uL Lymphocytes # (1.0-4.8) k/uL APTT 40.4 H (22.0-30.0) sec BUN (9-20) mg/dL Creatinine (0.66-1.25) mg/dL Glucose (74-99) mg/dL POC Glucose (mg/dL) 196 H (75-99) mg/dL Calcium (8.4-10.2) mg/dL Microbiology - Last 24 Hours (Table) 08/10/16 06:07 Blood Culture - Preliminary Blood No Growth after 72 hours 08/06/16 23:47 Blood Culture - Final Blood No Growth after 144 hours 08/08/16 23:14 Blood Culture - Preliminary Blood No Growth after 96 hours Assessment and Plan (1) CAD (coronary artery disease) Status: Acute (2) HTN (hypertension) Status: Acute (3) Hypothyroid Status: Acute (4) Diabetes Status: Acute (5) PVD (peripheral vascular disease) Status: Acute (6) Paroxysmal a-fib Status: Acute (7) CVA (cerebral vascular accident) Status: Acute (8) Acute on chronic systolic heart failure Status: Acute (9) NSTEMI (non-ST elevated myocardial infarction) Status: Acute (10) Acute renal failure (ARF) Status: Acute Plan: Cardiology's perspective, Lasix will continue to be placed on hold. We will continue to monitor lytes BUN and creatinine. Once the creatinine comes down to the 1.8-1.9 range, patient then will need to undergo cardiac catheterization. This was explained to the patient in detail and discussed with nephrology. DNP note has been reviewed, I agree with a documented findings and plan of care. Patient was seen and examined.
[2016-08-13 16:58] LABS: Glucose,Whole Blood 152 mg/dL (75-99)
--- NOTE | 2016-08-13 19:07 | PN ---
DATE OF SERVICE: 08/13/2016 This 76-year-old gentleman who wants admitted with acute hypoxic respiratory failure also had congestive heart failure acute exacerbation. The patient also septic shock and acute non-ST elevation myocardial infarction also. Cardiology is following the patient closely at this time and cardiology planning to hold Lasix and await for improvement in the creatinine and possible cardiac cath on Tuesday. Past medical history reviewed. REVIEW OF SYSTEMS: CARDIOVASCULAR: S1, S2 muffled. RESPIRATORY: As mentioned earlier. GASTROINTESTINAL: No nausea or vomiting. GENITOURINARY: No dysuria. CENTRAL NERVOUS SYSTEM: No numbness or weakness. Current medications are reviewed and include: 1. Tylenol 650 q.4 p.r.n. 2. DuoNeb q.i.d. and p.r.n. 3. Aspirin 81 mg daily. 4. Lipitor 40 mg q.h.s. 5. Neurontin 800 mg b.i.d. 6. Heparin Drip. 7. Levemir 18 units subcu q.h.s. 8. Humalog. 9. Levaquin 250 mg. 10. Synthroid 125 mcg daily p.o. daily. 11. Lopressor 25 mg p.o. b.i.d. 12. Narcan. 13. Hytrin. 14. Desyrel. PHYSICAL EXAMINATION: Patient is alert and oriented times two. Pulse is 82. Blood pressure 120/64. Respiratory rate 16. Temperature 99.3, pulse ox 97% on 4 L. HEENT: Conjunctivae normal. Oral mucosa moist. NECK: No jugular venous distention. No carotid bruit. No lymph node enlargement. CARDIOVASCULAR: S1, S2 muffled. No S3, no S4. RESPIRATORY: Breath sounds diminished at the bases. A few scattered rhonchi and crackles. ABDOMEN: Soft. Nontender. No mass palpable. LEGS: Minimal edema. CENTRAL NERVOUS SYSTEM: Higher functions as mentioned earlier. Moves all four limbs. No focal motor or sensory deficits. SKIN: No ulcer, rash or bleeding. LABS: Hemoglobin 9.5, AP-TT 46.3, creatinine is 2.88. ASSESSMENT: 1. Acute hypoxic respiratory failure secondary to chronic obstructive pulmonary disease acute exacerbation as well as acute on chronic congestive heart failure, acute exacerbation with acute on chronic systolic dysfunction, ejection fraction 30 to 35%. 2. Possible right middle lobe pneumonia with sepsis, present on admission with septic shock and severe sepsis, status post pressor support. 3. Blood cultures reporting Staph aureus and Staph ( ). 4. possibly severe aortic stenosis gradient underestimated in echo. 5. Acute non-ST elevation myocardial infarction. 6. Acute renal failure secondary to prerenal azotemia with congestive heart failure and cardiorenal syndrome. chronic systolic dysfucntion with ef 30-35% 7. Chronic kidney disease, stage III baseline. 8. Hypertension. 9. Hypothyroidism. 10. Peripheral neuropathy. 11. History of cerebrovascular accident. 12. Heparin monitoring. 13. Severe aortic stenosis. 14. Hypernatremia mild secondary from diuresis resolved. 15. Pulmonary hypertension, history. 16. FULL CODE. 17. Mild thrombocytopenia. RECOMMENDATIONS AND DISCUSSION: In this 76-year-old gentleman who presented with multiple complex medical issues, we will monitor the patient closely. Continue the current medications, continue symptomatic treatment. Most recent chest x-ray was done 2 days ago showed mild cardiomegaly and stable changes. I would recommend to continue with the monitoring the renal functions. Continue with IV heparin and continue with antibiotics. Infectious disease is also following the patient closely. Monitor creatinine closely. Follow closely with cardiology and Nephrology for possible cardiac catheterization once creatinine stabilized. Once again prognosis guarded. Further recommendations to follow. MTDD
[2016-08-13] MEDS: ACETAMINOPHEN TAB 325 MG TAB PO PRN (20:14)
[2016-08-13] MEDS: HEPARIN SODIUM,PORCINE/D5W PMX 25,000 UNIT in DEXTROSE/WATER 1 500ML.BAG IV SCH (20:15)
[2016-08-13] MEDS: ATORVASTATIN 40 MG TAB PO SCH (20:16)
[2016-08-13] MEDS: LEVOFLOXACIN 250 MG TAB PO SCH (20:16)
[2016-08-13] MEDS: TERAZOSIN 2 MG CAP PO SCH (20:17)
[2016-08-13] MEDS: traZODone HCL 50 MG TAB PO SCH (20:17)
[2016-08-13 21:02] LABS: Glucose,Whole Blood 154 mg/dL (75-99)
[2016-08-13] MEDS: INSULIN DETEMIR 100 UNIT/ML 10 ML VIAL SQ SCH (21:13)
[2016-08-14] MEDS: HEPARIN SODIUM,PORCINE/D5W PMX 25,000 UNIT in DEXTROSE/WATER 1 500ML.BAG IV SCH ×2 (01:17→20:15)
[2016-08-14 06:27] LABS: Glucose,Whole Blood 149 mg/dL (75-99)
[2016-08-14] MEDS: LEVOTHYROXINE 125 MCG TAB PO SCH (06:27)
[2016-08-14] MEDS: PANTOPRAZOLE 40 MG TABLET PO SCH (06:27)
[2016-08-14 06:44] LABS: Basophils % (A) 0 %; CH 30.4; CHCM 32.6; Eosinophils # (A) 0.1 k/uL (0-0.7); Eosinophils % (A) 2 %; HCT 26.4 % (39.0-53.0); HDW 2.79; HGB 8.7 gm/dL (13.0-17.5); Luc # (Auto) 0.06; Luc % (Auto) 1; Lymphocytes # (A) 0.5 k/uL (1.0-4.8); Lymphocytes % (A) 10 %; MCH 30.9 pg (25.0-35.0); MCHC 32.9 g/dL (31.0-37.0); MCV 93.7 fL (80.0-100.0); Mean Platelet Volume 8.5; Monocytes # (A) 0.2 k/uL (0-1.0); Monocytes % (A) 5 %; Neutrophils # (A) 4.2 k/uL (1.3-7.7); Neutrophils % (A) 81 %; RBC 2.82 m/uL (4.30-5.90); WBC 5.1 k/uL (3.8-10.6)
[2016-08-14 06:57] LABS: Calcium 7.7 mg/dL (8.4-10.2); Potassium 3.9 mmol/L (3.5-5.1)
[2016-08-14] MEDS: INSULIN LISPRO (humaLOG) 300 UNIT/3 ML VIAL SQ SCH ×7 (07:11→20:55)
[2016-08-14] MEDS: IPRATROPIUM-ALBUTEROL 3 ML NEB INHALATION SCH ×4 (07:57→20:09)
--- NOTE | 2016-08-14 08:21 | P.PN ---
Subjective Principal diagnosis: Mr. Lees is doing well. Improved SOB. No cp. Followup for ELROY on CKD. Objective - Vital Signs Vital signs: Vital Signs Temp 98.4 F 08/14/16 04:00 Pulse 100 08/14/16 08:02 Resp 18 08/14/16 04:00 BP 108/71 08/14/16 04:00 Pulse Ox 98 08/14/16 04:00 Intake & Output 08/13/16 08/14/16 08/14/16 18:59 06:59 18:59 Intake Total 430.159 600 Output Total 790 975 Balance -359.841 -375 Weight 85 kg Intake: Intake, IV Titration 200.159 Amount Heparin Sodium,Porcine/ 200.159 D5w Pmx 25,000 unit In Dextrose/Water 1 500ml. bag @ 11.779 UNITS/KG/HR 20 mls/hr IV .Q24H [facility] Rx #:[id number] Oral 230 600 Output: Urine 790 975 Other: Voiding Method Indwelling Catheter Indwelling Catheter # Bowel Movements 1 - Constitutional General appearance: Present: cooperative, no acute distress - Respiratory Respiratory: bilateral: diminished - Cardiovascular Rhythm: other Heart sounds: normal: S1, S2 Abnormal Heart Sounds: Present: systolic murmur - Peripheral edema leg Peripheral Edema: bilateral: 1+ - Labs CBC & Chem 7: 08/14/16 06:09 08/14/16 06:09 Labs: Abnormal Lab Results - Last 24 Hours (Table) 08/13/16 08/13/16 08/13/16 Range/Units 10:01 11:50 16:57 RBC (4.30-5.90) m/uL Hgb (13.0-17.5) gm/dL Hct (39.0-53.0) % Lymphocytes # (1.0-4.8) k/uL APTT 40.4 H (22.0-30.0) sec BUN (9-20) mg/dL Creatinine (0.66-1.25) mg/dL Glucose (74-99) mg/dL POC Glucose (mg/dL) 196 H 152 H (75-99) mg/dL Calcium (8.4-10.2) mg/dL 08/13/16 08/13/16 08/14/16 Range/Units 19:17 21:01 06:09 RBC (4.30-5.90) m/uL Hgb (13.0-17.5) gm/dL Hct (39.0-53.0) % Lymphocytes # (1.0-4.8) k/uL APTT 57.7 H (22.0-30.0) sec BUN 79 H (9-20) mg/dL Creatinine 2.50 H (0.66-1.25) mg/dL Glucose 153 H (74-99) mg/dL POC Glucose (mg/dL) 154 H (75-99) mg/dL Calcium 7.7 L (8.4-10.2) mg/dL 08/14/16 08/14/16 08/14/16 Range/Units 06:09 06:09 06:26 RBC 2.82 L (4.30-5.90) m/uL Hgb 8.7 L (13.0-17.5) gm/dL Hct 26.4 L (39.0-53.0) % Lymphocytes # 0.5 L (1.0-4.8) k/uL APTT 54.4 H (22.0-30.0) sec BUN (9-20) mg/dL Creatinine (0.66-1.25) mg/dL Glucose (74-99) mg/dL POC Glucose (mg/dL) 149 H (75-99) mg/dL Calcium (8.4-10.2) mg/dL Microbiology - Last 24 Hours (Table) 08/08/16 23:14 Blood Culture - Preliminary Blood No Growth after 120 hours 08/10/16 06:07 Blood Culture - Preliminary Blood No Growth after 72 hours Assessment and Plan Plan: #1. Nonoliguric acute kidney injury due to volume depletion. --renal function improving. --continue to hold lasix. --Daily BMP --May add IVFs tomorrow depending on creat in anticipation for [facility] on Tuesday. #2. Volume overload. Improved. #3. Chronic kidney disease stage III with baseline creatinine in the range of 1.4-1.6 secondary to diabetic kidney disease as well as nephrosclerosis. #4. Systolic CHF with ejection fraction of 30-35%. #5. Severe aortic stenosis. #6. Mild hypernatremia secondary to diuresis. Resolved with improved oral intake.
[2016-08-14] MEDS: METOPROLOL TARTRATE 25 MG TAB PO SCH ×2 (08:40→20:06)
[2016-08-14] MEDS: ASPIRIN 81 MG CHEW PO SCH (09:06)
[2016-08-14] MEDS: GABAPENTIN 400 MG CAP PO SCH ×2 (09:06→20:05)
[2016-08-14] MEDS: SODIUM CHLORIDE 0.9% 1,000 ML IV SCH (10:28)
[2016-08-14] MEDS ORDERED: ALPRAZolam 0.25 MG TAB PO PRN (10:42)
[2016-08-14] MEDS ORDERED: ALPRAZolam 0.5 MG TAB PO PRN (10:42)
[2016-08-14] MEDS ORDERED: ATORVASTATIN 80 MG TAB PO STA (10:42)
[2016-08-14] MEDS ORDERED: ASPIRIN 325 MG TAB PO STA (10:42)
[2016-08-14] MEDS ORDERED: SODIUM CHLORIDE 0.9% 1,000 ML in EMPTY BAG 1 BAG IV ONE (10:42)
[2016-08-14] MEDS ORDERED: NITROGLYCERIN SL TABS 0.4 MG TAB SUBLINGUAL PRN (10:42)
--- NOTE | 2016-08-14 11:11 | P.PN ---
Subjective Principal diagnosis: Acute hypoxic respiratory failure This is a 76-year-old gentleman who follows with Dr. Burns in the office, he has a history of hypertension, hyperlipidemia, diabetes, prior CVA, renal disease, hypothyroidism, cardiomyopathy, chronic persistent atrial fibrillation, initially presented to the hospital with symptoms of weakness and fall at home. No overt syncope. Patient has been being treated for acute congestive cardiac failure. He also ruled in for non-Q-wave myocardial infarction. The patient is also being followed by nephrology for acute on chronic renal failure. Creatinine today is 2.58, BUN 79. Overall he continues to do well. Lasix continues to be on hold , creatinine is mildly improved today. We will continue to monitor the creatinine. Plan for cardiac catheterization on Tuesday. Objective - Vital Signs Vital signs: Vital Signs Temp 98.3 F 08/14/16 08:00 Pulse 100 08/14/16 08:02 Resp 18 08/14/16 08:00 BP 118/62 08/14/16 08:00 Pulse Ox 96 08/14/16 08:00 Intake & Output 08/13/16 08/14/16 08/14/16 18:59 06:59 18:59 Intake Total 430.159 600 Output Total 790 975 Balance -359.841 -375 Weight 85 kg Intake: Intake, IV Titration 200.159 Amount Heparin Sodium,Porcine/ 200.159 D5w Pmx 25,000 unit In Dextrose/Water 1 500ml. bag @ 11.779 UNITS/KG/HR 20 mls/hr IV .Q24H [facility] Rx #:[id number] Oral 230 600 Output: Urine 790 975 Other: Voiding Method Indwelling Catheter Indwelling Catheter Indwelling Catheter # Bowel Movements 1 - Exam PHYSICAL EXAMINATION: HEENT: Head is atraumatic, normocephalic. Pupils equal, round. Neck is supple. There is no elevated jugular venous pressure. HEART EXAMINATION: Heart S1 S2 1 systolic murmur is heard. CHEST EXAMINATION: Lungs reveal crackles to bilateral bases. ABDOMEN: Soft, nontender. Bowel sounds are heard. No organomegaly noted. EXTREMITIES: 2+ peripheral pulses with no evidence of peripheral edema and no calf tenderness noted. NEUROLOGIC patient is awake, alert and oriented -3. . - Labs CBC & Chem 7: 08/14/16 06:09 08/14/16 06:09 Labs: Abnormal Lab Results - Last 24 Hours (Table) 08/13/16 08/13/16 08/13/16 Range/Units 11:50 16:57 19:17 RBC (4.30-5.90) m/uL Hgb (13.0-17.5) gm/dL Hct (39.0-53.0) % Lymphocytes # (1.0-4.8) k/uL APTT 57.7 H (22.0-30.0) sec BUN (9-20) mg/dL Creatinine (0.66-1.25) mg/dL Glucose (74-99) mg/dL POC Glucose (mg/dL) 196 H 152 H (75-99) mg/dL Calcium (8.4-10.2) mg/dL 08/13/16 08/14/16 08/14/16 Range/Units 21:01 06:09 06:09 RBC 2.82 L (4.30-5.90) m/uL Hgb 8.7 L (13.0-17.5) gm/dL Hct 26.4 L (39.0-53.0) % Lymphocytes # 0.5 L (1.0-4.8) k/uL APTT (22.0-30.0) sec BUN 79 H (9-20) mg/dL Creatinine 2.50 H (0.66-1.25) mg/dL Glucose 153 H (74-99) mg/dL POC Glucose (mg/dL) 154 H (75-99) mg/dL Calcium 7.7 L (8.4-10.2) mg/dL 08/14/16 08/14/16 Range/Units 06:09 06:26 RBC (4.30-5.90) m/uL Hgb (13.0-17.5) gm/dL Hct (39.0-53.0) % Lymphocytes # (1.0-4.8) k/uL APTT 54.4 H (22.0-30.0) sec BUN (9-20) mg/dL Creatinine (0.66-1.25) mg/dL Glucose (74-99) mg/dL POC Glucose (mg/dL) 149 H (75-99) mg/dL Calcium (8.4-10.2) mg/dL Microbiology - Last 24 Hours (Table) 08/10/16 06:07 Blood Culture - Preliminary Blood No Growth after 96 hours 08/08/16 23:14 Blood Culture - Preliminary Blood No Growth after 120 hours Assessment and Plan (1) CAD (coronary artery disease) Status: Acute (2) HTN (hypertension) Status: Acute (3) Hypothyroid Status: Acute (4) Diabetes Status: Acute (5) PVD (peripheral vascular disease) Status: Acute (6) Paroxysmal a-fib Status: Acute (7) CVA (cerebral vascular accident) Status: Acute (8) Acute on chronic systolic heart failure Status: Acute (9) NSTEMI (non-ST elevated myocardial infarction) Status: Acute (10) Acute renal failure (ARF) Status: Acute Plan: Cardiology's perspective, Lasix will continue to be placed on hold. We will continue to monitor lytes BUN and creatinine. cardiac catheterization scheduled for Tuesday with Dr. Burns. DNP note has been reviewed, I agree with a documented findings and plan of care. Patient was seen and examined.
[2016-08-14 12:43] LABS: Glucose,Whole Blood 190 mg/dL (75-99)
[2016-08-14 17:13] LABS: Glucose,Whole Blood 171 mg/dL (75-99)
[2016-08-14] MEDS: LEVOFLOXACIN 250 MG TAB PO SCH (20:05)
[2016-08-14] MEDS: ATORVASTATIN 40 MG TAB PO SCH (20:05)
[2016-08-14] MEDS: TERAZOSIN 2 MG CAP PO SCH (20:06)
[2016-08-14] MEDS: traZODone HCL 50 MG TAB PO SCH (20:07)
[2016-08-14 20:51] LABS: Glucose,Whole Blood 250 mg/dL (75-99)
[2016-08-14] MEDS: INSULIN DETEMIR 100 UNIT/ML 10 ML VIAL SQ SCH (20:55)
[2016-08-15 06:11] LABS: Glucose,Whole Blood 226 mg/dL (75-99)
[2016-08-15 06:21] LABS: Basophils % (A) 0 %; CH 30.2; CHCM 32.5; Eosinophils # (A) 0.2 k/uL (0-0.7); Eosinophils % (A) 3 %; HCT 27.9 % (39.0-53.0); Luc # (Auto) 0.06; Luc % (Auto) 1; Lymphocytes # (A) 0.4 k/uL (1.0-4.8); Lymphocytes % (A) 8 %; MCH 30.4 pg (25.0-35.0); MCHC 32.5 g/dL (31.0-37.0); MCV 93.6 fL (80.0-100.0); Monocytes # (A) 0.3 k/uL (0-1.0); Monocytes % (A) 6 %; Neutrophils # (A) 4.4 k/uL (1.3-7.7); Neutrophils % (A) 82 %; RBC 2.98 m/uL (4.30-5.90); RDW 13.9 % (11.5-15.5); WBC 5.3 k/uL (3.8-10.6)
[2016-08-15 06:31] LABS: Calcium 7.6 mg/dL (8.4-10.2); Potassium 4.6 mmol/L (3.5-5.1)
[2016-08-15] MEDS: LEVOTHYROXINE 125 MCG TAB PO SCH (06:43)
[2016-08-15] MEDS: PANTOPRAZOLE 40 MG TABLET PO SCH (06:44)
[2016-08-15] MEDS: INSULIN LISPRO (humaLOG) 300 UNIT/3 ML VIAL SQ SCH ×7 (06:56→21:25)
--- NOTE | 2016-08-15 07:49 | P.PN ---
Subjective Principal diagnosis: Resting comfortably. Denies sob/cp. Came in wht CHF exac and Gautam from diuretics. Lasix on hold and renal function is improving. Plan for [facility] Tuesday. Objective - Vital Signs Vital signs: Vital Signs Temp 99.4 F 08/15/16 04:00 Pulse 98 08/15/16 04:00 Resp 18 08/15/16 04:00 BP 121/69 08/15/16 04:00 Pulse Ox 94 L 08/15/16 04:00 Intake & Output 08/14/16 08/15/16 08/15/16 18:59 06:59 18:59 Intake Total 500 115 Output Total 1750 Balance 500 -1635 Weight 87 kg Intake: IV 115 0.9 115 Intake, IV Titration 500 Amount Heparin Sodium,Porcine/ 500 D5w Pmx 25,000 unit In Dextrose/Water 1 500ml. bag @ 11.779 UNITS/KG/HR 20 mls/hr IV .Q24H [facility] Rx #:[id number] Output: Urine 1750 Other: Voiding Method Indwelling Catheter Indwelling Catheter - Constitutional General appearance: Present: no acute distress - Respiratory Respiratory: bilateral: CTA - Cardiovascular Rhythm: regular Heart sounds: normal: S1, S2 - Peripheral edema leg Peripheral Edema: bilateral: Trace - Gastrointestinal General gastrointestinal: Present: soft - Labs CBC & Chem 7: 08/15/16 06:03 08/15/16 06:03 Labs: Abnormal Lab Results - Last 24 Hours (Table) 08/14/16 08/14/16 08/14/16 Range/Units 12:01 17:09 20:49 RBC (4.30-5.90) m/uL Hgb (13.0-17.5) gm/dL Hct (39.0-53.0) % Lymphocytes # (1.0-4.8) k/uL APTT (22.0-30.0) sec BUN (9-20) mg/dL Creatinine (0.66-1.25) mg/dL Glucose (74-99) mg/dL POC Glucose (mg/dL) 190 H 171 H 250 H (75-99) mg/dL Calcium (8.4-10.2) mg/dL 08/15/16 08/15/16 08/15/16 Range/Units 06:03 06:03 06:03 RBC 2.98 L (4.30-5.90) m/uL Hgb 9.0 L (13.0-17.5) gm/dL Hct 27.9 L (39.0-53.0) % Lymphocytes # 0.4 L (1.0-4.8) k/uL APTT 51.6 H (22.0-30.0) sec BUN 74 H (9-20) mg/dL Creatinine 2.20 H (0.66-1.25) mg/dL Glucose 220 H (74-99) mg/dL POC Glucose (mg/dL) (75-99) mg/dL Calcium 7.6 L (8.4-10.2) mg/dL 08/15/16 Range/Units 06:05 RBC (4.30-5.90) m/uL Hgb (13.0-17.5) gm/dL Hct (39.0-53.0) % Lymphocytes # (1.0-4.8) k/uL APTT (22.0-30.0) sec BUN (9-20) mg/dL Creatinine (0.66-1.25) mg/dL Glucose (74-99) mg/dL POC Glucose (mg/dL) 226 H (75-99) mg/dL Calcium (8.4-10.2) mg/dL Microbiology - Last 24 Hours (Table) 08/08/16 23:14 Blood Culture - Final Blood No Growth after 144 hours 08/10/16 06:07 Blood Culture - Preliminary Blood No Growth after 96 hours Assessment and Plan Plan: #1. Nonoliguric acute kidney injury due to volume depletion. --renal function improving. --continue to hold lasix. --Will start IVF at midnight 0.9NS 50 ml/hr in anticipation for [facility] Tuesday. #2. Volume overload. Improved. #3. Chronic kidney disease stage III with baseline creatinine in the range of 1.4-1.6 secondary to diabetic kidney disease as well as nephrosclerosis. #4. Systolic CHF with ejection fraction of 30-35%. #5. Severe aortic stenosis.
[2016-08-15] MEDS: IPRATROPIUM-ALBUTEROL 3 ML NEB INHALATION SCH ×4 (08:12→20:48)
[2016-08-15] MEDS: ASPIRIN 81 MG CHEW PO SCH (09:11)
[2016-08-15] MEDS: GABAPENTIN 400 MG CAP PO SCH ×2 (09:12→21:24)
[2016-08-15] MEDS: METOPROLOL TARTRATE 25 MG TAB PO SCH ×2 (09:12→21:25)
--- NOTE | 2016-08-15 09:59 | PN ---
DATE OF SERVICE: 08/14/2016 This 76-year-old gentleman was admitted with acute hypoxic respiratory failure, also had features of acute non-ST segment elevation myocardial infarction. The patient also had renal failure. Nephrology and cardiology are following the patient closely for intended hemodialysis. Tentative cardiac catheterization on Tuesday. Lasix is in hold. No chest pain, no palpitations, no fever. On exam, alert and oriented x3. Pulse is 103, blood pressure 118/62, respirations 18, temperature 98.2, pulse ox 93% on 2 liters. HEENT: Conjunctiva normal. NECK: No JVD. CARDIOVASCULAR: S1 and S2 muffled. LUNGS: Breath sounds are diminished at the bases. Few scattered rhonchi. ABDOMEN: Soft, nontender. No masses felt. EXTREMITIES: Legs no edema. NERVOUS SYSTEM: No focal deficits. LABS: WBC 5, hemoglobin 8.7, creatinine is 2.57. ASSESSMENT: 1. Acute hypoxic respiratory failure secondary to chronic obstructive pulmonary disease acute exacerbation, as well as congestive heart failure acute exacerbation with acute on chronic systolic dysfunction, ejection fraction 30% to 35%, present on admission. 2. Possible right middle lobe pneumonia with sepsis, present on admission, with septic shock and severe sepsis, status post pressor support. Blood cultures reporting coag negative Staph aureus as well as Staph capitis. 3. Possible severe aortic stenosis with gradient on 2-D echo. 4. Acute non-ST elevation myocardial infarction. 5. Cardiac catheterization. 6. Acute renal failure, possibly secondary to prerenal azotemia with congestive heart failure and cardiorenal syndrome. 7. Chronic kidney disease stage 3 baseline. 8. Hypertension. 9. Hypothyroidism. 10. Peripheral neuropathy. 11. History of cerebrovascular accident since yesterday monitor monitoring. 12. Heparin monitoring. 13. Hyponatremia, mild, possibly secondary to diuresis. 14. Pulmonary hypertension history. 15. Mild thrombocytopenia. 16. FULL CODE. RECOMMENDATIONS: Continue current medications. Continue with monitoring and symptomatic treatment. Monitor electrolytes closely. Continue with nephrology recommendations. Hold Lasix as well as IV fluids for tomorrow. Otherwise, cultures as mentioned earlier. Guarded prognosis because of multiple complex medical problems. Further recommendations to follow.
[2016-08-15 11:28] LABS: Glucose,Whole Blood 230 mg/dL (75-99)
[2016-08-15 17:22] LABS: Glucose,Whole Blood 170 mg/dL (75-99)
--- NOTE | 2016-08-15 17:30 | P.PN ---
Subjective Patient is doing well from a cardiac standpoint. At this time he denies any chest discomfort. He is resting comfortably in bed On examination his heart rate is 110 beats a minute respirations are nonlabored blood pressure is normal at 125/65 mmHg Breath sounds are reduced bilaterally Heart sounds are irregular Extremities are warm no edema Abdomen soft nontender Impression CAD hypertension adult-onset diabetes PVD atrial fibrillation Systolic heart failure acute and chronic Non-Q wave RI Acute renal failure Plan Cardiac catheterization with Dr. Burns this coming week Continue medical treatment Objective - Vital Signs Vital signs: Vital Signs Temp 97.6 F 08/15/16 09:00 Pulse 110 H 08/15/16 16:48 Resp 18 08/15/16 12:00 BP 125/65 08/15/16 12:00 Pulse Ox 92 L 08/15/16 12:00 Intake & Output 08/14/16 08/15/16 08/15/16 18:59 06:59 18:59 Intake Total 500 115 Output Total 1750 Balance 500 -1635 Weight 87 kg Intake: IV 115 0.9 115 Intake, IV Titration 500 Amount Heparin Sodium,Porcine/ 500 D5w Pmx 25,000 unit In Dextrose/Water 1 500ml. bag @ 11.779 UNITS/KG/HR 20 mls/hr IV .Q24H [facility] Rx #:[id number] Output: Urine 1750 Other: Voiding Method Indwelling Catheter Indwelling Catheter Indwelling Catheter - Labs CBC & Chem 7: 08/15/16 06:03 08/15/16 06:03 Labs: Abnormal Lab Results - Last 24 Hours (Table) 08/14/16 08/15/16 08/15/16 Range/Units 20:49 06:03 06:03 RBC 2.98 L (4.30-5.90) m/uL Hgb 9.0 L (13.0-17.5) gm/dL Hct 27.9 L (39.0-53.0) % Lymphocytes # 0.4 L (1.0-4.8) k/uL APTT (22.0-30.0) sec BUN 74 H (9-20) mg/dL Creatinine 2.20 H (0.66-1.25) mg/dL Glucose 220 H (74-99) mg/dL POC Glucose (mg/dL) 250 H (75-99) mg/dL Calcium 7.6 L (8.4-10.2) mg/dL 08/15/16 08/15/16 08/15/16 Range/Units 06:03 06:05 11:18 RBC (4.30-5.90) m/uL Hgb (13.0-17.5) gm/dL Hct (39.0-53.0) % Lymphocytes # (1.0-4.8) k/uL APTT 51.6 H (22.0-30.0) sec BUN (9-20) mg/dL Creatinine (0.66-1.25) mg/dL Glucose (74-99) mg/dL POC Glucose (mg/dL) 226 H 230 H (75-99) mg/dL Calcium (8.4-10.2) mg/dL 08/15/16 Range/Units 16:52 RBC (4.30-5.90) m/uL Hgb (13.0-17.5) gm/dL Hct (39.0-53.0) % Lymphocytes # (1.0-4.8) k/uL APTT (22.0-30.0) sec BUN (9-20) mg/dL Creatinine (0.66-1.25) mg/dL Glucose (74-99) mg/dL POC Glucose (mg/dL) 170 H (75-99) mg/dL Calcium (8.4-10.2) mg/dL Microbiology - Last 24 Hours (Table) 08/10/16 06:07 Blood Culture - Preliminary Blood No Growth after 120 hours 08/08/16 23:14 Blood Culture - Final Blood No Growth after 144 hours
[2016-08-15] MEDS: SODIUM CHLORIDE 0.9% 1,000 ML IV SCH ×2 (18:11→23:32)
[2016-08-15 20:42] LABS: Glucose,Whole Blood 128 mg/dL (75-99)
[2016-08-15] MEDS: ATORVASTATIN 40 MG TAB PO SCH (21:24)
[2016-08-15] MEDS: LEVOFLOXACIN 250 MG TAB PO SCH (21:25)
[2016-08-15] MEDS: TERAZOSIN 2 MG CAP PO SCH (21:25)
[2016-08-15] MEDS: traZODone HCL 50 MG TAB PO SCH (21:25)
[2016-08-15] MEDS: INSULIN DETEMIR 100 UNIT/ML 10 ML VIAL SQ SCH (21:31)
[2016-08-16 05:55] LABS: Glucose,Whole Blood 154 mg/dL (75-99)
[2016-08-16 06:34] LABS: Basophils % (A) 0 %; CH 30.3; CHCM 32.4; Eosinophils # (A) 0.1 k/uL (0-0.7); Eosinophils % (A) 2 %; HCT 27.3 % (39.0-53.0); HDW 2.91; HGB 8.9 gm/dL (13.0-17.5); Hypochromasia Slight; Luc # (Auto) 0.08; Luc % (Auto) 1; Lymphocytes # (A) 0.5 k/uL (1.0-4.8); Lymphocytes % (A) 9 %; MCH 30.5 pg (25.0-35.0); MCHC 32.5 g/dL (31.0-37.0); Mean Platelet Volume 7.9; Monocytes # (A) 0.3 k/uL (0-1.0); Monocytes % (A) 5 %; Neutrophils # (A) 4.8 k/uL (1.3-7.7); Neutrophils % (A) 82 %; RDW 14.1 % (11.5-15.5); WBC 5.8 k/uL (3.8-10.6); WBC (Perox) 6.09
[2016-08-16] MEDS: INSULIN LISPRO (humaLOG) 300 UNIT/3 ML VIAL SQ SCH ×7 (06:45→21:00)
[2016-08-16] MEDS: LEVOTHYROXINE 125 MCG TAB PO SCH (06:45)
[2016-08-16] MEDS: PANTOPRAZOLE 40 MG TABLET PO SCH (06:45)
[2016-08-16] MEDS: ASPIRIN 81 MG CHEW PO SCH (06:46)
[2016-08-16] MEDS: GABAPENTIN 400 MG CAP PO SCH ×2 (06:46→20:59)
[2016-08-16] MEDS: METOPROLOL TARTRATE 25 MG TAB PO SCH ×2 (06:46→20:59)
[2016-08-16 06:56] LABS: Calcium 7.9 mg/dL (8.4-10.2); Potassium 4.6 mmol/L (3.5-5.1)
[2016-08-16] MEDS: SODIUM CHLORIDE 0.9% 1,000 ML IV SCH ×3 (08:06→23:26)
--- NOTE | 2016-08-16 08:40 | PN ---
DATE OF SERVICE: 08/15/2016 This 76 -year-old gentleman with acute hypoxic respiratory failure also had features of acute non-ST elevation myocardial infarction. The patient was seen by cardiology and nephrology. Cardiology is planning cardiac catheterization by Dr. Ted Pan next week. continuing. No chest or palpitation. No fever. On exam, Temperature 97.2, pulse is 98, blood pressure 125/65, respiratory rate 18, temperature normal, pulse ox 92% on 2 L. HEENT: Conjunctivae normal. Oral mucosa moist. NECK: No jugular venous distention. No carotid bruit. No lymph node enlargement. CARDIOVASCULAR: S1, S2 muffled. No S3, no S4. RESPIRATORY: Breath sounds diminished at the bases. Scattered rhonchi. No crackles. ABDOMEN: Soft, nontender. Legs: No edema. No swelling. CENTRAL NERVOUS SYSTEM: No focal deficits. LABS: WBC 5.2, hemoglobin 9, creatinine is 2.2. ASSESSMENT: 1. Acute hypoxic respiratory failure secondary to chronic obstructive pulmonary disease acute exacerbation, as well as congestive heart failure acute exacerbation with acute on chronic systolic dysfunction, ejection fraction 30 to 35% present on admission. 2. Possible right middle lobe pneumonia with sepsis, present on admission with septic shock and severe sepsis, status post pressor support. Blood cultures reporting coagulase-negative Staph as well as Staph capitis. 3. Possible severe aortic stenosis with under reported gradient in the 2-D echo. 4. Acute non- ST segment elevation myocardial infarction. 5. For cardiac catheterization. 6. Acute renal failure, possibly secondary to prerenal azotemia with congestive heart failure and as well as cardiorenal syndrome. 7. Chronic kidney disease, stage III, baseline. 8. Hypertension. 9. Hypothyroidism. 10. Peripheral neuropathy. 11. History of cerebrovascular accident. 12. Heparin monitoring. 13. Hyponatremia, mild possibly secondary to diuresis. 14. Pulmonary hypertension history. 15. Mild thrombocytopenia. 16. FULL CODE. RECOMMENDATIONS AND DISCUSSION: At this time I would recommend to continue current medications, continue monitoring, symptomatic treatment. Otherwise, at this time, I recommend monitor fluid and electrolytes balance closely, creatinine is rather stable. Cardiac catheterization by cardiology. Guarded prognosis. Nephrology evaluation. Further recommendations to follow. [facility]
--- NOTE | 2016-08-16 09:41 | P.PN ---
Subjective Patient is seen in follow-up for acute kidney injury on chronic kidney disease. Patient has chronic kidney disease stage III secondary to diabetic kidney disease and nephrosclerosis. Renal function is improved with creatinine at 1.96 today. Lasix was discontinued on August 11. Patient presented with a fall and is currently being treated for pneumonia as well as gram-positive bacteremia. He is noted to have ejection fraction of 30-35% along with severe aortic stenosis. Currently resting in bed. He is nonoliguric. Vital signs are stable. General: The patient appeared well nourished and normally developed. HEENT: Head exam is unremarkable. Neck is without jugular venous distension. LUNGS: Lungs are clear to auscultation and percussion. Breath sounds decreased. HEART: Rate and Rhythm are regular. First and second heart sounds normal. No murmurs, rubs or gallops. ABDOMEN: Abdominal exam reveals normal bowel sounds. Non-tender and non- distended. No evidence of peritonitis. EXTREMITITES: No clubbing, cyanosis, or edema. Objective - Vital Signs Vital signs: Vital Signs Temp 96.8 F L 08/16/16 07:55 Pulse 88 08/16/16 07:55 Resp 16 08/16/16 07:55 BP 127/75 08/16/16 07:55 Pulse Ox 99 08/16/16 07:55 Intake & Output 08/15/16 08/16/16 08/16/16 18:59 06:59 18:59 Intake Total 1360 Output Total 830 991 0524 Balance -700 460 -1250 Weight 86 kg Intake: IV 800 Sodium Chloride 0.9% 1, 800 000 ml @ 50 mls/hr IV . Q20H [facility] Rx#:[id number] Intake, IV Titration 560 Amount Heparin Sodium,Porcine/ 560 D5w Pmx 25,000 unit In Dextrose/Water 1 500ml. bag @ 11.779 UNITS/KG/HR 20 mls/hr IV .Q24H [facility] Rx #:[id number] Output: Urine 833 555 0002 Straight 900 Uretheral ([place]) 625 Other: Voiding Method Indwelling Catheter Indwelling Catheter Indwelling Catheter - Labs CBC & Chem 7: 08/16/16 06:13 08/16/16 06:13 Labs: Abnormal Lab Results - Last 24 Hours (Table) 08/15/16 08/15/16 08/15/16 Range/Units 11:18 16:52 20:37 RBC (4.30-5.90) m/uL Hgb (13.0-17.5) gm/dL Hct (39.0-53.0) % Lymphocytes # (1.0-4.8) k/uL APTT (22.0-30.0) sec BUN (9-20) mg/dL Creatinine (0.66-1.25) mg/dL Glucose (74-99) mg/dL POC Glucose (mg/dL) 230 H 170 H 128 H (75-99) mg/dL Calcium (8.4-10.2) mg/dL 08/16/16 08/16/16 08/16/16 Range/Units 05:54 06:13 06:13 RBC 2.90 L (4.30-5.90) m/uL Hgb 8.9 L (13.0-17.5) gm/dL Hct 27.3 L (39.0-53.0) % Lymphocytes # 0.5 L (1.0-4.8) k/uL APTT (22.0-30.0) sec BUN 64 H (9-20) mg/dL Creatinine 1.96 H (0.66-1.25) mg/dL Glucose 147 H (74-99) mg/dL POC Glucose (mg/dL) 154 H (75-99) mg/dL Calcium 7.9 L (8.4-10.2) mg/dL 08/16/16 Range/Units 06:13 RBC (4.30-5.90) m/uL Hgb (13.0-17.5) gm/dL Hct (39.0-53.0) % Lymphocytes # (1.0-4.8) k/uL APTT 50.0 H (22.0-30.0) sec BUN (9-20) mg/dL Creatinine (0.66-1.25) mg/dL Glucose (74-99) mg/dL POC Glucose (mg/dL) (75-99) mg/dL Calcium (8.4-10.2) mg/dL Microbiology - Last 24 Hours (Table) 08/10/16 06:07 Blood Culture - Final Blood No Growth after 144 hours Assessment and Plan Plan: Assessment: #1. Nonoliguric acute kidney injury secondary to cardiorenal syndrome. Creatinine improved to 1.96 today. #2. Severe sepsis secondary to pneumonia as well as gram-positive bacteremia. #3. Volume overload. Improved. #4. Chronic kidney disease stage III with baseline creatinine in the range of 1.4-1.6 secondary to diabetic kidney disease as well as nephrosclerosis. #5. Systolic CHF with ejection fraction of 30-35%. #6. Severe aortic stenosis. #7. Mild hypernatremia secondary to diuresis. Resolved with improved oral intake. #8. Anemia. Rule out iron deficiency. #9. Diabetes mellitus. #10. Hypertension with chronic kidney disease. Controlled. Plan: Continue to hold Lasix for now. Encourage oral intake. Avoid nephrotoxic agents and hypotensive episodes. Antibiotics per infectious disease recommendations. Currently on Levaquin. Check iron studies. Scheduled for cardiac catheterization today - start normal saline to be run at 50 mL an hour. I will also give him 4 doses of Mucomyst. Continue to monitor renal function and urine output for contrast-induced nephropathy. Fluids to be discontinued 12 hours post cardiac catheterization.
[2016-08-16] MEDS: IPRATROPIUM-ALBUTEROL 3 ML NEB INHALATION SCH ×4 (09:51→21:51)
[2016-08-16 11:08] LABS: Glucose,Whole Blood 131 mg/dL (75-99)
[2016-08-16] MEDS: ACETYLCYSTEINE 800 MG/4 ML VIAL PO SCH ×2 (12:56→21:01)
[2016-08-16] MEDS ORDERED: fentaNYL (PF) 50 MCG/ML 2 ML AMP ONE (13:19)
[2016-08-16] MEDS ORDERED: diphenhydrAMINE 50 MG/ML 1 ML VIAL ONE (13:19)
[2016-08-16] MEDS ORDERED: diphenhydrAMINE 50 MG/ML 1 ML VIAL IVP ONE (13:24)
[2016-08-16] MEDS ORDERED: LIDOCAINE 2% INJ 20 MG/ML SQ ONE (13:24)
[2016-08-16] MEDS ORDERED: fentaNYL (PF) 50 MCG/ML 2 ML AMP IV ONE (13:24)
[2016-08-16] MEDS ORDERED: SODIUM CHLORIDE 0.9% 1,000 ML IV ONE (13:27)
[2016-08-16] MEDS ORDERED: BIVALIRUDIN BOLUS 250 MG/50 ML IV ONE (13:46)
[2016-08-16] MEDS ORDERED: BIVALIRUDIN 250 MG in SODIUM CHLORIDE 0.9% 50 ML IV ONE (13:48)
[2016-08-16] MEDS ORDERED: CLOPIDOGREL 75 MG TAB ONE ×3 (14:19→14:24)
[2016-08-16] MEDS ORDERED: ZOLPIDEM 5 MG TAB PO PRN (14:27)
[2016-08-16] MEDS ORDERED: MAG HYDROX/AL HYDROX/SIMETH 30 ML CUP PO PRN (14:27)
[2016-08-16] MEDS ORDERED: RX INFO: IV CONTRAST WAS GIVEN 1 EACH MISC MISCELLANE PRN (14:27)
[2016-08-16] MEDS ORDERED: FAMOTIDINE 20 MG TAB PO PRN (14:27)
[2016-08-16] MEDS ORDERED: CLOPIDOGREL 75 MG TAB PO ONE (14:30)
[2016-08-16] MEDS ORDERED: IOHEXOL 350 MG/ML 100 ML BOTTLE INJ ONE (14:31)
[2016-08-16] MEDS ORDERED: HYDROPHILIC CREAM 120 GM JAR TOPICAL PRN (14:33)
[2016-08-16] MEDS ORDERED: ATROPINE SULFATE 0.1 MG/ML 10ML SYRINGE ONE (16:51)
[2016-08-16 17:22] LABS: Glucose,Whole Blood 113 mg/dL (75-99)
--- NOTE | 2016-08-16 18:08 | P.PN ---
Subjective 76-year-old male presents to the emergency center after gently going to the floor while he was in front of the sink. He does recall the event. He became weak and went to the floor. Was brought in by EMS because he was so weak. Was found to have evidence of significant shortness of breath and was brought into hospital. He then decompensated and required transfer to intensive care unit because of respiratory failure. He was treated with BiPAP. He has been added by cardiology for his non-ST segment depression myocardial infarction. He also has had some worsening of his underlying atrial fibrillation. because he developed fever antibiotic therapy was initiated. Patient's undergone cardiac catheterization shows evidence of extensive disease. RCA and underwent stenting, LAD will need further intervention the future. Does have a significant aortic stenosis. Objective - Vital Signs Vital signs: Vital Signs Temp 96.8 F L 08/16/16 11:05 Pulse 83 08/16/16 11:05 Resp 16 08/16/16 11:05 BP 118/79 08/16/16 11:05 Pulse Ox 96 08/16/16 11:05 Intake & Output 08/15/16 08/16/16 08/16/16 18:59 06:59 18:59 Intake Total 1360 775 Output Total 701 644 6102 Balance -700 460 -475 Weight 86 kg Intake: IV 800 175 Sodium Chloride 0.9% 1, 800 000 ml @ 50 mls/hr IV . Q20H [facility] Rx#:[id number] Intake, IV Titration 560 500 Amount Heparin Sodium,Porcine/ 560 500 D5w Pmx 25,000 unit In Dextrose/Water 1 500ml. bag @ 11.779 UNITS/KG/HR 20 mls/hr IV .Q24H [facility] Rx #:[id number] Oral 100 Output: Urine 096 601 4870 Straight 900 Uretheral ([place]) 625 Other: Voiding Method Indwelling Catheter Indwelling Catheter Indwelling Catheter - Exam 76-year-old male who is more comfortable than yesterday shortness of breath is improved chest pain is improved. Did well with his cardiac catheterization without groin pain HEENT: Anicteric conjunctiva are pink and moist nasal mucosa grossly intact without significant lesions, there is no thrush.poor dentition large jensen Neck: The neck is supple without significant lymphadenopathy or thyromegaly. Lungs: symmetrical air entry with evidence few expiratory wheezes Heart: irregular with an audible S1 and S2 no S3 soft S4 no distinct murmur click or rub Abdomen: Positive bowel sounds soft and nontender without palpable masses or organomegaly. There was no guarding or rebound. Extremities: The upper extremities have excellent pulses they are symmetric, no significant petechiae or telangiectasia. No splinter hemorrhages were noted. the lower extremities reveal evidence bilateral lower extremity edema minimal erythema without ulcerations,prior toe amputations are well-healed pressure dressing in place to groin Neuro: Awake alert oriented to person place and time. There are no acute new gross focal sensory motor deficits. - Labs CBC & Chem 7: 08/16/16 06:13 08/16/16 06:13 Labs: Abnormal Lab Results - Last 24 Hours (Table) 08/15/16 08/16/16 08/16/16 Range/Units 20:37 05:54 06:13 RBC 2.90 L (4.30-5.90) m/uL Hgb 8.9 L (13.0-17.5) gm/dL Hct 27.3 L (39.0-53.0) % Lymphocytes # 0.5 L (1.0-4.8) k/uL APTT (22.0-30.0) sec BUN (9-20) mg/dL Creatinine (0.66-1.25) mg/dL Glucose (74-99) mg/dL POC Glucose (mg/dL) 128 H 154 H (75-99) mg/dL Calcium (8.4-10.2) mg/dL 08/16/16 08/16/16 08/16/16 Range/Units 06:13 06:13 11:07 RBC (4.30-5.90) m/uL Hgb (13.0-17.5) gm/dL Hct (39.0-53.0) % Lymphocytes # (1.0-4.8) k/uL APTT 50.0 H (22.0-30.0) sec BUN 64 H (9-20) mg/dL Creatinine 1.96 H (0.66-1.25) mg/dL Glucose 147 H (74-99) mg/dL POC Glucose (mg/dL) 131 H (75-99) mg/dL Calcium 7.9 L (8.4-10.2) mg/dL 08/16/16 Range/Units 17:19 RBC (4.30-5.90) m/uL Hgb (13.0-17.5) gm/dL Hct (39.0-53.0) % Lymphocytes # (1.0-4.8) k/uL APTT (22.0-30.0) sec BUN (9-20) mg/dL Creatinine (0.66-1.25) mg/dL Glucose (74-99) mg/dL POC Glucose (mg/dL) 113 H (75-99) mg/dL Calcium (8.4-10.2) mg/dL Microbiology - Last 24 Hours (Table) 08/10/16 06:07 Blood Culture - Final Blood No Growth after 144 hours Laboratory Results WBC 5.8 k/uL (3.8-10.6) 08/16/16 06:13 RBC 2.90 m/uL (4.30-5.90) L 08/16/16 06:13 Hgb 8.9 gm/dL (13.0-17.5) L 08/16/16 06:13 Hct 27.3 % (39.0-53.0) L 08/16/16 06:13 MCV 94.0 fL (80.0-100.0) 08/16/16 06:13 MCH 30.5 pg (25.0-35.0) 08/16/16 06:13 MCHC 32.5 g/dL (31.0-37.0) 08/16/16 06:13 RDW 14.1 % (11.5-15.5) 08/16/16 06:13 Plt Count 225 k/uL (150-450) 08/16/16 06:13 Neutrophils % 82 % 08/16/16 06:13 Lymphocytes % 9 % 08/16/16 06:13 Monocytes % 5 % 08/16/16 06:13 Eosinophils % 2 % 08/16/16 06:13 Basophils % 0 % 08/16/16 06:13 Neutrophils # 4.8 k/uL (1.3-7.7) 08/16/16 06:13 Lymphocytes # 0.5 k/uL (1.0-4.8) L 08/16/16 06:13 Monocytes # 0.3 k/uL (0-1.0) 08/16/16 06:13 Eosinophils # 0.1 k/uL (0-0.7) 08/16/16 06:13 Basophils # 0.0 k/uL (0-0.2) 08/16/16 06:13 Hypochromasia Slight 08/16/16 06:13 PT 14.9 sec (9.0-12.0) H 08/11/16 06:07 INR 1.5 (<1.1) 08/11/16 06:07 APTT 50.0 sec (22.0-30.0) H 08/16/16 06:13 Sodium 141 mmol/L (137-145) 08/16/16 06:13 Potassium 4.6 mmol/L (3.5-5.1) 08/16/16 06:13 Chloride 106 mmol/L (98-107) 08/16/16 06:13 Carbon Dioxide 24 mmol/L (22-30) 08/16/16 06:13 Anion Gap 11 mmol/L 08/16/16 06:13 BUN 64 mg/dL (9-20) H 08/16/16 06:13 Creatinine 1.96 mg/dL (0.66-1.25) H 08/16/16 06:13 Est GFR (MDRD) Af Amer 40 (>60 ml/min/1.73 sqM) 08/16/16 06:13 Est GFR (MDRD) Non-Af 33 (>60 ml/min/1.73 sqM) 08/16/16 06:13 Glucose 147 mg/dL (74-99) H 08/16/16 06:13 POC Glucose (mg/dL) 113 mg/dL (75-99) H 08/16/16 17:19 POC Glu Nutritional Services Cook ID Preeti Lee 08/16/16 17:[address] Glu mg/dL 131 mg/dL 08/06/16 05:51 Hemoglobin A1c 6.2 % (4.2-6.1) H 08/06/16 05:51 Plasma Lactic Acid Blake 1.0 mmol/L (0.7-2.0) 08/08/16 05:53 Calcium 7.9 mg/dL (8.4-10.2) L 08/16/16 06:13 Phosphorus 5.2 mg/dL (2.5-4.5) H 08/11/16 06:07 Magnesium 2.1 mg/dL (1.6-2.3) 08/11/16 06:07 Total Bilirubin 0.6 mg/dL (0.2-1.3) 08/06/16 05:51 AST 40 U/L (17-59) 08/06/16 05:51 ALT 34 U/L (21-72) 08/06/16 05:51 Alkaline Phosphatase 47 U/L (38-126) 08/06/16 05:51 Creatine Kinase 228 U/L (55-170) H 08/05/16 17:51 Total Creatine Kinase 31 U/L (55-170) L 08/12/16 06:34 CK-MB (CK-2) 0.7 ng/mL (0.0-2.4) 08/12/16 06:34 CK-MB (CK-2) Rel Index 2.3 08/12/16 06:34 Troponin I 0.327 ng/mL (0.000-0.034) H* 08/12/16 06:34 NT-Pro-B Natriuret Pep 29164 pg/mL 08/05/16 17:51 Total Protein 6.4 g/dL (6.3-8.2) 08/06/16 05:51 Albumin 3.5 g/dL (3.5-5.0) 08/06/16 05:51 Urine Color Dark Yellow 08/05/16 18:50 Urine Appearance Cloudy (Clear) 08/05/16 18:50 Urine pH 5.0 (5.0-8.0) 08/05/16 18:50 Ur Specific [place] 1.018 (1.001-1.035) 08/05/16 18:50 Urine Protein 1+ (Negative) H 08/05/16 18:50 Urine Glucose (UA) Negative (Negative) 08/05/16 18:50 Urine Ketones Trace (Negative) H 08/05/16 18:50 Urine Blood Negative (Negative) 08/05/16 18:50 Urine Nitrate Negative (Negative) 08/05/16 18:50 Urine Bilirubin Negative (Negative) 08/05/16 18:50 Urine Urobilinogen 3.0 mg/dL (<2.0) 08/05/16 18:50 Ur Leukocyte Esterase Negative (Negative) 08/05/16 18:50 Urine RBC 2 /hpf (0-5) 08/05/16 18:50 Urine Bacteria Many /hpf (None) H 08/05/16 18:50 Hyaline Casts 25 /lpf (0-2) H 08/05/16 18:50 Granular Casts 1 /lpf (0) 08/05/16 18:50 Urine Mucus Rare /hpf (None) H 08/05/16 18:50 Microbiology 08/10/16 06:07 Blood Blood Culture - Final No Growth after 144 hours 08/08/16 23:14 Blood Blood Culture - Final No Growth after 144 hours 08/06/16 23:47 Blood Blood Culture - Final No Growth after 144 hours 08/06/16 23:15 Blood Blood Culture Gram Stain - Final 08/06/16 23:15 Blood Blood Culture - Final Staph capitis SS capitis 08/08/16 23:03 Blood Blood Culture Gram Stain - Final 08/08/16 23:03 Blood Blood Culture - Final Coagulase Negative Staph 08/08/16 23:03 Blood Blood Culture - Preliminary 08/06/16 23:15 Blood Blood Culture - Preliminary 08/06/16 09:43 Urine,Catheterized Urine Culture - Final Assessment and Plan (1) NSTEMI (non-ST elevated myocardial infarction) Narrative/Plan: 76-year-old male with multiple underlying medical troubles that includes coronary artery disease and atrial fibrillation presents to Hospital severe weakness and gentle fall to the floor. Without evidence of a non-ST myocardial infarction. A with congestive heart failure and chronic systolic type. As well as acute renal failure imposed on chronic renal failure. The patient has had fever which appears to be multifactorial including underlying myocardial infarction. Agreed that pneumonia cannot be ruled out although the patient did not have significant symptoms before his acute event. Has been treated with piperacillin tazobactam and Levaquin The patient does evidence of the positive blood culture there have been 2 positive cultures,both with coagulase-negative staph. Patient does evidence of aortic stenosis but does not have bioprosthetic material. It is unlikely that he has a coagulase-negative staph infection of the heart in the daptomycin was discontinued. Overall he is steadily improving. his pneumonia is improving by the chest x- ray,and by exam. With further improvement we discontinue the Zosyn and complete the course of Levaquin over the next week. Is doing well since Zosyn and daptomycin have been discontinued. No further fever. Cardiac catheterization is been performed that shows evidence of the significant coronary artery disease as well as evaluation of his severe aortic stenosis. His legs are improving with local care. Continue the Silvadene and compression. Elevate at rest. Status: Acute (2) Acute on chronic systolic heart failure Status: Acute (3) Fever Status: Acute (4) Acute on chronic renal failure Status: Acute
[2016-08-16] MEDS: CAPTOPRIL 12.5 MG TAB PO SCH (18:33)
[2016-08-16] MEDS: FUROSEMIDE 40 MG TAB PO SCH (18:34)
[2016-08-16] MEDS: hydrALAZINE HCL 50 MG TAB PO SCH ×2 (18:34→20:59)
[2016-08-16] MEDS: glipiZIDE 10 MG TAB PO SCH (18:36)
[2016-08-16 19:17] VITALS: RESP 18
[2016-08-16 20:49] LABS: Glucose,Whole Blood 156 mg/dL (75-99)
[2016-08-16] MEDS: TERAZOSIN 2 MG CAP PO SCH (20:59)
[2016-08-16] MEDS: traZODone HCL 50 MG TAB PO SCH (20:59)
[2016-08-16] MEDS: ATORVASTATIN 40 MG TAB PO SCH (20:59)
[2016-08-16] MEDS: INSULIN DETEMIR 100 UNIT/ML 10 ML VIAL SQ SCH (21:00)
[2016-08-16] MEDS: LEVOFLOXACIN 250 MG TAB PO SCH (21:00)
--- NOTE | 2016-08-16 23:04 | PN ---
DATE OF SERVICE: 08/16/2016 This 76-year-old gentleman was admitted with acute hypoxic respiratory failure secondary to COPD, acute exacerbation, also had acute pyw-AZ-kkimbpc-elevation myocardial infarction. Patient underwent cardiac catheterization. RCA stenting was done. Patient had LAD stenosis, also. The full report is pending. No chest pain. No palpitation. No fever. On exam, alert and oriented x3. Pulse 83, blood pressure 118/79, respiration 16, temperature 96.8, pulse ox 96% on 3 L. HEENT: Conjunctivae normal. NECK: No jugular venous distention. CARDIOVASCULAR SYSTEM: S1, S2 muffled. RESPIRATORY SYSTEM: Breath sounds diminished at the bases. Scattered rhonchi. No crackles. ABDOMEN: Soft, non-tender. LEGS: No edema. No swelling. NERVOUS SYSTEM: No focal deficit. LABS: Hemoglobin 8.9. Creatinine is 1.96. ASSESSMENT: 1. Acute hypoxic respiratory failure secondary to chronic obstructive pulmonary disease, acute exacerbation, as well as congestive heart failure, acute exacerbation, with acute on chronic systolic dysfunction, ejection fraction 30% to 35%, present on admission. 2. Acute zjb-[id number]-elevation myocardial infarction, status post cardiac catheterization and right coronary artery stenting and showing left anterior descending stenosis. 3. Possible right middle lobe pneumonia with sepsis, present on admission, with septic shock and severe sepsis, status post pressor support. 4. Blood culture growing coagulase-negative staph as well as Staph capitis. 5. Possible severe aortic stenosis with underreported gradient on the 2-D echocardiogram. 6. Acute renal failure, possibly secondary to prerenal azotemia, congestive heart failure, as well as cardiorenal syndrome. 7. Chronic kidney disease, stage III at baseline. 8. Hypertension. 9. Hypothyroidism. 10. Peripheral neuropathy. 11. History of cerebrovascular incident. 12. Heparin monitoring. 13. Hyponatremia, mild, possibly secondary to diuresis. 14. Pulmonary hypertension history. 15. Mild thrombocytopenia. 16. FULL CODE. RECOMMENDATIONS AND DISCUSSION: In this 76-year-old gentleman who presented with multiple complex medical issues, we will monitor the patient closely, continue the current medications, continue symptomatic treatment, continue with antiplatelet agents. Monitor creatinine closely. Closely follow with Cardiology and Nephrology. Prognosis guarded because of multiple complex medical issues. Further recommendations to follow.
[2016-08-16] MEDS: HEPARIN SODIUM,PORCINE/D5W PMX 25,000 UNIT in DEXTROSE/WATER 1 500ML.BAG IV SCH (23:49)
[2016-08-17] MEDS: CAPTOPRIL 12.5 MG TAB PO SCH ×2 (00:13→08:53)
[2016-08-17 06:26] LABS: Glucose,Whole Blood 43 mg/dL (75-99)
[2016-08-17 06:46] LABS: Glucose,Whole Blood 70 mg/dL (75-99)
[2016-08-17] MEDS: LEVOTHYROXINE 125 MCG TAB PO SCH (06:50)
[2016-08-17] MEDS: PANTOPRAZOLE 40 MG TABLET PO SCH (06:50)
[2016-08-17] MEDS: SODIUM CHLORIDE 0.9% 1,000 ML IV SCH ×3 (06:50→08:57)
[2016-08-17] MEDS: glipiZIDE 10 MG TAB PO SCH (06:52)
[2016-08-17] MEDS: INSULIN LISPRO (humaLOG) 300 UNIT/3 ML VIAL SQ SCH ×4 (06:52→14:37)
[2016-08-17 07:02] LABS: Glucose,Whole Blood 67 mg/dL (75-99)
[2016-08-17 07:05] LABS: Basophils % (A) 0 %; CH 29.9; CHCM 30.9; Eosinophils # (A) 0.1 k/uL (0-0.7); Eosinophils % (A) 2 %; HCT 29.2 % (39.0-53.0); HDW 2.95; Hypochromasia Slight; Luc # (Auto) 0.05; Luc % (Auto) 1; Lymphocytes # (A) 0.4 k/uL (1.0-4.8); Lymphocytes % (A) 5 %; MCH 30.1 pg (25.0-35.0); MCHC 30.9 g/dL (31.0-37.0); MCV 97.4 fL (80.0-100.0); Mean Platelet Volume 8.2; Monocytes # (A) 0.5 k/uL (0-1.0); Monocytes % (A) 6 %; Neutrophils # (A) 6.5 k/uL (1.3-7.7); Neutrophils % (A) 86 %; RDW 14.2 % (11.5-15.5); WBC 7.6 k/uL (3.8-10.6)
[2016-08-17 07:09] LABS: Potassium 4.5 mmol/L (3.5-5.1)
[2016-08-17 07:17] LABS: Glucose,Whole Blood 89 mg/dL (75-99)
--- NOTE | 2016-08-17 08:47 | CC ---
DATE OF SERVICE: Michael Lees is a 76-year-old gentleman admitted by Dr. Joe Adam. CLINICAL INFORMATION: Mr. Michael Lees is a 76-year-old gentleman, known patient of hypertension, diabetes, hypercholesterolemia and renal failure was seen by [facility] prior to the procedure. Patient came to the [facility] with a creatinine of 1.96. Realizing higher complications, approved by the neurologist. Patient is under nephrology ( ) on this admission. PROCEDURE: Under local anesthesia, with sterile precautions, right femoral artery was cannulated with [address] and proceeded with right and left heart selective coronary arteriogram followed by angioplasty and stenting of the right coronary and Angio-Seal was not because of irregularities in the femoral artery and sheath was kept in place to be removed in 2 hours. Patient tolerated the procedure very well. There weer no complications during or after completion of the procedure. HEMODYNAMIC DATA: Aortic pressure noted to be 131/64 with a mean pressure of 96. Left ventricular end-diastolic pressure following coronary arteriography noted to be 16 to 18 mmHg. There was no gradient across the aortic valve. Left ventriculography not performed because of elevated creatinine. SELECTIVE CORONARY ARTERIOGRAPHY: Left main coronary artery is of normal caliber, free of any atherosclerotic occlusive disease. Left anterior descending totally occluded in its origin from the left main. Intermediate is a moderate caliber vessel, free of any atherosclerotic occlusive disease. Left circumflex is a moderate caliber vessel, free of any atherosclerotic occlusive disease. Right coronary is a dominant, good caliber blood vessel noted to have 80% stenosis and a very tortuous blood vessel providing collaterals to the LAD, which was totally closed off proximally as a conduit from the patient's symptoms. Will proceed with angioplasty and stenting of the right coronary artery, which heavily calcified and tortuous. Patient was informed of risks and benefits of the procedure, understood and accepted. ASSESSMENT: Total occlusion of the LAD in its origin from the left main and received collaterals from the right coronary with right coronary artery noted to have 80% stenosis in the midsection, tortuous blood vessel. Will proceed with angioplasty and stenting of the right coronary.
[2016-08-17] MEDS: ACETYLCYSTEINE 800 MG/4 ML VIAL PO SCH (08:51)
--- NOTE | 2016-08-17 08:51 | PTCA ---
DATE OF SERVICE: PTCA #[id number] Following diagnostic cardiac catheterization proceeded with angioplasty using a NC4 guide. Advanced a whisper J-wire into the distal RCA. Over the wire advanced a trek balloon 2.5, 12 mm, dilated to 10 atmospheres followed by advancing a choice extra-support with PT coating under the distal RCA as a second wire for stenting and placed a Xience stent 2.7, 15 mm over the whisper J-wire after confirming the stent is in place. Second wire was removed and deployed at 10 to 12 atmospheres with good angiographic results. Patient tolerated the procedure. There were no complications during or after completion of the procedure. Patient had successful dilatation of the 80% lesion reduced to 0% residual stenosis with good angiographic results. Patient received 600 mg of Plavix in addition to Angiomax. Patient's sheath will be removed on the floor.
[2016-08-17] MEDS: ASPIRIN 81 MG CHEW PO SCH (08:53)
[2016-08-17] MEDS: GABAPENTIN 400 MG CAP PO SCH (08:55)
[2016-08-17] MEDS: hydrALAZINE HCL 50 MG TAB PO SCH (08:55)
[2016-08-17] MEDS: METOPROLOL TARTRATE 25 MG TAB PO SCH (08:57)
[2016-08-17] MEDS ORDERED: ASCORBIC ACID 500 MG TAB PO SCH (09:00)
[2016-08-17] MEDS ORDERED: LINAGLIPTIN 5 MG TABLET PO SCH (09:00)
[2016-08-17] MEDS ORDERED: ISOSORBIDE MONONITRATE ER 60 MG TAB.ER.24H PO SCH (09:00)
[2016-08-17] MEDS ORDERED: ASPIRIN 325 MG TAB PO SCH (09:00)
[2016-08-17] MEDS ORDERED: CLOPIDOGREL 75 MG TAB PO SCH (09:00)
[2016-08-17] MEDS ORDERED: amLODIPine 10 MG TAB PO SCH (09:00)
[2016-08-17] MEDS: FUROSEMIDE 40 MG TAB PO SCH (09:34)
--- NOTE | 2016-08-17 09:49 | P.PN ---
Subjective Patient is seen in follow-up for acute kidney injury on chronic kidney disease. Patient has chronic kidney disease stage III secondary to diabetic kidney disease and nephrosclerosis. Renal function is stable with creatinine at 1.95 today. He did receive 1 dose of Lasix yesterday. Patient presented with a fall and is currently being treated for pneumonia as well as gram-positive bacteremia. He is noted to have ejection fraction of 30-35% along with severe aortic stenosis. Currently resting in bed. He is nonoliguric. He underwent cardiac catheterization on August 16 which revealed total occlusion of the LAD as well as the right coronary. He had a stent placed to the right coronary artery. Vital signs are stable. General: The patient appeared well nourished and normally developed. HEENT: Head exam is unremarkable. Neck is without jugular venous distension. LUNGS: Lungs are clear to auscultation and percussion. Breath sounds decreased. HEART: Rate and Rhythm are regular. First and second heart sounds normal. No murmurs, rubs or gallops. ABDOMEN: Abdominal exam reveals normal bowel sounds. Non-tender and non- distended. No evidence of peritonitis. EXTREMITITES: No clubbing, cyanosis, or edema. Objective - Vital Signs Vital signs: Vital Signs Temp 98.0 F 08/17/16 03:55 Pulse 91 08/17/16 03:55 Resp 18 08/17/16 03:55 BP 91/53 08/17/16 03:55 Pulse Ox 95 08/17/16 03:55 Intake & Output 08/16/16 08/17/16 08/17/16 18:59 06:59 18:59 Intake Total 775 240 Output Total 1650 850 Balance -875 -850 240 Weight 90 kg Intake: IV 175 Intake, IV Titration 500 Amount Heparin Sodium,Porcine/ 500 D5w Pmx 25,000 unit In Dextrose/Water 1 500ml. bag @ 11.779 UNITS/KG/HR 20 mls/hr IV .Q24H [facility] Rx #:[id number] Oral 100 240 Output: Urine 1650 850 Straight 400 Uretheral ([place]) 625 850 Other: Voiding Method Indwelling Catheter Indwelling Catheter # Bowel Movements 1 - Labs CBC & Chem 7: 08/17/16 06:20 08/17/16 06:20 Labs: Abnormal Lab Results - Last 24 Hours (Table) 0108/16/16 08/16/16 Range/Units 11:07 17:19 20:47 RBC (4.30-5.90) m/uL Hgb (13.0-17.5) gm/dL Hct (39.0-53.0) % MCHC (31.0-37.0) g/dL Lymphocytes # (1.0-4.8) k/uL Chloride (98-107) mmol/L Carbon Dioxide (22-30) mmol/L BUN (9-20) mg/dL Creatinine (0.66-1.25) mg/dL Glucose (74-99) mg/dL POC Glucose (mg/dL) 131 H 113 H 156 H (75-99) mg/dL Calcium (8.4-10.2) mg/dL HDL Cholesterol (40-60) mg/dL 08/17/16 08/17/16 08/17/16 Range/Units 06:20 06:20 06:25 RBC 3.00 L (4.30-5.90) m/uL Hgb 9.0 L (13.0-17.5) gm/dL Hct 29.2 L (39.0-53.0) % MCHC 30.9 L (31.0-37.0) g/dL Lymphocytes # 0.4 L (1.0-4.8) k/uL Chloride 112 H (98-107) mmol/L Carbon Dioxide 20 L (22-30) mmol/L BUN 64 H (9-20) mg/dL Creatinine 1.95 H (0.66-1.25) mg/dL Glucose 39 L* (74-99) mg/dL POC Glucose (mg/dL) 43 L (75-99) mg/dL Calcium 8.0 L (8.4-10.2) mg/dL HDL Cholesterol 24 L (40-60) mg/dL 08/17/16 08/17/16 Range/Units 06:45 07:00 RBC (4.30-5.90) m/uL Hgb (13.0-17.5) gm/dL Hct (39.0-53.0) % MCHC (31.0-37.0) g/dL Lymphocytes # (1.0-4.8) k/uL Chloride (98-107) mmol/L Carbon Dioxide (22-30) mmol/L BUN (9-20) mg/dL Creatinine (0.66-1.25) mg/dL Glucose (74-99) mg/dL POC Glucose (mg/dL) 70 L 67 L (75-99) mg/dL Calcium (8.4-10.2) mg/dL HDL Cholesterol (40-60) mg/dL Microbiology - Last 24 Hours (Table) 08/10/16 06:07 Blood Culture - Final Blood No Growth after 144 hours Assessment and Plan Plan: Assessment: #1. Nonoliguric acute kidney injury secondary to cardiorenal syndrome. Creatinine stable at 1.95 today. #2. Severe sepsis secondary to pneumonia as well as gram-positive bacteremia. #3. Volume overload. Improved. #4. Chronic kidney disease stage III with baseline creatinine in the range of 1.4-1.6 secondary to diabetic kidney disease as well as nephrosclerosis. #5. Systolic CHF with ejection fraction of 30-35%. #6. Severe aortic stenosis. #7. Mild hypernatremia secondary to diuresis. Resolved with improved oral intake. #8. Anemia. Rule out iron deficiency. #9. Diabetes mellitus. #10. Hypertension with chronic kidney disease. Controlled. Plan: Lasix was started at 40 mg twice daily yesterday. I will decrease the dose to once daily. Will need to monitor renal function closely and hold diuretics if renal function worsens. Encourage oral intake. Avoid nephrotoxic agents and hypotensive episodes. Antibiotics per infectious disease recommendations. Currently on Levaquin. Check iron studies. Patient to finish Mucomyst today. Patient did receive adequate IV hydration pre -and post cardiac catheterization.
[2016-08-17] MEDS: IPRATROPIUM-ALBUTEROL 3 ML NEB INHALATION SCH ×2 (10:00→14:36)
[2016-08-17 11:19] VITALS: TEMP 96.9
[2016-08-17 11:30] VITALS: BMI 30.2
[2016-08-17 11:46] LABS: Glucose,Whole Blood 211 mg/dL (75-99)
--- NOTE | 2016-08-17 12:37 | P.PN ---
Subjective Principal diagnosis: Acute hypoxic respiratory failure This is a 76-year-old gentleman who follows with Dr. Burns in the office, he has a history of hypertension, hyperlipidemia, diabetes, prior CVA, renal disease, hypothyroidism, cardiomyopathy, chronic persistent atrial fibrillation, initially presented to the hospital with symptoms of weakness and fall at home. No overt syncope. Patient has been being treated for acute congestive cardiac failure. He also ruled in for non-Q-wave myocardial infarction. The patient is also being followed by nephrology for acute on chronic renal failure. Patient was taken to the cardiac catheterization lab yesterday, underwent angioplasty with stenting the right coronary artery. EKG was reviewed this morning which shows atrial fibrillation with no acute changes from post-PCI. Creatinine today 1.9. Objective - Vital Signs Vital signs: Vital Signs Temp 96.9 F L 08/17/16 11:00 Pulse 93 08/17/16 11:00 Resp 18 08/17/16 11:00 BP 101/57 08/17/16 11:00 Pulse Ox 97 08/17/16 11:00 Intake & Output 08/16/16 08/17/16 08/17/16 18:59 06:59 18:59 Intake Total 775 240 Output Total 1650 850 Balance -875 -850 240 Weight 90 kg 90 kg Intake: IV 175 Intake, IV Titration 500 Amount Heparin Sodium,Porcine/ 500 D5w Pmx 25,000 unit In Dextrose/Water 1 500ml. bag @ 11.779 UNITS/KG/HR 20 mls/hr IV .Q24H [facility] Rx #:[id number] Oral 100 240 Output: Urine 1650 850 Straight 400 Uretheral ([place]) 625 850 Other: Voiding Method Indwelling Catheter Indwelling Catheter Indwelling Catheter # Bowel Movements 1 - Exam PHYSICAL EXAMINATION: HEENT: Head is atraumatic, normocephalic. Pupils equal, round. Neck is supple. There is no elevated jugular venous pressure. HEART EXAMINATION: Heart S1 S2 1 systolic murmur is heard. CHEST EXAMINATION: Lungs reveal crackles to bilateral bases. ABDOMEN: Soft, nontender. Bowel sounds are heard. No organomegaly noted. Right groin soft, no evidence of any hematoma. EXTREMITIES: 2+ peripheral pulses with no evidence of peripheral edema and no calf tenderness noted. NEUROLOGIC patient is awake, alert and oriented -3. . - Labs CBC & Chem 7: 08/17/16 06:20 08/17/16 06:20 Labs: Abnormal Lab Results - Last 24 Hours (Table) 08/16/16 08/16/16 08/17/16 Range/Units 17:19 20:47 06:20 RBC (4.30-5.90) m/uL Hgb (13.0-17.5) gm/dL Hct (39.0-53.0) % MCHC (31.0-37.0) g/dL Lymphocytes # (1.0-4.8) k/uL Chloride 112 H (98-107) mmol/L Carbon Dioxide 20 L (22-30) mmol/L BUN 64 H (9-20) mg/dL Creatinine 1.95 H (0.66-1.25) mg/dL Glucose 39 L* (74-99) mg/dL POC Glucose (mg/dL) 113 H 156 H (75-99) mg/dL Calcium 8.0 L (8.4-10.2) mg/dL HDL Cholesterol 24 L (40-60) mg/dL 08/17/16 08/17/16 08/17/16 Range/Units 06:20 06:25 06:45 RBC 3.00 L (4.30-5.90) m/uL Hgb 9.0 L (13.0-17.5) gm/dL Hct 29.2 L (39.0-53.0) % MCHC 30.9 L (31.0-37.0) g/dL Lymphocytes # 0.4 L (1.0-4.8) k/uL Chloride (98-107) mmol/L Carbon Dioxide (22-30) mmol/L BUN (9-20) mg/dL Creatinine (0.66-1.25) mg/dL Glucose (74-99) mg/dL POC Glucose (mg/dL) 43 L 70 L (75-99) mg/dL Calcium (8.4-10.2) mg/dL HDL Cholesterol (40-60) mg/dL 08/17/16 08/17/16 Range/Units 07:00 11:44 RBC (4.30-5.90) m/uL Hgb (13.0-17.5) gm/dL Hct (39.0-53.0) % MCHC (31.0-37.0) g/dL Lymphocytes # (1.0-4.8) k/uL Chloride (98-107) mmol/L Carbon Dioxide (22-30) mmol/L BUN (9-20) mg/dL Creatinine (0.66-1.25) mg/dL Glucose (74-99) mg/dL POC Glucose (mg/dL) 67 L 211 H (75-99) mg/dL Calcium (8.4-10.2) mg/dL HDL Cholesterol (40-60) mg/dL Microbiology - Last 24 Hours (Table) 08/10/16 06:07 Blood Culture - Final Blood No Growth after 144 hours Assessment and Plan (1) CAD (coronary artery disease) Status: Acute (2) HTN (hypertension) Status: Acute (3) Hypothyroid Status: Acute (4) Diabetes Status: Acute (5) PVD (peripheral vascular disease) Status: Acute (6) Paroxysmal a-fib Status: Acute (7) CVA (cerebral vascular accident) Status: Acute (8) Acute on chronic systolic heart failure Status: Acute (9) NSTEMI (non-ST elevated myocardial infarction) Status: Acute (10) Acute renal failure (ARF) Status: Acute (11) S/P right coronary artery (RCA) stent placement Status: Acute Plan: Cardiology's perspective, Lasix will continue to be placed on hold. We will continue to monitor lytes BUN and creatinine. Patient will be discharged to extended care facility today. We will resume his Coumadin, decrease aspirin 81 mg daily. He will have a follow-up appointment in the office with Dr. Burns post discharge. DNP note has been reviewed, I agree with a documented findings and plan of care. Patient was seen and examined.
--- NOTE | 2016-08-17 15:11 | DS ---
DATE OF ADMISSION: 08/05/2016 DATE OF DISCHARGE: 08/17/2016 DATE OF SERVICE: 08/17/2016 FINAL DIAGNOSES: 1. Acute hypoxic respiratory failure secondary to chronic obstructive pulmonary disease, acute exacerbation as well as congestive heart failure, acute exacerbation, with acute on chronic systolic dysfunction, ejection fraction 30 to 35% present on admission and acute non-ST elevation myocardial infarction, status post cardiac catheterization of right coronary artery stenting and also showing left anterior descending stenosis. 2. Possible right middle lobe pneumonia with sepsis, present on admission, with septic shock and severe sepsis, status post pressor support. 3. Blood culture growing coagulase-negative Staph as well as Staph capitis. 4. Possible severe aortic stenosis and underreported gradient in the 2-D echocardiogram. 5. Acute renal failure, possibly secondary to prerenal azotemia, congestive heart failure as well as cardiorenal syndrome. 6. Chronic kidney disease, stage III at baseline. 7. Hypertension. 8. Hypothyroidism. 9. Peripheral neuropathy. 10. History of cerebrovascular accident. 11. Heparin monitoring. 12. Hyponatremia, mild, possibly secondary to diuresis. 13. Pulmonary hypertension history. 14. Mild thrombocytopenia. 15. FULL CODE. DISCHARGE DISPOSITION: The patient will be discharged in a stable condition with guarded prognosis. Total time taken 35 minutes. HISTORY OF PRESENT ILLNESS: This 76-year-old gentleman with a past medical history of multiple medical problems admitted multiple complications including COPD exacerbation, myocardial infarction and sepsis and pneumonia. The patient was treated in conjunction with multiple consultants. Patient monitored in ICU. The patient improved significantly. Creatinine stabilized at 1.95. Cardiac catheterization showed findings as above. Nephrology saw the patient and cleared the patient for discharged. On exam, vitals are stable. CARDIOVASCULAR SYSTEM: S1, S2 muffled. RESPIRATORY: Breath sounds diminished in the bases. ABDOMEN: Soft and nontender. NERVOUS SYSTEM: No focal deficits. DISCHARGE ADVICE: 1. Diet is cardiac. 2. Activity limited until follow-up. 3. Follow-up with Dr. Singh in 3 weeks. MEDICATIONS: 1. Xanax 0.5 q.6 p.r.n. 2. Vitamin C 500 mg p.o. daily. 3. Aspirin 81 mg daily. 4. Lipitor 40 mg q.h.s. 5. Capoten 6.5 mg t.i.d. 6. Aiqwpn66 mg p.o. daily. 7. Neurontin 800 mg p.o. b.i.d. 8. Kerodex cream local applications. 9. Humalog to scale; 150 to 200 = 2 units, 201 to 250 = 4 units, 251 to 300 = 6 units, 301 to 350 =8 units, 351 to 400 = 10 units, more than 400 call. 10. Levemir 18 units subcu q.h.s. 11. Albuterol and Atrovent updrafts q.i.d. and p.r.n. 12. Imdur ER 60 mg p.o. daily. 13. Levaquin 250 mg p.o. daily per Infectious Disease. 14. Synthroid 125 mcg p.o. daily. 15. Lopressor 25 mg p.o. b.i.d. 16. Multivitamins 1 p.o. daily. 17. Nitrostat 0.4 sublingual p.r.n. 18. Protonix 40 mg daily. 19. Onglyza 2.5 mg p.o. daily. 20. Hytrin 4 mg p.o. at bedtime. 21. Norvasc 10 mg p.o. daily. 22. Glucotrol 10 mg a.c. b.i.d. 23. Apresoline 50 mg t.i.d. 24. Trazodone 50 mg q.h.s. Once again, the patient will be discharged in a stable condition with guarded prognosis.
[2016-08-17 16:06] VITALS: BP 102/61; PULSE 80
--- NOTE | 2016-08-17 20:19 | P.PN ---
Subjective 76-year-old male presents to the emergency center after gently going to the floor while he was in front of the sink. He does recall the event. He became weak and went to the floor. Was brought in by EMS because he was so weak. Was found to have evidence of significant shortness of breath and was brought into hospital. He then decompensated and required transfer to intensive care unit because of respiratory failure. He was treated with BiPAP. He has been added by cardiology for his non-ST segment depression myocardial infarction. He also has had some worsening of his underlying atrial fibrillation. because he developed fever antibiotic therapy was initiated. Patient's undergone cardiac catheterization shows evidence of extensive disease. RCA and underwent stenting, LAD will need further intervention the future. Does have a significant aortic stenosis. Objective - Vital Signs Vital signs: Vital Signs Temp 96.9 F L 08/17/16 15:55 Pulse 80 08/17/16 15:55 Resp 18 08/17/16 15:55 BP 102/61 08/17/16 15:55 Pulse Ox 98 08/17/16 15:55 Intake & Output 08/17/16 08/17/16 08/18/16 06:59 18:59 06:59 Intake Total 360 Output Total 850 Balance -850 360 Weight 90 kg 90 kg Intake: Oral 360 Output: Urine 850 Uretheral ([place]) 850 Other: Voiding Method Indwelling Catheter Indwelling Catheter # Bowel Movements 1 0 - Exam 76-year-old male who is more comfortable than yesterday shortness of breath is improved chest pain is improved. Did well with his cardiac catheterization without groin pain HEENT: Anicteric conjunctiva are pink and moist nasal mucosa grossly intact without significant lesions, there is no thrush.poor dentition large jensen Neck: The neck is supple without significant lymphadenopathy or thyromegaly. Lungs: symmetrical air entry with evidence few expiratory wheezes Heart: irregular with an audible S1 and S2 no S3 soft S4 no distinct murmur click or rub Abdomen: Positive bowel sounds soft and nontender without palpable masses or organomegaly. There was no guarding or rebound. Extremities: The upper extremities have excellent pulses they are symmetric, no significant petechiae or telangiectasia. No splinter hemorrhages were noted. the lower extremities reveal evidence bilateral lower extremity edema minimal erythema without ulcerations,prior toe amputations are well-healed pressure dressing in place to groin Neuro: Awake alert oriented to person place and time. There are no acute new gross focal sensory motor deficits. - Labs CBC & Chem 7: 08/17/16 06:20 08/17/16 06:20 Labs: Abnormal Lab Results - Last 24 Hours (Table) 08/16/16 08/17/16 08/17/16 Range/Units 20:47 06:20 06:20 RBC 3.00 L (4.30-5.90) m/uL Hgb 9.0 L (13.0-17.5) gm/dL Hct 29.2 L (39.0-53.0) % MCHC 30.9 L (31.0-37.0) g/dL Lymphocytes # 0.4 L (1.0-4.8) k/uL Chloride 112 H (98-107) mmol/L Carbon Dioxide 20 L (22-30) mmol/L BUN 64 H (9-20) mg/dL Creatinine 1.95 H (0.66-1.25) mg/dL Glucose 39 L* (74-99) mg/dL POC Glucose (mg/dL) 156 H (75-99) mg/dL Calcium 8.0 L (8.4-10.2) mg/dL HDL Cholesterol 24 L (40-60) mg/dL 08/17/16 08/17/16 08/17/16 Range/Units 06:25 06:45 07:00 RBC (4.30-5.90) m/uL Hgb (13.0-17.5) gm/dL Hct (39.0-53.0) % MCHC (31.0-37.0) g/dL Lymphocytes # (1.0-4.8) k/uL Chloride (98-107) mmol/L Carbon Dioxide (22-30) mmol/L BUN (9-20) mg/dL Creatinine (0.66-1.25) mg/dL Glucose (74-99) mg/dL POC Glucose (mg/dL) 43 L 70 L 67 L (75-99) mg/dL Calcium (8.4-10.2) mg/dL HDL Cholesterol (40-60) mg/dL 08/17/16 Range/Units 11:44 RBC (4.30-5.90) m/uL Hgb (13.0-17.5) gm/dL Hct (39.0-53.0) % MCHC (31.0-37.0) g/dL Lymphocytes # (1.0-4.8) k/uL Chloride (98-107) mmol/L Carbon Dioxide (22-30) mmol/L BUN (9-20) mg/dL Creatinine (0.66-1.25) mg/dL Glucose (74-99) mg/dL POC Glucose (mg/dL) 211 H (75-99) mg/dL Calcium (8.4-10.2) mg/dL HDL Cholesterol (40-60) mg/dL Laboratory Results WBC 7.6 k/uL (3.8-10.6) 08/17/16 06:20 RBC 3.00 m/uL (4.30-5.90) L 08/17/16 06:20 Hgb 9.0 gm/dL (13.0-17.5) L 08/17/16 06:20 Hct 29.2 % (39.0-53.0) L 08/17/16 06:20 MCV 97.4 fL (80.0-100.0) 08/17/16 06:20 MCH 30.1 pg (25.0-35.0) 08/17/16 06:20 MCHC 30.9 g/dL (31.0-37.0) L 08/17/16 06:20 RDW 14.2 % (11.5-15.5) 08/17/16 06:20 Plt Count 281 k/uL (150-450) 08/17/16 06:20 Neutrophils % 86 % 08/17/16 06:20 Lymphocytes % 5 % 08/17/16 06:20 Monocytes % 6 % 08/17/16 06:20 Eosinophils % 2 % 08/17/16 06:20 Basophils % 0 % 08/17/16 06:20 Neutrophils # 6.5 k/uL (1.3-7.7) 08/17/16 06:20 Lymphocytes # 0.4 k/uL (1.0-4.8) L 08/17/16 06:20 Monocytes # 0.5 k/uL (0-1.0) 08/17/16 06:20 Eosinophils # 0.1 k/uL (0-0.7) 08/17/16 06:20 Basophils # 0.0 k/uL (0-0.2) 08/17/16 06:20 Hypochromasia Slight 08/17/16 06:20 PT 14.9 sec (9.0-12.0) H 08/11/16 06:07 INR 1.5 (<1.1) 08/11/16 06:07 APTT 50.0 sec (22.0-30.0) H 08/16/16 06:13 Sodium 142 mmol/L (137-145) 08/17/16 06:20 Potassium 4.5 mmol/L (3.5-5.1) 08/17/16 06:20 Chloride 112 mmol/L (98-107) H 08/17/16 06:20 Carbon Dioxide 20 mmol/L (22-30) L 08/17/16 06:20 Anion Gap 10 mmol/L 08/17/16 06:20 BUN 64 mg/dL (9-20) H 08/17/16 06:20 Creatinine 1.95 mg/dL (0.66-1.25) H 08/17/16 06:20 Est GFR (MDRD) Af Amer 41 (>60 ml/min/1.73 sqM) 08/17/16 06:20 Est GFR (MDRD) Non-Af 34 (>60 ml/min/1.73 sqM) 08/17/16 06:20 Glucose 39 mg/dL (74-99) L* 08/17/16 06:20 POC Glucose (mg/dL) 211 mg/dL (75-99) H 08/17/16 11:44 POC Glu Chandelier Maker ID Azeb Landry 08/17/16 11:[address] Glu mg/dL 131 mg/dL 08/06/16 05:51 Hemoglobin A1c 6.2 % (4.2-6.1) H 08/06/16 05:51 Plasma Lactic Acid Blake 1.0 mmol/L (0.7-2.0) 08/08/16 05:53 Calcium 8.0 mg/dL (8.4-10.2) L 08/17/16 06:20 Phosphorus 5.2 mg/dL (2.5-4.5) H 08/11/16 06:07 Magnesium 2.1 mg/dL (1.6-2.3) 08/11/16 06:07 Total Bilirubin 0.6 mg/dL (0.2-1.3) 08/06/16 05:51 AST 40 U/L (17-59) 08/06/16 05:51 ALT 34 U/L (21-72) 08/06/16 05:51 Alkaline Phosphatase 47 U/L (38-126) 08/06/16 05:51 Creatine Kinase 228 U/L (55-170) H 08/05/16 17:51 Total Creatine Kinase 31 U/L (55-170) L 08/12/16 06:34 CK-MB (CK-2) 0.7 ng/mL (0.0-2.4) 08/12/16 06:34 CK-MB (CK-2) Rel Index 2.3 08/12/16 06:34 Troponin I 0.327 ng/mL (0.000-0.034) H* 08/12/16 06:34 NT-Pro-B Natriuret Pep 88424 pg/mL 08/05/16 17:51 Total Protein 6.4 g/dL (6.3-8.2) 08/06/16 05:51 Albumin 3.5 g/dL (3.5-5.0) 08/06/16 05:51 Triglycerides 66 mg/dL (<150) 08/17/16 06:20 Cholesterol 55 mg/dL (<200) 08/17/16 06:20 LDL Cholesterol, Calc 18 mg/dL (0-99) 08/17/16 06:20 HDL Cholesterol 24 mg/dL (40-60) L 08/17/16 06:20 Urine Color Dark Yellow 08/05/16 18:50 Urine Appearance Cloudy (Clear) 08/05/16 18:50 Urine pH 5.0 (5.0-8.0) 08/05/16 18:50 Ur Specific Walker 1.018 (1.001-1.035) 08/05/16 18:50 Urine Protein 1+ (Negative) H 08/05/16 18:50 Urine Glucose (UA) Negative (Negative) 08/05/16 18:50 Urine Ketones Trace (Negative) H 08/05/16 18:50 Urine Blood Negative (Negative) 08/05/16 18:50 Urine Nitrate Negative (Negative) 08/05/16 18:50 Urine Bilirubin Negative (Negative) 08/05/16 18:50 Urine Urobilinogen 3.0 mg/dL (<2.0) 08/05/16 18:50 Ur Leukocyte Esterase Negative (Negative) 08/05/16 18:50 Urine RBC 2 /hpf (0-5) 08/05/16 18:50 Urine Bacteria Many /hpf (None) H 08/05/16 18:50 Hyaline Casts 25 /lpf (0-2) H 08/05/16 18:50 Granular Casts 1 /lpf (0) 08/05/16 18:50 Urine Mucus Rare /hpf (None) H 08/05/16 18:50 Microbiology 08/10/16 06:07 Blood Blood Culture - Final No Growth after 144 hours 08/08/16 23:14 Blood Blood Culture - Final No Growth after 144 hours 08/06/16 23:47 Blood Blood Culture - Final No Growth after 144 hours 08/06/16 23:15 Blood Blood Culture Gram Stain - Final 08/06/16 23:15 Blood Blood Culture - Final Staph capitis SS capitis 08/08/16 23:03 Blood Blood Culture Gram Stain - Final 08/08/16 23:03 Blood Blood Culture - Final Coagulase Negative Staph 08/08/16 23:03 Blood Blood Culture - Preliminary 08/06/16 23:15 Blood Blood Culture - Preliminary 08/06/16 09:43 Urine,Catheterized Urine Culture - Final Assessment and Plan (1) NSTEMI (non-ST elevated myocardial infarction) Narrative/Plan: 76-year-old male with multiple underlying medical troubles that includes coronary artery disease and atrial fibrillation presents to Hospital severe weakness and gentle fall to the floor. Without evidence of a non-ST myocardial infarction. A with congestive heart failure and chronic systolic type. As well as acute renal failure imposed on chronic renal failure. The patient has had fever which appears to be multifactorial including underlying myocardial infarction. Agreed that pneumonia cannot be ruled out although the patient did not have significant symptoms before his acute event. Has been treated with piperacillin tazobactam and Levaquin The patient does evidence of the positive blood culture there have been 2 positive cultures,both with coagulase-negative staph. Patient does evidence of aortic stenosis but does not have bioprosthetic material. It is unlikely that he has a coagulase-negative staph infection of the heart in the daptomycin was discontinued. Overall he is steadily improving. his pneumonia is improving by the chest x- ray,and by exam. With further improvement we discontinue the Zosyn and complete the course of Levaquin over the next week. Is doing well since Zosyn and daptomycin have been discontinued. No further fever. Cardiac catheterization is been performed that shows evidence of the significant coronary artery disease as well as evaluation of his severe aortic stenosis. His legs are improving with local care. Continue compression at home to prevent reoccurrence. Elevate at rest. Status: Acute (2) Acute on chronic systolic heart failure Status: Acute (3) Fever Status: Acute (4) Acute on chronic renal failure Status: Acute
[2016-08-17] MEDS ORDERED: INSULIN DETEMIR 100 UNIT/ML 10 ML VIAL SQ SCH ×2 (21:00)
[2016-08-18] MEDS ORDERED: FUROSEMIDE 40 MG TAB PO SCH (09:00)
== END 2016-08-17 16:32 | DRG 853 ==
LOC: EC 17:36 → 6SEL 19:11 → 6ICU 08-06 08:38 → 6SEL 08-09 18:33
PROVIDERS: ADMIT Internal Medicine; ATTEND Internal Medicine
PROC: 4A023N7 Measurement of Cardiac Sampling and Pressure, Left Heart, Percutaneous Approach (ICD-10-PCS; principal; 2016-08-16 13:09)
PROC: B2111ZZ Fluoroscopy of Multiple Coronary Arteries using Low Osmolar Contrast (ICD-10-PCS; principal; 2016-08-16 13:09)
PROC: 027034Z Dilation of Coronary Artery, One Artery with Drug-eluting Intraluminal Device, Percutaneous Approach (ICD-10-PCS; principal; 2016-08-16 13:09)
DX: A41.59 Other Gram-negative sepsis (principal); R65.21 Severe sepsis with septic shock; I21.4 Non-ST elevation (NSTEMI) myocardial infarction; J96.01 Acute respiratory failure with hypoxia; I50.23 Acute on chronic systolic (congestive) heart failure; J18.9 Pneumonia, unspecified organism; N17.9 Acute kidney failure, unspecified; E87.2 Acidosis; D69.6 Thrombocytopenia, unspecified; I13.0 Hypertensive heart and chronic kidney disease with heart failure and stage 1 through stage 4 chronic kidney disease, or unspecified chronic kidney disease; I42.9 Cardiomyopathy, unspecified; J44.0 Chronic obstructive pulmonary disease with (acute) lower respiratory infection; I45.2 Bifascicular block; I48.1 Persistent atrial fibrillation; E87.1 Hypo-osmolality and hyponatremia; I69.354 Hemiplegia and hemiparesis following cerebral infarction affecting left non-dominant side; J44.1 Chronic obstructive pulmonary disease with (acute) exacerbation; J98.11 Atelectasis; E11.22 Type 2 diabetes mellitus with diabetic chronic kidney disease; E11.42 Type 2 diabetes mellitus with diabetic polyneuropathy; E11.65 Type 2 diabetes mellitus with hyperglycemia; D64.9 Anemia, unspecified; E03.9 Hypothyroidism, unspecified; E78.5 Hyperlipidemia, unspecified; E87.5 Hyperkalemia; H91.90 Unspecified hearing loss, unspecified ear; I25.10 Atherosclerotic heart disease of native coronary artery without angina pectoris; I25.2 Old myocardial infarction; I25.82 Chronic total occlusion of coronary artery; I27.2 Other secondary pulmonary hypertension; I35.0 Nonrheumatic aortic (valve) stenosis; I48.0 Paroxysmal atrial fibrillation; I48.2 Chronic atrial fibrillation; I73.9 Peripheral vascular disease, unspecified; J45.909 Unspecified asthma, uncomplicated; N40.0 Benign prostatic hyperplasia without lower urinary tract symptoms; T50.2X5A Adverse effect of carbonic-anhydrase inhibitors, benzothiadiazides and other diuretics, initial encounter; N18.3 Chronic kidney disease, stage 3 (moderate); W18.30XA Fall on same level, unspecified, initial encounter; Y92.009 Unspecified place in unspecified non-institutional (private) residence as the place of occurrence of the external cause; Z79.01 Long term (current) use of anticoagulants; Z87.891 Personal history of nicotine dependence; Z95.5 Presence of coronary angioplasty implant and graft; Z79.899 Other long term (current) drug therapy
CPT/HCPCS: 36415; 70450; 71010; 71020; 80048; 80053; 80061; 81001; 82550; 82553; 83036; 83605; 83735; 83880; 84100; 84132; 84484; 85025; 85610; 85730; 87040; 87077; 87086; 87186; 93005; 93306; 93458; 94640; 94660; 94760; 99285

== ENCOUNTER 2016-08-20 15:33 | Inpatient (IN) | payer MEDICARE, OTHER ==
[2016-08-20] MEDS ORDERED: SODIUM CHLORIDE 0.9% 1,000 ML IV STA (16:16)
[2016-08-20] MEDS ORDERED: RX INFO: IV CONTRAST WAS GIVEN 1 EACH MISC MISCELLANE PRN (16:17)
--- NOTE | 2016-08-20 16:23 | ED ---
Recheck HPI - General Chief Complaint: Recheck/Abnormal Lab/Rx Stated Complaint: abnormal lab levels Time Seen by Provider: 08/20/16 16:03 Source: EMS, RN notes reviewed Mode of arrival: EMS - History of Present Illness Initial Comments: 76-year-old male presents to the emergency department with a chief complaint of abdominal pain. Patient states that today he started to experiencing abdominal discomfort feeling bloated. Patient states overnight that his glucose was running low so they fed him different things that seem to upset his belly. Patient has no other complaints at this time. He states his belly pain has since resolved. Patient denies any chest pain or shortness of breath. Patient has no other complaints.on further chart review and history this. Patient was sent in for abnormal labs. Patient continues to have no complaints however. Patient denies any recent fever, chills, shortness of breath, chest pain, back pain, nausea vomiting, numbness or tingling, dysuria or hematuria, constipation or diarrhea, headaches or visual changes, or any other current symptoms. - Related Data Home Medications Medication Instructions Recorded Confirmed Ascorbic Acid [Vitamin C] 500 mg PO DAILY@1900 08/05/16 08/20/16 Captopril [Capoten] 6.25 mg PO TID@0800,1200,1700 08/05/16 08/20/16 Gabapentin [Neurontin] 800 mg PO BID@0800,1700 08/05/16 08/20/16 Hydrophilic Cream [Kerodex 71 1 applic TOPICAL DAILY PRN 08/05/16 08/20/16 Cream] Isosorbide Mononitrate ER [Imdur] 60 mg PO DAILY@0800 08/05/16 08/20/16 Levothyroxine Sodium [Synthroid] 125 mcg PO DAILY@0600 08/05/16 08/20/16 Metoprolol Tartrate [Lopressor] 25 mg PO BID@0800,1700 08/05/16 08/20/16 Multivitamins, Thera [Multivitamin] 1 tab PO DAILY@1700 08/05/16 08/20/16 Terazosin [Hytrin] 4 mg PO HS@2100 08/05/16 08/20/16 amLODIPine [Norvasc] 10 mg PO DAILY@0800 08/05/16 08/20/16 hydrALAZINE HCL [Apresoline] 50 mg PO TID@0800,1200,1700 08/05/16 08/20/16 traZODone HCL 50 mg PO HS@209908/05/16 08/20/16 Aspirin 81 mg PO DAILY@17008/20/16 08/20/16 Atorvastatin [Lipitor] 40 mg PO HS@209908/20/16 08/20/16 Bisacodyl [Dulcolax] 10 mg RECTAL DAILY PRN 08/20/16 08/20/16 Clopidogrel [Plavix] 75 mg PO DAILY@0808/20/16 08/20/16 INSULIN LISPRO (HumaLOG) [humaLOG] See Protocol SQ ACHS 08/20/16 08/20/16 Insulin Detemir [Levemir] 18 unit SQ HS@209908/20/16 08/20/16 Ipratropium-Albuterol Nebulize 3 ml INHALATION RT-Q4H PRN 08/20/16 08/20/16 [Duoneb 0.5 mg-3 mg/3 ml Soln] Ipratropium-Albuterol Nebulize 3 ml INHALATION RT-TID 08/20/16 08/20/16 [Duoneb 0.5 mg-3 mg/3 ml Soln] Levofloxacin [Levaquin] 250 mg PO HS@209908/20/16 08/20/16 Magnesium Hydroxide [Milk of 2,400 mg PO DAILY PRN 08/20/16 08/20/16 Magnesia] Na Phos,M-B/Na Phos,Di-Ba [Fleet 133 ml RECTAL ONCE PRN 08/20/16 08/20/16 Adult] Pantoprazole [Protonix] 40 mg PO DAILY@0608/20/16 08/20/16 Saxagliptin HCl [Onglyza] 2.5 mg PO DAILY@0808/20/16 08/20/16 glipiZIDE [Glucotrol] 5 mg PO DAILY@0808/20/16 08/20/16 Previous Rx's Medication Instructions Recorded ALPRAZolam [Xanax] 0.25 mg PO Q6HR PRN #20 tab 08/17/16 Nitroglycerin Sl Tabs [Nitrostat] 0.4 mg SUBLINGUAL Q5M PRN #0 tab 08/17/16 Allergies Allergy/AdvReac Type Severity Reaction Status Date / Time No Known Allergies Allergy Verified 08/20/16 16:12 Review of Systems ROS Statement: Those systems with pertinent positive or pertinent negative responses have been documented in the HPI. ROS Other: All systems not noted in ROS Statement are negative. Past Medical History Past Medical History: Heart Failure, CVA/TIA, Diabetes Mellitus, Hearing Disorder / Deafness, Hyperlipidemia, Hypertension, Myocardial Infarction ([place]), Pneumonia, Prostate Disorder, Renal Disease, Thyroid Disorder Additional Past Medical History / Comment(s): Pt had recent admission to [facility] with rhabdomylosis/dehydration and acute on chronic renal insult. 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 Benign prostatic hypertrophy, hypothyroidism, diabetes mellitus, mild aortic stenosis and moderate pulmonary hypertension based on a previous echocardiogram with an ejection fraction of 45%, lower extremity wound with infections with stenotrophomonas and Enterococcus faecalis Last Myocardial Infarction Date:: 1978 History of Any Multi-Drug Resistant Organisms: None Reported Past Surgical History: Tonsillectomy Additional Past Surgical History / Comment(s): lt great toe amp(gangrene per pt) , noam cataract sx with lenses. 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 currently lives at [facility] assisted living in [place], gets up with a cane. 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 He served in the [employer]. He lives with his niece. He is ambulatory with a seated walker. He has [facility]. A nurse comes twice a week and so does PT. He has not driven in yrs. Smoking Status: Former smoker Past Alcohol Use History: None Reported Additional Past Alcohol Use History / Comment(s): smoked x 30 years quit >30 years ago, in past "2-cases of beer /day quit 24 years ago.denies any drug use. Past Drug Use History: None Reported - Past Family History Father Family Medical History: Cancer, Diabetes Mellitus Additional Family Medical History / Comment(s): bone cancer. in his 60's Mother Family Medical History: Diabetes Mellitus Additional Family Medical History / Comment(s): at age 89 General Exam - General Exam Comments Initial Comments: General: The patient is awake and alert, in no distress, and does not appear acutely ill. Eye: Pupils are equal, round and reactive to light, extra-ocular movements are intact; there is normal conjunctiva bilaterally. No signs of icterus. Ears, nose, mouth and throat: There are moist mucous membranes and no oral lesions. Neck: The neck is supple, there is no tenderness. Cardiovascular: There is a regular rate and rhythm. No murmur, rub or gallop is appreciated. Respiratory: Lungs are clear to auscultation, respirations are non-labored, breath sounds are equal. No wheezes, stridor, rales, or rhonchi. Gastrointestinal: Soft, distended, non-tender abdomen without masses or organomegaly noted. There is no rebound or guarding present. No CVA tenderness. Bowel sounds are unremarkable. Back: There is no tenderness to palpation in the midline. There is no obvious deformity. No rashes noted. Musculoskeletal: Normal ROM, no tenderness, There is no pedal edema. There is no calf tenderness or swelling. Sensation intact. Pulses equal bilaterally 2+. Neurological: CN II-XII intact, There are no obvious motor or sensory deficits. Coordination appears grossly intact. Speech is normal. Skin: Skin is warm and dry and no rashes or lesions are noted. Psychiatric: Cooperative, appropriate mood & affect, normal judgment. Course Vital Signs 08/20/16 08/20/16 08/20/16 15:40 16:55 17:18 Temperature 97.7 F 97.0 F L Pulse Rate 53 L 50 L 49 L Respiratory 16 16 Rate Blood Pressure 169/99 84/44 O2 Sat by Pulse 95 97 Oximetry 08/20/16 08/20/16 08/20/16 17:30 17:43 18:53 Temperature 97.0 F L 97.0 F L Pulse Rate 48 L 53 L 60 Respiratory 18 18 Rate Blood Pressure 96/53 92/54 O2 Sat by Pulse 100 96 Oximetry - Reevaluation(s) Reevaluation #1: 08/20/16 17:13 Patient's EKG is reviewed that is showing some flattening of the T waves. At this time we did start calcium, albuterol treatments, insulin and dextrose for the patient. Patient is on personnel monitor. We will continue to monitor. We are currently still pending patient's lab results. Lab results from earlier today due to an elevated potassium as well as elevated kidney function. Medical Decision Making - Medical Decision Making 76-year-old male presents to the emergency department chief complaint of what appears to have normal labs. Patient's abdomen is soft nontender on exam. At this time patient was found to have EKG changes of hyperkalemia which labs were reviewed later that day showed elevated potassium of 7.7 as well as an elevated creatinine of 5 compared to around 1.9. At this time appropriate medications were given to the patient. Repeat EKG was reviewed. The does show an improvement to the patient's QT duration patient continues to have no complaints in the room. Chest x-ray showing a pleural effusion. At this time patient does appear to be in acute on chronic kidney failure he does also appear to be in CHF he also has hyperkalemia with EKG changes he also does appear to have anemia. He also does have a mildly elevated troponin which is most likely related to the kidney function when reviewing repeat troponins from the past and we'll trend out. The patient also spit out elevated phosphorus which should improve. At this time we did discuss the patient that he will need dialysis to correct the electrolyte abnormalities. We did call and consult neurology regarding the case Dr. bradshaw he wanted to have a bicarbonate will order another ampule on her 40 of Lasix IV and when the potassium came back he wanted repeat call to determine if the patient did need dialysis tonight or not. We will the patient Rocephin for the UTI. Dr. Hernandez was also discussed the case with as well. At this time we did consult ICU, surgery, nephrology regarding the patient's care. Miranda was contacted from the [facility] service. At this time she states that she would like nephrology contacted regarding continued care. The patient is in agreement with the plan. - Lab Data Result diagrams: 08/20/16 16:50 08/20/16 16:50 Lab Results 08/20/16 08/20/16 08/20/16 Range/Units 16:50 16:50 16:50 WBC 8.8 (3.8-10.6) k/uL RBC 2.70 L (4.30-5.90) m/uL Hgb 8.0 L (13.0-17.5) gm/dL Hct 25.6 L (39.0-53.0) % MCV 94.8 (80.0-100.0) fL MCH 29.6 (25.0-35.0) pg MCHC 31.2 (31.0-37.0) g/dL RDW 14.9 (11.5-15.5) % Plt Count 314 (150-450) k/uL Neutrophils % 91 % Lymphocytes % 4 % Monocytes % 4 % Eosinophils % 1 % Basophils % 0 % Neutrophils # 8.0 H (1.3-7.7) k/uL Lymphocytes # 0.3 L (1.0-4.8) k/uL Monocytes # 0.4 (0-1.0) k/uL Eosinophils # 0.1 (0-0.7) k/uL Basophils # 0.0 (0-0.2) k/uL Hypochromasia Slight PT (9.0-12.0) sec INR (<1.1) APTT (22.0-30.0) sec Sodium 132 L (137-145) mmol/L Potassium 7.7 H* (3.5-5.1) mmol/L Chloride 98 (98-107) mmol/L Carbon Dioxide 21 L (22-30) mmol/L Anion Gap 13 mmol/L BUN 100 H* (9-20) mg/dL Creatinine 5.41 H* (0.66-1.25) mg/dL Est GFR (MDRD) Af Amer 13 (>60 ml/min/1.73 sqM) Est GFR (MDRD) Non-Af 10 (>60 ml/min/1.73 sqM) Glucose 264 H (74-99) mg/dL POC Glucose (mg/dL) (75-99) mg/dL POC Glu Message Broker Developer ID Plasma Lactic Acid Blake (0.7-2.0) mmol/L Calcium 7.6 L (8.4-10.2) mg/dL Phosphorus 8.7 H* (2.5-4.5) mg/dL Magnesium 2.4 H (1.6-2.3) mg/dL Total Bilirubin 0.4 (0.2-1.3) mg/dL AST 40 (17-59) U/L ALT 79 H (21-72) U/L Alkaline Phosphatase 75 (38-126) U/L Total Creatine Kinase 67 (55-170) U/L CK-MB (CK-2) 3.0 H* (0.0-2.4) ng/mL CK-MB (CK-2) Rel Index 4.5 Troponin I 0.089 H* (0.000-0.034) ng/mL NT-Pro-B Natriuret Pep pg/mL Total Protein 5.2 L (6.3-8.2) g/dL Albumin 2.6 L (3.5-5.0) g/dL Urine Color Urine Appearance (Clear) Urine pH (5.0-8.0) Ur Specific [place] (1.001-1.035) Urine Protein (Negative) Urine Glucose (UA) (Negative) Urine Ketones (Negative) Urine Blood (Negative) Urine Nitrate (Negative) Urine Bilirubin (Negative) Urine Urobilinogen (<2.0) mg/dL Ur Leukocyte Esterase (Negative) Urine RBC (0-5) /hpf Urine WBC (0-5) /hpf Ur Squamous Epith Cells (0-4) /hpf Urine Bacteria (None) /hpf Urine Mucus (None) /hpf 08/20/16 08/20/16 08/20/16 Range/Units 16:50 16:50 16:50 WBC (3.8-10.6) k/uL RBC (4.30-5.90) m/uL Hgb (13.0-17.5) gm/dL Hct (39.0-53.0) % MCV (80.0-100.0) fL MCH (25.0-35.0) pg MCHC (31.0-37.0) g/dL RDW (11.5-15.5) % Plt Count (150-450) k/uL Neutrophils % % Lymphocytes % % Monocytes % % Eosinophils % % Basophils % % Neutrophils # (1.3-7.7) k/uL Lymphocytes # (1.0-4.8) k/uL Monocytes # (0-1.0) k/uL Eosinophils # (0-0.7) k/uL Basophils # (0-0.2) k/uL Hypochromasia PT 12.6 H (9.0-12.0) sec INR 1.3 (<1.1) APTT 27.5 (22.0-30.0) sec Sodium (137-145) mmol/L Potassium (3.5-5.1) mmol/L Chloride (98-107) mmol/L Carbon Dioxide (22-30) mmol/L Anion Gap mmol/L BUN (9-20) mg/dL Creatinine (0.66-1.25) mg/dL Est GFR (MDRD) Af Amer (>60 ml/min/1.73 sqM) Est GFR (MDRD) Non-Af (>60 ml/min/1.73 sqM) Glucose (74-99) mg/dL POC Glucose (mg/dL) (75-99) mg/dL POC Glu Message Broker Developer ID Plasma Lactic Acid Blake 1.0 (0.7-2.0) mmol/L Calcium (8.4-10.2) mg/dL Phosphorus (2.5-4.5) mg/dL Magnesium (1.6-2.3) mg/dL Total Bilirubin (0.2-1.3) mg/dL AST (17-59) U/L ALT (21-72) U/L Alkaline Phosphatase (38-126) U/L Total Creatine Kinase (55-170) U/L CK-MB (CK-2) (0.0-2.4) ng/mL CK-MB (CK-2) Rel Index Troponin I (0.000-0.034) ng/mL NT-Pro-B Natriuret Pep 92745 pg/mL Total Protein (6.3-8.2) g/dL Albumin (3.5-5.0) g/dL Urine Color Urine Appearance (Clear) Urine pH (5.0-8.0) Ur Specific [place] (1.001-1.035) Urine Protein (Negative) Urine Glucose (UA) (Negative) Urine Ketones (Negative) Urine Blood (Negative) Urine Nitrate (Negative) Urine Bilirubin (Negative) Urine Urobilinogen (<2.0) mg/dL Ur Leukocyte Esterase (Negative) Urine RBC (0-5) /hpf Urine WBC (0-5) /hpf Ur Squamous Epith Cells (0-4) /hpf Urine Bacteria (None) /hpf Urine Mucus (None) /hpf 08/20/16 08/20/16 Range/Units 16:50 17:00 WBC (3.8-10.6) k/uL RBC (4.30-5.90) m/uL Hgb (13.0-17.5) gm/dL Hct (39.0-53.0) % MCV (80.0-100.0) fL MCH (25.0-35.0) pg MCHC (31.0-37.0) g/dL RDW (11.5-15.5) % Plt Count (150-450) k/uL Neutrophils % % Lymphocytes % % Monocytes % % Eosinophils % % Basophils % % Neutrophils # (1.3-7.7) k/uL Lymphocytes # (1.0-4.8) k/uL Monocytes # (0-1.0) k/uL Eosinophils # (0-0.7) k/uL Basophils # (0-0.2) k/uL Hypochromasia PT (9.0-12.0) sec INR (<1.1) APTT (22.0-30.0) sec Sodium (137-145) mmol/L Potassium (3.5-5.1) mmol/L Chloride (98-107) mmol/L Carbon Dioxide (22-30) mmol/L Anion Gap mmol/L BUN (9-20) mg/dL Creatinine (0.66-1.25) mg/dL Est GFR (MDRD) Af Amer (>60 ml/min/1.73 sqM) Est GFR (MDRD) Non-Af (>60 ml/min/1.73 sqM) Glucose (74-99) mg/dL POC Glucose (mg/dL) 280 H (75-99) mg/dL POC Glu Message Broker Developer ID Ena Sainz Plasma Lactic Acid Blake (0.7-2.0) mmol/L Calcium (8.4-10.2) mg/dL Phosphorus (2.5-4.5) mg/dL Magnesium (1.6-2.3) mg/dL Total Bilirubin (0.2-1.3) mg/dL AST (17-59) U/L ALT (21-72) U/L Alkaline Phosphatase (38-126) U/L Total Creatine Kinase (55-170) U/L CK-MB (CK-2) (0.0-2.4) ng/mL CK-MB (CK-2) Rel Index Troponin I (0.000-0.034) ng/mL NT-Pro-B Natriuret Pep pg/mL Total Protein (6.3-8.2) g/dL Albumin (3.5-5.0) g/dL Urine Color Yellow Urine Appearance Cloudy (Clear) Urine pH 5.0 (5.0-8.0) Ur Specific [place] 1.019 (1.001-1.035) Urine Protein 1+ H (Negative) Urine Glucose (UA) Negative (Negative) Urine Ketones Negative (Negative) Urine Blood Small H (Negative) Urine Nitrate Negative (Negative) Urine Bilirubin Negative (Negative) Urine Urobilinogen <2.0 (<2.0) mg/dL Ur Leukocyte Esterase Large H (Negative) Urine RBC 18 H (0-5) /hpf Urine WBC 24 H (0-5) /hpf Ur Squamous Epith Cells 1 (0-4) /hpf Urine Bacteria Rare H (None) /hpf Urine Mucus Rare H (None) /hpf 08/20/16 18:09 EKG shows sinus bradycardia. The chest. Responding of the T waves. Patient does not have any ST elevation noted. 08/20/16 19:17 Repeat EKG shows left axis deviation, ventricular rate 58 improvement to the QT of 470, no ST elevation Critical Care Time Critical Care Time: Yes Total Critical Care Time: 45 Disposition Clinical Impression: CHF exacerbation, UTI (urinary tract infection), Acute hyperkalemia, Acute on chronic kidney failure, High risk for readmission Disposition: ADMITTED IP TO THIS [facility] Condition: Critical Time of Disposition: 18:51 Decision Date: 08/20/16 Decision Time: 18:51
[2016-08-20 17:01] LABS: Glucose,Whole Blood 280 mg/dL (75-99)
[2016-08-20 17:07] LABS: Basophils % (A) 0 %; CH 30.5; CHCM 32.3; Eosinophils # (A) 0.1 k/uL (0-0.7); Eosinophils % (A) 1 %; HCT 25.6 % (39.0-53.0); HDW 3.01; Hypochromasia Slight; Luc # (Auto) 0.03; Luc % (Auto) 0; Lymphocytes # (A) 0.3 k/uL (1.0-4.8); Lymphocytes % (A) 4 %; MCH 29.6 pg (25.0-35.0); MCHC 31.2 g/dL (31.0-37.0); MCV 94.8 fL (80.0-100.0); Mean Platelet Volume 8.5; Monocytes # (A) 0.4 k/uL (0-1.0); Monocytes % (A) 4 %; Neutrophils % (A) 91 %; RDW 14.9 % (11.5-15.5); WBC 8.8 k/uL (3.8-10.6); WBC (Perox) 8.75
[2016-08-20] MEDS ORDERED: INSULIN REGULAR 100 UNIT/ML VIAL IV ONE ×2 (17:09→19:59)
[2016-08-20] MEDS ORDERED: DEXTROSE 50%-WATER 50 ML SYRINGE IVP STA ×2 (17:10→20:04)
[2016-08-20] MEDS ORDERED: CALCIUM CHLORIDE 100 MG/ML 10 ML SYRINGE IVP STA (17:10)
[2016-08-20] MEDS ORDERED: SODIUM POLYSTYRENE SULFONATE 15 GM/60 ML BOTTLE PO STA (17:11)
[2016-08-20] MEDS ORDERED: ALBUTEROL NEBULIZED 2.5 MG/3 ML INHALATION STA (17:11)
[2016-08-20 17:13] LABS: INR 1.3 (<1.1); Partial Thromboplastin Time 27.5 sec (22.0-30.0); Prothrombin Time 12.6 sec (9.0-12.0)
[2016-08-20 17:20] LABS: Calcium 7.6 mg/dL (8.4-10.2); Magnesium 2.4 mg/dL (1.6-2.3); Total Bilirubin 0.4 mg/dL (0.2-1.3); Total Protein 5.2 g/dL (6.3-8.2)
[2016-08-20 17:35] LABS: Potassium 7.7 mmol/L (3.5-5.1)
[2016-08-20 17:36] LABS: Phosphorous 8.7 mg/dL (2.5-4.5)
[2016-08-20] MEDS ORDERED: SODIUM BICARB 8.4% 50 ML SYR (1 MEQ/ML) IV STA ×3 (17:40→20:05)
[2016-08-20 17:51] LABS: Troponin I 0.089 ng/mL (0.000-0.034)
[2016-08-20 17:52] LABS: Appearance,Urine Cloudy (Clear); Bacteria,Urine Rare /hpf; Bilirubin,Urine Negative (Negative); Glucose,Urine (UA) Negative (Negative); Ketones,Urine Negative (Negative); Leukocyte Esterase,Urine Large (Negative); Mucus,Urine Rare /hpf; Nitrite,Urine Negative (Negative); Particle Count 15842; Protein,Urine 1+ (Negative); RBC,Urine 18 /hpf (0-5); Specific Gravity,Urine 1.019 (1.001-1.035); Squamous Epithelial Cell,Urine 1 /hpf (0-4); UA Billing (MACRO vs. MICRO) MICRO; Urobilinogen,Urine <2.0 mg/dL (<2.0); WBC,Urine 24 /hpf (0-5)
--- NOTE | 2016-08-20 18:29 | XR ---
EXAMINATION TYPE: XR chest 2V DATE OF EXAM: 08/20/2016 6:23 PM COMPARISON: NONE HISTORY: Cough and short of breath TECHNIQUE: Frontal and lateral views of the chest are obtained. FINDINGS: The heart is enlarged. There is pulmonary vascular congestion. There is blunting of costop hrenic angles. There are chest leads. IMPRESSION: Congestive heart failure with pleural effusions that is essentially new compared to last exam.
[2016-08-20] MEDS ORDERED: NALOXONE 0.4 MG/ML 1 ML VIAL IV PRN ×2 (18:51→19:22)
[2016-08-20] MEDS ORDERED: HYDROmorphone 1 MG/ML 1 ML SYRINGE IV PRN (19:22)
[2016-08-20] MEDS ORDERED: ONDANSETRON 4 MG/2 ML VIAL IVP PRN (19:22)
[2016-08-20] MEDS ORDERED: IPRATROPIUM-ALBUTEROL 3 ML NEB INHALATION PRN (19:23)
[2016-08-20] MEDS ORDERED: BISACODYL 10 MG SUPP RECTAL PRN (19:23)
[2016-08-20] MEDS ORDERED: ALPRAZolam 0.25 MG TAB PO PRN (19:23)
[2016-08-20] MEDS ORDERED: NA PHOS,M-B/NA PHOS,DI-BA 133 ML ENEMA RECTAL PRN (19:23)
[2016-08-20] MEDS ORDERED: NITROGLYCERIN SL TABS 0.4 MG TAB SUBLINGUAL PRN (19:23)
[2016-08-20] MEDS ORDERED: HYDROPHILIC CREAM 120 GM JAR TOPICAL PRN (19:23)
[2016-08-20] MEDS ORDERED: MAGNESIUM HYDROXIDE 2,400 MG/10 ML CUP PO PRN (19:23)
[2016-08-20] MEDS ORDERED: FUROSEMIDE 10 MG/ML 4 ML VIAL IV STA ×2 (19:24→19:58)
[2016-08-20 20:27] LABS: Glucose,Whole Blood 313 mg/dL (75-99)
[2016-08-20] MEDS: IPRATROPIUM-ALBUTEROL 3 ML NEB INHALATION SCH (21:03)
[2016-08-20] MEDS: traZODone HCL 50 MG TAB PO SCH (21:26)
[2016-08-20] MEDS: ATORVASTATIN 40 MG TAB PO SCH (21:26)
[2016-08-20] MEDS: TERAZOSIN 2 MG CAP PO SCH (21:26)
[2016-08-20] MEDS: LEVOFLOXACIN 250 MG TAB PO SCH (21:26)
[2016-08-20 23:24] LABS: Glucose,Whole Blood 324 mg/dL (75-99)
[2016-08-21] MEDS ORDERED: INSULIN REGULAR 100 UNIT/ML VIAL IV ONE (00:17)
[2016-08-21] MEDS ORDERED: DEXTROSE 50%-WATER 50 ML SYRINGE IVP STA (00:28)
[2016-08-21] MEDS ORDERED: SODIUM BICARB 8.4% 50 ML SYR (1 MEQ/ML) IV STA (00:29)
[2016-08-21] MEDS ORDERED: HEPARIN SODIUM 1,000 UNIT/ML VIAL ONE (01:30)
[2016-08-21] MEDS ORDERED: LIDOCAINE 1% INJ 10MG/ML (20 ML MDV) ONE (01:30)
--- NOTE | 2016-08-21 01:31 | P.GSCN ---
History of Present Illness History of present illness: 76-year-old white male, patient came to the abdominal pain in the emergency room has been admitted to intensive care unit patient has a history of acute chronic renal failure and hyperkalemia I was consulted for placement of urgent dialysis catheter Medical history history of TIA, history of congestive heart failure, history of hypertension, patient recently had a heart catheterization On examination patient was seen in its care unit neck is supple no bruit appreciated Chest examination chest is clear first and second sound normal Abdomen soft nontender Femorals are palpable bilateral Plan is placement of the dialysis catheter risk and complication discussed Past Medical History Past Medical History: Coronary Artery Disease (CAD), Heart Failure, CVA/TIA, Diabetes Mellitus, Hearing Disorder / Deafness, Hyperlipidemia, Hypertension, Myocardial Infarction ([place]), Pneumonia, Prostate Disorder, Renal Disease, Thyroid Disorder Additional Past Medical History / Comment(s): Was discharged from [facility] 07/2016 Cardiac stent placement x1. Was transferred to [facility] rehab with readmit 3 days later. Pt had admission to [facility] 11/20/15 with rhabdomylosis/ dehydration and acute on chronic renal insult. 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 Benign prostatic hypertrophy, hypothyroidism, diabetes mellitus, mild aortic stenosis and moderate pulmonary hypertension based on a previous echocardiogram with an ejection fraction of 45%, lower extremity wound with infections with stenotrophomonas and Enterococcus faecalis Last Myocardial Infarction Date:: 1978 History of Any Multi-Drug Resistant Organisms: None Reported Past Surgical History: Tonsillectomy Additional Past Surgical History / Comment(s): lt great toe amp(gangrene per pt) , noam cataract sx with lenses. 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 currently lives at [facility] assisted living in [place], gets up with a cane. 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 He served in the [employer]. He lives with his niece. He is ambulatory with a seated walker. He has [facility]. A nurse comes twice a week and so does PT. He has not driven in yrs. Smoking Status: Former smoker Past Alcohol Use History: None Reported Additional Past Alcohol Use History / Comment(s): smoked x 30 years quit >30 years ago, in past "2-cases of beer /day quit 24 years ago.denies any drug use. Past Drug Use History: None Reported - Past Family History Father Family Medical History: Cancer, Diabetes Mellitus Additional Family Medical History / Comment(s): bone cancer. in his 60's Mother Family Medical History: Diabetes Mellitus Additional Family Medical History / Comment(s): at age 89 Medications and Allergies Home Medications Medication Instructions Recorded Confirmed Type Ascorbic Acid [Vitamin C] 500 mg PO DAILY@1900 08/05/16 08/20/16 History Captopril [Capoten] 6.25 mg PO TID@0800,1200,1700 08/05/16 08/20/16 History Gabapentin [Neurontin] 800 mg PO BID@0800,1700 08/05/16 08/20/16 History Hydrophilic Cream [Kerodex 71 1 applic TOPICAL DAILY PRN 08/05/16 08/20/16 History Cream] Isosorbide Mononitrate ER [Imdur] 60 mg PO DAILY@0800 08/05/16 08/20/16 History Levothyroxine Sodium [Synthroid] 125 mcg PO DAILY@0600 08/05/16 08/20/16 History Metoprolol Tartrate [Lopressor] 25 mg PO BID@0800,1700 08/05/16 08/20/16 History Multivitamins, Thera [Multivitamin] 1 tab PO DAILY@1700 08/05/16 08/20/16 History Terazosin [Hytrin] 4 mg PO HS@2100 08/05/16 08/20/16 History amLODIPine [Norvasc] 10 mg PO DAILY@0800 08/05/16 08/20/16 History hydrALAZINE HCL [Apresoline] 50 mg PO TID@0800,1200,1700 08/05/16 08/20/16 History traZODone HCL 50 mg PO HS@209908/05/16 08/20/16 History Aspirin 81 mg PO DAILY@1700 08/20/16 08/20/16 History Atorvastatin [Lipitor] 40 mg PO HS@209908/20/16 08/20/16 History Bisacodyl [Dulcolax] 10 mg RECTAL DAILY PRN 08/20/16 08/20/16 History Clopidogrel [Plavix] 75 mg PO DAILY@0808/20/16 08/20/16 History INSULIN LISPRO (HumaLOG) [humaLOG] See Protocol SQ ACHS 08/20/16 08/20/16 History Insulin Detemir [Levemir] 18 unit SQ HS@209908/20/16 08/20/16 History Ipratropium-Albuterol Nebulize 3 ml INHALATION RT-Q4H PRN 08/20/16 08/20/16 History [Duoneb 0.5 mg-3 mg/3 ml Soln] Ipratropium-Albuterol Nebulize 3 ml INHALATION RT-TID 08/20/16 08/20/16 History [Duoneb 0.5 mg-3 mg/3 ml Soln] Levofloxacin [Levaquin] 250 mg PO HS@209908/20/16 08/20/16 History Magnesium Hydroxide [Milk of 2,400 mg PO DAILY PRN 08/20/16 08/20/16 History Magnesia] Na Phos,M-B/Na Phos,Di-Ba [Fleet 133 ml RECTAL ONCE PRN 08/20/16 08/20/16 History Adult] Pantoprazole [Protonix] 40 mg PO DAILY@0608/20/16 08/20/16 History Saxagliptin HCl [Onglyza] 2.5 mg PO DAILY@0800 08/20/16 08/20/16 History glipiZIDE [Glucotrol] 5 mg PO DAILY@0808/20/16 08/20/16 History Allergies Allergy/AdvReac Type Severity Reaction Status Date / Time No Known Allergies Allergy Verified 08/20/16 16:12 Surgical - Exam Vital Signs Temp Pulse Resp BP Pulse Ox 97.7 F 53 L 16 169/99 95 08/20/16 15:40 08/20/16 15:40 08/20/16 15:40 08/20/16 15:40 08/20/16 15:40 Results - Labs 08/20/16 16:50 08/20/16 23:19 Abnormal Lab Results - Last 24 Hours (Table) 08/20/16 08/20/16 08/20/16 Range/Units 19:00 20:25 23:19 Potassium 6.7 H* 6.9 H* (3.5-5.1) mmol/L POC Glucose (mg/dL) 313 H (75-99) mg/dL Troponin I (0.000-0.034) ng/mL 08/20/16 08/20/16 Range/Units 23:19 23:22 Potassium (3.5-5.1) mmol/L POC Glucose (mg/dL) 324 H (75-99) mg/dL Troponin I 0.093 H* (0.000-0.034) ng/mL Diabetes panel 08/20/16 08/20/16 Range/Units 19:00 23:19 Potassium 6.7 H* 6.9 H* (3.5-5.1) mmol/L Pituitary panel 08/20/16 08/20/16 Range/Units 19:00 23:19 Potassium 6.7 H* 6.9 H* (3.5-5.1) mmol/L Adrenal panel 08/20/16 08/20/16 Range/Units 19:00 23:19 Potassium 6.7 H* 6.9 H* (3.5-5.1) mmol/L
--- NOTE | 2016-08-21 01:34 | P.PCN ---
Description of Procedure: Procedure note patient. Diagnoses is acute chronic failure Placement of a dialysis catheter right femoral approach right groin were prepped and draped for vaginal manner 1% lidocaine were infiltrated the groin area perched and introducer right femoral vein micropuncture guidewire passed and 4-Beninese dilator advanced THE guidewire after that we placed a regular guidewire and dilator were Some the Top Then Replaced a 20 Same Dialysis Catheter. The Guidewire Free Flow Noted Flushed with Heparin Saline and Hep-Lock Secured with 3-0 Nylon Dressing Applied Patient Tolerated the Procedure Well
[2016-08-21] MEDS ORDERED: NALOXONE 0.4 MG/ML 1 ML VIAL IV PRN (01:58)
[2016-08-21 05:07] LABS: Basophils % (A) 0 %; CHCM 31.9; Eosinophils # (A) 0.1 k/uL (0-0.7); Eosinophils % (A) 1 %; HCT 24.6 % (39.0-53.0); HDW 3.01; HGB 7.9 gm/dL (13.0-17.5); Hypochromasia Slight; Luc # (Auto) 0.05; Luc % (Auto) 1; Lymphocytes # (A) 0.3 k/uL (1.0-4.8); Lymphocytes % (A) 4 %; MCH 30.4 pg (25.0-35.0); MCHC 32.1 g/dL (31.0-37.0); MCV 94.7 fL (80.0-100.0); Mean Platelet Volume 7.8; Monocytes # (A) 0.6 k/uL (0-1.0); Monocytes % (A) 6 %; Neutrophils # (A) 8.1 k/uL (1.3-7.7); Neutrophils % (A) 89 %; RDW 14.7 % (11.5-15.5); WBC 9.2 k/uL (3.8-10.6); WBC (Perox) 9.65
[2016-08-21 05:18] LABS: Magnesium 2.2 mg/dL (1.6-2.3); Potassium 4.8 mmol/L (3.5-5.1); Total Bilirubin 0.4 mg/dL (0.2-1.3); Total Protein 5.2 g/dL (6.3-8.2)
[2016-08-21 05:24] LABS: INR 1.3 (<1.1); Partial Thromboplastin Time 26.3 sec (22.0-30.0); Prothrombin Time 12.7 sec (9.0-12.0)
[2016-08-21 05:25] LABS: Glucose,Whole Blood 239 mg/dL (75-99)
[2016-08-21] MEDS ORDERED: PANTOPRAZOLE 40 MG TABLET PO SCH (06:00)
[2016-08-21] MEDS: LEVOTHYROXINE 125 MCG TAB PO SCH (06:12)
--- NOTE | 2016-08-21 07:30 | XR ---
EXAMINATION TYPE: XR chest 1V DATE OF EXAM: 08/21/2016 6:31 AM COMPARISON: Cough HISTORY: 08/20/2016 TECHNIQUE: Single frontal view of the chest is obtained. FINDINGS: Diffuse bilateral airspace disease noted. Heart is enlarged. Prominence the right paratrac heal region. Arthropathy shoulders. Tiny bilateral effusions. IMPRESSION: 1. Diffuse bilateral airspace disease is stable correlate for pulmonary edema versus diffuse pneumoni a.
[2016-08-21 07:38] LABS: Glucose,Whole Blood 211 mg/dL (75-99)
[2016-08-21] MEDS ORDERED: CAPTOPRIL 12.5 MG TAB PO SCH (08:00)
[2016-08-21] MEDS: GABAPENTIN 400 MG CAP PO SCH ×2 (08:38→16:56)
[2016-08-21] MEDS: CLOPIDOGREL 75 MG TAB PO SCH (08:38)
[2016-08-21] MEDS: LINAGLIPTIN 5 MG TABLET PO SCH (08:39)
[2016-08-21] MEDS: PANTOPRAZOLE 40 MG/10 ML VIAL IV SCH (08:40)
[2016-08-21] MEDS: IPRATROPIUM-ALBUTEROL 3 ML NEB INHALATION SCH ×3 (09:15→21:37)
--- NOTE | 2016-08-21 10:44 | P.NPCON ---
History of Present Illness - Reason for Consult acute renal failure - History of Present Illness Reason for consultation: Acute kidney injury Patient is a 76-year-old male seen in renal consultation for acute kidney injury on chronic kidney disease. Patient has chronic kidney disease stage III secondary to diabetic kidney disease with baseline creatinine near 1.6. Patient was discharged from the hospital earlier this week. At that time he presented with non-ST elevated myocardial infarction and underwent cardiac catheterization on August 16 with a stent placed to the RCA. He does have ejection fraction of 30-35% with aortic stenosis. His creatinine during this admission was 5.4 and he was hyperkalemic with a potassium level of 7.7. This was medically treated multiple times with IV sodium bicarbonate, Kayexalate, IV insulin with no significant response. He underwent urgent hemodialysis last night. Potassium this morning is 4.8. His chest x-ray suggestive of CHF. About 1 L of fluid was removed with dialysis last night. He is currently resting in bed. Denies any chest pain or shortness of breath. His urine output is about 10-15 mL an hour. No vomiting or diarrhea. Vital signs are stable. General: The patient appeared well nourished and normally developed. HEENT: Head exam is unremarkable. Neck is without jugular venous distension. LUNGS: Lungs are clear to auscultation and percussion. Breath sounds decreased. HEART: Rate and Rhythm are regular. First and second heart sounds normal. No murmurs, rubs or gallops. ABDOMEN: Abdominal exam reveals normal bowel sounds. Non-tender and non- distended. No evidence of peritonitis. EXTREMITITES: No clubbing, cyanosis, or edema. Past Medical History Past Medical History: Coronary Artery Disease (CAD), Heart Failure, CVA/TIA, Diabetes Mellitus, Hearing Disorder / Deafness, Hyperlipidemia, Hypertension, Myocardial Infarction ([place]), Pneumonia, Prostate Disorder, Renal Disease, Thyroid Disorder Additional Past Medical History / Comment(s): Was discharged from [facility] 07/2016 Cardiac stent placement x1. Was transferred to [facility] rehab with readmit 3 days later. Pt had admission to [facility] 11/20/15 with rhabdomylosis/ dehydration and acute on chronic renal insult. 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 Benign prostatic hypertrophy, hypothyroidism, diabetes mellitus, mild aortic stenosis and moderate pulmonary hypertension based on a previous echocardiogram with an ejection fraction of 45%, lower extremity wound with infections with stenotrophomonas and Enterococcus faecalis Last Myocardial Infarction Date:: 1978 History of Any Multi-Drug Resistant Organisms: None Reported Past Surgical History: Tonsillectomy Additional Past Surgical History / Comment(s): lt great toe amp(gangrene per pt) , noam cataract sx with lenses. 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 currently lives at [facility] in [place], gets up with a cane. 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 He served in the [employer] He lives with his niece. He is ambulatory with a seated walker. He has [facility]. A nurse comes twice a week and so does PT. He has not driven in yrs. Smoking Status: Former smoker Past Alcohol Use History: None Reported Additional Past Alcohol Use History / Comment(s): smoked x 30 years quit >30 years ago, in past "2-cases of beer /day quit 24 years ago.denies any drug use. Past Drug Use History: None Reported - Past Family History Father Family Medical History: Cancer, Diabetes Mellitus Additional Family Medical History / Comment(s): bone cancer. in his 60's Mother Family Medical History: Diabetes Mellitus Additional Family Medical History / Comment(s): at age 89 Medications and Allergies Home Medications Medication Instructions Recorded Confirmed Type Ascorbic Acid [Vitamin C] 500 mg PO DAILY@1900 08/05/16 08/20/16 History Captopril [Capoten] 6.25 mg PO TID@0800,1200,1700 08/05/16 08/20/16 History Gabapentin [Neurontin] 800 mg PO BID@0800,1700 08/05/1617 History Hydrophilic Cream [Kerodex 71 1 applic TOPICAL DAILY PRN 08/05/16 08/20/16 History Cream] Isosorbide Mononitrate ER [Imdur] 60 mg PO DAILY@0800 08/05/16 08/20/16 History Levothyroxine Sodium [Synthroid] 125 mcg PO DAILY@0600 08/05/16 08/20/16 History Metoprolol Tartrate [Lopressor] 25 mg PO BID@0800,1700 08/05/16 08/20/16 History Multivitamins, Thera [Multivitamin] 1 tab PO DAILY@169908/05/16 08/20/16 History Terazosin [Hytrin] 4 mg PO HS@209908/05/16 08/20/16 History amLODIPine [Norvasc] 10 mg PO DAILY@0800 08/05/16 08/20/16 History hydrALAZINE HCL [Apresoline] 50 mg PO TID@0800,1200,1700 08/05/16 08/20/16 History traZODone HCL 50 mg PO HS@209908/05/16 08/20/16 History Aspirin 81 mg PO DAILY@169908/20/16 08/20/16 History Atorvastatin [Lipitor] 40 mg PO HS@209908/20/16 08/20/16 History Bisacodyl [Dulcolax] 10 mg RECTAL DAILY PRN 08/20/16 08/20/16 History Clopidogrel [Plavix] 75 mg PO DAILY@0800 08/20/16 08/20/16 History INSULIN LISPRO (HumaLOG) [humaLOG] See Protocol SQ ACHS 08/20/16 08/20/16 History Insulin Detemir [Levemir] 18 unit SQ HS@209908/20/16 08/20/16 History Ipratropium-Albuterol Nebulize 3 ml INHALATION RT-Q4H PRN 08/20/16 08/20/16 History [Duoneb 0.5 mg-3 mg/3 ml Soln] Ipratropium-Albuterol Nebulize 3 ml INHALATION RT-TID 08/20/16 08/20/16 History [Duoneb 0.5 mg-3 mg/3 ml Soln] Levofloxacin [Levaquin] 250 mg PO HS@2100 08/20/16 08/20/16 History Magnesium Hydroxide [Milk of 2,400 mg PO DAILY PRN 08/20/16 08/20/16 History Magnesia] Na Phos,M-B/Na Phos,Di-Ba [Fleet 133 ml RECTAL ONCE PRN 08/20/16 08/20/16 History Adult] Pantoprazole [Protonix] 40 mg PO DAILY@0600 08/20/16 08/20/16 History Saxagliptin HCl [Onglyza] 2.5 mg PO DAILY@0800 08/20/16 08/20/16 History glipiZIDE [Glucotrol] 5 mg PO DAILY@0800 08/20/16 08/20/16 History Allergies Allergy/AdvReac Type Severity Reaction Status Date / Time No Known Allergies Allergy Verified 08/20/16 16:12 Physical Exam Vitals: Vital Signs Temp Pulse Resp BP Pulse Ox 08/21/16 09:29 76 97 08/21/16 09:15 81 08/21/16 08:00 97.7 F 80 11 L 98/55 98 08/21/16 07:00 82 15 105/59 96 08/21/16 06:00 79 10 L 105/60 97 08/21/16 05:30 82 19 106/58 96 08/21/16 05:00 84 20 101/57 95 08/21/16 04:30 97.9 F 83 12 109/60 97 08/21/16 04:00 83 18 103/65 97 08/21/16 03:30 81 15 88/53 97 08/21/16 03:00 83 23 100/59 97 08/21/16 02:30 58 L 16 92/53 97 08/21/16 02:00 57 L 13 94/51 97 08/21/16 01:30 97.9 F 59 L 21 87/51 96 08/21/16 01:15 59 L 14 90/48 95 08/21/16 01:00 58 L 18 94 L 08/21/16 00:45 57 L 17 95 08/21/16 00:30 58 L 13 90/48 96 08/21/16 00:15 57 L 11 L 96 08/21/16 00:00 58 L 18 88/53 95 08/20/16 23:45 58 L 14 95 08/20/16 23:30 57 L 10 L 92/49 96 08/20/16 23:26 58 L 7 L 91/48 95 08/20/16 23:15 59 L 14 97 08/20/16 23:00 57 L 7 L 91/48 97 08/20/16 22:45 60 10 L 96 08/20/16 22:30 59 L 8 L 99/53 98 08/20/16 22:15 60 13 98 08/20/16 22:00 59 L 15 100/54 97 08/20/16 21:45 60 15 95 08/20/16 21:40 59 L 11 L 100/49 96 08/20/16 21:30 58 L 22 100/49 95 08/20/16 21:20 57 L 15 87/49 98 08/20/16 21:11 54 L 08/20/16 21:10 53 L 17 100 08/20/16 21:06 54 L 08/20/16 21:00 52 L 26 H 87/49 97 08/20/16 20:50 55 L 16 95 08/20/16 20:40 53 L 13 93 L 08/20/16 20:30 97 F L 55 L 15 90/50 92 L 08/20/16 20:26 57 L 16 110/58 93 L 08/20/16 19:45 97 F L 13 08/20/16 19:28 55 L 18 95/50 98 Intake and Output 08/20/16 08/21/16 08/21/16 22:59 06:59 14:59 Intake Total 230 100 Output Total 95 89 20 Balance 135 11 -20 Intake: IV 150 100 D50 50 50 Sodium Bicarbonate 100 50 Intake, IV Titration 80 Amount Sodium Chloride 0.9% 1, 30 000 ml @ 999 mls/hr IV . Q1H1M STA Rx#:[id number] cefTRIAXone 1,000 mg In 50 Sodium Chloride 0.9% 50 ml @ 100 mls/hr IVPB ONCE STA Rx#:[id number] Output: Urine 95 89 20 Other: Voiding Method Indwelling Catheter Indwelling Catheter Indwelling Catheter Weight 95.7 kg 96 kg 96 kg Patient Weight 08/22/16 06:59 Weight 96 kg Results - Lab Results Most recent lab results Calcium 8.0 mg/dL (8.4-10.2) L 08/21/16 04:36 Phosphorus 5.0 mg/dL (2.5-4.5) H 08/21/16 04:36 Magnesium 2.2 mg/dL (1.6-2.3) 08/21/16 04:36 08/21/16 04:36 08/21/16 04:36 Assessment and Plan Plan: Assessment: #1. Acute kidney injury secondary to ATN secondary to hemodynamic instability and cardiorenal syndrome. Creatinine elevated at 5.4 this admission. Status post one treatment of hemodialysis on August 21. #2. Hyperkalemia secondary to acute kidney injury. Resolved postdialysis. #3. Systolic CHF with ejection fraction of 30-35% with aortic stenosis. #4. Coronary artery disease status post stent to the RCA on 08/16/2016. #5. Chronic kidney disease stage III secondary to diabetic kidney disease with baseline creatinine near 1.6. #6. Anemia. Rule out iron deficiency. Plan: Maintain Rothman catheter. Strict I's and O's. Avoid nephrotoxic agents and hypotensive episodes. Discontinue Fleet enemas. Encourage oral intake. Check iron studies. Continue to assess on a day-to-day basis for the need for renal replacement therapy. Thank you for the consultation. I will continue to follow the patient with you during his hospital stay.
--- NOTE | 2016-08-21 11:18 | P.CNPUL ---
History of Present Illness Consult date: 08/21/16 Requesting physician: Raji Campos Reason for consult: other (Critical care management) Chief complaint: Abdominal pain, bloating distention History of present illness: This is a very pleasant 76-year-old gentleman who follows with Dr. Singh as his primary care physician. He has a history of congestive heart failure, CVA/ TIA, diabetes mellitus, hearing disorder, hyperlipidemia, hypertension, benign prostatic hypertrophy, chronic renal insufficiency, hypothyroidism. He also has a history of coronary artery disease and was recently discharged from here after suffering a non-ST segment elevation myocardial infarction with subsequent stenting of the distal right coronary artery. He does have ischemic cardiomyopathy with estimated ejection fraction of 30 at 35% along with aortic stenosis. He was discharged on 08/17/2016. He was then [facility] recovering for inpatient rehabilitation. He had developed increasing abdominal discomfort, fullness and distention yesterday. He presented here for the same. He was found to have acute renal failure with an INR of 5.41 his baseline is a proximal a 2.0. He was also quite hyperkalemic with an show potassium of 7.7 and following several cocktails was only maintained at 6.9. He had subsequently undergone urgent hemodialysis with 900 mL of fluid removed and his current potassium is 4.8 with an INR of 3.00. He is also anemic current hemoglobin 7.9. ProBNP greater than 50,000. Troponin 0.093 , 0.087. Nephrology has been consulted as well. They feel the patient has acute kidney injury secondary to acute tubular necrosis secondary to hemodynamic instability and cardiorenal syndrome. He is seen today in consultation in the intensive care unit. He is presently awake and alert in no acute distress. He states his abdominal discomfort is improved and it is less distended and softer. His chest x-ray does reveal diffuse bilateral airspace disease with fluid volume overload and suspected pulmonary edema versus pneumonia. He has been afebrile and no leukocytosis. He is maintaining good O2 saturations in the upper 90s on 2 L/m per nasal cannula. He's been hemodynamically stable. Review of Systems 14 point review of system was conducted. All negative other than as mentioned in the HPI. Past Medical History Past Medical History: Coronary Artery Disease (CAD), Heart Failure, CVA/TIA, Diabetes Mellitus, Hearing Disorder / Deafness, Hyperlipidemia, Hypertension, Myocardial Infarction ([place]), Pneumonia, Prostate Disorder, Renal Disease, Thyroid Disorder Additional Past Medical History / Comment(s): Was discharged from [facility] 07/2016 Cardiac stent placement x1. Was transferred to [facility] rehab with readmit 3 days later. Pt had admission to [facility] 11/20/15 with rhabdomylosis/ dehydration and acute on chronic renal insult. 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 Benign prostatic hypertrophy, hypothyroidism, diabetes mellitus, mild aortic stenosis and moderate pulmonary hypertension based on a previous echocardiogram with an ejection fraction of 45%, lower extremity wound with infections with stenotrophomonas and Enterococcus faecalis Last Myocardial Infarction Date:: 1978 History of Any Multi-Drug Resistant Organisms: None Reported Past Surgical History: Tonsillectomy Additional Past Surgical History / Comment(s): lt great toe amp(gangrene per pt) , noam cataract sx with lenses. 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 currently lives at [facility] in [place], gets up with a cane. 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 He served in the [employer]. He lives with his niece. He is ambulatory with a seated walker. He has [facility]. A nurse comes twice a week and so does PT. He has not driven in yrs. Smoking Status: Former smoker Past Alcohol Use History: None Reported Additional Past Alcohol Use History / Comment(s): smoked x 30 years quit >30 years ago, in past "2-cases of beer /day quit 24 years ago.denies any drug use. Past Drug Use History: None Reported - Past Family History Father Family Medical History: Cancer, Diabetes Mellitus Additional Family Medical History / Comment(s): bone cancer. in his 60's Mother Family Medical History: Diabetes Mellitus Additional Family Medical History / Comment(s): at age 89 Medications and Allergies Home Medications Medication Instructions Recorded Confirmed Type Ascorbic Acid [Vitamin C] 500 mg PO DAILY@1900 08/05/16 08/20/16 History Captopril [Capoten] 6.25 mg PO TID@0800,1200,1700 08/05/16 08/20/16 History Gabapentin [Neurontin] 800 mg PO BID@0800,1700 08/05/16 08/20/16 History Hydrophilic Cream [Kerodex 71 1 applic TOPICAL DAILY PRN 08/05/16 08/20/16 History Cream] Isosorbide Mononitrate ER [Imdur] 60 mg PO DAILY@0800 08/05/16 08/20/16 History Levothyroxine Sodium [Synthroid] 125 mcg PO DAILY@0600 08/05/16 08/20/16 History Metoprolol Tartrate [Lopressor] 25 mg PO BID@0800,1700 08/05/16 08/20/16 History Multivitamins, Thera [Multivitamin] 1 tab PO DAILY@1700 08/05/16 08/20/16 History Terazosin [Hytrin] 4 mg PO HS@209908/05/16 08/20/16 History amLODIPine [Norvasc] 10 mg PO DAILY@0800 08/05/16 08/20/16 History hydrALAZINE HCL [Apresoline] 50 mg PO TID@0800,1200,1700 08/05/16 08/20/16 History traZODone HCL 50 mg PO HS@209908/05/16 08/20/16 History Aspirin 81 mg PO DAILY@1700 08/20/16 08/20/16 History Atorvastatin [Lipitor] 40 mg PO HS@209908/20/16 08/20/16 History Bisacodyl [Dulcolax] 10 mg RECTAL DAILY PRN 08/20/16 08/20/16 History Clopidogrel [Plavix] 75 mg PO DAILY@0800 08/20/16 08/20/16 History INSULIN LISPRO (HumaLOG) [humaLOG] See Protocol SQ ACHS 08/20/16 08/20/16 History Insulin Detemir [Levemir] 18 unit SQ HS@2100 08/20/16 08/20/16 History Ipratropium-Albuterol Nebulize 3 ml INHALATION RT-Q4H PRN 08/20/16 08/20/16 History [Duoneb 0.5 mg-3 mg/3 ml Soln] Ipratropium-Albuterol Nebulize 3 ml INHALATION RT-TID 08/20/16 08/20/16 History [Duoneb 0.5 mg-3 mg/3 ml Soln] Levofloxacin [Levaquin] 250 mg PO HS@2100 08/20/16 08/20/16 History Magnesium Hydroxide [Milk of 2,400 mg PO DAILY PRN 08/20/16 08/20/16 History Magnesia] Na Phos,M-B/Na Phos,Di-Ba [Fleet 133 ml RECTAL ONCE PRN 08/20/16 08/20/16 History Adult] Pantoprazole [Protonix] 40 mg PO DAILY@0600 08/20/16 08/20/16 History Saxagliptin HCl [Onglyza] 2.5 mg PO DAILY@0800 08/20/16 08/20/16 History glipiZIDE [Glucotrol] 5 mg PO DAILY@0800 08/20/16 08/20/16 History Allergies Allergy/AdvReac Type Severity Reaction Status Date / Time No Known Allergies Allergy Verified 08/20/16 16:12 Physical Exam Vitals: Vital Signs Temp Pulse Resp BP Pulse Ox 08/21/16 09:29 76 97 08/21/16 09:15 81 08/21/16 08:00 97.7 F 80 11 L 98/55 98 08/21/16 07:00 82 15 105/59 96 08/21/16 06:00 79 10 L 105/60 97 08/21/16 05:30 82 19 106/58 96 08/21/16 05:00 84 20 101/57 95 08/21/16 04:30 97.9 F 83 12 109/60 97 08/21/16 04:00 83 18 103/65 97 08/21/16 03:30 81 15 88/53 97 08/21/16 03:00 83 23 100/59 97 08/21/16 02:30 58 L 16 92/53 97 08/21/16 02:00 57 L 13 94/51 97 08/21/16 01:30 97.9 F 59 L 21 87/51 96 08/21/16 01:15 59 L 14 90/48 95 08/21/16 01:00 58 L 18 94 L 08/21/16 00:45 57 L 17 95 08/21/16 00:30 58 L 13 90/48 96 08/21/16 00:15 57 L 11 L 96 08/21/16 00:00 58 L 18 88/53 95 08/20/16 23:45 58 L 14 95 08/20/16 23:30 57 L 10 L 92/49 96 08/20/16 23:26 58 L 7 L 91/48 95 08/20/16 23:15 59 L 14 97 08/20/16 23:00 57 L 7 L 91/48 97 08/20/16 22:45 60 10 L 96 08/20/16 22:30 59 L 8 L 99/53 98 08/20/16 22:15 60 13 98 08/20/16 22:00 59 L 15 100/54 97 08/20/16 21:45 60 15 95 08/20/16 21:40 59 L 11 L 100/49 96 08/20/16 21:30 58 L 22 100/49 95 08/20/16 21:20 57 L 15 87/49 98 08/20/16 21:11 54 L 08/20/16 21:10 53 L 17 100 08/20/16 21:06 54 L 08/20/16 21:00 52 L 26 H 87/49 97 08/20/16 20:50 55 L 16 95 08/20/16 20:40 53 L 13 93 L 08/20/16 20:30 97 F L 55 L 15 90/50 92 L 08/20/16 20:26 57 L 16 110/58 93 L 08/20/16 19:45 97 F L 13 08/20/16 19:28 55 L 18 95/50 98 Intake and Output 08/20/16 08/21/16 08/21/16 22:59 06:59 14:59 Intake Total 230 100 Output Total 95 89 20 Balance 135 11 -20 Intake: IV 150 100 D50 50 50 Sodium Bicarbonate 100 50 Intake, IV Titration 80 Amount Sodium Chloride 0.9% 1, 30 000 ml @ 999 mls/hr IV . Q1H1M STA Rx#:[id number] cefTRIAXone 1,000 mg In 50 Sodium Chloride 0.9% 50 ml @ 100 mls/hr IVPB ONCE STA Rx#:[id number] Output: Urine 95 89 20 Other: Voiding Method Indwelling Catheter Indwelling Catheter Indwelling Catheter Weight 95.7 kg 96 kg 96 kg Patient Weight 08/22/16 06:59 Weight 96 kg GENERAL EXAM: Alert, comfortable in no apparent distress. HEAD: Normocephalic. EYES: Normal reaction of pupils, equal size. NOSE: Clear with pink turbinates. THROAT: No erythema or exudates. NECK: No masses, no JVD. CHEST: No chest wall deformity. LUNGS: Equal air entry with bibasilar crackles CVS: S1 and S2 normal with an audible murmur, regular rhythm. ABDOMEN: Slightly distended, soft. Bowel sounds present. Extremities: There is no significant peripheral edema. No clubbing, no cyanosis. Peripheral pulses are intact. Results - Laboratory Findings CBC and BMP: 08/21/16 04:36 08/21/16 04:36 PT/INR, D-dimer PT 12.7 sec (9.0-12.0) H 08/21/16 04:36 INR 1.3 (<1.1) 08/21/16 04:36 Abnormal lab findings: Abnormal Labs 08/20/16 08/20/16 08/20/16 19:00 20:25 23:19 RBC Hgb Hct Neutrophils # Lymphocytes # PT Potassium 6.7 H* 6.9 H* BUN Creatinine Glucose POC Glucose (mg/dL) 313 H Calcium Phosphorus Troponin I Total Protein Albumin 08/20/16 08/20/16 08/21/16 23:19 23:22 04:36 RBC Hgb Hct Neutrophils # Lymphocytes # PT Potassium BUN Creatinine Glucose POC Glucose (mg/dL) 324 H Calcium Phosphorus Troponin I 0.093 H* 0.087 H* Total Protein Albumin 08/21/16 08/21/16 08/21/16 04:36 04:36 04:36 RBC 2.60 L Hgb 7.9 L Hct 24.6 L Neutrophils # 8.1 H Lymphocytes # 0.3 L PT 12.7 H Potassium BUN 48 H Creatinine 3.00 H Glucose 193 H POC Glucose (mg/dL) Calcium 8.0 L Phosphorus 5.0 H Troponin I Total Protein 5.2 L Albumin 2.6 L 08/21/16 08/21/16 05:22 07:24 RBC Hgb Hct Neutrophils # Lymphocytes # PT Potassium BUN Creatinine Glucose POC Glucose (mg/dL) 239 H 211 H Calcium Phosphorus Troponin I Total Protein Albumin - Diagnostic Findings Chest x-ray: image reviewed Assessment and Plan Plan: Impression: #1 Acute on chronic renal failure secondary to acute tubular necrosis secondary to suspected hemodynamic instability. He did require urgent hemodialysis, 900 mL's removed. #2 Acute hyperkalemia, improved current potassium 4.8. #3 Acute on chronic anemia secondary to chronic renal failure, current hemoglobin 7.9. #4 Coronary artery disease with recent non-ST segment elevation myocardial infarction and subsequent stenting to the distal right coronary artery. #5 Acute on chronic systolic congestive heart failure with estimated ejection fraction 30-35%. #6 Mild aortic stenosis with moderate degree of pulmonary hypertension. #7 Hypertension. #8 Hypothyroidism. #9 Diabetes mellitus. #10 Diabetic peripheral neuropathy. #11 History of CVA with some left-sided residual weakness, chronic. #12 Benign prosthetic hypertrophy. #13 Peripheral vascular disease, with history of gangrenous toes that had been resected. Previous infection of stenotrophomonas and enterococcus.. #14 Paroxysmal atrial fibrillation. Plan: The patient was seen and evaluated by Dr. Hernandez. His chest x-ray and labs were reviewed. We'll continue with bronchodilators and antibiotics in the form of Levaquin. He is stable from the pulmonary and critical care standpoint. He could be transferred out of the intensive care unit today. Again, nephrology is on the case and are planning day to day evaluations regarding renal replacement therapy, currently planning on dialysis tomorrow. We will continue to follow make further recommendations based on his clinical status. Time with Patient: Greater than 30
[2016-08-21 12:29] LABS: % Iron Saturation 19.3 % (20-50)
--- NOTE | 2016-08-21 12:45 | HP ---
DATE OF ADMISSION: CHIEF COMPLAINT: Abdominal pain. HISTORY OF PRESENT ILLNESS: Mr. Lees is a 76-year-old male with a past medical history of congestive heart failure, EF of 30% to 35%, CVA/TIA, diabetes mellitus, hearing disorder, hypertension, BPH, chronic renal insufficiency, hypothyroidism, hyperlipidemia, coming into the hospital with a chief complaint of diffuse abdominal pain. The patient states that he was in his general state of health, but started to have abdominal pain at [facility] and so he is sent in for further evaluation. The patient has a recent hospitalization for NSTEMI status post stenting of the distal right coronary artery and was discharged on 08/17/2016. He was sent to [facility] for inpatient rehab. When the patient came into the ED, he was having hyperkalemia with acute renal failure. The patient did receive several cocktails for his hyperkalemia but did not respond and his potassium was still at 69. Then the decision was made to do urgent hemodialysis and 900 mL of fluid was removed and his potassium trended down to 4.8 and his creatinine also trended down. Currently, the patient is in the ICU being monitored. He does not have any complaints. He is awake and alert, states his abdominal discomfort has improved. He does complain of some mild difficulty in breathing, but denies having any chest pain. No nausea or vomiting. Hemodynamically he is stable. REVIEW OF SYSTEMS: REGISTERED RADIOLOGIC TECHNOLOGIST: Denies having any headaches, blurring of vision. ENT: No ear discharge or ear aches. No nasal congestion. CARDIAC: No chest pain or palpitations. RESPIRATORY: Mild difficulty in breathing. No cough. GI: As per HPI. : No dysuria or hematuria. HEMATOLOGICAL: No history of easy bruising or recurrent infections. PSYCHIATRIC: Does not have any anxiety or depression. ENDOCRINE: History of diabetes mellitus and hypothyroidism . All 13 review of systems are done and negative except for ones mentioned in the HPI. Past medical history is significant for congestive heart failure, systolic EF of 30% to 35%, coronary artery disease, status post stenting, CVA/TIA, diabetes mellitus, hyperlipidemia, hypertension, pneumonia, benign prostatic hypertrophy, chronic renal insufficiency and hypothyroidism. SURGICAL HISTORY: Cardiac stenting and hiatal hernia repair and tonsillectomy. ALLERGIES: No known drug allergies. PATIENT'S HOME MEDICATIONS: 1. Isosorbide mononitrate 60 mg p.o. daily. 2. Trazodone 50 mg p.o. q.h.s. 3. Terazosin 2 mg capsule 2 pills p.o. q.h.s. 4. Metoprolol 25 mg p.o. b.i.d. 5. Levothyroxine 125 mcg p.o. daily. 6. Gabapentin 800 mg p.o. b.i.d. 7. Amlodipine 10 mg daily. 8. Multivitamin 1 tablet daily. 9. Hydralazine 50 mg 3 times a day. 10. Catapres 12.5 mg p.o. t.i.d. 11. Ascorbic acid 500 mg p.o. daily. 12. Nitroglycerin 0.4 mg sublingual q.5 minutes p.r.n. for chest pain. 13. Xanax 0.25 mg p.o. q.6 hours p.r.n. for anxiety. 14. Dulcolax 10 mg rectal daily p.r.n. for constipation. 15. Glipizide 5 mg p.o. daily. 16. Magnesium oxide 2400 mg p.o. daily. 17. Saxagliptin 2.5 mg p.o. daily. 18. Aspirin 81 mg p.o. daily. 19. Lipitor 40 mg p.o. q.h.s. 20. Plavix 75 mg p.o. daily. 21. Insulin sliding scale. 22. Albuterol inhalation. 23. Levofloxacin 250 mg p.o. q.h.s. 24. Pantoprazole 40 mg p.o. daily. FAMILY HISTORY: Positive for hypertension, diabetes mellitus and cancer in his father and positive for diabetes mellitus in his mother. SOCIAL HISTORY: He is a former smoker. Occasional alcohol. He quit smoking 30 years back. PHYSICAL EXAMINATION: VITAL SIGNS: At the time of admission, the patient's blood pressure was 169/99, heart rate of 53, respiratory rate is 16 temperature 97.7, saturating at 95% on 2 L of nasal cannula. GENERAL EXAMINATION: The patient appears to be in no acute distress, comfortably lying in the ICU bed. HEAD: Atraumatic, normocephalic. EYES: Pupils round and reactive to light. ENT: No nasal congestion. ( ) hypertrophy. NECK: No JVD. No thyromegaly. CARDIAC: S1, S2 heard. LUNGS: Positive for bilateral crackles in the lower lobes. CARDIAC: S1, S2 heard. No additional sounds. ABDOMEN: Soft, slightly distended, soft and nontender. Bowel sounds are positive. EXTREMITIES: No edema. No clubbing. No cyanosis. The patient has Permacath in the right groin where he got dialysis. The patient's labs: White count of 9.2, hemoglobin is 7.9, platelets of 329. Potassium at the time of admission was 7.7 and currently it is 4.8. Creatinine at the time of admission 5.41 and currently 3. Troponin 0.093 and 0.087. Sodium 132. ASSESSMENT AND PLAN: 1. Acute on chronic kidney injury most likely secondary to acute tubular necrosis or can be secondary to variation in his blood pressure as he was recently started on a few blood pressure medications for his recent history of non-ST elevation myocardial infarction. 2. Chronic kidney insufficiency with creatinine around 2, stage III. 3. Systolic congestive heart failure with ejection fraction of 30% to 35%. 4. Mild aortic stenosis. 5. Hyperkalemia. 6. Hyperphosphatemia. 7. Coronary artery disease, status post stenting of the right coronary artery. 8. Anemia, most likely secondary to chronic kidney disease. 9. History of cerebrovascular accident with left-sided residual weakness. 10. Diabetic peripheral neuropathy. 11. Hypothyroidism. 12. Hypertension. 13. Mild aortic stenosis with moderate degree of pulmonary hypertension. 14. Peripheral vascular disease with history of gangrene of toe that has been resected. 15. Paroxysmal atrial fibrillation. PLAN: The patient did receive one session of dialysis after which his potassium and creatinine did trend down. Will continue with the rest of his medication regimen. Nephrology and Pulmonology on board. Further recommendations to follow depending on the progress of the patient. Currently he will be transferred out of the ICU and we will be following the patient closely. NIRAV
[2016-08-21] MEDS: hydrALAZINE HCL 50 MG TAB PO SCH ×3 (13:11→16:53)
[2016-08-21] MEDS: ISOSORBIDE MONONITRATE ER 60 MG TAB.ER.24H PO SCH (13:11)
[2016-08-21] MEDS: amLODIPine 10 MG TAB PO SCH (13:11)
[2016-08-21] MEDS: METOPROLOL TARTRATE 25 MG TAB PO SCH ×2 (13:12→16:54)
[2016-08-21] MEDS: ASPIRIN 81 MG CHEW PO SCH (16:56)
[2016-08-21] MEDS: ASCORBIC ACID 500 MG TAB PO SCH (16:56)
[2016-08-21 17:19] LABS: Glucose,Whole Blood 195 mg/dL (75-99)
[2016-08-21 21:45] LABS: Glucose,Whole Blood 194 mg/dL (75-99)
[2016-08-21] MEDS: LEVOFLOXACIN 250 MG TAB PO SCH (21:53)
[2016-08-21] MEDS: traZODone HCL 50 MG TAB PO SCH (21:53)
[2016-08-21] MEDS: TERAZOSIN 2 MG CAP PO SCH (21:53)
[2016-08-21] MEDS: ATORVASTATIN 40 MG TAB PO SCH (21:53)
[2016-08-22] MEDS: LEVOTHYROXINE 125 MCG TAB PO SCH (06:18)
--- NOTE | 2016-08-22 07:48 | XR ---
EXAMINATION TYPE: XR chest 1V DATE OF EXAM: 08/22/2016 7:38 AM COMPARISON: 08/21/2016 HISTORY: Cough TECHNIQUE: Single frontal view of the chest is obtained. FINDINGS: Diffuse bilateral airspace disease noted. Heart is enlarged. Prominence the right paratrac heal region. Arthropathy shoulders. Tiny bilateral effusions. IMPRESSION: 1. Diffuse bilateral airspace disease is stable correlate for pulmonary edema versus diffuse pneumoni a.
[2016-08-22 07:55] LABS: Glucose,Whole Blood 135 mg/dL (75-99)
[2016-08-22] MEDS: IPRATROPIUM-ALBUTEROL 3 ML NEB INHALATION SCH ×3 (08:37→20:36)
[2016-08-22] MEDS: amLODIPine 10 MG TAB PO SCH (08:44)
[2016-08-22] MEDS: hydrALAZINE HCL 50 MG TAB PO SCH ×3 (08:44→17:42)
[2016-08-22] MEDS: ISOSORBIDE MONONITRATE ER 60 MG TAB.ER.24H PO SCH (08:44)
[2016-08-22] MEDS: METOPROLOL TARTRATE 25 MG TAB PO SCH ×3 (08:45→19:07)
[2016-08-22] MEDS: CLOPIDOGREL 75 MG TAB PO SCH (08:49)
[2016-08-22] MEDS: GABAPENTIN 400 MG CAP PO SCH ×2 (08:49→17:42)
[2016-08-22] MEDS: PANTOPRAZOLE 40 MG/10 ML VIAL IV SCH (08:49)
[2016-08-22] MEDS: LINAGLIPTIN 5 MG TABLET PO SCH (08:50)
[2016-08-22 09:01] LABS: Basophils % (A) 0 %; CH 29.9; CHCM 31.1; Eosinophils # (A) 0.2 k/uL (0-0.7); Eosinophils % (A) 3 %; HCT 26.5 % (39.0-53.0); HDW 3.02; HGB 8.3 gm/dL (13.0-17.5); Hypochromasia Moderate; Luc # (Auto) 0.06; Luc % (Auto) 1; Lymphocytes # (A) 0.5 k/uL (1.0-4.8); Lymphocytes % (A) 5 %; MCH 30.2 pg (25.0-35.0); MCHC 31.2 g/dL (31.0-37.0); MCV 96.9 fL (80.0-100.0); Mean Platelet Volume 8.5; Monocytes # (A) 0.5 k/uL (0-1.0); Monocytes % (A) 5 %; Neutrophils # (A) 8.1 k/uL (1.3-7.7); Neutrophils % (A) 87 %; RBC 2.74 m/uL (4.30-5.90); RDW 14.9 % (11.5-15.5); WBC 9.4 k/uL (3.8-10.6); WBC (Perox) 9.55
[2016-08-22 09:14] LABS: Calcium 7.6 mg/dL (8.4-10.2); INR 1.3 (<1.1); Magnesium 2.2 mg/dL (1.6-2.3); Partial Thromboplastin Time 26.5 sec (22.0-30.0); Prothrombin Time 12.6 sec (9.0-12.0); Total Bilirubin 0.4 mg/dL (0.2-1.3); Total Protein 5.3 g/dL (6.3-8.2)
[2016-08-22 09:29] LABS: Phosphorous 8.6 mg/dL (2.5-4.5); Potassium 6.4 mmol/L (3.5-5.1)
[2016-08-22] MEDS ORDERED: FUROSEMIDE 10 MG/ML 10 ML VIAL IV STA (10:42)
[2016-08-22] MEDS ORDERED: DEXTROSE 50%-WATER 50 ML SYRINGE IVP STA (10:42)
[2016-08-22] MEDS ORDERED: INSULIN REGULAR 100 UNIT/ML VIAL IV STA (10:43)
--- NOTE | 2016-08-22 11:03 | P.PN ---
Subjective Principal diagnosis: Patient is seen in follow-up for acute kidney injury. Vision has chronic kidney disease stage III secondary to diabetic kidney disease with baseline creatinine near 1.6. Creatinine was 5.4 at the time of admission and potassium was 7.7. He did undergo one treatment of hemodialysis late Tuesday night. Potassium this morning is 5.4 and creatinine is up to 5.2. He is oliguric. Currently resting in bed. Denies chest chest pain or shortness of breath. Appetite is fair. He does have history of systolic CHF with ejection fraction of 30-35% with aortic stenosis. He had a stent placed to the RCA on August 16. Vital signs are stable. General: The patient appeared well nourished and normally developed. HEENT: Head exam is unremarkable. Neck is without jugular venous distension. LUNGS: Lungs are clear to auscultation and percussion. Breath sounds decreased. HEART: Rate and Rhythm are regular. First and second heart sounds normal. No murmurs, rubs or gallops. ABDOMEN: Abdominal exam reveals normal bowel sounds. Non-tender and non- distended. No evidence of peritonitis. EXTREMITITES: No clubbing, cyanosis, or edema. Objective - Vital Signs Vital signs: Vital Signs Temp 97.4 F L 08/22/16 07:00 Pulse 84 08/22/16 08:52 Resp 18 08/22/16 07:00 BP 111/73 08/22/16 07:00 Pulse Ox 87 L 08/22/16 07:00 Intake & Output 08/21/16 08/22/16 08/22/16 18:59 06:59 18:59 Intake Total 200 Output Total 90 220 Balance -90 -20 Weight 96 kg Intake: Oral 200 Output: Urine 90 220 Other: Voiding Method Indwelling Catheter Indwelling Catheter # Voids 0 # Bowel Movements 0 - Labs CBC & Chem 7: 08/22/16 08:46 08/22/16 08:46 Labs: Abnormal Lab Results - Last 24 Hours (Table) 08/21/16 08/21/16 08/21/16 Range/Units 04:36 16:57 21:19 RBC (4.30-5.90) m/uL Hgb (13.0-17.5) gm/dL Hct (39.0-53.0) % Neutrophils # (1.3-7.7) k/uL Lymphocytes # (1.0-4.8) k/uL PT (9.0-12.0) sec Potassium (3.5-5.1) mmol/L BUN (9-20) mg/dL Creatinine (0.66-1.25) mg/dL Glucose (74-99) mg/dL POC Glucose (mg/dL) 195 H 194 H (75-99) mg/dL Calcium (8.4-10.2) mg/dL Phosphorus (2.5-4.5) mg/dL Iron 44 L (49-181) ug/dL TIBC 228 L (261-462) ug/dL % Saturation 19.3 L (20-50) % Total Protein (6.3-8.2) g/dL Albumin (3.5-5.0) g/dL 08/22/16 08/22/16 08/22/16 Range/Units 07:53 08:46 08:46 RBC 2.74 L (4.30-5.90) m/uL Hgb 8.3 L (13.0-17.5) gm/dL Hct 26.5 L (39.0-53.0) % Neutrophils # 8.1 H (1.3-7.7) k/uL Lymphocytes # 0.5 L (1.0-4.8) k/uL PT (9.0-12.0) sec Potassium 6.4 H* (3.5-5.1) mmol/L BUN 77 H (9-20) mg/dL Creatinine 5.20 H* (0.66-1.25) mg/dL Glucose 121 H (74-99) mg/dL POC Glucose (mg/dL) 135 H (75-99) mg/dL Calcium 7.6 L (8.4-10.2) mg/dL Phosphorus 8.6 H* (2.5-4.5) mg/dL Iron (49-181) ug/dL TIBC (261-462) ug/dL % Saturation (20-50) % Total Protein 5.3 L (6.3-8.2) g/dL Albumin 2.8 L (3.5-5.0) g/dL 08/22/16 Range/Units 08:46 RBC (4.30-5.90) m/uL Hgb (13.0-17.5) gm/dL Hct (39.0-53.0) % Neutrophils # (1.3-7.7) k/uL Lymphocytes # (1.0-4.8) k/uL PT 12.6 H (9.0-12.0) sec Potassium (3.5-5.1) mmol/L BUN (9-20) mg/dL Creatinine (0.66-1.25) mg/dL Glucose (74-99) mg/dL POC Glucose (mg/dL) (75-99) mg/dL Calcium (8.4-10.2) mg/dL Phosphorus (2.5-4.5) mg/dL Iron (49-181) ug/dL TIBC (261-462) ug/dL % Saturation (20-50) % Total Protein (6.3-8.2) g/dL Albumin (3.5-5.0) g/dL Microbiology - Last 24 Hours (Table) 08/21/16 02:15 Urine Culture - Preliminary Urine,Catheterized Assessment and Plan Plan: Assessment: #1. Acute kidney injury secondary to ATN secondary to hemodynamic instability and cardiorenal syndrome. Creatinine elevated at 5.4 this admission. Status post one treatment of hemodialysis on August 21. #2. Hyperkalemia secondary to acute kidney injury. potassium level 6.4 this morning. #3. Systolic CHF with ejection fraction of 30-35% with aortic stenosis. #4. Coronary artery disease status post stent to the RCA on 08/16/2016. #5. Chronic kidney disease stage III secondary to diabetic kidney disease with baseline creatinine near 1.6. #6. Anemia. Iron deficiency present. Plan: Maintain Rothman catheter. Strict I's and O's. Avoid nephrotoxic agents and hypotensive episodes. Discontinue Fleet enemas. Encourage oral intake. Ferrlecit 125 mg IV daily for 3 days. First dose today. Lasix 80 mg IV once now. 10 units of IV regular insulin with amp of D50 now. I will schedule him for hemodialysis treatment today. Continue to assess on a day-to-day basis for the need for renal replacement therapy.
[2016-08-22] MEDS: SODIUM FERRIC GLUCONAT-SUCROSE 125 MG in SODIUM CHLORIDE 0.9% 100 ML IVPB SCH (11:30)
[2016-08-22 12:04] LABS: Glucose,Whole Blood 200 mg/dL (75-99)
[2016-08-22] MEDS: SEVELAMER 800 MG TAB PO SCH ×2 (12:42→17:42)
[2016-08-22] MEDS ORDERED: HEPARIN SODIUM,PORCINE 5,000 UNIT/ML 1 ML VIAL ONE (16:43)
[2016-08-22 16:51] LABS: Glucose,Whole Blood 182 mg/dL (75-99)
[2016-08-22] MEDS: ASPIRIN 81 MG CHEW PO SCH (17:42)
--- NOTE | 2016-08-22 19:58 | PN ---
INTERVAL HISTORY: Mr. Lees is a 76-year-old male with a past medical history of congestive heart ejection fraction 30-35%, CVA/TIA, diabetes mellitus , seizures disorder, hypertension, benign prostatic hypertrophy, chronic renal insufficiency, admitted to the hospital with a chief complaint of diffuse abdominal pain. The patient had elevated creatinine and potassium of 7.7 and the time of admission but failed medical management so dialysis was initiated on Tuesday night. The patient had one run of dialysis after which his potassium and creatinine trended down. This morning his potassium creeped up and his creatinine has been elevated. Nephrology on board decided that he will get one more run of dialysis this afternoon. Today the patient is lying in his bed, states that he started to have bloating of his abdomen and has been passing gas. Denies having any difficulty in breathing, chest pain, nausea or vomiting. No dysuria or hematuria or burning sensation when he is peeing. He is making small amounts of urine. Patient's medications have been reviewed. He is on DuoNeb, breathing treatments, Xanax, Norvasc, aspirin, Lipitor, Dulcolax, Plavix, ( ) gluconate, gabapentin, hydralazine, Dilaudid, Imdur, Levofloxacin. Patient's vital signs temperature 97.4, heart rate between 90 to 100, respiratory rate 18, blood pressure 111/73, saturating at 97% on 2 liters of nasal cannula. GENERAL EXAMINATION: Patient appears to be no acute distress, comfortably lying in the bed. HEAD: Atraumatic. Normocephalic. EYES: Pupils round and reactive to light. ENT: No nasal congestion. ( ) hypertrophy. NECK: No JVD. CARDIOVASCULAR: S1, S2 heard. LUNGS: Positive for bilateral crackles in the lower lung bases and coarse breath sounds in all lung hunt. CARDIAC: S1, S2 heard. ABDOMEN: Soft distended, nontender. Bowel sounds are hypoactive. EXTREMITIES: Chronic venous insufficiency changes with hyperpigmentation bilaterally. Minimal edema. No cyanosis, no clubbing. Patient's labs: White count of 9.1, hemoglobin is 8.3, platelets of 282, sodium 139, potassium 6.4, chloride 101, bicarb 26, BUN 37, creatinine 5.20. Phosphorus is 8.6. ASSESSMENT AND PLAN: 1. Acute on chronic kidney injury most likely secondary to acute tubular necrosis due to variations in his blood pressure. 2. Acute congestive heart failure secondary to #1, systolic heart failure, ejection fraction of 30 to 35%. 3. Chronic kidney disease stage III. 4. Mild aortic stenosis. 5. Hyperkalemia. 6. Hyperphosphatemia. 7. Coronary artery disease, status post stenting of the right coronary artery. 8. Anemia. 9. Anemia of chronic kidney disease. 10. History of cerebrovascular accident/transient ischemic attack with left-sided residual weakness. 11. Diabetic peripheral neuropathy. 12. Hypothyroidism. 13. Hypertension. 14. Mild aortic stenosis with moderate degree of pulmonary hypertension. 15. Peripheral vascular disease with gangrene of the toe that has been ( ). 16. Paroxysmal atrial fibrillation. 17. Chronic venous changes of lower extremities. PLAN: Plan is to continue the patient on dialysis as per nephrology recommendations. Continue the rest of her medication regimen and continue with breathing treatments and levofloxacin and nephrology and pulmonary on board and following the patient. Further recommendations depending on the progress of the patient. Overall prognosis is guarded.
[2016-08-22] MEDS: LEVOFLOXACIN 250 MG TAB PO SCH (21:01)
[2016-08-22] MEDS: traZODone HCL 50 MG TAB PO SCH (21:01)
[2016-08-22] MEDS: ATORVASTATIN 40 MG TAB PO SCH (21:01)
[2016-08-22] MEDS: ASCORBIC ACID 500 MG TAB PO SCH (21:01)
[2016-08-22 21:35] LABS: Glucose,Whole Blood 158 mg/dL (75-99)
[2016-08-22] MEDS: TERAZOSIN 2 MG CAP PO SCH (22:15)
[2016-08-23] MEDS: LEVOTHYROXINE 125 MCG TAB PO SCH (06:42)
[2016-08-23] MEDS: IPRATROPIUM-ALBUTEROL 3 ML NEB INHALATION SCH ×3 (07:24→20:01)
[2016-08-23 07:32] LABS: Glucose,Whole Blood 127 mg/dL (75-99)
[2016-08-23] MEDS: SEVELAMER 800 MG TAB PO SCH ×3 (08:17→16:41)
[2016-08-23] MEDS: GABAPENTIN 400 MG CAP PO SCH ×2 (08:18→16:40)
[2016-08-23] MEDS: CLOPIDOGREL 75 MG TAB PO SCH (08:18)
[2016-08-23] MEDS: amLODIPine 10 MG TAB PO SCH (08:18)
[2016-08-23] MEDS: hydrALAZINE HCL 50 MG TAB PO SCH ×3 (08:20→16:41)
[2016-08-23] MEDS: METOPROLOL TARTRATE 25 MG TAB PO SCH ×2 (08:21→16:41)
[2016-08-23] MEDS: ISOSORBIDE MONONITRATE ER 60 MG TAB.ER.24H PO SCH (08:22)
[2016-08-23] MEDS: PANTOPRAZOLE 40 MG/10 ML VIAL IV SCH (08:22)
[2016-08-23] MEDS: LINAGLIPTIN 5 MG TABLET PO SCH (08:22)
[2016-08-23 09:20] LABS: Basophils % (A) 0 %; CH 30.1; CHCM 31.4; Eosinophils # (A) 0.2 k/uL (0-0.7); Eosinophils % (A) 3 %; HDW 3.09; HGB 8.4 gm/dL (13.0-17.5); Hypochromasia Moderate; Luc # (Auto) 0.07; Luc % (Auto) 1; Lymphocytes # (A) 0.4 k/uL (1.0-4.8); Lymphocytes % (A) 6 %; MCHC 31.2 g/dL (31.0-37.0); MCV 96.3 fL (80.0-100.0); Mean Platelet Volume 7.1; Monocytes # (A) 0.3 k/uL (0-1.0); Monocytes % (A) 5 %; Neutrophils % (A) 84 %; WBC 5.9 k/uL (3.8-10.6); WBC (Perox) 5.99
[2016-08-23 09:30] LABS: INR 1.3 (<1.1); Partial Thromboplastin Time 31.6 sec (22.0-30.0); Prothrombin Time 12.7 sec (9.0-12.0)
[2016-08-23 09:46] LABS: Calcium 7.3 mg/dL (8.4-10.2); Magnesium 2.1 mg/dL (1.6-2.3); Phosphorous 7.3 mg/dL (2.5-4.5); Potassium 5.5 mmol/L (3.5-5.1); Total Bilirubin 0.5 mg/dL (0.2-1.3); Total Protein 5.4 g/dL (6.3-8.2)
[2016-08-23] MEDS ORDERED: FUROSEMIDE 10 MG/ML 10 ML VIAL IV STA (10:59)
--- NOTE | 2016-08-23 10:59 | P.PN ---
Subjective Principal diagnosis: Patient is seen in follow-up for acute kidney injury. Patient has chronic kidney disease stage III secondary to diabetic kidney disease with baseline creatinine near 1.6. Creatinine was 5.4 at the time of admission and potassium was 7.7. He did undergo one treatment of hemodialysis late Tuesday night and Tuesday. Potassium this morning is 5.5. Urine output seems to have improved and is documented as over 1 L in the last 24 hours. Currently resting in bed. Denies chest chest pain or shortness of breath. Appetite is fair. He does have history of systolic CHF with ejection fraction of 30-35% with aortic stenosis. He had a stent placed to the RCA on August 16. Vital signs are stable. General: The patient appeared well nourished and normally developed. HEENT: Head exam is unremarkable. Neck is without jugular venous distension. LUNGS: Lungs are clear to auscultation and percussion. Breath sounds decreased. HEART: Rate and Rhythm are regular. First and second heart sounds normal. No murmurs, rubs or gallops. ABDOMEN: Abdominal exam reveals normal bowel sounds. Non-tender and non- distended. No evidence of peritonitis. EXTREMITITES: No clubbing, cyanosis, or edema. Objective - Vital Signs Vital signs: Vital Signs Temp 96.9 F L 08/23/16 07:00 Pulse 97 08/23/16 08:36 Resp 18 08/23/16 07:00 BP 114/61 08/23/16 08:36 Pulse Ox 96 08/23/16 07:27 Intake & Output 08/22/16 08/23/16 08/23/16 18:59 06:59 18:59 Output Total 625 425 Balance -625 -425 Output: Urine 625 425 Other: Voiding Method Indwelling Catheter Indwelling Catheter Indwelling Catheter - Labs CBC & Chem 7: 08/23/16 08:29 08/23/16 08:29 Labs: Abnormal Lab Results - Last 24 Hours (Table) 08/22/16 08/22/16 08/22/16 Range/Units 12:02 16:49 21:10 RBC (4.30-5.90) m/uL Hgb (13.0-17.5) gm/dL Hct (39.0-53.0) % Lymphocytes # (1.0-4.8) k/uL PT (9.0-12.0) sec APTT (22.0-30.0) sec Potassium (3.5-5.1) mmol/L BUN (9-20) mg/dL Creatinine (0.66-1.25) mg/dL Glucose (74-99) mg/dL POC Glucose (mg/dL) 200 H 182 H 158 H (75-99) mg/dL Calcium (8.4-10.2) mg/dL Phosphorus (2.5-4.5) mg/dL Total Protein (6.3-8.2) g/dL Albumin (3.5-5.0) g/dL 08/23/16 08/23/16 08/23/16 Range/Units 07:16 08:29 08:29 RBC 2.80 L (4.30-5.90) m/uL Hgb 8.4 L (13.0-17.5) gm/dL Hct 27.0 L (39.0-53.0) % Lymphocytes # 0.4 L (1.0-4.8) k/uL PT (9.0-12.0) sec APTT (22.0-30.0) sec Potassium 5.5 H (3.5-5.1) mmol/L BUN 58 H (9-20) mg/dL Creatinine 3.94 H (0.66-1.25) mg/dL Glucose 109 H (74-99) mg/dL POC Glucose (mg/dL) 127 H (75-99) mg/dL Calcium 7.3 L (8.4-10.2) mg/dL Phosphorus 7.3 H (2.5-4.5) mg/dL Total Protein 5.4 L (6.3-8.2) g/dL Albumin 2.7 L (3.5-5.0) g/dL 08/23/16 Range/Units 08:29 RBC (4.30-5.90) m/uL Hgb (13.0-17.5) gm/dL Hct (39.0-53.0) % Lymphocytes # (1.0-4.8) k/uL PT 12.7 H (9.0-12.0) sec APTT 31.6 H (22.0-30.0) sec Potassium (3.5-5.1) mmol/L BUN (9-20) mg/dL Creatinine (0.66-1.25) mg/dL Glucose (74-99) mg/dL POC Glucose (mg/dL) (75-99) mg/dL Calcium (8.4-10.2) mg/dL Phosphorus (2.5-4.5) mg/dL Total Protein (6.3-8.2) g/dL Albumin (3.5-5.0) g/dL Microbiology - Last 24 Hours (Table) 08/21/16 02:15 Urine Culture - Final Urine,Catheterized Assessment and Plan Plan: Assessment: #1. Acute kidney injury secondary to ATN secondary to hemodynamic instability and cardiorenal syndrome. Creatinine elevated at 5.4 this admission. Status post 2 treatments of hemodialysis on August 21. #2. Hyperkalemia secondary to acute kidney injury. potassium level 5.5 this morning. #3. Systolic CHF with ejection fraction of 30-35% with aortic stenosis. #4. Coronary artery disease status post stent to the RCA on 08/16/2016. #5. Chronic kidney disease stage III secondary to diabetic kidney disease with baseline creatinine near 1.6. #6. Anemia. Iron deficiency present. Plan: Maintain Rothman catheter. Strict I's and O's. Avoid nephrotoxic agents and hypotensive episodes. Discontinue Fleet enemas. Encourage oral intake. Ferrlecit 125 mg IV daily for 3 days. Second dose today. Lasix 80 mg IV once again today. I will schedule him for hemodialysis treatment today. Continue to assess on a day-to-day basis for the need for renal replacement therapy.
[2016-08-23] MEDS: SODIUM FERRIC GLUCONAT-SUCROSE 125 MG in SODIUM CHLORIDE 0.9% 100 ML IVPB SCH (11:23)
[2016-08-23 11:52] LABS: Glucose,Whole Blood 153 mg/dL (75-99)
[2016-08-23] MEDS: ASPIRIN 81 MG CHEW PO SCH (16:34)
[2016-08-23 17:13] LABS: Glucose,Whole Blood 146 mg/dL (75-99)
[2016-08-23] MEDS: ATORVASTATIN 40 MG TAB PO SCH (20:17)
[2016-08-23] MEDS: ASCORBIC ACID 500 MG TAB PO SCH (20:17)
[2016-08-23] MEDS: LEVOFLOXACIN 250 MG TAB PO SCH (20:18)
[2016-08-23] MEDS: TERAZOSIN 2 MG CAP PO SCH (22:00)
[2016-08-23 22:40] LABS: Glucose,Whole Blood 138 mg/dL (75-99)
[2016-08-23] MEDS ORDERED: HEPARIN SODIUM,PORCINE 5,000 UNIT/ML 1 ML VIAL ONE (23:59)
[2016-08-24] MEDS: traZODone HCL 50 MG TAB PO SCH ×2 (01:29→20:53)
--- NOTE | 2016-08-24 05:30 | PN ---
INTERVAL HISTORY: Mr. Lees is a 76-year-old male with a past medical history of CHF, EF of 30% to 35%, stroke, diabetes mellitus, seizure disorder, hypertension, BPH, chronic renal insufficiency admitted to the hospital with a chief complaint of diffuse abdominal pain. He was found to have an elevated creatinine and a potassium 7.7, but his creatinine and potassium persisted in spite of medical management. So patient was started on emergent dialysis on Tuesday night. After the dialysis, the patient's potassium and creatinine did trend down. Currently Nephrology and Pulmonary on board and following the patient. Today, the patient is lying in bed. He states his abdominal bloating is better. REVIEW OF SYSTEMS: CONSTITUTIONAL: Denies having any fevers, chills or rigors. RESPIRATORY: Mild difficulty in breathing. No cough. CARDIAC: No chest pain. No palpitations. GI: He feels better in terms of his bloating. No nausea, vomiting, or diarrhea. As per the nursing staff report, the patient had a couple of runs of friends V. tach. On reviewing the rhythm strip, the patient had 5 runs of V. tach and he was in atrial fibrillation for a few minutes. Patient's medications have been reviewed. ON EXAMINATION: PATIENT'S VITAL SIGNS: Temperature is 98.9, heart rate 100, respiratory rate 18, blood pressure 102/60, saturating at 95% on 4 L of nasal cannula. GENERAL EXAMINATION: Patient appears to be no acute distress lying comfortably in the bed. HEAD: Atraumatic, normocephalic. EYES: Pupils round and reactive to light. NECK: No JVD. CARDIOVASCULAR: S1 and S2 heard. RESPIRATORY: Mild crackles at the lower lung bases. Coarse breath sounds. ABDOMEN: Soft, distended, nontender. Bowel sounds are hypoactive. EXTREMITIES: Chronic venous insufficiency changes with hyperpigmentation bilaterally. Minimal edema. No cyanosis, no clubbing. White count 5.9, hemoglobin is 8.4, platelets of 297. Sodium 137, potassium 5.5, chloride 99, bicarb 25, BUN 58, creatinine 3.94. Phosphorus of 7.3 .Albumin is 2.7. ASSESSMENT AND PLAN: 1. Acute on chronic kidney injury most likely secondary to acute tubular necrosis due to variations in his blood pressure. 2. Acute congestive heart failure exacerbation secondary to #1, systolic heart failure. 3. Chronic kidney disease, stage III. 4. Mild aortic stenosis. 5. Hyperkalemia. 6. Hyperphosphatemia. 7. Coronary artery disease, status post stenting of coronary arteries done recently. 8. Anemia of chronic disease. 9. History of cerebrovascular accident/transient ischemic attack with left-sided residual weakness. 10. Diabetic neuropathy. 11. Hypothyroidism. 12. Hypertension. 13. Mild aortic stenosis with moderate degree of pulmonary hypertension. 14. Peripheral vascular disease. 15. Paroxysmal atrial fibrillation. 16. Nonsustained ventricular tachycardia. 17. Chronic venous changes of the lower extremities. PLAN: Plan is to continue the patient on dialysis as per nephrology recommendations and continue with breathing treatments and levofloxacin as underlying infiltrates could not be ruled out. As the patient has paroxysmal atrial fibrillation and a few runs of nonsustained V. tach, will also consult Cardiology as he recently had stenting done. Further recommendations to follow depending on the progress of the patient. DEBRAD
[2016-08-24] MEDS: LEVOTHYROXINE 125 MCG TAB PO SCH (06:50)
[2016-08-24 07:06] LABS: Glucose,Whole Blood 142 mg/dL (75-99)
[2016-08-24] MEDS: IPRATROPIUM-ALBUTEROL 3 ML NEB INHALATION SCH ×3 (07:08→19:04)
[2016-08-24] MEDS: GABAPENTIN 400 MG CAP PO SCH ×2 (08:21→16:30)
[2016-08-24] MEDS: CLOPIDOGREL 75 MG TAB PO SCH (08:21)
[2016-08-24] MEDS: SEVELAMER 800 MG TAB PO SCH ×3 (08:21→16:30)
[2016-08-24] MEDS: METOPROLOL TARTRATE 25 MG TAB PO SCH ×3 (08:22→20:58)
[2016-08-24] MEDS: PANTOPRAZOLE 40 MG TABLET PO SCH (08:24)
[2016-08-24] MEDS: amLODIPine 10 MG TAB PO SCH (08:51)
[2016-08-24] MEDS: hydrALAZINE HCL 50 MG TAB PO SCH ×3 (08:51→16:28)
[2016-08-24] MEDS: ISOSORBIDE MONONITRATE ER 60 MG TAB.ER.24H PO SCH (08:52)
[2016-08-24 10:13] LABS: Calcium 7.5 mg/dL (8.4-10.2); Potassium 4.9 mmol/L (3.5-5.1)
[2016-08-24] MEDS: LINAGLIPTIN 5 MG TABLET PO SCH (10:29)
--- NOTE | 2016-08-24 10:47 | P.PN ---
Subjective Principal diagnosis: Patient is seen in follow-up for acute kidney injury. Patient has chronic kidney disease stage III secondary to diabetic kidney disease with baseline creatinine near 1.6. Creatinine was 5.4 at the time of admission and potassium was 7.7. He has undergone 3 treatments of hemodialysis this admission with last treatment being August 23. Potassium this morning is 4.9. Urine output seems to have improved and is documented as over 1 L in the last 24 hours. Currently resting in bed. Denies chest chest pain or shortness of breath. Appetite is fair. He does have history of systolic CHF with ejection fraction of 30-35% with aortic stenosis. He had a stent placed to the RCA on August 16. Vital signs are stable. General: The patient appeared well nourished and normally developed. HEENT: Head exam is unremarkable. Neck is without jugular venous distension. LUNGS: Lungs are clear to auscultation and percussion. Breath sounds decreased. HEART: Rate and Rhythm are regular. First and second heart sounds normal. No murmurs, rubs or gallops. ABDOMEN: Abdominal exam reveals normal bowel sounds. Non-tender and non- distended. No evidence of peritonitis. EXTREMITITES: No clubbing, cyanosis, or edema. Objective - Vital Signs Vital signs: Vital Signs Temp 97.7 F 08/24/16 07:00 Pulse 92 08/24/16 07:17 Resp 18 08/24/16 07:00 BP 135/73 08/24/16 07:00 Pulse Ox 95 08/24/16 07:08 Intake & Output 08/23/16 08/24/16 08/24/16 18:59 06:59 18:59 Output Total 150 1225 Balance -150 -1225 Weight 97 kg Output: Urine 150 1225 Other: Voiding Method Indwelling Catheter Indwelling Catheter Indwelling Catheter # Voids 1 1 - Labs CBC & Chem 7: 08/23/16 08:29 08/24/16 09:06 Labs: Abnormal Lab Results - Last 24 Hours (Table) 08/23/16 08/23/16 08/23/16 Range/Units 11:43 16:41 22:39 BUN (9-20) mg/dL Creatinine (0.66-1.25) mg/dL Glucose (74-99) mg/dL POC Glucose (mg/dL) 153 H 146 H 138 H (75-99) mg/dL Calcium (8.4-10.2) mg/dL 08/24/16 08/24/16 Range/Units 07:04 09:06 BUN 44 H (9-20) mg/dL Creatinine 3.25 H (0.66-1.25) mg/dL Glucose 134 H (74-99) mg/dL POC Glucose (mg/dL) 142 H (75-99) mg/dL Calcium 7.5 L (8.4-10.2) mg/dL Assessment and Plan Plan: Assessment: #1. Acute kidney injury secondary to ATN secondary to hemodynamic instability and cardiorenal syndrome. Creatinine elevated at 5.4 this admission. Status post 3 treatments of hemodialysis on August 21. #2. Hyperkalemia secondary to acute kidney injury. Potassium level 4.9 #3. Systolic CHF with ejection fraction of 30-35% with aortic stenosis. #4. Coronary artery disease status post stent to the RCA on 08/16/2016. #5. Chronic kidney disease stage III secondary to diabetic kidney disease with baseline creatinine near 1.6. #6. Anemia. Iron deficiency present. Plan: Maintain Rothman catheter. Strict I's and O's. Avoid nephrotoxic agents and hypotensive episodes. Discontinue Fleet enemas. Encourage oral intake. Ferrlecit 125 mg IV daily for 3 days. Third dose today. Lasix 80 mg IV once today. Hold off on hemodialysis today. Continue to assess on a day-to-day basis for the need for renal replacement therapy.
[2016-08-24] MEDS ORDERED: LACTULOSE 20 GM/30 ML CUP PO PRN (11:24)
[2016-08-24] MEDS ORDERED: FUROSEMIDE 10 MG/ML 10 ML VIAL IV STA (11:24)
[2016-08-24] MEDS: SODIUM FERRIC GLUCONAT-SUCROSE 125 MG in SODIUM CHLORIDE 0.9% 100 ML IVPB SCH (12:16)
[2016-08-24 12:19] LABS: Glucose,Whole Blood 146 mg/dL (75-99)
--- NOTE | 2016-08-24 12:22 | P.CRDCN ---
History of Present Illness Consult date: 08/24/16 History of present illness: This is a 76-year-old gentleman with history of ischemic heart disease, cardiomyopathy, diabetes, hypertension and chronic renal failure was admitted to the hospital with complaints of a fall weakness and nausea and vomiting. He was found to have acute renal failure and hyperkalemia. His EKG showed evidence of a junctional rhythm on admission most probably related to hyperkalemia. Subsequently he went to have sinus rhythm but eventually patient converted to atrial fibrillation. This history the patient has chronic atrial fibrillation also. His chest x-ray showed evidence of possible pulmonary edema and and also possible pneumonia. We're asked to see the patient because of atrial fibrillation. Patient had a stent placement of the RCA on August 20. Patient was on aspirin and Plavix. These medications were held since admission here. Patient's potassium is corrected and. His creatinine is improving. Patient apparently is in dialysis. Ideally patient should go on anticoagulation therapy because of his atrial fibrillation. However patient has developed severe anemia and also had a recent stent placement. I would recommend that we resume his beta jonny for rate control and resume aspirin and Plavix because patient had a recent stent placement. I would not put him on anti-cognition therapy at this time. I may requested GI consult to rule out any GI bleeding that could be causing the his anemia. Overall his clinical status clinical status is critical with multiple comorbidities and issues. Continue with dialysis as per nephrology. Review of Systems As per the chart Past Medical History Past Medical History: Coronary Artery Disease (CAD), Heart Failure, CVA/TIA, Diabetes Mellitus, Hearing Disorder / Deafness, Hyperlipidemia, Hypertension, Myocardial Infarction ([place]), Pneumonia, Prostate Disorder, Renal Disease, Thyroid Disorder Additional Past Medical History / Comment(s): Was discharged from [facility] 07/2016 Cardiac stent placement x1. Was transferred to [facility] rehab with readmit 3 days later. Pt had admission to [facility] 11/20/15 with rhabdomylosis/ dehydration and acute on chronic renal insult. 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 Benign prostatic hypertrophy, hypothyroidism, diabetes mellitus, mild aortic stenosis and moderate pulmonary hypertension based on a previous echocardiogram with an ejection fraction of 45%, lower extremity wound with infections with stenotrophomonas and Enterococcus faecalis Last Myocardial Infarction Date:: 1978 History of Any Multi-Drug Resistant Organisms: None Reported Past Surgical History: Tonsillectomy Additional Past Surgical History / Comment(s): lt great toe amp(gangrene per pt) , noam cataract sx with lenses. 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 currently lives at [facility] assisted living in [place], gets up with a cane. 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 He served in the [employer]. He lives with his niece. He is ambulatory with a seated walker. He has [facility]. A nurse comes twice a week and so does PT. He has not driven in yrs. Smoking Status: Former smoker Past Alcohol Use History: None Reported Additional Past Alcohol Use History / Comment(s): smoked x 30 years quit >30 years ago, in past "2-cases of beer /day quit 24 years ago.denies any drug use. Past Drug Use History: None Reported - Past Family History Father Family Medical History: Cancer, Diabetes Mellitus Additional Family Medical History / Comment(s): bone cancer. in his 60's Mother Family Medical History: Diabetes Mellitus Additional Family Medical History / Comment(s): at age 89 Medications and Allergies Home Medications Medication Instructions Recorded Confirmed Type Ascorbic Acid [Vitamin C] 500 mg PO DAILY@1900 08/05/16 08/20/16 History Captopril [Capoten] 6.25 mg PO TID@0800,1200,1700 08/05/16 08/20/16 History Gabapentin [Neurontin] 800 mg PO BID@0800,1700 08/05/16 08/20/16 History Hydrophilic Cream [Kerodex 71 1 applic TOPICAL DAILY PRN 08/05/16 08/20/16 History Cream] Isosorbide Mononitrate ER [Imdur] 60 mg PO DAILY@0800 08/05/16 08/20/16 History Levothyroxine Sodium [Synthroid] 125 mcg PO DAILY@0600 08/05/16 08/20/16 History Metoprolol Tartrate [Lopressor] 25 mg PO BID@0800,1700 08/05/16 08/20/16 History Multivitamins, Thera [Multivitamin] 1 tab PO DAILY@169908/05/16 08/20/16 History Terazosin [Hytrin] 4 mg PO HS@209908/05/16 08/20/16 History amLODIPine [Norvasc] 10 mg PO DAILY@0800 08/05/16 08/20/16 History hydrALAZINE HCL [Apresoline] 50 mg PO TID@0800,1200,1700 08/05/16 08/20/16 History traZODone HCL 50 mg PO HS@209908/05/16 08/20/16 History Aspirin 81 mg PO DAILY@169908/20/16 08/20/16 History Atorvastatin [Lipitor] 40 mg PO HS@209908/20/16 08/20/16 History Bisacodyl [Dulcolax] 10 mg RECTAL DAILY PRN 08/20/16 08/20/16 History Clopidogrel [Plavix] 75 mg PO DAILY@0808/20/16 08/20/16 History INSULIN LISPRO (HumaLOG) [humaLOG] See Protocol SQ ACHS 08/20/16 08/20/16 History Insulin Detemir [Levemir] 18 unit SQ HS@209908/20/16 08/20/16 History Ipratropium-Albuterol Nebulize 3 ml INHALATION RT-Q4H PRN 08/20/16 08/20/16 History [Duoneb 0.5 mg-3 mg/3 ml Soln] Ipratropium-Albuterol Nebulize 3 ml INHALATION RT-TID 08/20/16 08/20/16 History [Duoneb 0.5 mg-3 mg/3 ml Soln] Levofloxacin [Levaquin] 250 mg PO HS@209908/20/16 08/20/16 History Magnesium Hydroxide [Milk of 2,400 mg PO DAILY PRN 08/20/16 08/20/16 History Magnesia] Na Phos,M-B/Na Phos,Di-Ba [Fleet 133 ml RECTAL ONCE PRN 08/20/16 08/20/16 History Adult] Pantoprazole [Protonix] 40 mg PO DAILY@0600 08/20/16 08/20/16 History Saxagliptin HCl [Onglyza] 2.5 mg PO DAILY@0800 08/20/16 08/20/16 History glipiZIDE [Glucotrol] 5 mg PO DAILY@0800 08/20/16 08/20/16 History Allergies Allergy/AdvReac Type Severity Reaction Status Date / Time No Known Allergies Allergy Verified 08/20/16 16:12 Physical Exam Vitals: Vital Signs Temp Pulse Pulse Pulse Resp BP Pulse Ox 08/24/16 07:17 92 08/24/16 07:08 100 95 08/24/16 07:00 97.7 F 104 H 18 135/73 92 L 08/24/16 01:22 97.8 F 93 122/70 100 08/23/16 23:00 96.3 F L 89 16 116/85 100 08/23/16 20:10 76 08/23/16 20:01 72 08/23/16 20:00 92 107/56 08/23/16 15:00 98.9 F 100 18 102/60 95 Intake and Output 08/23/16 08/24/16 08/24/16 22:59 06:59 14:59 Output Total 950 275 Balance -950 -275 Output: Urine 950 275 Other: Voiding Method Indwelling Catheter Indwelling Catheter Indwelling Catheter # Voids 1 1 Weight 97 kg GENERAL EXAM: Patient is alert and oriented and doesn't appear to be in any acute distress HEENT: Normocephalic. Normal reaction of pupils, equal size, normal range of extraocular motion. No erythema or exudates in the throat. NECK: No masses, no nuchal rigidity. CHEST: No chest wall deformity. LUNGS: Scattered rhonchi HEART: Irregular rhythm.. ABDOMEN: No hepatosplenomegaly, normal bowel sounds, no guarding or rigidity. SKIN: No rashes CENTRAL NERVOUS SYSTEM: No focal deficits. EXTREMITIES: No cyanosis, clubbing or edema. Results 08/23/16 08:29 08/24/16 09:06 Comprehensive Metabolic Panel 08/24/16 Range/Units 09:06 Sodium 139 (137-145) mmol/L Potassium 4.9 (3.5-5.1) mmol/L Chloride 100 (98-107) mmol/L Carbon Dioxide 26 (22-30) mmol/L BUN 44 H (9-20) mg/dL Creatinine 3.25 H (0.66-1.25) mg/dL Glucose 134 H (74-99) mg/dL Calcium 7.5 L (8.4-10.2) mg/dL Current Medications Generic Name Dose Route Start Last Admin Trade Name Freq PRN Reason Stop Dose Admin Albuterol/Ipratropium 3 ml 08/20/16 19:23 Duoneb 0.5 Mg-3 Mg/3 Ml Soln INHALATION RT-Q4H PRN Shortness Of Breath Or Wheezing Albuterol/Ipratropium 3 ml 08/20/16 20:00 08/24/16 07:08 Duoneb 0.5 Mg-3 Mg/3 Ml Soln INHALATION 3 ml RT-TID [facility] Administration Alprazolam 0.25 mg 08/20/16 19:23 Xanax PO Q6HR PRN Mild Anxiety Amlodipine Besylate 10 mg 08/21/16 08:00 08/24/16 08:51 Norvasc PO Not Given DAILY@0800 [facility] Ascorbic Acid 500 mg 08/21/16 19:00 08/23/16 20:17 Vitamin C PO 500 mg DAILY@1900 [facility] Administration Aspirin 81 mg 08/21/16 17:00 08/23/16 16:34 Aspirin PO 81 mg DAILY@1700 [facility] Administration Atorvastatin Calcium 40 mg 08/20/16 21:00 08/23/16 20:17 Lipitor PO 40 mg HS@2100 [facility] Administration Bisacodyl 10 mg 08/20/16 19:23 Dulcolax RECTAL DAILY PRN Constipation Clopidogrel Bisulfate 75 mg 08/21/16 08:00 08/24/16 08:21 Plavix PO 75 mg DAILY@0800 [facility] Administration Gabapentin 800 mg 08/21/16 08:00 08/24/16 08:21 Neurontin PO 800 mg BID@0800,1700 [facility] Administration Hydralazine HCl 50 mg 08/21/16 08:00 08/24/16 08:51 Apresoline PO Not Given TID@0800,1200,1700 [facility] Hydromorphone HCl 1 mg 08/20/16 19:22 Dilaudid IV Q3HR PRN Severe Pain Ferric Sodium Gluconate 125 mg 110 mls @ 100 mls/hr 08/22/16 12:00 08/23/16 11:23 / Sodium Chloride IVPB 08/25/16 12:01 100 mls/hr Q24H [facility] Administration Isosorbide Mononitrate 60 mg 08/21/16 08:00 08/24/16 08:52 Imdur PO Not Given DAILY@0800 [facility] Lactulose 30 gm 08/24/16 11:24 08/24/16 11:58 Cephulac PO 30 gm TID PRN Administration Constipation Levofloxacin 250 mg 08/20/16 21:00 08/23/16 20:18 Levaquin PO 250 mg HS@2100 [facility] Administration Levothyroxine Sodium 125 mcg 08/21/16 06:00 08/24/16 06:50 Synthroid PO 125 mcg DAILY@0600 [facility] Administration Linagliptin 5 mg 08/21/16 09:00 08/24/16 10:29 Tradjenta PO 5 mg DAILY [facility] Administration Magnesium Hydroxide 2,400 mg 08/20/16 19:23 Milk Of Magnesia PO DAILY PRN Constipation Metoprolol Tartrate 25 mg 08/21/16 08:00 08/24/16 08:22 Lopressor PO 25 mg BID@0800,1700 [facility] Administration Multi-Ingred Cream/Lotion/Oil/Oint 1 applic 08/20/16 19:23 Kerodex 71 Cream TOPICAL DAILY PRN Skin Irritation Naloxone HCl 0.2 mg 08/20/16 19:22 Narcan IV Q2M PRN Opioid Reversal Nitroglycerin 0.4 mg 08/20/16 19:23 Nitrostat SUBLINGUAL Q5M PRN Chest Pain Ondansetron HCl 4 mg 08/20/16 19:22 Zofran IVP Q8HR PRN Nausea And Vomiting Pantoprazole Sodium 40 mg 08/24/16 09:00 08/24/16 08:24 Protonix PO 40 mg DAILY [facility] Administration Sevelamer Carbonate 800 mg 08/22/16 12:30 08/24/16 08:21 Renvela PO 800 mg TID-W/MEALS [facility] Administration Sodium Biphosphate/Sodium Phosphate 133 ml 08/20/16 19:23 Fleet Adult RECTAL ONCE PRN Constipation Terazosin HCl 4 mg 08/20/16 21:00 08/23/16 22:00 Hytrin PO Not Given HS@2100 [facility] Trazodone HCl 50 mg 08/20/16 21:00 08/24/16 01:29 Desyrel PO 50 mg HS@2100 [facility] Administration Intake and Output 08/23/16 08/24/16 08/24/16 22:59 06:59 14:59 Output Total 950 275 Balance -950 -275 Output: Urine 950 275 Other: Voiding Method Indwelling Catheter Indwelling Catheter Indwelling Catheter # Voids 1 1 Weight 97 kg 08/23/16 08:29 08/24/16 09:06 EKG Interpretations (text) Atrial fibrillation with rapid ventricular response. Initial EKG showed junctional rhythm related to hyperkalemia. In between patient had some sinus rhythm transiently Assessment and Plan (1) Atrial fibrillation Status: Acute (2) Acute hyperkalemia Status: Acute (3) Acute on chronic kidney failure Status: Acute (4) CHF exacerbation Status: Acute (5) CAD (coronary artery disease) Status: Acute (6) CHF (congestive heart failure) Status: Acute (7) S/P right coronary artery (RCA) stent placement Status: Acute Plan: Ideally this patient should go on anticoagulation therapy. Patient had a recent stent placement of RCA and need to be on aspirin and Plavix. Patient also need to go back on beta jonny for rate control. A GI consult may be requested for evaluation of anemia and possible GI bleeding. Rest of the management to be continued. Patient's clinical status is critical with multiple issues. Thank you
--- NOTE | 2016-08-24 16:22 | P.PN ---
Subjective Date of service 08/24/2016 Progress note being dictated for Dr. Boland. Interval history: This is a 76-year-old gentleman admitted with acute on chronic kidney failure, hyperkalemia, acute CHF and multiple other medical issues. Received third dialysis treatment last night with urine output, renal function and hyperkalemia improving. Appetite, complains of constipation, no bowel movement. in 2 days. Currently in atrial fibrillation, with controlled ventricular rate. Evaluated by cardiology with recommendations noted. Receiving IV Venofer. Denies chest pain, palpitations or increasing shortness of breath. Objective - Vital Signs Vital signs: Vital Signs Temp 97.9 F 08/24/16 15:00 Pulse 108 H 08/24/16 15:00 Resp 16 08/24/16 15:00 BP 108/71 08/24/16 15:00 Pulse Ox 96 08/24/16 15:00 Intake & Output 08/23/16 08/24/16 08/24/16 18:59 06:59 18:59 Output Total 150 1225 Balance -150 -1225 Weight 97 kg Output: Urine 150 1225 Other: Voiding Method Indwelling Catheter Indwelling Catheter Indwelling Catheter # Voids 1 1 - Exam PHYSICAL EXAM: VITAL SIGNS: As above GENERAL: [Sitting up in bed, no acute distress] HEENT: [Pupils equal conjunctiva normal.] NECK: [Supple, no JVD] RESPIRATORY EFFORT:[Normal] LUNGS: [Diminished, occasional fine basilar crackles, scattered rhonchi] CARDIOVASCULAR[irregular, no edema] GI: [Abdomen soft, nontender, positive bowel sounds.] PSYCH: [Alert and oriented -3, mood and affect normal.] NEURO: No focal deficits SKIN: Bilateral hyperpigmentation with Chronic venous insufficiency changes. - Labs CBC & Chem 7: 08/23/16 08:29 08/24/16 09:06 Labs: Abnormal Lab Results - Last 24 Hours (Table) 08/23/16 08/23/16 08/24/16 Range/Units 16:41 22:39 07:04 BUN (9-20) mg/dL Creatinine (0.66-1.25) mg/dL Glucose (74-99) mg/dL POC Glucose (mg/dL) 146 H 138 H 142 H (75-99) mg/dL Calcium (8.4-10.2) mg/dL 08/24/16 08/24/16 Range/Units 09:06 12:17 BUN 44 H (9-20) mg/dL Creatinine 3.25 H (0.66-1.25) mg/dL Glucose 134 H (74-99) mg/dL POC Glucose (mg/dL) 146 H (75-99) mg/dL Calcium 7.5 L (8.4-10.2) mg/dL Assessment and Plan Plan: 1. [Acute on chronic kidney failure secondary to acute tubular necrosis related to cardiorenal syndrome]. 2. [Acute CHF exacerbation, systolic dysfunction, secondary to the above]. 3. [Chronic kidney disease, stage III]. 4. [Aortic stenosis]. 5. [Hyperkalemia, improving with dialysis]. 6. [Hyperphosphatemia]. 7. [CAD, recent stent to the RCA on 08/16/2016, on aspirin and Plavix]. 8. Anemia of chronic disease,iron deficient 9. History of CVA, TIA with Residual left-sided weakness 10. Diabetic neuropathy 11. Hypothyroidism 12. Hypertension 13. Pulmonary hypertension 14. Peripheral vascular disease 15. Chronic proximal atrial fibrillation, currently atrial fibrillation with controlled ventricular rate 16. Nonsustained V. tach Plan: Continue on current medication regime , Lasix, antibiotics, beta jonny, monitoring and symptomatic treatment. Hemodialysis as per nephrology. CHF pathway/protocol with daily weights and strict I&O. Close monitoring of renal function, electrolytes and hemoglobin. Follow-up chest x-ray in a.m. Colace added to med regime for complaints of constipation. Further recommendations to follow. The impression and plan of care has been dictated as directed. : I performed a H&P examination of this patient and discussed the same with the dictator. I agree with the dictator's note. Any additional findings/opinions/ etc. will be noted.
[2016-08-24] MEDS: ASPIRIN 81 MG CHEW PO SCH (16:30)
[2016-08-24] MEDS: DOCUSATE 100 MG CAP PO SCH ×2 (16:30→20:53)
[2016-08-24 16:57] LABS: Glucose,Whole Blood 171 mg/dL (75-99)
[2016-08-24] MEDS: ASCORBIC ACID 500 MG TAB PO SCH (19:54)
[2016-08-24] MEDS: TERAZOSIN 2 MG CAP PO SCH (20:53)
[2016-08-24] MEDS: LEVOFLOXACIN 250 MG TAB PO SCH (20:53)
[2016-08-24] MEDS: ATORVASTATIN 40 MG TAB PO SCH (20:53)
[2016-08-24 21:14] LABS: Glucose,Whole Blood 144 mg/dL (75-99)
[2016-08-25] MEDS: LEVOTHYROXINE 125 MCG TAB PO SCH (06:20)
[2016-08-25 07:35] LABS: Glucose,Whole Blood 143 mg/dL (75-99)
[2016-08-25] MEDS: SEVELAMER 800 MG TAB PO SCH ×3 (08:15→17:42)
[2016-08-25] MEDS: IPRATROPIUM-ALBUTEROL 3 ML NEB INHALATION SCH ×5 (08:49→19:28)
[2016-08-25 08:58] LABS: Calcium 7.5 mg/dL (8.4-10.2); Potassium 5.1 mmol/L (3.5-5.1)
[2016-08-25] MEDS: amLODIPine 10 MG TAB PO SCH (09:08)
[2016-08-25] MEDS: METOPROLOL TARTRATE 25 MG TAB PO SCH ×3 (09:08→21:45)
[2016-08-25] MEDS: LINAGLIPTIN 5 MG TABLET PO SCH (09:08)
[2016-08-25] MEDS: GABAPENTIN 400 MG CAP PO SCH ×2 (09:09→17:42)
[2016-08-25] MEDS: DOCUSATE 100 MG CAP PO SCH ×2 (09:09→21:45)
[2016-08-25] MEDS: hydrALAZINE HCL 50 MG TAB PO SCH ×2 (09:09→12:08)
[2016-08-25] MEDS: PANTOPRAZOLE 40 MG TABLET PO SCH (09:10)
[2016-08-25] MEDS: CLOPIDOGREL 75 MG TAB PO SCH (09:11)
[2016-08-25] MEDS: ISOSORBIDE MONONITRATE ER 60 MG TAB.ER.24H PO SCH (09:11)
--- NOTE | 2016-08-25 10:08 | XR ---
EXAMINATION TYPE: XR chest 2V DATE OF EXAM: 08/25/2016 9:47 AM COMPARISON: Chest x-ray August 22, 2016 and older exams. HISTORY: Shortness of breath progress study TECHNIQUE: Frontal and lateral views of the chest are obtained. FINDINGS: Degenerative change both glenohumeral joints is redemonstrated. Cardiac silhouette size is stable and upper limits of normal with atherosclerotic thoracic aorta. There is persistent low lung volumes with bibasilar infiltrate and/or atelectasis. There is central edema and/or infiltrates bilat erally. There is more focal right upper lobe infiltrate redemonstrated which is new from older exams but stable from most recent prior. Small bilateral pleural effusions remain present seen best on late ral view. IMPRESSION: Overall stable findings from most recent study, there is low lung volumes with small noam ateral pleural effusions and diffuse bilateral edema and/or infiltrates with more focal right upper l obe infiltrate identified that is new from exams 2-3 weeks ago.
[2016-08-25] MEDS: SODIUM FERRIC GLUCONAT-SUCROSE 125 MG in SODIUM CHLORIDE 0.9% 100 ML IVPB SCH (11:52)
[2016-08-25 12:14] LABS: Glucose,Whole Blood 185 mg/dL (75-99)
--- NOTE | 2016-08-25 14:32 | FL ---
EXAMINATION TYPE: FL barium swallow w video DATE OF EXAM: 08/25/2016 2:19 PM MODIFIED SWALLOW / DEGLUTITION STUDY CLINICAL HISTORY: Dysphagia. Rule out aspiration. TECHNIQUE: Deglutition study is performed utilizing thin liquid barium, honey and nectar thick liqui d barium, barium thick applesauce, and barium coated cracker. A total of 132 seconds of fluoroscopic time was utilized during procedure. COMPARISON: None. FINDINGS: The oral and pharyngeal phases show slight delay in initiation with poor epiglottis inversi on with all modalities tested. Satisfactory mastication is seen with solid modalities tested. There is episode of deep penetration which clears with thin liquid barium. No penetration or aspiration wit h other modalities is present mild to severe pharyngeal residue was appreciated most prominent with m ore viscous modalities. IMPRESSION: Penetration with thin liquid barium. No definitive aspiration. Please refer to speech therapist notes for further details if necessary.
--- NOTE | 2016-08-25 16:17 | PN ---
Patient is seen for followup for acute kidney injury. Patient has had hemodialysis, initially for a creatinine of 5.4 and a potassium of 7.7. His last dialysis was on August 23. He currently has good urine output. His serum creatinine is at 3.2, which is the same as yesterday. Therefore the dialysis is being held. Patient has a right femoral Buck catheter. On examination, he is awake, comfortable, not in any acute distress. Blood pressure is 114/69, heart rate 89 per minute. He is afebrile. EXAMINATION OF THE HEART: S1 and S2. EXAMINATION OF THE LUNGS: Bilateral breath sounds are heard. Decreased breath sounds in bases. ABDOMEN: Soft, nontender. Examination of lower extremities shows no significant edema. Labs show sodium 137, potassium 5.1, BUN 48, serum creatinine 3.2. Calcium 7.5. ASSESSMENT: 1. Acute kidney injury, currently non-oliguric, most likely acute tubular necrosis, status post 3 treatments of hemodialysis. We will hold off on dialysis for now, as patient has good urine output and serum creatinine has not worsened. Repeat labs in a.m. and continue to avoid nephrotoxic agents. 2. Hypertension with blood pressure currently running low. I will discontinue the hydralazine. We can also decrease the Imdur to 30 mg if needed. 3. Hyperphosphatemia, maintained on Renvela. PLAN: Agree with discontinuing the Norvasc. Will discontinue the hydralazine, too. Repeat labs in a.m. Hold off on dialysis. Discontinue milk of magnesia, given the advanced renal failure. Repeat a phosphorus level in a.m.
[2016-08-25 17:13] LABS: Glucose,Whole Blood 203 mg/dL (75-99)
--- NOTE | 2016-08-25 17:15 | P.PN ---
Subjective Date of service 08/25/2016 Progress note being dictated for Dr. Boland. Interval history: This is a 76-year-old gentleman admitted with acute on chronic kidney failure, hyperkalemia, acute CHF and multiple other medical issues. Dialysis on hold for today, Receiving IV Venofer. Chest x-ray stable, low lung volumes a small bilateral pleural effusion and diffuse bilateral edema and/or infiltrates with more focal right upper lobe infiltrate. Patient appeared to be gurgling with thin liquids and modified barium swallow ordered .Borderline hypotension, hydralazine, Norvasc discontinued, Imdur adjusted. Denies chest pain, palpitations or increasing shortness of breath. Objective - Vital Signs Vital signs: Vital Signs Temp 97.7 F 08/25/16 15:00 Pulse 102 H 08/25/16 15:28 Resp 18 08/25/16 15:00 BP 105/62 08/25/16 16:00 Pulse Ox 95 08/25/16 15:00 Intake & Output 08/24/16 08/25/16 08/25/16 18:59 06:59 18:59 Intake Total 500 440 Output Total 600 1200 1000 Balance -600 -700 -560 Weight 95.5 kg Intake: Oral 500 440 Output: Urine 600 1200 1000 Uretheral ([place]) 600 600 Stool 0 Other: Voiding Method Indwelling Catheter Indwelling Catheter Indwelling Catheter # Bowel Movements 1 - Exam PHYSICAL EXAM: VITAL SIGNS: As above GENERAL: [Sitting up in bed, no acute distress] HEENT: [Pupils equal conjunctiva normal.] NECK: [Supple, no JVD] RESPIRATORY EFFORT:[Normal] LUNGS: [Diminished, occasional scattered rhonchi] CARDIOVASCULAR[irregular, trace edema] GI: [Abdomen soft, nontender, positive bowel sounds.] PSYCH: [Alert and oriented -3, mood and affect normal.] NEURO: No focal deficits SKIN: Bilateral hyperpigmentation with Chronic venous insufficiency changes. - Labs CBC & Chem 7: 08/23/16 08:29 08/25/16 07:57 Labs: Abnormal Lab Results - Last 24 Hours (Table) 08/24/16 08/25/16 08/25/16 Range/Units 20:47 07:34 07:57 BUN 48 H (9-20) mg/dL Creatinine 3.22 H (0.66-1.25) mg/dL Glucose 120 H (74-99) mg/dL POC Glucose (mg/dL) 144 H 143 H (75-99) mg/dL Calcium 7.5 L (8.4-10.2) mg/dL 08/25/16 Range/Units 12:13 BUN (9-20) mg/dL Creatinine (0.66-1.25) mg/dL Glucose (74-99) mg/dL POC Glucose (mg/dL) 185 H (75-99) mg/dL Calcium (8.4-10.2) mg/dL Assessment and Plan Plan: 1. [Acute on chronic kidney failure secondary to acute tubular necrosis related to cardiorenal syndrome]. 2. [Acute CHF exacerbation, systolic dysfunction, secondary to the above]. 3. [Chronic kidney disease, stage III]. 4. [Aortic stenosis]. 5. [Hyperkalemia, improving with dialysis]. 6. [Hyperphosphatemia]. 7. [CAD, recent stent to the RCA on 08/16/2016, on aspirin and Plavix]. 8. Anemia of chronic disease,iron deficient 9. History of CVA, TIA with Residual left-sided weakness 10. Diabetic neuropathy 11. Hypothyroidism 12. Hypertension 13. Pulmonary hypertension 14. Peripheral vascular disease 15. Chronic proximal atrial fibrillation, currently atrial fibrillation with controlled ventricular rate 16. Nonsustained V. tach 17. History of right kidney stent in 1999 Plan: Continue on current medication regime , antibiotics, beta jonny, monitoring and symptomatic treatment. Final results pending from [facility] [place]. Hemodialysis as per nephrology. CHF pathway/protocol with daily weights and strict I&O. Close monitoring of renal function, electrolytes and hemoglobin. Further recommendations to follow. The impression and plan of care has been dictated as directed. : I performed a H&P examination of this patient and discussed the same with the dictator. I agree with the dictator's note. Any additional findings/opinions/ etc. will be noted.
[2016-08-25] MEDS: ASPIRIN 81 MG CHEW PO SCH (17:42)
[2016-08-25] MEDS: ASCORBIC ACID 500 MG TAB PO SCH (17:43)
--- NOTE | 2016-08-25 17:45 | P.PN ---
Subjective This is a very pleasant 76-year-old gentleman who follows with Dr. Singh as his primary care physician. He has a history of congestive heart failure, CVA/ TIA, diabetes mellitus, hearing disorder, hyperlipidemia, hypertension, benign prostatic hypertrophy, chronic renal insufficiency, hypothyroidism. He also has a history of coronary artery disease and was recently discharged from here after suffering a non-ST segment elevation myocardial infarction with subsequent stenting of the distal right coronary artery. He does have ischemic cardiomyopathy with estimated ejection fraction of 30 at 35% along with aortic stenosis. He was discharged on 08/17/2016. He was then [facility] recovering for inpatient rehabilitation. He had developed increasing abdominal discomfort, fullness and distention yesterday. He presented here for the same. He was found to have acute renal failure with an INR of 5.41 his baseline is a proximal a 2.0. He was also quite hyperkalemic with an show potassium of 7.7 and following several cocktails was only maintained at 6.9. He had subsequently undergone urgent hemodialysis with 900 mL of fluid removed and his current potassium is 4.8 with an INR of 3.00. He is also anemic current hemoglobin 7.9. ProBNP greater than 50,000. Troponin 0.093 , 0.087. Nephrology has been consulted as well. They feel the patient has acute kidney injury secondary to acute tubular necrosis secondary to hemodynamic instability and cardiorenal syndrome. He is seen today in consultation in the intensive care unit. He is presently awake and alert in no acute distress. He states his abdominal discomfort is improved and it is less distended and softer. His chest x-ray does reveal diffuse bilateral airspace disease with fluid volume overload and suspected pulmonary edema versus pneumonia. He has been afebrile and no leukocytosis. He is maintaining good O2 saturations in the upper 90s on 2 L/m per nasal cannula. He's been hemodynamically stable. He is seen again today in follow-up 08/25/2016 on the regular medical floor. He , he is resting fairly comfortably in bed. He arouses to verbal stimuli. He denies any worsening shortness of breath at this time. He has a loose nonproductive cough. No chills or night sweats. Today's chest x-ray reveals stable findings. There is some small bilateral pleural effusions, with diffuse bilateral edema and a right upper lobe infiltrate. His been maintained on antibiotics in the form of Levaquin. He is maintaining good O2 saturations in the mid 90s on 2 L/m per nasal cannula. He is afebrile. Objective - Vital Signs Vital signs: Vital Signs Temp 97.7 F 08/25/16 15:00 Pulse 102 H 08/25/16 15:28 Resp 18 08/25/16 15:00 BP 105/62 08/25/16 16:00 Pulse Ox 95 08/25/16 15:00 Intake & Output 08/24/16 08/25/16 08/25/16 18:59 06:59 18:59 Intake Total 500 440 Output Total 600 1200 1000 Balance -600 -700 -560 Weight 95.5 kg Intake: Oral 500 440 Output: Urine 600 1200 1000 Uretheral ([place]) 600 600 Stool 0 Other: Voiding Method Indwelling Catheter Indwelling Catheter Indwelling Catheter # Bowel Movements 1 - Exam GENERAL EXAM: Alert, comfortable in no apparent distress. HEAD: Normocephalic. EYES: Normal reaction of pupils, equal size. NOSE: Clear with pink turbinates. THROAT: No erythema or exudates. NECK: No masses, no JVD. CHEST: No chest wall deformity. LUNGS: Equal air entry with few scattered rhonchi, crackles in the posterior bases.. CVS: S1 and S2 normal with an audible murmur, regular rhythm. ABDOMEN: No hepatosplenomegaly, normal bowel sounds, no guarding or rigidity. SPINE: No scoliosis or deformity SKIN: No rashes CENTRAL NERVOUS SYSTEM: No focal deficits, tone is normal in all 4 extremities. - Labs CBC & Chem 7: 08/23/16 08:29 08/25/16 07:57 Labs: Abnormal Lab Results - Last 24 Hours (Table) 08/24/16 08/25/16 08/25/16 Range/Units 20:47 07:34 07:57 BUN 48 H (9-20) mg/dL Creatinine 3.22 H (0.66-1.25) mg/dL Glucose 120 H (74-99) mg/dL POC Glucose (mg/dL) 144 H 143 H (75-99) mg/dL Calcium 7.5 L (8.4-10.2) mg/dL 08/25/16 08/25/16 Range/Units 12:13 17:12 BUN (9-20) mg/dL Creatinine (0.66-1.25) mg/dL Glucose (74-99) mg/dL POC Glucose (mg/dL) 185 H 203 H (75-99) mg/dL Calcium (8.4-10.2) mg/dL Assessment and Plan Plan: Impression: #1 Acute on chronic renal failure secondary to acute tubular necrosis secondary to suspected hemodynamic instability. He did require urgent hemodialysis and received 3 treatments in total and is off hemodialysis for now. Current creatinine 3.22. #2 Acute hyperkalemia, improved current potassium 5.1. #3 Acute on chronic anemia secondary to chronic renal failure, current hemoglobin 8.4. #4 Coronary artery disease with recent non-ST segment elevation myocardial infarction and subsequent stenting to the distal right coronary artery. #5 Acute on chronic systolic congestive heart failure with estimated ejection fraction 30-35%. #6 Mild aortic stenosis with moderate degree of pulmonary hypertension. #7 Hypertension. #8 Hypothyroidism. #9 Diabetes mellitus. #10 Diabetic peripheral neuropathy. #11 History of CVA with some left-sided residual weakness, chronic. #12 Benign prosthetic hypertrophy. #13 Peripheral vascular disease, with history of gangrenous toes that had been resected. Previous infection of stenotrophomonas and enterococcus.. #14 Paroxysmal atrial fibrillation. Plan: The patient was seen and evaluated by Dr. Gordillo. His chest x-ray and labs were reviewed. We'll continue with bronchodilators and antibiotics in the form of Levaquin. We will continue to follow make further recommendations based on his clinical status.
[2016-08-25] MEDS: INSULIN LISPRO (humaLOG) 300 UNIT/3 ML VIAL SQ SCH ×2 (18:25→21:45)
[2016-08-25 19:52] LABS: Hemoglobin A1C 6.4 % (4.2-6.1)
[2016-08-25 20:59] LABS: Glucose,Whole Blood 170 mg/dL (75-99)
[2016-08-25] MEDS: LEVOFLOXACIN 250 MG TAB PO SCH (21:45)
[2016-08-25] MEDS: TERAZOSIN 2 MG CAP PO SCH (21:45)
[2016-08-25] MEDS: ATORVASTATIN 40 MG TAB PO SCH (21:45)
[2016-08-25] MEDS: traZODone HCL 50 MG TAB PO SCH (21:45)
--- NOTE | 2016-08-25 22:33 | P.PN ---
Subjective This is a 76-year-old gentleman with history of ischemic heart disease and cardiomyopathy and chronic renal failure was admitted to the hospital mainly with complaints of weakness, nausea and vomiting. Patient was in acute renal failure with hyperkalemia. Patient underwent dialysis and his potassium level have been normalized. A chest x-ray showed bilateral infiltrates/pulmonary edema. Patient is complaining of mild cough. He is lying flat and seemed to be not in acute distress. Patient is frail and weak. His urine output is a low. He is creatinine is still high. He is being followed by pulmonology and also nephrology. He received one dose of Lasix yesterday. Hasn't had any dialysis since yesterday. His lab work today showed a potassium of 5.1 been is 48 creatinine 3.22. His proBNP levels of 5800 Objective - Vital Signs Vital signs: Vital Signs Temp 97.7 F 08/25/16 15:00 Pulse 104 H 08/25/16 19:39 Resp 18 08/25/16 16:00 BP 105/62 08/25/16 16:00 Pulse Ox 95 08/25/16 15:00 Intake & Output 08/25/16 08/25/16 08/26/16 06:59 18:59 06:59 Intake Total 500 440 Output Total 1200 1000 Balance -700 -560 Weight 95.5 kg Intake: Oral 500 440 Output: Urine 1200 1000 Uretheral ([place]) 600 600 Stool 0 Other: Voiding Method Indwelling Catheter Indwelling Catheter - Exam GENERAL EXAM: Patient is alert and oriented and doesn't appear to be in any acute distress HEENT: Normocephalic. Normal reaction of pupils, equal size, normal range of extraocular motion. No erythema or exudates in the throat. NECK: No masses, no nuchal rigidity. CHEST: No chest wall deformity. LUNGS: Diminished breath exchange with scattered rhonchi HEART: S1 and S2 normal with no audible mumurs or gallops. Regular rhythm, femorals equal on both sides.. ABDOMEN: No hepatosplenomegaly, normal bowel sounds, no guarding or rigidity. SKIN: No rashes CENTRAL NERVOUS SYSTEM: No focal deficits. EXTREMITIES: Edema - Labs CBC & Chem 7: 08/23/16 08:29 08/25/16 07:57 Labs: Abnormal Lab Results - Last 24 Hours (Table) 08/25/16 08/25/16 08/25/16 Range/Units 07:34 07:57 07:57 BUN 48 H (9-20) mg/dL Creatinine 3.22 H (0.66-1.25) mg/dL Glucose 120 H (74-99) mg/dL POC Glucose (mg/dL) 143 H (75-99) mg/dL Hemoglobin A1c 6.4 H (4.2-6.1) % Calcium 7.5 L (8.4-10.2) mg/dL 08/25/16 08/25/16 08/25/16 Range/Units 12:13 17:12 20:57 BUN (9-20) mg/dL Creatinine (0.66-1.25) mg/dL Glucose (74-99) mg/dL POC Glucose (mg/dL) 185 H 203 H 170 H (75-99) mg/dL Hemoglobin A1c (4.2-6.1) % Calcium (8.4-10.2) mg/dL Assessment and Plan (1) Atrial fibrillation Status: Acute (2) Acute hyperkalemia Status: Acute (3) Acute on chronic kidney failure Status: Acute (4) CHF exacerbation Status: Acute (5) CAD (coronary artery disease) Status: Acute (6) CHF (congestive heart failure) Status: Acute (7) S/P right coronary artery (RCA) stent placement Status: Acute Plan: Continue current medical therapy and patient is on antibiotics. Patient is having some urinary output and fluid management as for nephrology.prognosis is guarded
[2016-08-26] MEDS: LEVOTHYROXINE 125 MCG TAB PO SCH (06:35)
[2016-08-26 07:05] LABS: Glucose,Whole Blood 132 mg/dL (75-99)
[2016-08-26] MEDS: METOPROLOL TARTRATE 25 MG TAB PO SCH ×3 (07:53→22:20)
[2016-08-26] MEDS: SEVELAMER 800 MG TAB PO SCH ×3 (07:55→17:35)
[2016-08-26] MEDS: GABAPENTIN 400 MG CAP PO SCH ×2 (07:56→17:35)
[2016-08-26] MEDS: DOCUSATE 100 MG CAP PO SCH ×2 (07:56→22:08)
[2016-08-26] MEDS: PANTOPRAZOLE 40 MG TABLET PO SCH (07:57)
[2016-08-26] MEDS: CLOPIDOGREL 75 MG TAB PO SCH (07:57)
[2016-08-26] MEDS: ISOSORBIDE MONONITRATE ER 60 MG TAB.ER.24H PO SCH (07:57)
[2016-08-26] MEDS: LINAGLIPTIN 5 MG TABLET PO SCH (07:58)
[2016-08-26] MEDS ORDERED: amLODIPine 5 MG TAB PO SCH (08:00)
[2016-08-26] MEDS: INSULIN LISPRO (humaLOG) 300 UNIT/3 ML VIAL SQ SCH ×4 (08:04→22:20)
[2016-08-26] MEDS: IPRATROPIUM-ALBUTEROL 3 ML NEB INHALATION SCH ×3 (08:20→19:56)
[2016-08-26 10:40] LABS: Calcium 7.7 mg/dL (8.4-10.2); Phosphorous 6.4 mg/dL (2.5-4.5)
[2016-08-26 11:24] LABS: Glucose,Whole Blood 183 mg/dL (75-99)
--- NOTE | 2016-08-26 14:01 | P.PN ---
Subjective Date of service 08/26/2016 Progress note being dictated for Dr. Boland. Interval history: This is a 76-year-old gentleman admitted with acute on chronic kidney failure, hyperkalemia, acute CHF and multiple other medical issues. Hemodialysis remains on hold. Currently 3.56. Antihypertensives adjusted yesterday with current MAP 67 .Continues on nebulized bronchodilators, Levaquin , maintaining O2 sats of 95% on 2 L nasal cannula. Underwent modified barium swallow evaluation yesterday, recommending mechanical soft, thin liquids Denies chest pain, palpitations or increasing shortness of breath. Objective - Vital Signs Vital signs: Vital Signs Temp 96.2 F L 08/26/16 07:00 Pulse 96 08/26/16 08:30 Resp 16 08/26/16 08:00 BP 91/55 08/26/16 07:00 Pulse Ox 95 08/26/16 08:20 Intake & Output 08/25/16 08/26/16 08/26/16 18:59 06:59 18:59 Intake Total 440 50 Output Total 1000 325 Balance -560 -325 50 Weight 94.5 kg Intake: Oral 440 50 Output: Urine 1000 325 Uretheral ([place]) 600 Stool 0 Other: Voiding Method Indwelling Catheter Indwelling Catheter Indwelling Catheter # Voids 1 - Exam PHYSICAL EXAM: VITAL SIGNS: As above GENERAL: [Sitting up in bed, no acute distress, smiling] HEENT: [Pupils equal conjunctiva normal.] NECK: [Supple, no JVD] RESPIRATORY EFFORT:[Normal] LUNGS: [Diminished, scattered rhonchi] CARDIOVASCULAR[irregular, trace edema] GI: [Abdomen soft, nontender, positive bowel sounds.] PSYCH: [Alert and oriented -3, mood and affect normal.] NEURO: No focal deficits SKIN: Bilateral hyperpigmentation with Chronic venous insufficiency changes. - Labs CBC & Chem 7: 08/23/16 08:29 08/26/16 09:24 Labs: Abnormal Lab Results - Last 24 Hours (Table) 08/25/16 08/25/16 08/25/16 Range/Units 07:57 17:12 20:57 BUN (9-20) mg/dL Creatinine (0.66-1.25) mg/dL Glucose (74-99) mg/dL POC Glucose (mg/dL) 203 H 170 H (75-99) mg/dL Hemoglobin A1c 6.4 H (4.2-6.1) % Calcium (8.4-10.2) mg/dL Phosphorus (2.5-4.5) mg/dL 08/26/16 08/26/16 08/26/16 Range/Units 07:00 09:24 11:23 BUN 52 H (9-20) mg/dL Creatinine 3.56 H (0.66-1.25) mg/dL Glucose 129 H (74-99) mg/dL POC Glucose (mg/dL) 132 H 183 H (75-99) mg/dL Hemoglobin A1c (4.2-6.1) % Calcium 7.7 L (8.4-10.2) mg/dL Phosphorus 6.4 H (2.5-4.5) mg/dL Assessment and Plan Plan: 1. [Acute on chronic kidney failure secondary to acute tubular necrosis related to cardiorenal syndrome]. 2. [Acute CHF exacerbation, systolic dysfunction, secondary to the above]. 3. [Chronic kidney disease, stage III]. 4. [Aortic stenosis]. 5. [Hyperkalemia, improving with dialysis]. 6. [Hyperphosphatemia]. 7. [CAD, recent non-STEMI with stent to the RCA on 08/16/2016, on aspirin and Plavix]. 8. Anemia of chronic disease,iron deficient 9. History of CVA, TIA with Residual left-sided weakness 10. Diabetic neuropathy 11. Hypothyroidism 12. Hypertension 13. Pulmonary hypertension 14. Peripheral vascular disease 15. Chronic proximal atrial fibrillation, currently atrial fibrillation with controlled ventricular rate 16. Nonsustained V. tach 17. History of right kidney stent in 1999 18. Mechanical soft, thin liquids diet, no straws. Plan: Continue on current medication regime , antibiotics, beta jonny, nebulized bronchodilators, monitoring and symptomatic treatment. Strict aspiration precautions, head of bed up 90, have family bring in dentures from home. Hemodialysis remains on hold as per nephrology. CHF pathway/protocol with daily weights and strict I&O. Close monitoring of renal function, electrolytes and hemoglobin. Further recommendations to follow. The impression and plan of care has been dictated as directed. : I performed a H&P examination of this patient and discussed the same with the dictator. I agree with the dictator's note. Any additional findings/opinions/ etc. will be noted.
[2016-08-26] MEDS: SODIUM CHLORIDE 0.9% 1,000 ML IV SCH (14:17)
--- NOTE | 2016-08-26 14:49 | PN ---
Patient is seen for followup for acute kidney injury. He has had 3 treatments of dialysis with last treatment being on 08/23/2016. He continues to have good urine output and has been off of dialysis. Serum creatinine today is slightly up at 3.5 from 3.2 yesterday. The patient has good urine output. Patient's blood pressure has been low and the hydralazine was discontinued. Norvasc was also on hold. This can be associated with some worsening of his renal function. At this time I will continue to hold off on dialysis and try to improve his perfusion pressures. I will start IV fluids at about 50 mL an hour. We will repeat labs in a.m. and continue to avoid nephrotoxic agents. ASSESSMENT: 1. Hyperphosphatemia, maintained on Renvela. Will continue with it as serum phosphorus is still elevated at 6.4. 2. Hypotension, hold off on all blood pressure medications. Check random cortisol level. PLAN: Check random cortisol level, hold off on dialysis. Hold all blood pressure medications and repeat labs in a.m. Start gentle IV hydration.
[2016-08-26 16:53] LABS: Glucose,Whole Blood 218 mg/dL (75-99)
[2016-08-26] MEDS: ASPIRIN 81 MG CHEW PO SCH (17:34)
[2016-08-26] MEDS: ASCORBIC ACID 500 MG TAB PO SCH (17:35)
[2016-08-26 20:49] LABS: Glucose,Whole Blood 189 mg/dL (75-99)
[2016-08-26] MEDS: traZODone HCL 50 MG TAB PO SCH (21:00)
[2016-08-26] MEDS: ATORVASTATIN 40 MG TAB PO SCH (21:00)
[2016-08-27] MEDS: LEVOTHYROXINE 125 MCG TAB PO SCH (06:27)
[2016-08-27 06:52] LABS: Glucose,Whole Blood 182 mg/dL (75-99)
--- NOTE | 2016-08-27 06:53 | P.PN ---
Subjective Principal diagnosis: Acute renal failure, chronic atrial fibrillation and CHF This is a progress note being dictated for August 26, 2016. This patient is admitted to the hospital with acute renal failure and hyperkalemia. Patient also had evidence of congestive heart failure. Currently patient seemed to be diuresing very well. The patient seemed to be in negative balance. His creatinine is going up .The patient is started on IV fluids. A chest x-ray from yesterday showed persistent infiltrates and possible CHF. Patient is however doesn't appear to be in acute respiratory distress. Complains of mild cough. Patient also has been having hypotension and hypertensive medications have been held .Nephrology is following him closely Objective - Vital Signs Vital signs: Vital Signs Temp 98.1 F 08/26/16 22:41 Pulse 95 08/27/16 00:00 Resp 19 08/26/16 22:41 BP 104/51 08/26/16 22:41 Pulse Ox 95 08/26/16 22:41 Intake & Output 08/26/16 08/26/16 08/27/16 06:59 18:59 06:59 Intake Total 50 200 Output Total 325 400 200 Balance -325 -350 0 Weight 94.5 kg 96 kg Intake: Oral 50 200 Output: Urine 325 400 200 Stool 0 Other: Voiding Method Indwelling Catheter Indwelling Catheter Indwelling Catheter # Voids 1 1 # Bowel Movements 1 - Exam GENERAL EXAM: Patient is alert and oriented and doesn't appear to be in any acute distress HEENT: Normocephalic. Normal reaction of pupils, equal size, normal range of extraocular motion. No erythema or exudates in the throat. NECK: No masses, no nuchal rigidity. CHEST: No chest wall deformity. LUNGS: Diminished breath exchange with scattered rhonchi HEART: S1 and S2 normal with no audible mumurs or gallops. Regular rhythm, femorals equal on both sides.. ABDOMEN: No hepatosplenomegaly, normal bowel sounds, no guarding or rigidity. SKIN: No rashes CENTRAL NERVOUS SYSTEM: No focal deficits. EXTREMITIES: Edema - Labs CBC & Chem 7: 08/23/16 08:29 08/26/16 09:24 Labs: Abnormal Lab Results - Last 24 Hours (Table) 08/26/16 08/26/16 08/26/16 Range/Units 07:00 09:24 11:23 BUN 52 H (9-20) mg/dL Creatinine 3.56 H (0.66-1.25) mg/dL Glucose 129 H (74-99) mg/dL POC Glucose (mg/dL) 132 H 183 H (75-99) mg/dL Calcium 7.7 L (8.4-10.2) mg/dL Phosphorus 6.4 H (2.5-4.5) mg/dL 08/26/16 08/26/16 Range/Units 16:51 20:48 BUN (9-20) mg/dL Creatinine (0.66-1.25) mg/dL Glucose (74-99) mg/dL POC Glucose (mg/dL) 218 H 189 H (75-99) mg/dL Calcium (8.4-10.2) mg/dL Phosphorus (2.5-4.5) mg/dL Assessment and Plan (1) Atrial fibrillation Status: Acute (2) Acute hyperkalemia Status: Acute (3) Acute on chronic kidney failure Status: Acute (4) CHF exacerbation Status: Acute (5) CAD (coronary artery disease) Status: Acute (6) CHF (congestive heart failure) Status: Acute (7) S/P right coronary artery (RCA) stent placement Status: Acute Plan: Continue current management. Hydralazine and Norvasc are being held. Chest x- ray will be repeated in 24 hours.
[2016-08-27] MEDS: IPRATROPIUM-ALBUTEROL 3 ML NEB INHALATION SCH ×3 (07:27→19:24)
[2016-08-27] MEDS: INSULIN LISPRO (humaLOG) 300 UNIT/3 ML VIAL SQ SCH ×4 (07:59→22:18)
[2016-08-27] MEDS: ISOSORBIDE MONONITRATE ER 60 MG TAB.ER.24H PO SCH (08:00)
[2016-08-27] MEDS: PANTOPRAZOLE 40 MG TABLET PO SCH (08:00)
[2016-08-27] MEDS: GABAPENTIN 400 MG CAP PO SCH ×2 (08:00→16:01)
[2016-08-27] MEDS: CLOPIDOGREL 75 MG TAB PO SCH (08:00)
[2016-08-27] MEDS: DOCUSATE 100 MG CAP PO SCH ×2 (08:00→20:56)
[2016-08-27] MEDS: SEVELAMER 800 MG TAB PO SCH ×3 (08:00→17:48)
[2016-08-27] MEDS: SODIUM CHLORIDE 0.9% 1,000 ML IV SCH (08:01)
[2016-08-27] MEDS: LINAGLIPTIN 5 MG TABLET PO SCH (08:01)
[2016-08-27] MEDS: METOPROLOL TARTRATE 25 MG TAB PO SCH ×3 (08:09→22:21)
--- NOTE | 2016-08-27 10:08 | P.PN ---
Subjective Principal diagnosis: Acute renal failure, chronic atrial fibrillation and CHF This is 76-year-old gentleman is admitted to the hospital with acute renal failure and hyperkalemia. Patient kidney functions improved but his creatinine was high at yesterday. Because of hypotension and also increasing BUN/ creatinine, patient was started on IV fluids. His blood pressure is more stable today. Patient is also seemed to be more alert and feeling better. Lab work is pending at this time. We'll continue current medical management. Patient did have significant PVCs yesterday but today doesn't appear to have any significant arrhythmias Objective - Vital Signs Vital signs: Vital Signs Temp 97.2 F L 08/27/16 07:00 Pulse 92 08/27/16 07:37 Resp 16 08/27/16 07:00 BP 132/60 08/27/16 07:00 Pulse Ox 91 L 08/27/16 07:00 Intake & Output 08/26/16 08/27/16 08/27/16 18:59 06:59 18:59 Intake Total 50 200 Output Total 400 200 Balance -350 0 Weight 96 kg Intake: Oral 50 200 Output: Urine 400 200 Stool 0 Other: Voiding Method Indwelling Catheter Indwelling Catheter # Voids 1 # Bowel Movements 1 - Exam GENERAL EXAM: Patient is alert and oriented and doesn't appear to be in any acute distress HEENT: Normocephalic. Normal reaction of pupils, equal size, normal range of extraocular motion. No erythema or exudates in the throat. NECK: No masses, no nuchal rigidity. CHEST: No chest wall deformity. LUNGS: Diminished breath exchange with scattered rhonchi HEART: S1 and S2 normal with no audible mumurs or gallops. Regular rhythm, femorals equal on both sides.. ABDOMEN: No hepatosplenomegaly, normal bowel sounds, no guarding or rigidity. SKIN: No rashes CENTRAL NERVOUS SYSTEM: No focal deficits. EXTREMITIES: Edema - Labs CBC & Chem 7: 08/23/16 08:29 08/26/16 09:24 Labs: Abnormal Lab Results - Last 24 Hours (Table) 08/26/16 08/26/16 08/26/16 Range/Units 09:24 11:23 16:51 BUN 52 H (9-20) mg/dL Creatinine 3.56 H (0.66-1.25) mg/dL Glucose 129 H (74-99) mg/dL POC Glucose (mg/dL) 183 H 218 H (75-99) mg/dL Calcium 7.7 L (8.4-10.2) mg/dL Phosphorus 6.4 H (2.5-4.5) mg/dL 08/26/16 08/27/16 Range/Units 20:48 06:50 BUN (9-20) mg/dL Creatinine (0.66-1.25) mg/dL Glucose (74-99) mg/dL POC Glucose (mg/dL) 189 H 182 H (75-99) mg/dL Calcium (8.4-10.2) mg/dL Phosphorus (2.5-4.5) mg/dL Assessment and Plan (1) Atrial fibrillation Status: Acute (2) Acute hyperkalemia Status: Acute (3) Acute on chronic kidney failure Status: Acute (4) CHF exacerbation Status: Acute (5) CAD (coronary artery disease) Status: Acute (6) CHF (congestive heart failure) Status: Acute (7) S/P right coronary artery (RCA) stent placement Status: Acute Plan: Continue gentle hydration. Follow his BUN/creatinine and creatinine. Repeat chest x-ray to be considered in 24 hours. Prognosis is guarded.
[2016-08-27 10:38] LABS: Calcium 7.6 mg/dL (8.4-10.2); Potassium 4.3 mmol/L (3.5-5.1)
[2016-08-27 12:16] LABS: Glucose,Whole Blood 212 mg/dL (75-99)
[2016-08-27] MEDS: ASPIRIN 81 MG CHEW PO SCH (16:01)
[2016-08-27 17:03] LABS: Glucose,Whole Blood 206 mg/dL (75-99)
[2016-08-27] MEDS: ASCORBIC ACID 500 MG TAB PO SCH (17:48)
--- NOTE | 2016-08-27 18:59 | PN ---
Patient is seen for followup for acute kidney injury secondary to vancomycin toxicity. His hemodialysis has been on hold. Currently patient has good urine output. Yesterday the serum creatinine was slightly higher at 3.5 from 3.2 mg/dL, and this is presumed to be secondary to significant hypotension. Blood pressure medications have been adjusted. Currently systolic blood pressure has been above 100 mmHg. Patient is lying in bed. He is comfortable. He denies any significant complaints. On examination, blood pressure is 113/64. Heart rate is about 90 per minute. He is afebrile. EXAMINATION OF THE HEART: S1 and S2. EXAMINATION OF THE LUNGS: Bilateral breath sounds are heard. ABDOMEN: Soft, nontender. Examination of lower extremities shows no edema. Right femoral catheter is in place. Labs show serum creatinine 3.7, sodium 137, potassium 4.3. ASSESSMENT: 1. Acute kidney injury, initially secondary to vancomycin toxicity, with some recovery of kidney function. Dialysis has been on hold. Patient remains with good urine output. Recently his serum creatinine has been rising again, and this is most likely secondary to hypotension. We will continue to hold off on his antihypertensive medications. I have started him on IV fluids at 50 mL/hour and we will repeat labs in a.m. Again, no need for hemodialysis at this time. 2. Atrial fibrillation with controlled ventricular response. 3. Coronary artery disease, status post right coronary artery stent placement. 4. History of cerebrovascular accident/transient ischemic attack. 5. Previous history of a stent in the right kidney. I am not sure if this was a ureteral stent or an arterial stent. PLAN: Continue to hold off on dialysis. Repeat labs in a.m. Continue with IV fluids for now.
--- NOTE | 2016-08-27 19:06 | P.PN ---
Subjective Date of service 08/27/2016 Progress note being dictated for Dr. Boland. Interval history: This is a 76-year-old gentleman admitted with acute on chronic kidney failure, hyperkalemia, acute CHF and multiple other medical issues. Hemodialysis remains on hold. Currently 3.74. Hypotensive yesterday and Hydralazine and Norvasc discontinued with improved MAP 83 .Continues on nebulized bronchodilators, Levaquin, maintaining O2 sats of 94% on 2 L nasal cannula. Telemetry atrial fibrillation with PVCs,; yesterday bigeminy, trigeminy, magnesium 2.1, potassium 4.3. Denies chest pain, palpitations or increasing shortness of breath. Objective - Vital Signs Vital signs: Vital Signs Temp 97.3 F L 08/27/16 14:55 Pulse 87 08/27/16 14:55 Resp 18 08/27/16 16:00 BP 113/69 08/27/16 14:55 Pulse Ox 94 L 08/27/16 14:55 Intake & Output 08/27/16 08/27/16 08/28/16 06:59 18:59 06:59 Intake Total 200 300 Output Total 200 0 Balance 0 300 Weight 96 kg 96 kg Intake: Intake, IV Titration 300 Amount Sodium Chloride 0.9% 1, 300 000 ml @ 50 mls/hr IV . Q20H [facility] Rx#:[id number] Oral 200 Output: Urine 200 Stool 0 Other: Voiding Method Indwelling Catheter Indwelling Catheter # Voids 1 - Exam PHYSICAL EXAM: VITAL SIGNS: As above GENERAL: [Sitting up in bed, no acute distress, smiling] HEENT: [Pupils equal conjunctiva normal.] NECK: [Supple, no JVD] RESPIRATORY EFFORT:[Normal] LUNGS: [Diminished, scattered rhonchi] CARDIOVASCULAR[irregular, trace edema] GI: [Abdomen soft, nontender, positive bowel sounds.] PSYCH: [Alert and oriented -3, mood and affect normal.] NEURO: No focal deficits SKIN: Bilateral hyperpigmentation with Chronic venous insufficiency changes. - Labs CBC & Chem 7: 08/23/16 08:29 08/27/16 10:10 Labs: Abnormal Lab Results - Last 24 Hours (Table) 08/26/16 08/27/16 08/27/16 Range/Units 20:48 06:50 10:10 BUN 56 H (9-20) mg/dL Creatinine 3.74 H (0.66-1.25) mg/dL Glucose 188 H (74-99) mg/dL POC Glucose (mg/dL) 189 H 182 H (75-99) mg/dL Calcium 7.6 L (8.4-10.2) mg/dL 08/27/16 08/27/16 Range/Units 12:15 17:01 BUN (9-20) mg/dL Creatinine (0.66-1.25) mg/dL Glucose (74-99) mg/dL POC Glucose (mg/dL) 212 H 206 H (75-99) mg/dL Calcium (8.4-10.2) mg/dL Assessment and Plan Plan: 1. [Acute on chronic kidney failure secondary to acute tubular necrosis related to cardiorenal syndrome]. 2. [Acute CHF exacerbation, systolic dysfunction, secondary to the above]. 3. [Chronic kidney disease, stage III]. 4. [Aortic stenosis]. 5. [Hyperkalemia, improving with dialysis]. 6. [Hyperphosphatemia]. 7. [CAD, recent non-STEMI with stent to the RCA on 08/16/2016, on aspirin and Plavix]. 8. Anemia of chronic disease,iron deficient 9. History of CVA, TIA with Residual left-sided weakness 10. Diabetic neuropathy 11. Hypothyroidism 12. Hypertension 13. Pulmonary hypertension 14. Peripheral vascular disease 15. Chronic proximal atrial fibrillation, currently atrial fibrillation with controlled ventricular rate 16. Nonsustained V. tach 17. History of right kidney stent in 1999 18. Mechanical soft, thin liquids diet, no straws. Plan: Continue on current medication regime , antibiotics, beta jonny, nebulized bronchodilators, monitoring and symptomatic treatment. Strict aspiration precautions. Hemodialysis as per nephrology. CHF pathway/protocol. Close monitoring of renal function, electrolytes and hemoglobin. Further recommendations to follow. The impression and plan of care has been dictated as directed. : I performed a H&P examination of this patient and discussed the same with the dictator. I agree with the dictator's note. Any additional findings/opinions/ etc. will be noted.
[2016-08-27] MEDS: traZODone HCL 50 MG TAB PO SCH (20:58)
[2016-08-27] MEDS: ATORVASTATIN 40 MG TAB PO SCH (20:58)
[2016-08-27 21:48] LABS: Glucose,Whole Blood 159 mg/dL (75-99)
[2016-08-28] MEDS ORDERED: INFLUENZA VACCINE (3YR+) 60 MCG/0.5 ML SYRINGE IM ONE (06:21)
[2016-08-28] MEDS ORDERED: PNEUMOCOCCAL VACC-PNEUMOVAX 23 25 MCG/0.5 ML VIAL IM ONE (06:21)
[2016-08-28] MEDS: LEVOTHYROXINE 125 MCG TAB PO SCH (06:40)
[2016-08-28] MEDS: SODIUM CHLORIDE 0.9% 1,000 ML IV SCH (06:41)
[2016-08-28 07:08] LABS: Glucose,Whole Blood 189 mg/dL (75-99)
[2016-08-28] MEDS: SEVELAMER 800 MG TAB PO SCH ×3 (08:28→16:18)
[2016-08-28] MEDS: GABAPENTIN 400 MG CAP PO SCH ×2 (08:28→16:18)
[2016-08-28] MEDS: METOPROLOL TARTRATE 25 MG TAB PO SCH ×3 (08:28→22:05)
[2016-08-28] MEDS: PANTOPRAZOLE 40 MG TABLET PO SCH (08:28)
[2016-08-28] MEDS: CLOPIDOGREL 75 MG TAB PO SCH (08:28)
[2016-08-28] MEDS: ISOSORBIDE MONONITRATE ER 60 MG TAB.ER.24H PO SCH (08:28)
[2016-08-28] MEDS: LINAGLIPTIN 5 MG TABLET PO SCH (08:29)
[2016-08-28] MEDS: DOCUSATE 100 MG CAP PO SCH ×2 (08:29→22:05)
[2016-08-28] MEDS: INSULIN LISPRO (humaLOG) 300 UNIT/3 ML VIAL SQ SCH ×4 (08:40→22:06)
[2016-08-28] MEDS: IPRATROPIUM-ALBUTEROL 3 ML NEB INHALATION SCH ×3 (09:10→20:30)
[2016-08-28 09:28] LABS: Calcium 7.8 mg/dL (8.4-10.2); Potassium 4.5 mmol/L (3.5-5.1)
[2016-08-28 12:12] LABS: Glucose,Whole Blood 230 mg/dL (75-99)
--- NOTE | 2016-08-28 14:30 | PN ---
Patient is seen for followup for acute kidney injury secondary to vancomycin toxicity. He is currently lying in bed, comfortable. He is not in any acute distress. Patient is maintained on IV fluids at 50 mL an hour. His blood pressure was running low and his medications were adjusted with significant decrease in antihypertensive medications. Most of which are currently on hold except Lopressor, which is 25 mg t.i.d. Renal function was improving and then his creatinine started to rise again secondary to low blood pressure. Patient continues to have fair urine output and his creatinine today is the same as yesterday. On examination, the patient is lying in bed, comfortable, not in any acute distress. Blood pressure is 99/64, heart rate 82 per minute. He is afebrile. EXAMINATION OF THE HEART: S1 and S2. EXAMINATION OF THE LUNGS: Bilateral breath sounds are heard. ABDOMEN: Soft, nontender. Examination of lower extremities shows no significant edema. Right femoral Buck catheter is in place. Labs show sodium 139, potassium 4.5, serum creatinine 3.7, BUN 57. ASSESSMENT: 1. Acute kidney injury initially secondary to vancomycin toxicity and then associated with hypotension, hypoperfusion. No need for dialysis today. Serum creatinine is the same as yesterday. We will continue with IV fluids and repeat labs tomorrow. Continue to avoid nephrotoxic agents. 2. History of hyperkalemia, currently resolved. 3. Congestive heart failure, systolic dysfunction, currently stable. No evidence of congestive heart failure. 4. Chronic paroxysmal atrial fibrillation with controlled ventricular response. PLAN: Continue IV fluids. Repeat labs in a.m.
[2016-08-28] MEDS: ASCORBIC ACID 500 MG TAB PO SCH (16:18)
[2016-08-28] MEDS: ASPIRIN 81 MG CHEW PO SCH (16:18)
[2016-08-28 17:07] LABS: Glucose,Whole Blood 166 mg/dL (75-99)
--- NOTE | 2016-08-28 18:46 | PN ---
INTERVAL HISTORY: Mr. Lees is a 76-year-old male who was admitted to the hospital for acute on chronic renal failure with hyperkalemia and acute CHF exacerbation. The patient has been started on hemodialysis and is being followed by Nephrology. Patient has been having atrial fibrillation with PVCs and also a few runs of V. tach. Cardiology on board and following the patient. Today the patient is lying comfortably in the bed, appears to be in no acute distress. REVIEW OF SYSTEMS: CONSTITUTIONAL: Denies having any fevers, chills or rigors, but complains of generalized weakness. CARDIAC: No chest pain or palpitations. RESPIRATORY: No cough. No difficulty in breathing. GI: Patient states that his abdominal discomfort has improved. No nausea or vomiting. The patient's medications have been reviewed. On examination, patient's vital signs: Temperature 97.6, heart rate 79, respiratory rate 16, blood pressure 99/57, saturating at 96% on 2L of nasal cannula. GENERAL: Patient is lying in bed, appears to be in no acute distress. HEAD: Atraumatic, normocephalic. EYES: Pupils round and reactive to light. RESPIRATORY: Breath sounds are positive in all lung hunt with scattered rhonchi. CARDIOVASCULAR: Rate regular. Rhythm irregular. EXTREMITIES: Positive for trace pedal edema. GI: Abdomen is soft. Positive for bowel sounds. PSYCHIATRIC: Appropriate mood and affect. TOE STAPLER: Alert, awake, oriented x3. No focal deficits. SKIN: Patient has chronic venous insufficiency changes. Left upper extremity shows increased redness in the left arm region with tenderness to touch and warmth and erythema. Patient's labs were sodium 139, potassium 4.5, chloride 103, bicarb 24, BUN 57, creatinine 3.77. ASSESSMENT AND PLAN: 1. Acute on chronic kidney failure secondary to acute tubular necrosis related to cardiorenal syndrome. 2. Acute cellulitis of the left arm. 3. Acute congestive heart failure exacerbation, systolic dysfunction secondary to #1. 4. Chronic kidney disease stage 3. 5. Aortic stenosis. 6. Hyperkalemia. 7. Hyperphosphatemia. 8. Coronary artery disease. Recent [id number] myocardial infarction with stenting of the right coronary artery 08/16/2016. 9. Anemia of chronic disease and iron deficiency. 10. History of cerebrovascular accident/transient ischemic attack with residual left-sided weakness. 11. Diabetic neuropathy. 12. Hypothyroidism. 13. Hypertension. 14. Pulmonary hypertension. 15. Peripheral vascular disease. 16. Chronic paroxysmal atrial fibrillation. 17. Nonsustained ventricular tachycardia. 18. History of right kidney stent in 1999. 19. Chronic debility. PLAN: The plan is to continue the patient on the antibiotics in the form of Keflex for his left arm cellulitis. Continue with the rest of his medication regimen and dialysis as per Nephrology recommendations. Cardiology on board and monitoring his CHF and continue with the current regimen and further recommendations to follow, depending on the progress of the patient.
[2016-08-28 21:41] LABS: Glucose,Whole Blood 139 mg/dL (75-99)
[2016-08-28] MEDS: traZODone HCL 50 MG TAB PO SCH (22:05)
[2016-08-28] MEDS: ATORVASTATIN 40 MG TAB PO SCH (22:06)
[2016-08-28] MEDS: CEPHALEXIN 500 MG CAP PO SCH (22:07)
[2016-08-29] MEDS: SODIUM CHLORIDE 0.9% 1,000 ML IV SCH (06:35)
[2016-08-29] MEDS: LEVOTHYROXINE 125 MCG TAB PO SCH (06:48)
[2016-08-29 07:52] LABS: Glucose,Whole Blood 251 mg/dL (75-99)
[2016-08-29] MEDS: IPRATROPIUM-ALBUTEROL 3 ML NEB INHALATION SCH ×3 (08:12→20:21)
[2016-08-29] MEDS: INSULIN LISPRO (humaLOG) 300 UNIT/3 ML VIAL SQ SCH ×4 (09:04→21:44)
[2016-08-29] MEDS: PANTOPRAZOLE 40 MG TABLET PO SCH (09:06)
[2016-08-29] MEDS: SEVELAMER 800 MG TAB PO SCH ×3 (09:07→17:15)
[2016-08-29] MEDS: METOPROLOL TARTRATE 25 MG TAB PO SCH ×3 (09:07→21:44)
[2016-08-29] MEDS: CLOPIDOGREL 75 MG TAB PO SCH (09:07)
[2016-08-29] MEDS: DOCUSATE 100 MG CAP PO SCH ×2 (09:07→21:44)
[2016-08-29] MEDS: GABAPENTIN 400 MG CAP PO SCH ×2 (09:07→17:16)
[2016-08-29] MEDS: CEPHALEXIN 500 MG CAP PO SCH ×2 (09:07→21:44)
[2016-08-29] MEDS: LINAGLIPTIN 5 MG TABLET PO SCH (09:08)
[2016-08-29] MEDS: ISOSORBIDE MONONITRATE ER 60 MG TAB.ER.24H PO SCH (09:08)
[2016-08-29 10:05] LABS: Calcium 7.8 mg/dL (8.4-10.2); Potassium 4.2 mmol/L (3.5-5.1)
[2016-08-29 12:20] LABS: Glucose,Whole Blood 238 mg/dL (75-99)
[2016-08-29] MEDS ORDERED: FUROSEMIDE 10 MG/ML 4 ML VIAL IV STA (16:53)
[2016-08-29] MEDS: ASPIRIN 81 MG CHEW PO SCH (17:16)
--- NOTE | 2016-08-29 17:17 | PN ---
Patient is seen for followup for acute kidney injury secondary to vancomycin toxicity. Patient is lying in bed. He is comfortable. He is not in any acute distress. He is maintained on IV fluids at 50 mL an hour. Blood pressure is 99/62, heart rate of 80 per minute. Examination of the heart, S1 and S2. Examination of the lungs, decreased breath sounds in the bases. Abdomen is soft, nontender. Examination of the lower extremities shows bilateral extremities to be wrapped. SEED MILL SUPERINTENDENT exam is grossly intact. LABS: Labs show serum creatinine of 4.1 mg/dL today, sodium 141, potassium 4.2. ASSESSMENT: 1. Acute kidney injury secondary to acute tubular necrosis and cardiorenal syndrome. Serum creatinine had improved initially, but his creatinine has been rising again. Patient's blood pressure medications were changed. He was also started on IV fluids; however, his creatinine is again higher at 4.1 mg/dL. His last dialysis was on 08/23/2016. Currently patient is maintained with an indwelling Rothman catheter. His 24-hour urine output was on the lower side. I will Hep-Lock the IV fluids. Will give him a dose of Lasix. He currently has the right femoral Buck catheter still in place. 2. Heart failure, systolic dysfunction with ejection fraction at 30% to 35%. 3. Septal and anteroseptal hypokinesia was also noted on echocardiogram done on 08/06/2016. 4. Hyperkalemia, currently improved. 5. Atrial fibrillation with controlled ventricular response. 6. Recent non-ST elevation myocardial infarction with stenting of right coronary artery on 08/16/2016. PLAN: Hep-Lock IV fluids, Lasix x1. Repeat labs in the a.m.
[2016-08-29] MEDS: ASCORBIC ACID 500 MG TAB PO SCH (17:21)
[2016-08-29 17:27] LABS: Glucose,Whole Blood 194 mg/dL (75-99)
[2016-08-29 21:06] LABS: Glucose,Whole Blood 204 mg/dL (75-99)
[2016-08-29] MEDS: traZODone HCL 50 MG TAB PO SCH (21:44)
[2016-08-29] MEDS: ATORVASTATIN 40 MG TAB PO SCH (21:44)
[2016-08-30] MEDS: LEVOTHYROXINE 125 MCG TAB PO SCH (06:29)
[2016-08-30 07:25] LABS: Glucose,Whole Blood 208 mg/dL (75-99)
[2016-08-30] MEDS: IPRATROPIUM-ALBUTEROL 3 ML NEB INHALATION SCH ×3 (07:58→19:59)
[2016-08-30] MEDS: INSULIN LISPRO (humaLOG) 300 UNIT/3 ML VIAL SQ SCH ×4 (08:22→22:01)
[2016-08-30] MEDS: SEVELAMER 800 MG TAB PO SCH ×3 (08:22→17:56)
[2016-08-30] MEDS: GABAPENTIN 400 MG CAP PO SCH ×2 (09:40→17:55)
[2016-08-30] MEDS: CLOPIDOGREL 75 MG TAB PO SCH (09:40)
[2016-08-30] MEDS: CEPHALEXIN 500 MG CAP PO SCH (09:41)
[2016-08-30] MEDS: PANTOPRAZOLE 40 MG TABLET PO SCH (09:41)
[2016-08-30] MEDS: ISOSORBIDE MONONITRATE ER 60 MG TAB.ER.24H PO SCH (09:41)
[2016-08-30] MEDS: LINAGLIPTIN 5 MG TABLET PO SCH (09:41)
[2016-08-30] MEDS: METOPROLOL TARTRATE 25 MG TAB PO SCH ×3 (09:41→22:01)
[2016-08-30] MEDS: DOCUSATE 100 MG CAP PO SCH ×2 (09:42→21:59)
[2016-08-30 11:10] LABS: Potassium 4.1 mmol/L (3.5-5.1)
[2016-08-30 11:56] LABS: Glucose,Whole Blood 278 mg/dL (75-99)
[2016-08-30 16:48] LABS: Glucose,Whole Blood 210 mg/dL (75-99)
--- NOTE | 2016-08-30 16:55 | PN ---
Patient is seen for followup for acute kidney injury. Patient's renal function has started to deteriorate again and his creatinine continuously keeps rising. He has had fair amount of urine output from an indwelling Rothman catheter. Patient was given Lasix yesterday. Total 24-hour urine output was about 900 mL. He was dialyzed on initial admission and he had 3 treatments of dialysis, after which hemodialysis has been on hold, as renal function seemed to have improved. Currently there are no nephrotoxic agents on board. The patient's blood pressure is better. He is not hypotensive anymore, but his kidney function continues to decline. On examination he is comfortable, lying in bed. Blood pressure is 140/68, heart rate 84 per minute. He is afebrile. HEART: S1 and S2. LUNGS: Bilateral breath sounds are heard. Decreased breath sounds at the bases. Abdomen is soft, nontender. Lower extremities shows edema 1+ bilaterally. Bilateral extremities are wrapped. Labs show and serum creatinine at 4.5, sodium 142, potassium 4.1. ASSESSMENT: 1. Acute kidney injury, most likely acute tubular necrosis,; however, urine also showed red blood cells and white blood cells. This appears to be a Rothman specimen; therefore, this may be traumatic; however, in view of worsening renal function, patient should have a kidney biopsy done. He will likely need to resume dialysis and we will need to switch the femoral catheter to an internal jugular PermCath. I will also order serologies as workup for his renal failure. 2. Cardiomyopathy with an ejection fraction of 30% to 35% with septal anteroseptal hypokinesis noted on echocardiogram on 08/06/2016. 3. Atrial fibrillation with controlled ventricular response. 4. Recent non-ST elevation myocardial infarction with stenting of right coronary artery on 08/16/2016. PLAN: Continue off of IV fluids. Obtain workup for an acute GN. Patient will likely need to be maintained on dialysis. I will also schedule him for a kidney biopsy, as renal function continues to worsen despite stable hemodynamics and no nephrotoxic agents are on board. We will also need to change the femoral catheter to an IJ PermCath. Patient will be scheduled for hemodialysis in a.m.
--- NOTE | 2016-08-30 17:15 | PN ---
DATE OF SERVICE: 08/29/2016 INTERVAL HISTORY: Mr. Lees is a 76-year-old man who was admitted to the hospital for acute on chronic renal failure with hyperkalemia and acute CHF exacerbation. The patient has been started on hemodialysis and being followed by nephrology. Patient has atrial fibrillation with PVC and also a few runs of V. tach. Cardiology on board following the patient. Today the patient is lying in bed comfortably, appears to be in no acute distress. He does not have any active complaints. REVIEW OF SYSTEMS: CONSTITUTIONAL: Denies having fevers, chills or rigors. Complaints of generalized weakness. CARDIAC: No chest pain or palpitations. RESPIRATORY: No cough. No difficulty in breathing. GI: The patient states his abdominal discomfort has improved. No nausea or vomiting. Patient's medications have been reviewed. On examination, patient's vital signs temperature 97.2, heart rate 82, respiratory 20, blood pressure 99/62, saturating at 95% on 2 liters of nasal cannula. GENERAL EXAMINATION: Elderly male lying in bed, appears to be no acute distress. HEAD: Atraumatic, sound, and reactive to bilateral breath sounds are positive with a few rhonchi. CARDIOVASCULAR: Irregularly irregular. EXTREMITIES: Positive for trace pedal edema. GI: Abdomen is distended soft and nontender. Bowel sounds are positive. PSYCHIATRIC: Appropriate mood and affect. AIRCRAFT MAINTENANCE ENGINEER: Alert, awake and tender x3. No focal deficits. Patient's labs: Sodium 141, potassium 4.2, chloride 104, bicarb 26. BUN 60, creatinine 4.10. ASSESSMENT AND PLAN: 1. Acute on chronic kidney failure secondary to acute tubular necrosis related to cardiorenal syndrome. 2. Acute cellulitis of the left arm. 3. Acute congestive heart failure exacerbation systolic dysfunction secondary to #1. 4. Chronic kidney disease stage III. 5. Aortic stenosis. 6. Hyperkalemia. 7. Hyperphosphatemia. 8. Coronary artery disease, recent non-ST elevation myocardial infarction with stenting of the right coronary artery on 08/16/2016. 9. Anemia of chronic disease and iron deficiency anemia. 10. History of cerebrovascular accident/transient ischemic attack with residual left-sided weakness. 11. Diabetic neuropathy. 12. Hypothyroidism. 13. Hypertension. 14. Pulmonary hypertension. 15. Peripheral vascular disease. 16. Chronic paroxysmal atrial fibrillation. 17. Nonsustained ventricular tachycardia. 18. History of right kidney stent in 1999. 19. Chronic debility. PLAN: Plan is to continue the patient on antibiotics in the form of Keflex for left arm cellulitis, continue with the rest of his medication regimen. Dialysis as per nephrology recommendations. Cardiology on board and ( ) monitoring his congestive heart failure. Continue with the current medication regimen and further recommendations to follow depending on the progress of the patient.
[2016-08-30] MEDS: ASPIRIN 81 MG CHEW PO SCH (17:56)
[2016-08-30] MEDS: CEPHALEXIN 250 MG CAP PO SCH ×2 (17:56→22:00)
[2016-08-30] MEDS: ASCORBIC ACID 500 MG TAB PO SCH (17:57)
--- NOTE | 2016-08-30 20:27 | PN ---
DATE OF SERVICE: 08/30/2016 INTERVAL HISTORY: Mr. Lees is a 76-year-old male who was admitted to the hospital for acute on chronic renal failure hyperkalemia and acute CHF exacerbation. Patient has been started on hemodialysis and is being followed by nephrology. Patient also having atrial fibrillation with PVCs and a few runs of V. tach. Cardiology on board and following the patient. As per the nursing staff report, patient had mucous bowel movement with no odor and no blood. The patient states that he has been feeling gassy, but no abdominal pain, nausea, vomiting, or diarrhea. He states that he has in a lot of bloating. REVIEW OF SYSTEMS: CONSTITUTIONAL: Denies having fever, chills, or rigors. RESPIRATORY: No cough. No difficulty in breathing. CARDIAC: No chest pain or palpitations. GI: As above. : Patient is making minimal urine. Patient's medications have been reviewed. On examination, patient's vital signs are temperature 96.9, heart rate 80, respiratory rate 16, blood pressure 109/70, saturating at 94% on 2 liters of nasal cannula. GENERAL EXAMINATION: Patient is elderly male lying in bed, appears to be no acute distress. HEAD: Atraumatic, normocephalic. EYES: Pupils, round, and reactive. LUNGS: Bilateral breath sounds are positive in all lung hunt. No wheezes or crackles. CARDIOVASCULAR: Irregularly irregular. EXTREMITIES: Positive for trace pedal anemia. GI: Abdomen is soft, distended, nontender. Bowel sounds are positive. PSYCHIATRIC: Appropriate mood and affect. BLOCKING MACHINE OPERATOR SECOND: Alert, awake, oriented x3, left-sided weakness. SKIN: Patient shows decreased redness and swelling in his left upper extremity compared to a couple of days back. LABS: Sodium 142, potassium 4.9, chloride 105, bicarb 25, BUN 67, creatinine 4.50. ASSESSMENT AND PLAN: 1. Acute on chronic kidney failure secondary to acute tubular necrosis related to cardiorenal syndrome. 2. Acute cellulitis of the left arm. 3. Acute congestive heart failure exacerbation, systolic dysfunction secondary to #1. 4. Chronic kidney disease stage III. 5. Aortic stenosis. 6. Hyperkalemia. 7. Hyperphosphatemia. 8. Coronary artery disease. Recent history of NSTEMI with stenting of right coronary artery on 08/16/2016. 9. Anemia of chronic disease and iron deficiency anemia. 10. History of cerebrovascular accident with residual left-sided weakness. 11. Diabetic neuropathy. 12. Hypothyroidism. 13. Hypertension. 14. Pulmonary hypertension. 15. Peripheral vascular disease. 16. Chronic paroxysmal atrial fibrillation. 17. Nonsustained ventricular tachycardia. 18. History of right kidney stent in 1999. 19. Chronic debility. PLAN: The plan is to continue the patient on hemodialysis as per nephrology recommendations. Continue with Keflex for his left arm cellulitis. Cardiology on board and monitoring his congestive heart failure. Continue with the current medication regimen. Nephrology is still evaluating him, whether he has to be on long-term dialysis or whether it would be a short term thing for him. Further recommendations to follow depending on the progress of the patient.
[2016-08-30 20:52] LABS: Glucose,Whole Blood 212 mg/dL (75-99)
[2016-08-30] MEDS: ATORVASTATIN 40 MG TAB PO SCH (21:59)
[2016-08-30] MEDS: traZODone HCL 50 MG TAB PO SCH (22:00)
[2016-08-31] MEDS: LEVOTHYROXINE 125 MCG TAB PO SCH (06:22)
[2016-08-31 07:04] LABS: Glucose,Whole Blood 210 mg/dL (75-99)
[2016-08-31] MEDS: METOPROLOL TARTRATE 25 MG TAB PO SCH ×3 (08:28→21:35)
[2016-08-31] MEDS: INSULIN LISPRO (humaLOG) 300 UNIT/3 ML VIAL SQ SCH ×4 (08:28→21:35)
[2016-08-31] MEDS: SEVELAMER 800 MG TAB PO SCH ×3 (08:28→18:02)
[2016-08-31] MEDS: GABAPENTIN 400 MG CAP PO SCH ×2 (08:28→18:01)
[2016-08-31] MEDS: DOCUSATE 100 MG CAP PO SCH ×2 (08:28→21:35)
[2016-08-31] MEDS: CEPHALEXIN 250 MG CAP PO SCH ×3 (08:28→21:35)
[2016-08-31] MEDS: LINAGLIPTIN 5 MG TABLET PO SCH (08:29)
[2016-08-31] MEDS: PANTOPRAZOLE 40 MG TABLET PO SCH (08:29)
[2016-08-31] MEDS: CLOPIDOGREL 75 MG TAB PO SCH (08:29)
[2016-08-31] MEDS: ISOSORBIDE MONONITRATE ER 60 MG TAB.ER.24H PO SCH (08:30)
[2016-08-31] MEDS ORDERED: FUROSEMIDE 10 MG/ML 4 ML VIAL IV STA (09:18)
[2016-08-31] MEDS: IPRATROPIUM-ALBUTEROL 3 ML NEB INHALATION SCH ×3 (09:57→20:36)
[2016-08-31 11:21] LABS: Calcium 7.8 mg/dL (8.4-10.2)
[2016-08-31 11:38] LABS: Potassium 4.2 mmol/L (3.5-5.1)
[2016-08-31 12:33] LABS: Glucose,Whole Blood 252 mg/dL (75-99)
[2016-08-31 15:00] VITALS: BMI 34.2
[2016-08-31] MEDS ORDERED: HEPARIN SODIUM,PORCINE 5,000 UNIT/ML 1 ML VIAL ONE (16:50)
[2016-08-31 17:00] LABS: Glucose,Whole Blood 182 mg/dL (75-99)
[2016-08-31 17:17] LABS: Hepatitis B Surface Ag Index 0.05
[2016-08-31 17:20] LABS: Anisocytosis Slight; CH 30.1; CHCM 30.4; HCT 27.9 % (39.0-53.0); HDW 3.41; HGB 8.6 gm/dL (13.0-17.5); Hypochromasia Marked; MCH 30.8 pg (25.0-35.0); MCHC 30.8 g/dL (31.0-37.0); Macrocytosis Slight; Mean Platelet Volume 7.4; Poikilocytosis Slight; RDW 16.2 % (11.5-15.5); WBC 5.2 k/uL (3.8-10.6)
[2016-08-31 17:23] LABS: Hepatitis B Core IgM Index 0.02
[2016-08-31 17:34] LABS: Hepatitis C Virus IgG Index 0.04
[2016-08-31] MEDS: ASPIRIN 81 MG CHEW PO SCH (18:02)
[2016-08-31] MEDS: ASCORBIC ACID 500 MG TAB PO SCH (18:02)
[2016-08-31 18:23] LABS: Hepatitis C Virus IgG Ab Negative (Negative)
--- NOTE | 2016-08-31 20:45 | PN ---
Patient is seen for followup for acute kidney injury on top of chronic kidney disease. Patient's renal function initially had improved; however, his renal function is worsening now with serum creatinine back at 4.45 mg/dL. It was as high as 5.2 and went down to about 3.5 mg/dL. Patient does have underlying CKD. He is also quite lethargic today. Urine output had been on the lower side. He received a dose of Lasix with some improvement in urine output yesterday. On examination today, patient is comfortable. He is not in any acute distress. He is sleeping, easily arousable though, but is not able to eat. Blood pressure is 111/57, heart rate 94 per minute. He is afebrile. EXAMINATION OF THE HEART: S1 and S2. EXAMINATION OF THE LUNGS: Decreased breath sounds in bases. Examination of lower extremities shows bilateral extremities to be wrapped. Indwelling Rothman catheter is in place. Labs show serum creatinine at 4.45, sodium 143, potassium 4.2. Hemoglobin 8.6 g/dL. ASSESSMENT: 1. Acute kidney injury on top of chronic kidney disease. Will resume dialysis. We will also need to place an IJ Perm-A-Cath, as patient will need to continue with hemodialysis as outpatient. I will obtain workup for underlying GN and may consider kidney biopsy down the road. 2. Cardiomyopathy with ejection fraction of 30% to 35% with septal, anteroseptal hypokinesis noted on echocardiogram on 08/06. 3. Atrial fibrillation with controlled ventricular response. 4. Recent [id number] myocardial infarction with cardiac catheterization and stenting of right coronary artery. PLAN: Hemodialysis today. Obtain workup for GN. I will obtain serologies and consider kidney biopsy prior to discharge.
[2016-08-31 21:05] LABS: Glucose,Whole Blood 212 mg/dL (75-99)
[2016-08-31] MEDS: ATORVASTATIN 40 MG TAB PO SCH (21:35)
[2016-08-31] MEDS: traZODone HCL 50 MG TAB PO SCH (21:35)
[2016-09-01] MEDS: LEVOTHYROXINE 125 MCG TAB PO SCH (06:34)
[2016-09-01 06:57] LABS: Glucose,Whole Blood 156 mg/dL (75-99)
[2016-09-01] MEDS: INSULIN LISPRO (humaLOG) 300 UNIT/3 ML VIAL SQ SCH ×4 (07:50→21:37)
[2016-09-01] MEDS: ISOSORBIDE MONONITRATE ER 60 MG TAB.ER.24H PO SCH (07:51)
[2016-09-01] MEDS: SEVELAMER 800 MG TAB PO SCH ×3 (07:51→17:47)
[2016-09-01] MEDS: CLOPIDOGREL 75 MG TAB PO SCH (07:51)
[2016-09-01] MEDS: CEPHALEXIN 250 MG CAP PO SCH ×3 (07:51→21:36)
[2016-09-01] MEDS: GABAPENTIN 400 MG CAP PO SCH ×2 (07:52→17:46)
[2016-09-01] MEDS: PANTOPRAZOLE 40 MG TABLET PO SCH (07:52)
[2016-09-01] MEDS: METOPROLOL TARTRATE 25 MG TAB PO SCH ×3 (07:52→21:36)
[2016-09-01] MEDS: DOCUSATE 100 MG CAP PO SCH ×2 (07:52→21:36)
[2016-09-01] MEDS: LINAGLIPTIN 5 MG TABLET PO SCH (07:53)
--- NOTE | 2016-09-01 08:32 | PN ---
DATE OF SERVICE: 08/31/2016 INTERVAL HISTORY: Mr. Lees is a 76-year-old male who was admitted to the hospital for acute and chronic renal failure along with hyperkalemia. He was also having acute CHF exacerbation. Patient has been started on hemodialysis and is being followed by Nephrology. Patient also has history of paroxysmal atrial fibrillation and has a few PVCs and a few runs of V. tach. Cardiology on board. The patient is currently getting dialysis. He states he does not have any complaints. The patient is very pleasant and does hold a good conversation. The patient denies having any active complaints. REVIEW OF SYSTEMS: CONSTITUTIONAL: Denies having fever, chills, or rigors. RESPIRATORY: No cough. CARDIAC: No chest pain or palpitations. GI: No abdominal pain, nausea or vomiting. Patient's medications have been reviewed. He is currently getting DuoNeb breathing treatments, Xanax, vitamin C, aspirin, Lipitor, Dulcolax, Keflex, Plavix, Colace, gabapentin, Dilaudid, Imdur, lactulose, levothyroxine, linagliptin, Lopressor, Narcan. Nitrostat, Zofran, sevelamer, trazodone and Protonix. On examination, patient's vital signs: Temperature 98.2, heart rate 94, respiratory rate 16, blood pressure 111/57, saturating at 92% on 2 L of nasal cannula. GENERAL EXAMINATION: Patient is an elderly male lying in bed, appears to be in no acute distress. HEAD: Atraumatic and normocephalic. Pupils round and reactive to light. LUNGS: Bilateral breath sounds are positive in all lung hunt. CARDIOVASCULAR: Irregularly, irregular. EXTREMITIES: Patient has trace pedal edema in the lower extremities. Examination of the right upper extremity, patient has mild cellulitis for which he was started on Keflex, showed some improvement but the surrounding skin has been indurated and is positive for warmth and tenderness, but no evidence of abscess seen and he has pitting edema. OUTSOLE ROUNDER: He is alert, awake, oriented x3 with left-sided weakness due to prior stroke. PSYCHIATRIC: Appropriate mood and affect. PATIENT'S LABS: White count of 5.2, hemoglobin is 8.6, platelets of 167. Sodium 143, potassium 4.2, chloride 106, bicarb 24, BUN 76, creatinine 4.45. ASSESSMENT AND PLAN: 1. Acute on chronic kidney failure secondary to acute tubular necrosis related to cardiorenal syndrome. 2. Acute cellulitis of the left arm. 3. Acute congestive heart failure exacerbation systolic dysfunction secondary to #1. 4. Chronic kidney disease stage III . 5. Aortic stenosis. 6. Hyperkalemia. 7. Hyperphosphatemia. 8. Coronary artery disease, recent non-ST elevation myocardial infarction with stenting of right coronary artery on 08/16/2016. 9. Anemia of chronic disease and iron deficiency anemia. 10. History of cerebrovascular accident with residual left-sided weakness. 11. Diabetic neuropathy. 12. Hypothyroidism. 13. Hypertension. 14. Pulmonary hypertension. 15. Peripheral vascular disease. 16. Chronic paroxysmal atrial fibrillation. 17. Nonsustained ventricular tachycardia. 18. History of right kidney stent in 1999. 19. Chronic debility. PLAN: The plan is to continue the patient on hemodialysis as per nephrology recommendations. Continue with the Keflex for his left arm cellulitis. As the patient's left arm appears to be more swollen today will get an ultrasound of the upper extremity to rule out DVT. Cardiology on board and monitoring his congestive heart failure. Will discuss with Cardiology the need for the patient to be on anticoagulation in view of his atrial fibrillation, but currently he is not on any anticoagulation. The intermediate project manager plan for him would be whether the patient needs to be on dialysis for short term or intermediate project manager. I will have to discuss with Nephrology regarding his prognosis. Overall prognosis is poor due to multiple chronic medical conditions. Further recommendations to follow depending on the progress of the patient.
[2016-09-01] MEDS: IPRATROPIUM-ALBUTEROL 3 ML NEB INHALATION SCH ×3 (09:36→19:40)
[2016-09-01 10:16] LABS: CHCM 30.2; HCT 25.7 % (39.0-53.0); HDW 3.43; HGB 8.1 gm/dL (13.0-17.5); Hypochromasia Marked; MCH 31.4 pg (25.0-35.0); MCHC 31.4 g/dL (31.0-37.0); MCV 100.2 fL (80.0-100.0); Macrocytosis Slight; Mean Platelet Volume 7.5; Poikilocytosis Slight; RBC 2.57 m/uL (4.30-5.90); WBC 4.5 k/uL (3.8-10.6)
[2016-09-01 10:26] LABS: Calcium 7.9 mg/dL (8.4-10.2); Potassium 3.8 mmol/L (3.5-5.1)
[2016-09-01] MEDS ORDERED: traMADol 50 MG TAB PO PRN (10:46)
--- NOTE | 2016-09-01 11:10 | US ---
EXAMINATION TYPE: US venous doppler duplex UE LT DATE OF EXAM: 09/01/2016 10:56 AM COMPARISON: NONE CLINICAL HISTORY: R/O DVT . Left forearm pain and redness at site of former IV SIDE PERFORMED: left arm TECHNOLOGIST IMPRESSION: exam is technically limited for US assessment as patient is unable to exter sherlyn rotate arm with shoulder immobility Left Arm: Negative for DVT. Is positive for SVT in Left Cephalic Vein from left wrist to brachial fos sa as vein has internal echoes, is noncompressible and absent of color flow. Tech findings reported t o patient's RN at exam's end. Satisfactory color flow, compressibility, and phasicity is seen in the left internal jugular vein, le ft subclavian vein, as well as axillary and visualized portion of brachial veins. Brachial vein is in completely imaged due to patient unable to externally rotate. Mild subcutaneous edema is seen at this level on images saved. Cephalic vein shows hyperechoic material filling the lumen with noncompressibility and absent color f low mid to distal segments. Basilic vein shows satisfactory color flow and compressibility. Radial vein shows satisfactory compre ssibility. IMPRESSION: Superficial vein thrombus involving the left cephalic vein is noted.
[2016-09-01 11:48] LABS: Glucose,Whole Blood 165 mg/dL (75-99)
--- NOTE | 2016-09-01 12:10 | P.PN ---
Progress Note - Text This is a pleasant 76-year-old gentleman with a known history of coronary artery disease who underwent recently successful stenting of the right coronary artery and who is known to have chronic total occlusion of the LAD as well as multiple comorbid conditions including into stage renal disease on hemodialysis , cardiomyopathy, hypertension, dyslipidemia, was diagnosed recently with paroxysmal atrial fibrillation/atrial flutter. From the cardiovascular standpoint overview, he seems to be asymptomatic. Hemodynamically he seems to be stable as well. The reason we are asked to see the patient again for further evaluation regarding anticoagulation. The patient has poor functional capacity and he has very high risk of falling and bleeding. Currently he is on dual antiplatelet therapy. I would recommend no anticoagulation and keep the patient on the dual antiplatelet therapy. We will continue following with up with the patient on when necessary case and please do not hesitate to call if you have any question or concern
--- NOTE | 2016-09-01 14:01 | PN ---
76-year-old end stage renal disease, now permanently hemodialysis-dependent does have history of congestive heart failure. Patient is admitted for exacerbation of congestive heart failure and a poor urine output secondary to cardiorenal syndrome and cardiology is following the patient as well. Patient has runs of V. tach. Patient has a left upper limb Doppler, which showed superficial thrombus for which I am using anti-inflammatories. REVIEW OF SYSTEMS: CARDIOVASCULAR: No chest pain, no orthopnea, no PND, no palpitations. PULMONARY: Denied any shortness of breath. No cough or hemoptysis. GASTROINTESTINAL: No diarrhea, nausea or vomiting. No abdominal pain. Normoactive bowel sounds. NEUROLOGIC: No headaches, no weakness, no numbness. EXTREMITIES: Left upper extremity pain in the left upper extremity. Medications were reviewed. PHYSICAL EXAMINATION: Temperature 97. Pulse of 82, respiratory rate of 18, blood pressure 127/61, saturating at 93% on 2 L O2 by nasal cannula. GENERAL: The patient is alert and oriented x3, not in any acute distress. Well developed, well nourished. HEENT: Pupils are round and equally reacting to light. EOMI. No scleral icterus. No conjunctival pallor. Normocephalic, atraumatic. No pharyngeal erythema. No thyromegaly. CARDIOVASCULAR: S1 and S2 present. No murmurs, rubs, or gallops. PULMONARY: Chest is clear to auscultation, no wheezing or crackles. ABDOMEN: Soft, nontender, nondistended, normoactive bowel sounds. No palpable organomegaly. MUSCULOSKELETAL: No joint swelling or deformity. EXTREMITIES: Patient has thrombus in the left forearm, pain and tenderness in that area. NEUROLOGICAL: Gross neurological examination did not reveal any focal deficits. SKIN: No rashes. LABORATORY DATA: CBC, CMP are abnormal for elevated BUN and creatinine at 56 and 3.77 which are better than yesterday. ASSESSMENT AND PLAN: 1. Acute on chronic kidney disease secondary to acute tubular necrosis and cardiorenal syndrome and patient is end stage renal disease, now hemodialysis -dependent. 2. Superficial thrombus of the left upper limb for which patient will need anti-inflammatories. Will not need anticoagulation regarding that, but apparently patient is in atrial fibrillation for which cardiology is evaluating the patient and if they need anticoagulation, the patient will be started on anticoagulation. 3. Congestive heart failure, chronic systolic dysfunction with acute exacerbation. Patient is fairly euvolemic at this point of time. Continue with hemodialysis. 4. Aortic stenosis. 5. Hyper( ) due to renal dysfunction and metabolic bone disease. 6. Diabetic nephropathy and diabetic neuropathy. 7. Pulmonary hypertension severity. 8. Hypothyroidism. 9. Hypertension 10. Chronic medical debility. PLAN: Continue with hemodialysis, possibility of discharge in a day or two to subacute rehab.
[2016-09-01 14:34] LABS: C-ANCA <1:20 Titer (<1:20); P-ANCA <1:20 Titer (<1:20)
[2016-09-01] MEDS ORDERED: SODIUM CHLORIDE 0.9% 500 ML IV ONE (14:57)
[2016-09-01] MEDS ORDERED: HEPARIN SODIUM,PORCINE 5,000 UNIT/ML 1 ML VIAL ONE (15:00)
[2016-09-01] MEDS ORDERED: fentaNYL (PF) 50 MCG/ML 2 ML AMP IV ONE (15:29)
[2016-09-01] MEDS ORDERED: MIDAZOLAM 2 MG/2 ML VIAL IVP ONE (15:29)
[2016-09-01] MEDS ORDERED: LIDOCAINE 2% INJ 20 MG/ML SQ ONE ×2 (15:31)
[2016-09-01 17:14] LABS: Glucose,Whole Blood 158 mg/dL (75-99)
--- NOTE | 2016-09-01 17:18 | XR ---
EXAMINATION TYPE: XR chest 1V confirm line [facility] DATE OF EXAM: 09/01/2016 4:23 PM COMPARISON: Chest x-ray one week ago. HISTORY: Permacath placement. TECHNIQUE: Single AP portable supine view of the chest is obtained. FINDINGS: There is new right internal jugular dual-lumen dialysis catheter with tips in SVC. No pneum othorax is evident bilaterally. There is background of mild cardiomegaly. There is background of chronic emphysematous change with di ffuse parenchymal scarring. Increased opacity right lung could reflect additional scarring and/or int erstitial edema. More focal infiltrate right lung apex is redemonstrated. Small right-sided pleural e ffusion is felt present. No mediastinal shift is seen. Osseous structures are demineralized. Degenera tive change left glenohumeral joint is redemonstrated. IMPRESSION: New right internal jugular dual-lumen dialysis catheter with tips in SVC. No evidence of sizable pneumothorax after catheter placement. Other findings as noted above.
--- NOTE | 2016-09-01 17:22 | IR ---
EXAMINATION TYPE: IR cvc insert central tunneled DATE OF EXAM: 09/01/2016 4:13 PM COMPARISON: NONE HISTORY: Central line insertion for dialysis TECHNIQUE: Fluoroscopy. FINDINGS: Fluoroscopic guidance was provided during central line catheter insertion procedure perfor med by Dr. Recinos. A total of 1.2 minutes of fluoroscopic time was utilized during the procedure a nd 2 spot intraoperative images are acquired. Images acquired show placement of guidewire and subsequent dual-lumen right internal jugular dialysis catheter with tip projecting over SVC. IMPRESSION: As Above.
[2016-09-01] MEDS: ASCORBIC ACID 500 MG TAB PO SCH (17:46)
[2016-09-01] MEDS: ASPIRIN 81 MG CHEW PO SCH (17:47)
--- NOTE | 2016-09-01 19:00 | PN ---
Patient is seen for followup for CKD. He did have an element of acute kidney injury which seemed to have improved, but serum creatinine has been rising again. Patient was also very lethargic yesterday and he was dialyzed yesterday. He is scheduled for an IJ Perm-A-Cath placement today. We will dialyze him again today as well as tomorrow. On examination, patient is comfortable. He is not in any acute distress. Blood pressure is 127/67, heart rate 82 per minute. He is afebrile. EXAMINATION OF THE HEART: S1 and S2. EXAMINATION OF THE LUNGS: Decreased breath sounds in the bases. ABDOMEN: Soft, nontender. Examination of lower extremities shows bilateral extremities to be wrapped. Edema is noted. Labs show sodium 142, potassium 3.8. Hemoglobin 8.1 g/dL. ASSESSMENT: 1. Chronic kidney disease, currently dialysis-dependent. Will continue to maintain patient on outpatient hemodialysis. I have discussed with social work manager, and we will be looking for outpatient placement. Patient is scheduled to have an IJ Perm-A-Cath placed today. 2. Volume overload, currently improved. 3. Anemia of chronic disease with no active bleeding noted. Patient will be started on Aranesp. 4. Hypothyroidism. 5. Superficial thrombus in the left upper extremity. 6. Congestive heart failure with chronic systolic dysfunction with ejection fraction of 30% to 35% with significant septal, anteroseptal hypokinesis. 7. Atrial fibrillation with controlled ventricular response. 8. Recent [id number] myocardial infarction with cardiac catheterization and stenting of right coronary artery. PLAN: Hemodialysis today. Discharge planning for outpatient placement for dialysis.
[2016-09-01] MEDS ORDERED: DARBEPOETIN ALFA 25 MCG/0.42 ML SYRINGE SQ SCH (20:00)
[2016-09-01 21:09] LABS: Anisocytosis Slight; Basophils % (A) 0 %; CH 29.7; CHCM 29.5; Eosinophils # (A) 0.2 k/uL (0-0.7); Eosinophils % (A) 3 %; HCT 27.6 % (39.0-53.0); HDW 3.45; HGB 8.4 gm/dL (13.0-17.5); Hypochromasia Marked; Luc % (Auto) 2; Lymphocytes # (A) 0.7 k/uL (1.0-4.8); Lymphocytes % (A) 13 %; MCH 31.1 pg (25.0-35.0); MCHC 30.6 g/dL (31.0-37.0); MCV 101.6 fL (80.0-100.0); Macrocytosis Slight; Mean Platelet Volume 7.4; Monocytes # (A) 0.3 k/uL (0-1.0); Monocytes % (A) 6 %; Neutrophils # (A) 3.9 k/uL (1.3-7.7); Neutrophils % (A) 75 %; Poikilocytosis Slight; RBC 2.71 m/uL (4.30-5.90); RDW 16.1 % (11.5-15.5); WBC 5.2 k/uL (3.8-10.6); WBC (Perox) 5.44
[2016-09-01 21:10] LABS: INR 1.3 (<1.1); Prothrombin Time 12.6 sec (9.0-12.0)
[2016-09-01 21:26] LABS: Glucose,Whole Blood 201 mg/dL (75-99)
[2016-09-01] MEDS: ATORVASTATIN 40 MG TAB PO SCH (21:35)
[2016-09-01] MEDS: traZODone HCL 50 MG TAB PO SCH (21:36)
--- NOTE | 2016-09-01 23:21 | OP ---
DATE OF SERVICE: SURGEON: RUI GIPSON MD EMERGENCY DEPT TECH: PREOPERATIVE DIAGNOSIS: Acute chronic renal failure. POSTOPERATIVE DIAGNOSIS: Acute chronic renal failure. OPERATION: 1. Ultrasound-guided ( ) dialysis catheter placement in jugular approach. 2. Removal of temporary dialysis catheter, right femoral approach. ANESTHESIA: ESTIMATED BLOOD LOSS: SPECIMENS REMOVED: COMPLICATIONS: OPERATIVE FINDINGS: DESCRIPTION OF PROCEDURE: This patient was brought to the [employer]. This patient had a dialysis catheter placed in the right femoral vein in the past. The patient now has been scheduled to have a permanent dialysis catheter. Right neck and chest was prepped and drapes applied in the usual sterile manner. 1% lidocaine infiltrated. Ultrasound-guided micropuncture introduced right internal jugular vein. Micropuncture guide was passed and 4 Japanese dilator placed on the top of the guidewire. After that, incision was made in the chest wall and tunnel was created. Through the tunnel, we brought 28 cm dialysis catheter. After that, we passed a dilator on the top of the guidewire under fluoroscopy control and then sheath was advanced on the guidewire. Through the sheath, we then advanced the dialysis catheter. Tip of the catheter was in superior vena cava and ( ) flushed with heparin saline and hep-locked and incision was closed with Vicryl and nylon. Dressing applied. The patient tolerated the procedure well. Then the right groin was prepped and draped applied in usual sterile manner. 1% Lidocaine was infiltrated. Stitches were removed. A right femoral catheter was removed. A dressing was applied. Pressure applied. The patient tolerated the procedure well.
[2016-09-02] MEDS: LEVOTHYROXINE 125 MCG TAB PO SCH (06:38)
[2016-09-02 07:04] LABS: Glucose,Whole Blood 180 mg/dL (75-99)
[2016-09-02] MEDS: IPRATROPIUM-ALBUTEROL 3 ML NEB INHALATION SCH ×2 (07:39→19:35)
[2016-09-02] MEDS: INSULIN LISPRO (humaLOG) 300 UNIT/3 ML VIAL SQ SCH ×4 (08:30→21:14)
[2016-09-02] MEDS: SEVELAMER 800 MG TAB PO SCH ×3 (08:30→17:10)
[2016-09-02] MEDS: GABAPENTIN 400 MG CAP PO SCH (08:31)
[2016-09-02] MEDS: CLOPIDOGREL 75 MG TAB PO SCH (08:31)
[2016-09-02] MEDS: CEPHALEXIN 250 MG CAP PO SCH ×3 (08:32→21:13)
[2016-09-02] MEDS: ISOSORBIDE MONONITRATE ER 60 MG TAB.ER.24H PO SCH (08:32)
[2016-09-02] MEDS: DOCUSATE 100 MG CAP PO SCH ×2 (08:32→21:29)
[2016-09-02] MEDS: METOPROLOL TARTRATE 25 MG TAB PO SCH ×3 (08:33→21:13)
[2016-09-02] MEDS: PANTOPRAZOLE 40 MG TABLET PO SCH (08:33)
[2016-09-02] MEDS: LINAGLIPTIN 5 MG TABLET PO SCH (08:33)
[2016-09-02 11:14] LABS: Anisocytosis Slight; Basophils % (A) 0 %; CH 29.9; CHCM 29.7; Eosinophils # (A) 0.2 k/uL (0-0.7); Eosinophils % (A) 3 %; HCT 26.5 % (39.0-53.0); HDW 3.47; HGB 8.1 gm/dL (13.0-17.5); Hypochromasia Marked; Luc # (Auto) 0.07; Luc % (Auto) 1; Lymphocytes # (A) 0.4 k/uL (1.0-4.8); Lymphocytes % (A) 9 %; MCHC 30.5 g/dL (31.0-37.0); MCV 101.5 fL (80.0-100.0); Macrocytosis Slight; Mean Platelet Volume 7.9; Monocytes # (A) 0.3 k/uL (0-1.0); Monocytes % (A) 7 %; Neutrophils # (A) 3.9 k/uL (1.3-7.7); Neutrophils % (A) 80 %; Poikilocytosis Slight; RBC 2.61 m/uL (4.30-5.90); RDW 16.4 % (11.5-15.5); WBC 4.9 k/uL (3.8-10.6); WBC (Perox) 5.24
[2016-09-02 11:53] LABS: Glucose,Whole Blood 184 mg/dL (75-99)
--- NOTE | 2016-09-02 13:35 | P.PN ---
Subjective Patient is seen in follow-up for acute kidney injury on chronic kidney disease. This admission he's been dialysis dependent. He underwent a permacath placement yesterday. He is currently undergoing hemodialysis. Denies any chest pain or shortness of breath. No vomiting or diarrhea. Vital signs are stable. General: The patient appeared well nourished and normally developed. HEENT: Head exam is unremarkable. Neck is without jugular venous distension. LUNGS: Lungs are clear to auscultation and percussion. Breath sounds decreased. HEART: Rate and Rhythm are regular. First and second heart sounds normal. No murmurs, rubs or gallops. ABDOMEN: Abdominal exam reveals normal bowel sounds. Non-tender and non- distended. No evidence of peritonitis. EXTREMITITES: No clubbing, cyanosis, or edema. Objective - Vital Signs Vital signs: Vital Signs Temp 97.5 F L 09/02/16 07:00 Pulse 59 L 09/02/16 07:00 Resp 19 09/02/16 07:00 BP 114/63 09/02/16 07:00 Pulse Ox 96 09/02/16 07:00 Intake & Output 09/01/16 09/02/16 09/02/16 18:59 06:59 18:59 Intake Total 340 100 Output Total 150 Balance 190 100 Weight 92.5 kg Intake: IV 100 Oral 240 100 Output: Urine 150 Stool 0 Other: Voiding Method Indwelling Catheter Indwelling Catheter Indwelling Catheter # Bowel Movements 1 - Labs CBC & Chem 7: 09/02/16 09:35 09/01/16 09:16 Labs: Abnormal Lab Results - Last 24 Hours (Table) 09/01/16 09/01/16 09/01/16 Range/Units 17:13 20:53 20:53 RBC 2.71 L (4.30-5.90) m/uL Hgb 8.4 L (13.0-17.5) gm/dL Hct 27.6 L (39.0-53.0) % MCV 101.6 H (80.0-100.0) fL MCHC 30.6 L (31.0-37.0) g/dL RDW 16.1 H (11.5-15.5) % Plt Count 132 L (150-450) k/uL Lymphocytes # 0.7 L (1.0-4.8) k/uL PT 12.6 H (9.0-12.0) sec POC Glucose (mg/dL) 158 H (75-99) mg/dL 09/01/16 09/02/16 09/02/16 Range/Units 21:18 07:02 09:35 RBC 2.61 L (4.30-5.90) m/uL Hgb 8.1 L (13.0-17.5) gm/dL Hct 26.5 L (39.0-53.0) % MCV 101.5 H (80.0-100.0) fL MCHC 30.5 L (31.0-37.0) g/dL RDW 16.4 H (11.5-15.5) % Plt Count 132 L (150-450) k/uL Lymphocytes # 0.4 L (1.0-4.8) k/uL PT (9.0-12.0) sec POC Glucose (mg/dL) 201 H 180 H (75-99) mg/dL 09/02/16 Range/Units 11:51 RBC (4.30-5.90) m/uL Hgb (13.0-17.5) gm/dL Hct (39.0-53.0) % MCV (80.0-100.0) fL MCHC (31.0-37.0) g/dL RDW (11.5-15.5) % Plt Count (150-450) k/uL Lymphocytes # (1.0-4.8) k/uL PT (9.0-12.0) sec POC Glucose (mg/dL) 184 H (75-99) mg/dL Assessment and Plan Plan: Assessment: #1. Nonoliguric acute kidney injury on chronic kidney disease. Currently hemodialysis dependent. He received a permacath yesterday and is currently undergoing hemodialysis. #2. Volume overload. Improved. #3. Systolic CHF with ejection fraction of 30-35%. Compensated. #4. Anemia of chronic kidney disease. #5. Chronic kidney disease mineral bone disease. Plan: Currently undergoing hemodialysis. Will schedule for the next treatment tomorrow. For now, patient will require outpatient hemodialysis. Maintain Aranesp. Maintain Renvela with meals. Will decrease dose of Neurontin to 300 mg once daily.
--- NOTE | 2016-09-02 14:53 | PN ---
Patient is on 76-year-old with endstage renal disease now apparently on hemodialysis, had multiple admissions for congestive heart failure. Patient has had multiple prolonged hospitalizations and patient has cardiorenal syndrome and patient went into atrial fibrillation yesterday, but cardiology not recommending an anticoagulation at this point of time because patient is already on dual antiplatelet therapy and patient is high risk for fall and patient is high risk for bleeding. REVIEW OF SYSTEMS: CARDIOVASCULAR: No chest pain, no orthopnea, no PND, no palpitations. PULMONARY: Denied any shortness of breath. No cough or hemoptysis. GASTROINTESTINAL: No diarrhea, nausea or vomiting. No abdominal pain. Normoactive bowel sounds. NEUROLOGIC: No headaches, no weakness, no numbness. Medications were reviewed. PHYSICAL EXAMINATION: Temperature 97.5, pulse of 59, respiratory rate of 19, blood pressure 114/63, saturating at 96% on 2 L of O2 by nasal cannula. LUNG EXAMINATION: Bibasilar crackles are appreciated. No wheezing was appreciated. Left arm forearm redness and swelling did improve. GENERAL: The patient is alert and oriented x3, not in any acute distress. Well developed, well nourished. HEENT: Pupils are round and equally reacting to light. EOMI. No scleral icterus. No conjunctival pallor. Normocephalic, atraumatic. No pharyngeal erythema. No thyromegaly. CARDIOVASCULAR: S1 and S2 present. No murmurs, rubs, or gallops. ABDOMEN: Soft, nontender, nondistended, normoactive bowel sounds. No palpable organomegaly. MUSCULOSKELETAL: No joint swelling or deformity. EXTREMITIES: No cyanosis, clubbing, or pedal edema. NEUROLOGICAL: Gross neurological examination did not reveal any focal deficits. SKIN: No rashes. LABORATORY DATA: CBC no significant abnormality was appreciated. ASSESSMENT AND PLAN: 1. Acute on chronic kidney disease secondary to acute tubular necrosis and cardiorenal syndrome. Patient was initially on hemodialysis during this hospitalization. 2. Supervision thrombus of the left upper arm, NSAIDs for that. 3. Congestive heart failure, chronic systolic dysfunction with acute exacerbation. Patient is undergoing hemodialysis. Patient does not make much of urine. They removed only 1 L today although patient's chest x-ray from yesterday did show significant congestion. 4. Aortic stenosis. 5. New onset atrial fibrillation, presently rate controlled at this point of time. No further anticoagulation as mentioned above. 6. Hyperphosphatemia due to renal dysfunction, metabolic bone disease. 7. Diabetic neuropathy and diabetic neuropathy. 8. Pulmonary hypertension. 9. Hypothyroidism. 10. Chronic medical debility. Patient is a complex patient. Overall prognosis is poor. Patient is definitely high risk for readmission. Will try and get him to subacute rehab tomorrow.
[2016-09-02 16:55] LABS: Glucose,Whole Blood 213 mg/dL (75-99)
[2016-09-02] MEDS: GABAPENTIN 100 MG CAP PO SCH ×2 (17:08→21:13)
[2016-09-02] MEDS: ASPIRIN 81 MG CHEW PO SCH (17:09)
[2016-09-02 21:00] LABS: Glucose,Whole Blood 172 mg/dL (75-99)
[2016-09-02] MEDS: ASCORBIC ACID 500 MG TAB PO SCH (21:13)
[2016-09-02] MEDS: traZODone HCL 50 MG TAB PO SCH (21:29)
[2016-09-02] MEDS: ATORVASTATIN 40 MG TAB PO SCH (21:29)
[2016-09-03] MEDS: LEVOTHYROXINE 125 MCG TAB PO SCH (06:37)
[2016-09-03 07:13] LABS: Glucose,Whole Blood 170 mg/dL (75-99)
[2016-09-03] MEDS: INSULIN LISPRO (humaLOG) 300 UNIT/3 ML VIAL SQ SCH ×4 (08:44→21:50)
[2016-09-03] MEDS: SEVELAMER 800 MG TAB PO SCH ×3 (08:47→17:24)
[2016-09-03] MEDS: CEPHALEXIN 250 MG CAP PO SCH ×3 (08:49→21:23)
[2016-09-03] MEDS: DOCUSATE 100 MG CAP PO SCH ×2 (08:49→21:23)
[2016-09-03] MEDS: ISOSORBIDE MONONITRATE ER 60 MG TAB.ER.24H PO SCH (08:49)
[2016-09-03] MEDS: GABAPENTIN 100 MG CAP PO SCH ×3 (08:50→21:23)
[2016-09-03] MEDS: LINAGLIPTIN 5 MG TABLET PO SCH (08:50)
[2016-09-03] MEDS: METOPROLOL TARTRATE 25 MG TAB PO SCH ×3 (08:51→21:23)
[2016-09-03] MEDS: PANTOPRAZOLE 40 MG TABLET PO SCH (08:51)
[2016-09-03 09:00] LABS: Calcium 7.7 mg/dL (8.4-10.2); Potassium 3.9 mmol/L (3.5-5.1)
[2016-09-03] MEDS: IPRATROPIUM-ALBUTEROL 3 ML NEB INHALATION SCH ×4 (09:08→19:16)
[2016-09-03] MEDS: CLOPIDOGREL 75 MG TAB PO SCH (10:37)
[2016-09-03 12:37] LABS: Glucose,Whole Blood 209 mg/dL (75-99)
--- NOTE | 2016-09-03 13:02 | DS ---
DATE OF ADMISSION: 08/20/2016 DATE OF DISCHARGE: The patient is a 76-year-old with end-stage renal disease now on hemodialysis. Patient was initiated on hemodialysis. Patient has a right side PermCath. Patient has multiple and prolonged hospitalizations. Patient does have cardiorenal syndrome. Patient is clinically doing well and fairly euvolemic. Cleared for discharge from nephrology perspective. Patient will be discharged today. The patient is on antibiotics in the form of Keflex. Because of her left forearm redness, which is secondary to superficial thrombophlebitis, I believe Keflex was started by Nephrology. I will go ahead and let him continue for 5 more days. Patient will need anti-inflammatories for superficial thrombophlebitis. Patient's lung exam except for bibasilar crackles, patient is otherwise clinically doing well. I did not appreciate any significant JVD. Patient has multiple medical problems, multiple hospitalizations in the past. Patient has definitely had a ( ) admission. All his chronic medical problems are fairly stable at this point of time and patient will be discharged to subacute rehabilitation today. Patient was seen and examined on the day of discharge. Vitals are stable. PHYSICAL EXAMINATION: GENERAL: The patient is alert and oriented x3, not in any acute distress. Well developed, well nourished. HEENT: Pupils are round and equally reacting to light. EOMI. No scleral icterus. No conjunctival pallor. Normocephalic, atraumatic. No pharyngeal erythema. No thyromegaly. CARDIOVASCULAR: S1 and S2 present. No murmurs, rubs, or gallops. LUNG EXAM: As described in the HPI. ABDOMEN: Soft, nontender, nondistended, normoactive bowel sounds. No palpable organomegaly. MUSCULOSKELETAL: No joint swelling or deformity. EXTREMITIES: No cyanosis, clubbing, or pedal edema. NEUROLOGICAL: Gross neurological examination did not reveal any focal deficits. DERMATOLOGIC: As described in the INTERVAL HISTORY. ASSESSMENT AND PLAN: 1. Acute on chronic kidney disease secondary to acute tubular necrosis, cardiorenal syndrome. 2. Superficial thrombus of the left forearm. 3. Congestive heart failure, chronic systolic dysfunction with acute exacerbation during this hospitalization. 4. Aortic stenosis. 5. Atrial fibrillation, rate controlled. Patient is not a candidate for anticoagulation. Patient has a recent cardiac catheterization and stents that were placed and Cardiology is not recommending any anticoagulation since his comorbidities, high fall risk and being already on dual antiplatelet therapy. 6. Hyperphosphatemia secondary to renal dysfunction and metabolic bone disease with phosphate binders as per Nephrology. 7. Pulmonary hypertension. 8. Hypothyroidism. 9. Chronic medical debility. Please refer to my depart summary for further details of discharge medications. Discharge diet cardiac and ADA 2000 calorie diet and renal diet. Activity as per the facility. Follow up with the physician in the facility. I spent greater than 35 minutes in total discharge process.
--- NOTE | 2016-09-03 15:02 | PN ---
Patient is seen for follow-up for chronic kidney disease and currently dialysis-dependent renal failure. He was admitted with a creatinine of 5.2 mg/dL. His previous creatinine was 1.95 on 08/17/2016. Patient was dialyzed. It appeared that his renal function improved to some degree; however, he continued to have rising creatinine and therefore dialysis was resumed. He also has underlying cardiomyopathy and had been fluid overloaded. Currently he has an IJ Perm-A-Cath and patient will be dialyzed today. He will be going to [facility] and will subsequently go to dialysis at the [facility]. On examination, blood pressure is 106/61, heart rate 86 per minute. He is afebrile. Examination of the heart S1 and S2. Examination of the lungs: Bilateral breath sounds are heard. Abdomen is soft, nontender. Examination of lower extremities shows chronic skin changes. Extremities are wrapped. There is 1+ edema noted. Labs show sodium 141, potassium 3.9, serum creatinine 3.07. Hemoglobin 8.1 g/dL. ASSESSMENT: 1. Chronic kidney disease, currently dialysis-dependent renal failure. Patient will need to continue with dialysis as outpatient. He will be maintained on a Tuesday, Tuesday, Tuesday schedule. 2. Cardiomyopathy, congestive heart failure with ejection fraction 30% to 35%. 3. Status post myocardial infarction and cardiac catheterization a few days prior to this admission. 4. 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 5. Anemia of chronic disease with no active bleeding noted, maintained on Aranesp. 6. Encephalopathy, currently improved. PLAN: Continue with dialysis as outpatient.
[2016-09-03 16:58] LABS: Glucose,Whole Blood 199 mg/dL (75-99)
[2016-09-03] MEDS: ASPIRIN 81 MG CHEW PO SCH (17:24)
[2016-09-03] MEDS: traZODone HCL 50 MG TAB PO SCH (21:23)
[2016-09-03] MEDS: ATORVASTATIN 40 MG TAB PO SCH (21:23)
[2016-09-03] MEDS: ASCORBIC ACID 500 MG TAB PO SCH (21:24)
[2016-09-03 21:54] LABS: Glucose,Whole Blood 201 mg/dL (75-99)
[2016-09-04] MEDS: LEVOTHYROXINE 125 MCG TAB PO SCH (06:12)
[2016-09-04] MEDS: SEVELAMER 800 MG TAB PO SCH ×3 (08:20→17:40)
[2016-09-04] MEDS: CLOPIDOGREL 75 MG TAB PO SCH (08:20)
[2016-09-04] MEDS: INSULIN LISPRO (humaLOG) 300 UNIT/3 ML VIAL SQ SCH ×4 (08:20→21:01)
[2016-09-04] MEDS: PANTOPRAZOLE 40 MG TABLET PO SCH (08:20)
[2016-09-04] MEDS: CEPHALEXIN 250 MG CAP PO SCH ×3 (08:20→21:01)
[2016-09-04] MEDS: GABAPENTIN 100 MG CAP PO SCH ×3 (08:21→21:01)
[2016-09-04] MEDS: DOCUSATE 100 MG CAP PO SCH ×2 (08:21→21:01)
[2016-09-04] MEDS: LINAGLIPTIN 5 MG TABLET PO SCH (08:21)
[2016-09-04] MEDS: METOPROLOL TARTRATE 25 MG TAB PO SCH ×3 (08:21→21:01)
[2016-09-04] MEDS: ISOSORBIDE MONONITRATE ER 60 MG TAB.ER.24H PO SCH (08:22)
[2016-09-04 08:46] LABS: Glucose,Whole Blood 219 mg/dL (75-99)
--- NOTE | 2016-09-04 09:37 | P.PN ---
Subjective Principal diagnosis: doing well. No cp/sob. Objective - Vital Signs Vital signs: Vital Signs Temp 97.7 F 09/04/16 07:00 Pulse 84 09/04/16 07:00 Resp 16 09/04/16 07:00 BP 105/63 09/04/16 07:00 Pulse Ox 96 09/04/16 07:00 Intake & Output 09/03/16 09/04/16 09/04/16 18:59 06:59 18:59 Intake Total 250 240 Output Total 400 200 Balance -400 50 240 Weight 98 kg Intake: Oral 250 240 Output: Urine 400 200 Uretheral ([place]) 100 Other: Voiding Method Indwelling Catheter Indwelling Catheter # Bowel Movements 1 - Constitutional General appearance: Present: no acute distress - Respiratory Respiratory: bilateral: CTA - Cardiovascular Heart sounds: normal: S1, S2 - Peripheral edema leg Peripheral Edema: bilateral: None - Gastrointestinal General gastrointestinal: Present: normal bowel sounds, soft - Labs CBC & Chem 7: 09/02/16 09:35 09/03/16 07:52 Labs: Abnormal Lab Results - Last 24 Hours (Table) 09/03/16 09/03/16 09/03/16 Range/Units 12:31 16:56 21:47 POC Glucose (mg/dL) 209 H 199 H 201 H (75-99) mg/dL 09/04/16 Range/Units 07:20 POC Glucose (mg/dL) 219 H (75-99) mg/dL Assessment and Plan Plan: Assessment/Plan #1. Nonoliguric acute kidney injury on chronic kidney disease. --Currently hemodialysis dependent. --Received HD Tue thru . --Hold HD this . --Next HD tuesday. #2. Volume overload. Improved. #3. Systolic CHF with ejection fraction of 30-35%. Compensated. #4. Anemia of chronic kidney disease. #5. Chronic kidney disease mineral bone disease.
[2016-09-04 11:32] LABS: Glucose,Whole Blood 231 mg/dL (75-99)
[2016-09-04] MEDS: IPRATROPIUM-ALBUTEROL 3 ML NEB INHALATION SCH ×3 (12:04→20:12)
[2016-09-04 16:45] LABS: Glucose,Whole Blood 214 mg/dL (75-99)
[2016-09-04] MEDS: ASPIRIN 81 MG CHEW PO SCH (17:41)
[2016-09-04] MEDS: ASCORBIC ACID 500 MG TAB PO SCH (17:41)
--- NOTE | 2016-09-04 18:40 | PN ---
Patient is a 76-year-old with endstage renal disease now apparently on hemodialysis, had multiple admissions for congestive heart failure. Patient has had multiple prolonged hospitalizations and patient has cardiorenal syndrome and patient went into atrial fibrillation yesterday, but cardiology not recommending an anticoagulation at this point of time because patient is already on dual antiplatelet therapy and patient is high risk for fall and patient is high risk for bleeding. REVIEW OF SYSTEMS: CARDIOVASCULAR: No chest pain, no orthopnea, no PND, no palpitations. PULMONARY: Denied any shortness of breath. No cough or hemoptysis. GASTROINTESTINAL: No diarrhea, nausea or vomiting. No abdominal pain. Normoactive bowel sounds. NEUROLOGIC: No headaches, no weakness, no numbness. Medications were reviewed. PHYSICAL EXAMINATION: VITAL SIGNS: Temperature 97.7, pulse of 84, respiratory rate of 16, blood pressure is 105/63, saturating at 96% on room air. LUNG EXAMINATION: Bibasilar crackles are appreciated. No wheezing was appreciated. GENERAL: The patient is alert and oriented x3, not in any acute distress. Well developed, well nourished. HEENT: Pupils are round and equally reacting to light. EOMI. No scleral icterus. No conjunctival pallor. Normocephalic, atraumatic. No pharyngeal erythema. No thyromegaly. CARDIOVASCULAR: S1 and S2 present. No murmurs, rubs, or gallops. ABDOMEN: Soft, nontender, nondistended, normoactive bowel sounds. No palpable organomegaly. MUSCULOSKELETAL: No joint swelling or deformity. EXTREMITIES: Left arm forearm redness and swelling did improve. No cyanosis, clubbing, or pedal edema. NEUROLOGICAL: Gross neurological examination did not reveal any focal deficits. SKIN: No rashes. LAB DATA: BUN of 37, creatinine of 3.07. ASSESSMENT AND PLAN: 1. Acute on chronic kidney disease secondary to acute tubular necrosis and cardiorenal syndrome. Patient was initially on hemodialysis during this hospitalization. 2. Superficial thrombus of the left upper arm, NSAIDs for that. 3. Congestive heart failure, chronic systolic dysfunction with acute exacerbation. Patient is undergoing hemodialysis. Patient does not make much of urine. They removed only 1 L today although patient's chest x-ray from yesterday did show significant congestion. 4. Aortic stenosis. 5. New onset atrial fibrillation, presently rate controlled at this point of time. No further anticoagulation as mentioned above. 6. Hyperphosphatemia due to renal dysfunction, metabolic bone disease. 7. Diabetic nephropathy and diabetic neuropathy. 8. Pulmonary hypertension. 9. Hypothyroidism. 10. Chronic medical debility. Patient is a complex patient. Overall prognosis is poor. Patient is definitely high risk for readmission. Will try and get him to subacute rehab tomorrow. We were unable to place him in subacute rehabilitation today. Possibility of discharge subacute rehabilitation on Tuesday.
[2016-09-04] MEDS: traZODone HCL 50 MG TAB PO SCH (21:01)
[2016-09-04] MEDS: ATORVASTATIN 40 MG TAB PO SCH (21:01)
[2016-09-04 21:41] LABS: Glucose,Whole Blood 177 mg/dL (75-99)
[2016-09-05] MEDS: LEVOTHYROXINE 125 MCG TAB PO SCH (06:17)
[2016-09-05] MEDS: IPRATROPIUM-ALBUTEROL 3 ML NEB INHALATION SCH ×3 (07:12→20:09)
[2016-09-05 07:26] LABS: Glucose,Whole Blood 190 mg/dL (75-99)
[2016-09-05] MEDS: INSULIN LISPRO (humaLOG) 300 UNIT/3 ML VIAL SQ SCH ×4 (08:03→22:46)
[2016-09-05] MEDS: LINAGLIPTIN 5 MG TABLET PO SCH (08:04)
[2016-09-05] MEDS: PANTOPRAZOLE 40 MG TABLET PO SCH (08:04)
[2016-09-05] MEDS: DOCUSATE 100 MG CAP PO SCH ×2 (08:04→20:45)
[2016-09-05] MEDS: CLOPIDOGREL 75 MG TAB PO SCH (08:04)
[2016-09-05] MEDS: CEPHALEXIN 250 MG CAP PO SCH ×3 (08:05→20:44)
[2016-09-05] MEDS: GABAPENTIN 100 MG CAP PO SCH ×3 (08:05→20:46)
[2016-09-05] MEDS: SEVELAMER 800 MG TAB PO SCH ×3 (08:05→17:43)
[2016-09-05] MEDS: METOPROLOL TARTRATE 25 MG TAB PO SCH ×3 (08:06→20:43)
[2016-09-05] MEDS: ISOSORBIDE MONONITRATE ER 60 MG TAB.ER.24H PO SCH (08:06)
--- NOTE | 2016-09-05 10:59 | P.PN ---
Subjective Principal diagnosis: doing well. No cp/sob. HD dependent [facility]. Objective - Vital Signs Vital signs: Vital Signs Temp 97.4 F L 09/05/16 07:00 Pulse 88 09/05/16 07:22 Resp 16 09/05/16 07:00 BP 120/75 09/05/16 07:00 Pulse Ox 95 09/05/16 07:00 Intake & Output 09/04/16 09/05/16 09/05/16 18:59 06:59 18:59 Intake Total 360 300 240 Output Total 100 200 Balance 260 100 240 Weight 99.5 kg Intake: Oral 360 300 240 Output: Urine 100 200 Uretheral ([place]) 100 Other: Voiding Method Indwelling Catheter Indwelling Catheter # Bowel Movements 1 - Constitutional General appearance: Present: cooperative, no acute distress - Respiratory Respiratory: bilateral: CTA - Cardiovascular Rhythm: regular Heart sounds: normal: S1, S2 - Peripheral edema leg Peripheral Edema: bilateral: Trace - Gastrointestinal General gastrointestinal: Present: normal bowel sounds, soft - Labs CBC & Chem 7: 09/02/16 09:35 09/03/16 07:52 Labs: Abnormal Lab Results - Last 24 Hours (Table) 09/04/16 09/04/16 09/04/16 Range/Units 11:16 16:25 20:59 POC Glucose (mg/dL) 231 H 214 H 177 H (75-99) mg/dL 09/05/16 Range/Units 07:01 POC Glucose (mg/dL) 190 H (75-99) mg/dL Assessment and Plan Plan: Assessment/Plan #1. Nonoliguric acute kidney injury on chronic kidney disease. --Currently hemodialysis dependent. --Received HD Tue thru . --Hold HD this . --Next HD tomorrow. #2. Volume overload. Improved. #3. Systolic CHF with ejection fraction of 30-35%. Compensated. #4. Anemia of chronic kidney disease. #5. Chronic kidney disease mineral bone disease.
[2016-09-05 11:44] LABS: Calcium 7.7 mg/dL (8.4-10.2); Potassium 4.6 mmol/L (3.5-5.1)
[2016-09-05 11:53] LABS: Glucose,Whole Blood 213 mg/dL (75-99)
[2016-09-05] MEDS: ASPIRIN 81 MG CHEW PO SCH (16:23)
[2016-09-05 17:31] LABS: Glucose,Whole Blood 162 mg/dL (75-99)
[2016-09-05] MEDS: ASCORBIC ACID 500 MG TAB PO SCH (17:49)
--- NOTE | 2016-09-05 18:19 | PN ---
Patient is a 76-year-old with end stage renal disease now apparently on hemodialysis, had multiple admissions for congestive heart failure. Patient has had multiple prolonged hospitalizations and patient has cardiorenal syndrome and patient went into atrial fibrillation yesterday, but cardiology not recommending an anticoagulation at this point of time because patient is already on dual antiplatelet therapy and patient is high risk for fall and patient is high risk for bleeding. REVIEW OF SYSTEMS: CARDIOVASCULAR: No chest pain, no orthopnea, no PND, no palpitations. PULMONARY: Denied any shortness of breath. No cough or hemoptysis. GASTROINTESTINAL: No diarrhea, nausea or vomiting. No abdominal pain. Normoactive bowel sounds. NEUROLOGIC: No headaches, no weakness, no numbness. Medications were reviewed. PHYSICAL EXAMINATION: VITAL SIGNS: Temperature 97.4, pulse of 88, respiratory rate of 16, blood pressure is 120/75. Saturating at 95% on 2 L O2 by nasal cannula. LUNG EXAMINATION: Bibasilar crackles are appreciated. No wheezing was appreciated. GENERAL: The patient is alert and oriented x3, not in any acute distress. Well developed, well nourished. HEENT: Pupils are round and equally reacting to light. EOMI. No scleral icterus. No conjunctival pallor. Normocephalic, atraumatic. No pharyngeal erythema. No thyromegaly. CARDIOVASCULAR: S1 and S2 present. No murmurs, rubs, or gallops. ABDOMEN: Soft, nontender, nondistended, normoactive bowel sounds. No palpable organomegaly. MUSCULOSKELETAL: No joint swelling or deformity. EXTREMITIES: Left arm forearm redness and swelling did improve. No cyanosis, clubbing, or pedal edema. NEUROLOGICAL: Gross neurological examination did not reveal any focal deficits. SKIN: No rashes. LABORATORY DATA: BUN of 58, creatinine 4.48. ASSESSMENT AND PLAN: 1. Acute on chronic kidney disease secondary to acute tubular necrosis and cardiorenal syndrome. Patient was initially on hemodialysis during this hospitalization. 2. Superficial thrombus of the left upper arm, NSAIDs for that. 3. Congestive heart failure, chronic systolic dysfunction with acute exacerbation. Patient is undergoing hemodialysis. Patient does not make much of urine. They removed only 1 L today although patient's chest x-ray from yesterday did show significant congestion. 4. Aortic stenosis. 5. New onset atrial fibrillation, presently rate controlled at this point of time. No further anticoagulation as mentioned above. 6. Hyperphosphatemia due to renal dysfunction, metabolic bone disease. 7. Diabetic nephropathy and diabetic neuropathy. 8. Pulmonary hypertension. 9. Hypothyroidism. 10. Chronic medical debility. Patient is a complex patient. Overall prognosis is poor. Patient is definitely high risk for readmission. Will try and get him to subacute rehab tomorrow. We were unable to place him in subacute rehabilitation today. Possibility of discharge subacute rehabilitation on Tuesday.
[2016-09-05] MEDS: ATORVASTATIN 40 MG TAB PO SCH (20:43)
[2016-09-05] MEDS: traZODone HCL 50 MG TAB PO SCH (20:43)
[2016-09-05 21:11] LABS: Glucose,Whole Blood 168 mg/dL (75-99)
[2016-09-06] MEDS: LEVOTHYROXINE 125 MCG TAB PO SCH (06:43)
[2016-09-06 07:42] LABS: Glucose,Whole Blood 185 mg/dL (75-99)
[2016-09-06 07:51] VITALS: RESP 16
[2016-09-06] MEDS: INSULIN LISPRO (humaLOG) 300 UNIT/3 ML VIAL SQ SCH ×2 (08:10→12:36)
[2016-09-06] MEDS: IPRATROPIUM-ALBUTEROL 3 ML NEB INHALATION SCH ×2 (08:10→13:46)
[2016-09-06] MEDS: ISOSORBIDE MONONITRATE ER 60 MG TAB.ER.24H PO SCH (08:11)
[2016-09-06] MEDS: CLOPIDOGREL 75 MG TAB PO SCH (08:11)
[2016-09-06] MEDS: SEVELAMER 800 MG TAB PO SCH ×2 (08:11→12:36)
[2016-09-06] MEDS: CEPHALEXIN 250 MG CAP PO SCH ×2 (08:12→16:14)
[2016-09-06] MEDS: DOCUSATE 100 MG CAP PO SCH (08:12)
[2016-09-06] MEDS: GABAPENTIN 100 MG CAP PO SCH ×2 (08:13→16:15)
[2016-09-06] MEDS: METOPROLOL TARTRATE 25 MG TAB PO SCH ×2 (08:13→16:16)
[2016-09-06] MEDS: LINAGLIPTIN 5 MG TABLET PO SCH (08:13)
[2016-09-06] MEDS: PANTOPRAZOLE 40 MG TABLET PO SCH (08:14)
[2016-09-06 09:43] LABS: Calcium 7.9 mg/dL (8.4-10.2)
--- NOTE | 2016-09-06 12:29 | DS ---
DATE OF ADMISSION: 08/20/2016 DATE OF DISCHARGE: A 76-year-old gentleman, patient was initiated on hemodialysis. Patient has congestive heart failure, cardiorenal syndrome, multiple hospitalization for CHF. Patient's potassium is elevated today. I will have to check with the Lab if it is hemolyzed or not. If not, patient will undergo hemodialysis today that should correct his potassium and patient also has multiple other medical problems and patient has atrial fibrillation, fairly rate-controlled at this point of time and started going up a little bit now, but patient is not a candidate for any additional anticoagulation as patient is already on dual antiplatelet therapy for his recent cardiac catheterization. Patient is high risk for bleed, because of which Cardiology is not recommending any additional anticoagulation at this point of time. Patient will be discharged today to subacute rehabilitation. Patient was seen and examined on the day of discharge. Vitals are stable. ASSESSMENT AND PLAN: 1. Acute renal failure secondary to congestive heart failure exacerbation, which improved. Patient has cardiorenal syndrome. Patient is hemodialysis-dependent now permanently secondary to cardiorenal syndrome. 2. Superficial thrombus of the left arm, improved within NSAIDs. 3. Congestive heart failure, chronic systolic dysfunction with acute exacerbation. Patient is fairly euvolemic at this point of time. 4. Aortic stenosis. 5. New onset atrial fibrillation, fairly rate -controlled at this point of time. 6. Hyperphosphatemia. 7. Diabetic neuropathy. 8. Pulmonary hypertension. 9. Hypothyroidism. 10. Chronic medical debility. Patient will discharged to subacute rehab today. Please refer to my depart summary for further details of discharge medications. Patient will follow up with subacute rehab. Activity as tolerated. Patient will follow with Dr. Moustapha Singh once he is discharged from the rehab. Cardiac diabetic diet. Discharge instructions will be provided and patient will be discharged on a renal diet as well. Spent greater than 35 minutes on total discharge process.
[2016-09-06 12:34] LABS: Glucose,Whole Blood 256 mg/dL (75-99)
[2016-09-06] MEDS ORDERED: HEPARIN SODIUM,PORCINE 5,000 UNIT/ML 1 ML VIAL ONE (16:00)
[2016-09-06] MEDS: ASPIRIN 81 MG CHEW PO SCH (16:17)
[2016-09-06 16:57] VITALS: BP 113/60; PULSE 113; TEMP 97.2
== END 2016-09-06 17:00 | DRG 682 ==
LOC: EC 15:33 → 6ICU 18:56 → 4MS4W 08-21 14:30
PROVIDERS: ADMIT Hospitalist; ATTEND Hospitalist
PROC: 06HM33Z Insertion of Infusion Device into Right Femoral Vein, Percutaneous Approach (ICD-10-PCS; 2016-08-21)
PROC: 5A1D60Z (ICD-10-PCS; 2016-08-30)
PROC: B543ZZA Ultrasonography of Right Jugular Veins, Guidance (ICD-10-PCS; principal; 2016-09-01 08:50)
PROC: 05HM33Z Insertion of Infusion Device into Right Internal Jugular Vein, Percutaneous Approach (ICD-10-PCS; principal; 2016-09-01 08:50)
DX: N17.0 Acute kidney failure with tubular necrosis (principal); I50.23 Acute on chronic systolic (congestive) heart failure; G93.40 Encephalopathy, unspecified; I47.2 Ventricular tachycardia; E11.52 Type 2 diabetes mellitus with diabetic peripheral angiopathy with gangrene; E88.89 Other specified metabolic disorders; I25.82 Chronic total occlusion of coronary artery; E11.21 Type 2 diabetes mellitus with diabetic nephropathy; G40.909 Epilepsy, unspecified, not intractable, without status epilepticus; I48.0 Paroxysmal atrial fibrillation; I13.2 Hypertensive heart and chronic kidney disease with heart failure and with stage 5 chronic kidney disease, or end stage renal disease; I69.354 Hemiplegia and hemiparesis following cerebral infarction affecting left non-dominant side; L03.114 Cellulitis of left upper limb; N39.0 Urinary tract infection, site not specified; E11.42 Type 2 diabetes mellitus with diabetic polyneuropathy; D63.1 Anemia in chronic kidney disease; E11.22 Type 2 diabetes mellitus with diabetic chronic kidney disease; N18.6 End stage renal disease; Z99.2 Dependence on renal dialysis; D50.9 Iron deficiency anemia, unspecified; E03.9 Hypothyroidism, unspecified; E78.5 Hyperlipidemia, unspecified; E83.39 Other disorders of phosphorus metabolism; E87.5 Hyperkalemia; H91.90 Unspecified hearing loss, unspecified ear; I25.10 Atherosclerotic heart disease of native coronary artery without angina pectoris; I25.2 Old myocardial infarction; I25.5 Ischemic cardiomyopathy; I27.2 Other secondary pulmonary hypertension; I35.0 Nonrheumatic aortic (valve) stenosis; I48.2 Chronic atrial fibrillation; I49.3 Ventricular premature depolarization; I73.9 Peripheral vascular disease, unspecified; I80.9 Phlebitis and thrombophlebitis of unspecified site; I87.2 Venous insufficiency (chronic) (peripheral); K59.00 Constipation, unspecified; N40.0 Benign prostatic hyperplasia without lower urinary tract symptoms; T36.8X5A Adverse effect of other systemic antibiotics, initial encounter; Z79.02 Long term (current) use of antithrombotics/antiplatelets; Z79.82 Long term (current) use of aspirin; Z82.49 Family history of ischemic heart disease and other diseases of the circulatory system; Z87.891 Personal history of nicotine dependence; Z95.5 Presence of coronary angioplasty implant and graft; Z79.899 Other long term (current) drug therapy
CPT/HCPCS: 36415; 36558; 71010; 71020; 74230; 76937; 77001; 80048; 80053; 80074; 81001; 82550; 82553; 82728; 83036; 83540; 83550; 83605; 83735; 83880; 84100; 84132; 84484; 85025; 85027; 85610; 85730; 86038; 86160; 86225; 86255; 87086; 90935; 93005; 94640; 94760; 96361; 96374; 96375; 99291